=== PATIENT | female | born 1990 | race Caucasian/White ===

== ENCOUNTER 2020-06-11 09:33 | Outpatient (REF) | payer OTHER, SELFPAY ==
--- NOTE | 2020-06-11 09:43 | US_ITS ---
EXAMINATION: OBSTETRICAL ULTRASOUND, FIRST TRIMESTER HISTORY: 29-year-old at the 12.1 weeks of gestation NT screening COMPARISON: 05/14/2020 TECHNIQUE: Real time transabdominal imaging with color and M-mode Doppler. FINDINGS: A single, live IUP CRL of 53.2 mm c/w 12.0wks is noted. Heart Rate: 158 beats per minute. Normal yolk sac seen. NT was 1.12.mm. NB Present The embryo appears sonographically wnl for this GA. Left ovary is within normal limits. The right was not visualized. GESTATIONAL AGE: 1. Established GA: 12.1 wks 2. GA from [facility]: 12.0 wks ESTIMATED DATE OF DELIVERY: 1. Established OTTO: 12/23/2020 2. OTTO from [facility]: 12/24/2020 US/US OB 1T nuc measure IMPRESSION: 1. A single live IUP 2. Size equals dates 3. NT of 1.12 mm MFM Consultation: I reviewed the ultrasound findings along with significance of NT measurement. The NT of less than 3mm is generally reassuring. However, the sensitivity for T21 detection is only 60%. I reviewed the availability of serum aneuploidy screening which includes cell-free DNA and placental protein based tests. I discussed the sensitivity, false-positive rate, and other limitations associated with each test. I also reviewed the availability of invasive diagnostic tests that are associated small but definite risk of miscarriage. We also reviewed the differences between screening tests and diagnostic tests. After our discussion, she opted for the First trimester screening that is based on cell-free DNA or non-invasive testing (NIPT). She delivered her first child at 36 weeks, followed by a 39 week delivery without progesterone. Would not recommend progesterone for this . However, monitoring her cervical length at the time of the survey and at 24 weeks of GA is suggested. A follow up at [email or web address] weeks for survey is recommended. Thank you very much for this referral. Majority of this visit was spent reviewing her care and counselling her in face to face time: Time spent 20 min.
== END 2020-06-11 09:34 | disposition home or self-care (01) ==
LOC: HO.US 09:33
PROVIDERS: Visit Provider Advanced Practice Midwife
DX: Z32.01 Encounter for pregnancy test, result positive (principal)
CPT/HCPCS: 76813

== ENCOUNTER 2020-06-16 10:53 | Outpatient (REF) | payer OTHER, SELFPAY ==
[2020-06-16 16:29] LABS: CT PCR NOT DETECTED (Not Detect.); NG PCR NOT DETECTED (Not Detect.)
== END 2020-06-16 10:54 | disposition home or self-care (01) ==
LOC: HO.LAB 10:53
PROVIDERS: PCP Internal Medicine; Visit Provider Advanced Practice Midwife
DX: O20.9 Hemorrhage in early pregnancy, unspecified (principal); N88.8 Other specified noninflammatory disorders of cervix uteri
CPT/HCPCS: 87491; 87591; 88142

== ENCOUNTER 2020-07-07 10:21 | Outpatient (REF) | payer OTHER, SELFPAY ==
[2020-07-08 10:59] LABS: BV Int Neg Control Negative (Negative); BV Int Pos Control Positive (Positive)
== END 2020-07-07 10:22 | disposition home or self-care (01) ==
LOC: HO.LAB 10:21
PROVIDERS: PCP Internal Medicine; Visit Provider Advanced Practice Midwife
DX: N89.8 Other specified noninflammatory disorders of vagina (principal); R30.0 Dysuria; N88.9 Noninflammatory disorder of cervix uteri, unspecified; Z34.80 Encounter for supervision of other normal pregnancy, unspecified trimester; Z34.02 Encounter for supervision of normal first pregnancy, second trimester
CPT/HCPCS: 87086; 87480; 87510; 87660; 99212

== ENCOUNTER 2020-07-14 23:51 | Emergency (ER) | payer OTHER, SELFPAY ==
[2020-07-15 00:14] VITALS: BP 141/87; PULSE 117; RESP 18; TEMP 36.6; O2SAT 100; BMI 26.2
--- NOTE | 2020-07-15 00:24 | ED.PREGNANCY ---
HPI - General Chief complaint: OB Stated complaint: Abd pain/Pressure 16 weeks Time Seen by Provider: 07/15/20 00:21 Source: patient Mode of arrival: ambulatory History of Present Illness HPI Narrative: 29-year-old female , at 17 weeks with a history of Rh negative presents with mid lower abdomen cramping for 2 - 3 days. Denies dysuria and denies hematuria. Denies nausea or vomiting. Denies dizziness. Patient states was treated with a yeast infection by her OBGYN about a week ago. Patient denies lower back pain. Patient states did not call her OBGYN. Denies vaginal bleeding Location: abdomen Severity scale (1-10): 5 Quality: Cramping Relieving factors: none Related Data Home Medications Medication Instructions Recorded Confirmed certolizumab pegol 200 mg SUBCUT Q2W 06/16/20 vitamin with calcium 1 tab PO DAILY 06/16/20 no.72-iron 27 mg-folic acid 1 mg tablet Previous Rx's Medication Instructions Recorded aspirin 81 mg tablet,delayed 162 mg PO DAILY 30 Days #60 tab 06/16/20 release miconazole nitrate 2 % vaginal 1 appful VAGINAL BEDTIME 7 Days 07/07/20 cream #45 g nystatin 100,000 unit/gram topical 1 applic TOPICAL BID #30 g 07/07/20 ointment metronidazole 500 mg tablet 500 mg PO BID 7 Days #14 tab 07/09/20 nitrofurantoin monohyd/m-cryst 100 mg PO Q12H 5 Days #10 cap 07/15/20 [Macrobid] Allergies Allergy/AdvReac Type Severity Reaction Status Date / Time acetaminophen [From TYLENOL] Allergy Unknown RASH, Verified 07/07/20 10:38 THROAT SWELLING morphine [MORPHINE] Allergy Unknown RASH, Verified 07/07/20 10:38 THROAT SWELLING , swelling oseltamivir Allergy Unknown diarrhea Verified 07/07/20 10:38 Sulfa (Sulfonamide Allergy Unknown anaphylaxis Verified 07/07/20 10:38 Antibiotics) Review of Systems Review of Systems: Constitutional : No Weight loss, No Fever, No Chills, No Night Sweats, No Fatigue, No Malaise ENT/Mouth : No Hearing loss, No Ear Pain, No Nasal Congestion, No Sinus Pain, No Hoarseness, No sore throat, No Rhinorrhea, No Swallowing Difficulty Eyes: No Eye Pain, No Swelling, No Redness, No Foreign Body, No Discharge, No Vision Changes Cardiovascular : No Chest Pain, No SOB, No Dyspnea on Exertion, No Orthopnea, No Edema, No Palpitations Respiratory : No Cough, No Sputum, No Wheezing, No Smoke Exposure, No Dyspnea Gastrointestinal : No Nausea, No Vomiting, No Diarrhea, No Constipation, No abdominal Pain, No Hematochezia, No Melena Genitourinary : no irregular bleeding, No Dysuria, No Urinary Frequency, No Hematuria, No Urinary Incontinence, No Urgency, No Flank Pain, No Urinary Flow Changes, No Hesitancy Musculoskeletal : No joint pain, No Myalgias, No Joint Swelling Skin : No Skin Lesions, No rash Neuro : No Weakness, No Numbness, No Paresthesias, No Loss of Consciousness, No Dizziness, No Headache Psych : No Anxiety/Panic, No Depression, No SI/HI/AH/VH, No Social Issues, Heme/Lymph: No Bruising, No Bleeding,No Lymphadenopathy Endocrine : No Polyuria, No Polydipsia, No Temperature Intolerance PENDING SALE TO [facility] Past Medical History Medical History Hypovitaminosis Migraine Rheumatoid arthritis Sinus tachycardia Surgical History No history of previous surgery Family History Family History Maternal Aunt History of breast cancer in female Father Family hx of hypertension Hx of thyroid disease Maternal Grandfather Family hx of hypertension History of heart disease Maternal Grandmother Family hx of hypertension Brother History of asthma Social History Social History Alcohol intake: never Smoking Status: Never smoker Advance Directives: No Advance Directives Information Provided: No Gender identity: female Physical Exam Vital Signs: Vital Signs: Last Vital Signs Temp 97.8 F 07/15/20 00:14 Pulse 117 H 07/15/20 00:14 Resp 18 07/15/20 00:14 BP 141/87 H 07/15/20 00:14 Pulse Ox 100 07/15/20 00:14 Body Mass Index 26.2 Vital signs reviewed Appearance: Alert. Oriented X3. No acute distress. Eyes: Pupils equal, round and reactive to light. ENT: Pharynx normal. Neck: Normal inspection. Neck supple. No lymph nodes noted. No crepitus CVS: Normal heart rate and rhythm. Pulses normal. Normal S1 and S2 Respiratory: No respiratory distress. Breath sounds normal. No Wheezing. No rales Abdomen: Soft and nontender. No rigidity. No distention. good BS x4 Skin: Skin warm and dry. Normal skin color. Normal skin turgor. Extremities: No lower extremity edema. Neurovascular intact to all extremities. No Lacerations. No Rash Neuro: Oriented X 3. No motor deficit. No sensory deficit. Moving all extermities. No slurred speech. Course Course Course Narrative: I performed bedside ultrasound with heart tones 140s, positive activity and movement MDM - OB/Uterine Contractions MDM Narrative Medical decision making narrative: 29-year-old female at 17 weeks . Mild UTI. Cramping with ultrasound bedside heart tone approximately 140s with movement. Laboratory were negative. No bloody urine will hold off on given RhoGAM. Patient were to follow-up with OBGYN in the morning and hydrated Lab Data Attestation: I reviewed the patient's lab results. Result diagrams: 07/15/20 00:21 07/15/20 00:30 Labs: Lab Results 07/15/20 07/15/20 07/15/20 Range/Units 00:21 00:25 00:30 WBC 10.0 (4.8-10.8) X10*3/uL RBC 3.82 L (4.20-5.50) X10*6/uL Hgb 11.3 L (12.0-16.0) g/dl Hct 33.9 L (37-47) % MCV 88.7 (80-98) fL MCH 29.6 (27.0-33.0) pg MCHC 33.3 (31.0-35.0) g/dl RDW 12.2 (11.0-16.0) % Plt Count 267 (160-400) X10*3/uL MPV 10.2 (9.4-12.3) fL Immature Gran % (Auto) 0.4 (0.0-0.4) % Neut % (Auto) 73.1 H (45-73) % Lymph % (Auto) 15.4 L (20-40) % [place] % (Auto) 7.1 (2-11) % Eos % (Auto) 3.5 (0-4) % Baso % (Auto) 0.5 (0-2) % Lymph # (Auto) 1.5 (1.2-4.9) X10*3/uL [place] # (Auto) 0.7 (0.1-1.2) X10*3/uL Eos # (Auto) 0.4 (0.0-0.4) X10*3/uL Baso # (Auto) 0.1 (0.0-0.2) X10*3/uL Abs Immat Gran (auto) 0.04 H (0.00-0.03) X10*3/uL Absolute Neuts (auto) 7.3 (2.0-8.3) X10*3/uL Absolute Nucleated RBC 0.000 (0.0-0.012) X10*3/uL Nucleated RBC % (auto) 0.0 (0.0-0.2) /100WBC Sodium 135 (135-145) mmol/L Potassium 3.9 (3.3-5.1) mmol/l Chloride 103 (96-108) mmol/L Carbon Dioxide 24 (22-29) mmol/L Anion Gap 12 (12-20) BUN 7 L (9-16) mg/dL Creatinine 0.61 (0.5-1.4) mg/dL Estim Creat Clear Calc 116.8 Estimated GFR > 60 Random Glucose 92 (60-115) mg/dL Calcium 8.6 (8.4-10.2) mg/dL Total Bilirubin < 0.2 (0.0-1.0) mg/dL Direct Bilirubin < 0.2 (0.0-0.5) mg/dL AST 18 (5-31) U/L ALT 14 (0-31) U/L Alkaline Phosphatase 60 (39-117) U/L Total Protein 6.9 (6.5-8.0) g/dL Albumin 4.0 (3.5-5.0) g/dL Urine Color YELLOW Urine Appearance HAZY Urine pH 7.5 (5.0-8.0) Ur Specific [place] 1.020 (1.005-1.025) Urine Protein NEG (NEG-TRACE) MG/DL Urine Glucose (UA) NEG (NEG) MG/DL Urine Ketones 5 (NEG) MG/DL Urine Blood NEG (NEG) Urine Nitrite NEG (NEG) Ur Leukocyte Esterase 1+ H (NEG) Urine RBC 0 (0) /HPF Urine WBC 0-2 (0-4) /HPF Ur Squamous Epith Cells 1+ /LPF Amorphous Sediment 2+ /LPF Urine Bacteria NONE /LPF Urine Mucus 1+ /LPF Discharge Plan Discharge Clinical Impression: Urinary tract infection during Qualifiers: Trimester: second trimester Qualified Code(s): O23.42 - Unspecified infection of urinary tract in , second trimester Patient Disposition: Home, Self-Care Instructions: Urinary Tract Infection in (ED) Additional Instructions: Thank you for visiting the emergency department today. If your symptoms worsen or do not resolve completely please return to the emergency department immediately or call 911. If you have any questions please call your primary care physician Prescriptions: New nitrofurantoin monohyd/m-cryst [Macrobid] 100 mg capsule 100 mg PO Q12H 5 Days Qty: 10 RF: 0 No Action metronidazole [Flagyl] 500 mg tablet 500 mg PO BID 7 Days Qty: 14 RF: 0 aspirin [Adult Low Dose Aspirin] 81 mg tablet,delayed release (DR/EC) 162 mg PO DAILY 30 Days Qty: 60 RF: 7 nystatin 100,000 unit/gram ointment 1 applic topical BID Qty: 30 RF: 0 miconazole nitrate [Monistat 7] 2 % cream 1 appful vaginal BEDTIME 7 Days Qty: 45 RF: 0 Referrals: Luci Unger MD [Primary Care Provider] - 2 days Interventions: ED Discharge Assessment Last Done: 07/15/20 03:01 Discharge Date/Time: 07/15/20 03:10 Print Language: Samoan
[2020-07-15 00:45] LABS: Basophils Absolute Auto 0.1 X10*3/uL (0.0-0.2); Basophils Percent Auto 0.5 % (0-2); Eosinophils Absolute Auto 0.4 X10*3/uL (0.0-0.4); Eosinophils Percent Auto 3.5 % (0-4); Hematocrit 33.9 % (37-47); Hemoglobin 11.3 g/dl (12.0-16.0); Imm Gran Abs Auto 0.04 X10*3/uL (0.00-0.03); Imm Gran Pct Auto 0.4 % (0.0-0.4); Lymphocytes Absolute Auto 1.5 X10*3/uL (1.2-4.9); Lymphocytes Percent Auto 15.4 % (20-40); MANUAL DIFF FLAG NO; Mean Corpuscular HGB Conc 33.3 g/dl (31.0-35.0); Mean Corpuscular Hemoglobin 29.6 pg (27.0-33.0); Mean Corpuscular Volume 88.7 fL (80-98); Mean Platelet Volume 10.2 fL (9.4-12.3); Monocytes Absolute Auto 0.7 X10*3/uL (0.1-1.2); Monocytes Percent Auto 7.1 % (2-11); Neutrophils Absolute Auto 7.3 X10*3/uL (2.0-8.3); Neutrophils Percent Auto 73.1 % (45-73); Platelet Count 267 X10*3/uL (160-400); Red Blood Count 3.82 X10*6/uL (4.20-5.50); Red Cell Distribution Width 12.2 % (11.0-16.0)
[2020-07-15] MEDS: 0.9 % Sodium Chloride 1,000 ML 999 ML IVCONT (00:45)
[2020-07-15 00:47] LABS: Appearance Urine HAZY; Color Urine YELLOW; Glucose Urine UA NEG (NEG); Leukocyte Esterase Urine 1+ (NEG); Nitrite Urine NEG (NEG); PH 7.5 (5.0-8.0); Urine Blood NEG (NEG); Urine Ketones 5 MG/DL (NEG); Urine Protein NEG (NEG-TRACE)
[2020-07-15 01:04] LABS: Amorphous Sediment Urine 2+ /LPF; Mucus Urine 1+ /LPF; RBC Urine 0 /HPF (0); Squamous Epithelial Cell Urine 1+ /LPF; WBC Urine 0-2 /HPF (0-4)
[2020-07-15 01:50] LABS: Alanine Aminotransferase 14 U/L (0-31); Alkaline Phosphatase 60 U/L (39-117); Anion Gap 12 (12-20); Aspartate Amino Transferase 18 U/L (5-31); Bilirubin Direct < 0.2 mg/dL (0.0-0.5); Bilirubin Total < 0.2 mg/dL (0.0-1.0); Blood Urea Nitrogen 7 mg/dL (9-16); Calcium 8.6 mg/dL (8.4-10.2); Carbon Dioxide 24 mmol/L (22-29); Chloride 103 mmol/L (96-108); Creatinine Clr Calc Pharmacy 116.8; Estimated Glomerular Filt Rate > 60; Glucose Random 92 mg/dL (60-115); Potassium 3.9 mmol/l (3.3-5.1); Sodium 135 mmol/L (135-145); Total Protein 6.9 g/dL (6.5-8.0)
[2020-07-15] MEDS: Nitrofurantoin Monohyd/M-Cryst 100 MG CAPSULE PO (03:07)
== END 2020-07-15 03:10 | disposition home or self-care (01) ==
PROVIDERS: Emergency Provider Emergency Medicine; PCP Internal Medicine
DX: O26.92 Pregnancy related conditions, unspecified, second trimester (principal); O23.42 Unspecified infection of urinary tract in pregnancy, second trimester; Z3A.16 16 weeks gestation of pregnancy
CPT/HCPCS: 36415; 80048; 80076; 81001; 85025; 87086; 87147; 96360; 99283; 99284

== ENCOUNTER 2020-07-30 13:11 | Outpatient (REF) | payer OTHER, SELFPAY ==
--- NOTE | 2020-07-30 | US_ITS ---
EXAMINATION: US OBSTETRICAL CLINICAL INFORMATION: 29-year-old at 19.1 weeks of gestation History of delivery Suspected anomaly COMPARISON: 06/11/2020 TECHNIQUE: Real-time transabdominal ultrasound was performed using C1-5 megahertz transducer. Transvaginal ultrasound was performed using an endovaginal probe. FINDINGS: A single, active, fetus is seen in transverse presentation. The placenta is anterior without previa, and the amniotic fluid volume is wnl. MEASUREMENTS: 1. Biparietal Diameter: 4.3 cm; 19.1 wks 2. Occipital Frontal Diameter: 5.5 cm 3. Head Circumference: 16.0 cm; 19.0 wks 4. Abdominal Circumference: 14.7 cm; 20.1 wks 5. Femur Length: 2.9 cm; 19.0 wks 6. Humerus Length: 2.96 cm; 19.5 wks 7. Tibia Length: 2.4 cm; 18.5 wks 8. Ulna Length: 2.56 cm; 18.2 wks 9. Lateral ventricle: 0.69 cm 10. Cerebellum: 1.97 cm; 20.1 wks 11. Cisterna Magna: 0.52 cm 12. Nuchal Fold: 3.93 mm 13. Heart Rate: 146 beats per minute Rt ovary: normal Lt ovary: normal Cervical length 4.3 cm on T/V. There is no funneling or beaking. GESTATIONAL AGE: 1. Established GA: 19.1 wks 2. GA from [facility]: 19.3 wks ESTIMATED DATE OF DELIVERY: 1. Established OTTO: 12/23/2020 2. OTTO from [facility]: 12/21/2020 ANATOMY: The visualized anatomy includes but not limited to: 1. Cranium: Normal 2. Intracranial anatomy: cavum septum pellucidi, lateral ventricles, choroid plexus, cerebellum, posterior fossa, third and fourth ventricles. 3. face: orbits, lip/palate, profile, nasal bone 4. Heart: four-chamber view of the heart, ventricular septum, foramen ovale, pulmonary vein, left and right outflow tracts, three-vessel view, 3 vessel trachea view, aortic and ductal arches, situs.. 5. Diaphragm: Normal 6. Abdominal wall: Normal 7. Cord Insertion: Normal 8. Spine: Cervical, thoracic, lumbar, sacral. 9. Stomach: Normal size and shape 10. Right Kidney: Normal 11. Left Kidney: Normal 12. 3 vessel cord: Normal 13. Upper extremity: Open hands, fifth digit. 14. Lower extremity: Tibia, fibula, bilateral feet. 15. Bladder: Normal 16. Genitalia: Male, patient aware US/US OB transvaginal IMPRESSION: 1. Single, living, intrauterine with appropriate biometry. 2. Normal survey 3. Normal cervical length without funneling DISCUSSION: I reviewed today's ultrasound findings. We discussed the limitations of ultrasound in diagnosing aneuploidy and other congenital abnormalities. I reviewed the differences between screening test and diagnostic test. Amniocentesis was discussed and declined. We discussed the inverse relationship between the risk of delivery and cervical length. Given her history, I recommend monthly cervical length evaluation until approximately 28 weeks. If the cervical length shortness prematurely, vaginal progesterone suppository daily at that time should be offered. She was informed that the baseline incidence of congenital abnormalities is approximately 3-5%. Not all these conditions are diagnosable in utero. RECOMMENDATIONS: 1. Follow-up in 4 weeks (scheduled). Thank you for allowing me to participate in her care. Visiting time 40 minutes. Majority of this visit was spent reviewing and discussing her care.
--- NOTE | 2020-07-30 13:16 | US_ITS ---
EXAMINATION: US OBSTETRICAL CLINICAL INFORMATION: 29-year-old at 19.1 weeks of gestation History of delivery Suspected anomaly COMPARISON: 06/11/2020 TECHNIQUE: Real-time transabdominal ultrasound was performed using C1-5 megahertz transducer. Transvaginal ultrasound was performed using an endovaginal probe. FINDINGS: A single, active, fetus is seen in transverse presentation. The placenta is anterior without previa, and the amniotic fluid volume is wnl. MEASUREMENTS: 1. Biparietal Diameter: 4.3 cm; 19.1 wks 2. Occipital Frontal Diameter: 5.5 cm 3. Head Circumference: 16.0 cm; 19.0 wks 4. Abdominal Circumference: 14.7 cm; 20.1 wks 5. Femur Length: 2.9 cm; 19.0 wks 6. Humerus Length: 2.96 cm; 19.5 wks 7. Tibia Length: 2.4 cm; 18.5 wks 8. Ulna Length: 2.56 cm; 18.2 wks 9. Lateral ventricle: 0.69 cm 10. Cerebellum: 1.97 cm; 20.1 wks 11. Cisterna Magna: 0.52 cm 12. Nuchal Fold: 3.93 mm 13. Heart Rate: 146 beats per minute Rt ovary: normal Lt ovary: normal Cervical length 4.3 cm on T/V. There is no funneling or beaking GESTATIONAL AGE: 1. Established GA: 19.1 wks 2. GA from [facility]: 19.3 wks ESTIMATED DATE OF DELIVERY: 1. Established OTTO: 12/23/2020 2. OTTO from [facility]: 12/21/2020 ANATOMY: The visualized anatomy includes but not limited to: 1. Cranium: Normal 2. Intracranial anatomy: cavum septum pellucidi, lateral ventricles, choroid plexus, cerebellum, posterior fossa, third and fourth ventricles. 3. face: orbits, lip/palate, profile, nasal bone 4. Heart: four-chamber view of the heart, ventricular septum, foramen ovale, pulmonary vein, left and right outflow tracts, three-vessel view, 3 vessel trachea view, aortic and ductal arches, situs.. 5. Diaphragm: Normal 6. Abdominal wall: Normal 7. Cord Insertion: Normal 8. Spine: Cervical, thoracic, lumbar, sacral. 9. Stomach: Normal size and shape 10. Right Kidney: Normal 11. Left Kidney: Normal 12. 3 vessel cord: Normal 13. Upper extremity: Open hands, fifth digit. 14. Lower extremity: Tibia, fibula, bilateral feet. 15. Bladder: Normal 16. Genitalia: Male, patient aware US/US OB /maternal detail IMPRESSION: 1. Single, living, intrauterine with appropriate biometry. 2. Normal survey Normal cervical length without funneling DISCUSSION: I reviewed today's ultrasound findings. We discussed the limitations of ultrasound in diagnosing aneuploidy and other congenital abnormalities. I reviewed the differences between screening test and diagnostic test. Amniocentesis was discussed and declined. We discussed the inverse relationship between the risk of delivery and cervical length. Given her history, I recommend monthly cervical length evaluation until approximately 28 wks. If the cervical length shortens prematurely, vaginal progesterone suppository daily at bedtime should be offered. She was informed that the baseline incidence of congenital abnormalities is approximately 3-5%. Not all these conditions are diagnosable in utero. RECOMMENDATIONS: 1. f/u in 4 wks (scheduled). Thank you for allowing me to participate in her care. Visiting time 40 minutes. Majority of this visit was spent reviewing and discussing her care.
== END 2020-07-30 13:12 | disposition home or self-care (01) ==
LOC: HO.US 13:11
PROVIDERS: Visit Provider Advanced Practice Midwife
DX: Z34.80 Encounter for supervision of other normal pregnancy, unspecified trimester (principal); Z36.3 Encounter for antenatal screening for malformations
CPT/HCPCS: 76811; 76817

== ENCOUNTER → 2020-08-04 11:07 | Outpatient (BNVA) | payer OTHER, SELFPAY | PROVIDERS: PCP Internal Medicine; Visit Provider Advanced Practice Midwife | DX: Z13.89 Encounter for screening for other disorder (principal) ==

== ENCOUNTER 2020-09-01 12:49 | Outpatient (REF) | payer OTHER, SELFPAY ==
[2020-09-02 10:31] LABS: BV Int Neg Control Negative (Negative); BV Int Pos Control Positive (Positive)
[2020-09-03 19:17] LABS: C. trachomatis RNA TMA NOT DETECTED (NOT DETECTED); N. gonorrhoeae RNA TMA NOT DETECTED (NOT DETECTED)
== END 2020-09-01 12:50 | disposition home or self-care (01) ==
LOC: HO.LAB 12:49
PROVIDERS: Visit Provider Advanced Practice Midwife
DX: O26.859 Spotting complicating pregnancy, unspecified trimester (principal); O34.40 Maternal care for other abnormalities of cervix, unspecified trimester; N88.9 Noninflammatory disorder of cervix uteri, unspecified; N88.8 Other specified noninflammatory disorders of cervix uteri
CPT/HCPCS: 36415; 81003; 87480; 87491; 87510; 87591; 87660; 99212

== ENCOUNTER 2020-09-03 12:43 | Outpatient (REF) | payer OTHER, SELFPAY ==
--- NOTE | 2020-09-03 | US_ITS ---
EXAMINATION: OBSTETRICAL ULTRASOUND, Follow up HISTORY: 29-year-old at the 24.1 weeks of gestation Size date discrepancy Cervical lesion Hx of PTD Hx of Lupus COMPARISON: 07/30/2020 TECHNIQUE: Real time transabdominal imaging with color and M-mode Doppler. Transvaginal ultrasound was performed using the endovaginal probe. PRESENTATION: Breech PLACENTA LOCATION: Anterior AMNIOTIC FLUID: Normal MEASUREMENTS: 1. Biparietal Diameter: 5.84 cm; 24.0 wks 2. Head Circumference: 22.7 cm; 24.5 wks 3. Abdominal Circumference: 19.9 cm; 24.5 wks 4. Femur Length: 4.1 cm; 23.3 wks 5. Heart Rate: 146 beats per minute WEIGHT: Estimated weight is 659 grams (1 lbs 7 oz) -- 38 %. Normal views of lateral cerebral ventricle, nose/lips, 4ch view. GESTATIONAL AGE: 1. Established GA: 24.1 wks 2. GA from [facility]: 24.2 wks ESTIMATED DATE OF DELIVERY: 1. Established OTTO: 12/23/2020 2. OTTO from [facility]: 12/22/2020 Transvaginal ultrasound showed cervical length 4.4 cm. Nabothian cyst was seen on the anterior lip of the cervix. There is no evidence of cervical polyp or fibroid. No solid mass through the external os. In the posterior fornix there appears to be a soft tissue mass measuring 2.6 x 1.3 x 3.2 cm. The mass is avascular and has irregular borders. Suggestive of vaginal polyp or cervical fibroid arising from the posterior surface of the cervix (less likely). US/US OB transvaginal IMPRESSION: 1. A single fetus with appropriate interval growth. 2. Normal cervical length 3. Soft tissue mass in the posterior fornix suggestive of vaginal polyp. I reviewed the ultrasound findings and informed her cervical length is wnl and there is not mass in the cervical canal or external os. The soft mass since in the posterior fornix has irregular borders but appears to lack a vascular stalk. It is suggestive of vaginal polyp or HPV lesion. Clinical correlation is recommended. She has lupus that is well controlled. She was taking certolizumab but discontinued once became . During , there is more human safety data with Plaquenil or prednisone. However, limited human data on use of monoclonal antibody appears reassuring and can be used if the other agents are not effective. In general, immunomodulators should be avoided during . The findings were discussed with Loren Slaughter CNM. No further ultrasound appointment was made today. RECOMMENDATIONS: 1. f/u PRN Thank you very much for this referral. Total time 31 (4, 15, 12) minutes.
== END 2020-09-03 12:44 | disposition home or self-care (01) ==
LOC: HO.US 12:43
PROVIDERS: Visit Provider Advanced Practice Midwife
DX: O34.42 Maternal care for other abnormalities of cervix, second trimester (principal); O26.842 Uterine size-date discrepancy, second trimester; O09.212 Supervision of pregnancy with history of pre-term labor, second trimester; O99.112 Other diseases of the blood and blood-forming organs and certain disorders involving the immune mechanism complicating pregnancy, second trimester; M32.9 Systemic lupus erythematosus, unspecified; Z3A.24 24 weeks gestation of pregnancy
CPT/HCPCS: 76816; 76817

== ENCOUNTER 2020-09-22 13:07 | Outpatient (REF) | payer OTHER, SELFPAY ==
[2020-09-23 11:58] LABS: C. trachomatis RNA TMA NOT DETECTED (NOT DETECTED); N. gonorrhoeae RNA TMA NOT DETECTED (NOT DETECTED)
== END 2020-09-22 13:08 | disposition home or self-care (01) ==
LOC: HO.LAB 13:07
PROVIDERS: PCP Internal Medicine; Visit Provider Advanced Practice Midwife
DX: O26.899 Other specified pregnancy related conditions, unspecified trimester (principal); R35.0 Frequency of micturition
CPT/HCPCS: 36415; 87086; 87491; 87591

== ENCOUNTER → 2020-09-23 12:11 | Outpatient (BNVA) | payer OTHER, SELFPAY | PROVIDERS: Visit Provider Obstetrics & Gynecology | DX: Z76.89 Persons encountering health services in other specified circumstances (principal) | CPT/HCPCS: 99212 ==

== ENCOUNTER 2020-09-29 13:16 | Outpatient (REF) | payer OTHER, SELFPAY ==
[2020-09-29 14:13] LABS: MANUAL DIFF FLAG NO
[2020-09-29 14:30] LABS: Basophils Percent Auto 0.4 % (0-2); Eosinophils Absolute Auto 0.1 X10*3/uL (0.0-0.4); Eosinophils Percent Auto 1.3 % (0-4); Hematocrit 32.2 % (37-47); Hemoglobin 10.7 g/dl (12.0-16.0); Imm Gran Abs Auto 0.15 X10*3/uL (0.00-0.03); Imm Gran Pct Auto 1.5 % (0.0-0.4); Lymphocytes Percent Auto 10.2 % (20-40); Mean Corpuscular HGB Conc 33.2 g/dl (31.0-35.0); Mean Corpuscular Hemoglobin 29.9 pg (27.0-33.0); Mean Corpuscular Volume 89.9 fL (80-98); Monocytes Absolute Auto 0.7 X10*3/uL (0.1-1.2); Monocytes Percent Auto 6.7 % (2-11); Neutrophils Absolute Auto 7.8 X10*3/uL (2.0-8.3); Neutrophils Percent Auto 79.9 % (45-73); Platelet Count 384 X10*3/uL (160-400); Red Blood Count 3.58 X10*6/uL (4.20-5.50); Red Cell Distribution Width 12.3 % (11.0-16.0); White Blood Count 9.7 X10*3/uL (4.8-10.8)
[2020-09-29 14:58] LABS: Syphilis Screen Nonreactive (Nonreactive)
[2020-09-30 12:47] LABS: C. trachomatis RNA TMA NOT DETECTED (NOT DETECTED); N. gonorrhoeae RNA TMA NOT DETECTED (NOT DETECTED)
== END 2020-09-29 13:17 | disposition home or self-care (01) ==
LOC: HO.LAB 13:16
PROVIDERS: PCP Internal Medicine; Visit Provider Obstetrics & Gynecology
DX: Z34.80 Encounter for supervision of other normal pregnancy, unspecified trimester (principal)
CPT/HCPCS: 36415; 85025; 86780; 86850; 87491; 87591

== ENCOUNTER → 2020-10-06 13:47 | Outpatient (BNVA) | payer OTHER, SELFPAY | PROVIDERS: PCP Internal Medicine; Visit Provider Advanced Practice Midwife | DX: O26.899 Other specified pregnancy related conditions, unspecified trimester (principal); Z67.91 Unspecified blood type, Rh negative | CPT/HCPCS: 96372; 99211 ==

== ENCOUNTER 2020-10-11 10:01 | Outpatient (REF) | payer OTHER, SELFPAY ==
[2020-10-11 12:12] LABS: Glucose 1 Hour PP 50gm Dose 115 mg/dL (60-140)
[2020-10-12 11:07] LABS: C. trachomatis RNA TMA NOT DETECTED (NOT DETECTED); N. gonorrhoeae RNA TMA NOT DETECTED (NOT DETECTED)
== END 2020-10-11 10:02 | disposition home or self-care (01) ==
LOC: HO.LAB 10:01
PROVIDERS: PCP Internal Medicine; Visit Provider Obstetrics & Gynecology
DX: O26.899 Other specified pregnancy related conditions, unspecified trimester (principal); N88.9 Noninflammatory disorder of cervix uteri, unspecified; Z3A.00 Weeks of gestation of pregnancy not specified
CPT/HCPCS: 36415; 86850; 86870; 86885; 86886; 87491; 87591

== ENCOUNTER → 2020-10-13 13:33 | Outpatient (BNVA) | payer OTHER, SELFPAY | PROVIDERS: PCP Internal Medicine; Visit Provider Advanced Practice Midwife | DX: Z34.80 Encounter for supervision of other normal pregnancy, unspecified trimester (principal) | CPT/HCPCS: 81003; 90471; 90715; 99212 ==

== ENCOUNTER → 2020-10-27 14:19 | Outpatient (BNVA) | payer OTHER, SELFPAY | PROVIDERS: Visit Provider Obstetrics & Gynecology | DX: Z34.80 Encounter for supervision of other normal pregnancy, unspecified trimester (principal); Z3A.31 31 weeks gestation of pregnancy | CPT/HCPCS: 99212 ==

== ENCOUNTER → 2020-11-10 15:13 | Outpatient (BNVA) | payer OTHER, SELFPAY | PROVIDERS: Visit Provider Obstetrics & Gynecology | DX: Z34.80 Encounter for supervision of other normal pregnancy, unspecified trimester (principal); Z3A.33 33 weeks gestation of pregnancy | CPT/HCPCS: 81003; 99212 ==

== ENCOUNTER 2020-11-24 14:21 | Outpatient (REF) | payer OTHER, SELFPAY ==
[2020-11-25 08:49] LABS: CT PCR NOT DETECTED (Not Detect.); NG PCR NOT DETECTED (Not Detect.)
[2020-11-25 09:19] LABS: BV Int Neg Control Negative (Negative); BV Int Pos Control Positive (Positive)
== END 2020-11-24 14:22 | disposition home or self-care (01) ==
LOC: HO.LAB 14:21
PROVIDERS: PCP Internal Medicine; Visit Provider Advanced Practice Midwife
DX: O26.893 Other specified pregnancy related conditions, third trimester (principal); N88.9 Noninflammatory disorder of cervix uteri, unspecified; O98.913 Unspecified maternal infectious and parasitic disease complicating pregnancy, third trimester; O98.813 Other maternal infectious and parasitic diseases complicating pregnancy, third trimester; B95.1 Streptococcus, group B, as the cause of diseases classified elsewhere; O99.343 Other mental disorders complicating pregnancy, third trimester; F41.9 Anxiety disorder, unspecified; O13.1 Gestational [pregnancy-induced] hypertension without significant proteinuria, first trimester; O24.419 Gestational diabetes mellitus in pregnancy, unspecified control; Z36.3 Encounter for antenatal screening for malformations; Z86.19 Personal history of other infectious and parasitic diseases; Z3A.35 35 weeks gestation of pregnancy
CPT/HCPCS: 81003; 87081; 87480; 87491; 87510; 87591; 87660; 99212

== ENCOUNTER 2020-11-26 09:16 | Outpatient (REF) | payer OTHER, SELFPAY ==
--- NOTE | ~2020-11-26 | US_ITS ---
EXAMINATION: OBSTETRICAL ULTRASOUND, Follow up HISTORY: 30-year-old at the 36.1 weeks of gestation Decreased amniotic fluid volume COMPARISON: 09/03/2020 TECHNIQUE: Real time transabdominal imaging with color and M-mode Doppler. PRESENTATION: Vertex PLACENTA LOCATION: Anterior without previa AMNIOTIC FLUID: JUVE 12.6 cm MEASUREMENTS: 1. Biparietal Diameter: 8.6 cm; 34.6 wks 2. Head Circumference: 32.1 cm; 36.2 wks 3. Abdominal Circumference: 33.6 cm; 37.4 wks 4. Femur Length: 6.9 cm; 35.3 wks 5. Heart Rate: 158 beats per minute WEIGHT: EFW: 2959 grams (6 lbs 8 oz) -- 2 %. BIOPHYSICAL PROFILE: Motion: 2 Tone: 2 Breathin Amniotic Fluid: 2 Total score: 8/8 GESTATIONAL AGE: 1. Established GA: 36.1 wks 2. GA from [facility]: 36.1 wks ESTIMATED DATE OF DELIVERY: 1. Established OTTO: 12/23/2020 2. OTTO from [facility]: 12/23/2020 US/US OB follow up IMPRESSION: 1. A single active fetus is in vertex presentation 2. Size equals dates 3. JUVE of 12.6 cm and the reassuring biophysical profile I reviewed today's ultrasound findings and gave her reassurance. We discussed the limitations of ultrasound and estimating weights as well as amniotic fluid volume. On today's examination, the amniotic fluid volume appeared to be within normal limits. At the time of the survey, the small irregularly-shaped soft tissue mass was noted in the posterior fornix/vaginal canal. This was not seen today due to the position of the head. Suggest the visual inspection of the posterior vaginal canal after delivery. No further ultrasound has been scheduled. Thank you very much for this referral. Total time 30 minutes. The time spent was devoted to counseling the patient about the disease and diagnosis, coordinating care including reviewing her records, pertinent lab data and studies, as well as discussing diagnostic evaluation and workup, plan therapeutic interventions and future disposition of care. This includes any additional research needed to obtain further information in formulating the plan of care of this patient. This note was generated with a voice recognition program. Please excuse any errors which may have been overlooked during my review of this note. Sometimes these errors may affect the content or meaning of a given sentence.
== END 2020-11-26 09:17 | disposition home or self-care (01) ==
LOC: HO.US 09:16
PROVIDERS: PCP Internal Medicine; Visit Provider Advanced Practice Midwife
DX: Z36.3 Encounter for antenatal screening for malformations (principal); O26.899 Other specified pregnancy related conditions, unspecified trimester; N88.9 Noninflammatory disorder of cervix uteri, unspecified
CPT/HCPCS: 76816

== ENCOUNTER 2021-04-16 11:25 | Outpatient (REF) | payer OTHER, SELFPAY ==
[2021-04-16 13:37] LABS: MANUAL DIFF FLAG NO
[2021-04-16 13:43] LABS: Basophils Absolute Auto 0.1 X10*3/uL (0.0-0.2); Basophils Percent Auto 1.3 % (0-2); Eosinophils Absolute Auto 0.3 X10*3/uL (0.0-0.4); Eosinophils Percent Auto 6.4 % (0-4); Hematocrit 33.9 % (37-47); Hemoglobin 10.4 g/dl (12.0-16.0); Imm Gran Abs Auto 0.01 X10*3/uL (0.00-0.03); Imm Gran Pct Auto 0.2 % (0.0-0.4); Lymphocytes Absolute Auto 1.9 X10*3/uL (1.2-4.9); Mean Corpuscular HGB Conc 30.7 g/dl (31.0-35.0); Mean Corpuscular Hemoglobin 23.3 pg (27.0-33.0); Mean Corpuscular Volume 75.8 fL (80-98); Mean Platelet Volume 11.2 fL (9.4-12.3); Monocytes Absolute Auto 0.5 X10*3/uL (0.1-1.2); Monocytes Percent Auto 9.2 % (2-11); Neutrophils Absolute Auto 2.5 X10*3/uL (2.0-8.3); Neutrophils Percent Auto 47.9 % (45-73); Platelet Count 398 X10*3/uL (160-400); Red Blood Count 4.47 X10*6/uL (4.20-5.50); Red Cell Distribution Width 15.9 % (11.0-16.0); White Blood Count 5.3 X10*3/uL (4.8-10.8)
[2021-04-16 14:08] LABS: TSH reflex Free T4 0.41 uIU/mL (0.32-4.0)
== END 2021-04-16 11:26 | disposition home or self-care (01) ==
LOC: HO.HMGCLDS 11:25
PROVIDERS: PCP Internal Medicine; Visit Provider Hospitalist
DX: R53.83 Other fatigue (principal)
CPT/HCPCS: 36415; 84443; 85025

== ENCOUNTER → 2021-05-16 08:01 | Outpatient (BNVA) | payer OTHER, SELFPAY | PROVIDERS: Visit Provider Nurse Practitioner Family | DX: M06.9 Rheumatoid arthritis, unspecified (principal) | CPT/HCPCS: 99212 ==

== ENCOUNTER 2021-06-14 08:45 | Outpatient (REF) | payer OTHER, SELFPAY ==
[2021-06-14 09:07] LABS: MANUAL DIFF FLAG NO
[2021-06-14 09:23] LABS: Basophils Absolute Auto 0.1 X10*3/uL (0.0-0.2); Basophils Percent Auto 1.3 % (0-2); Eosinophils Absolute Auto 0.3 X10*3/uL (0.0-0.4); Eosinophils Percent Auto 5.8 % (0-4); Hematocrit 37.4 % (37-47); Hemoglobin 11.4 g/dl (12.0-16.0); Lymphocytes Absolute Auto 1.8 X10*3/uL (1.2-4.9); Mean Corpuscular HGB Conc 30.5 g/dl (31.0-35.0); Mean Corpuscular Hemoglobin 23.4 pg (27.0-33.0); Mean Corpuscular Volume 76.6 fL (80-98); Mean Platelet Volume 10.9 fL (9.4-12.3); Monocytes Absolute Auto 0.4 X10*3/uL (0.1-1.2); Monocytes Percent Auto 7.8 % (2-11); Neutrophils Absolute Auto 2.8 X10*3/uL (2.0-8.3); Neutrophils Percent Auto 52.1 % (45-73); Platelet Count 350 X10*3/uL (160-400); Red Blood Count 4.88 X10*6/uL (4.20-5.50); Red Cell Distribution Width 17.8 % (11.0-16.0); White Blood Count 5.4 X10*3/uL (4.8-10.8)
[2021-06-14 09:50] LABS: Alanine Aminotransferase 11 U/L (0-31); Albumin Level 4.6 g/dL (3.5-5.0); Alkaline Phosphatase 57 U/L (39-117); Anion Gap 11 (12-20); Aspartate Amino Transferase 16 U/L (5-31); Bilirubin Total 0.5 mg/dL (0.0-1.0); Blood Urea Nitrogen 10 mg/dL (9-16); C Reactive Protein 0.13 mg/dL (< or = 0.50); Calcium 9.6 mg/dL (8.4-10.2); Carbon Dioxide 26 mmol/L (22-29); Chloride 106 mmol/L (96-108); Estimated Glomerular Filt Rate > 60; Glucose Random 98 mg/dL (60-115); Potassium 4.5 mmol/L (3.3-5.1); Sodium 138 mmol/L (135-145); Total Protein 7.3 g/dL (6.5-8.0)
[2021-06-14 10:07] LABS: HBS Num1 6.01 mIU/mL (0-7.99); HBc Num1 0.06 S/CO (0.00-0.79); HBsAGNum1 0.15 S/CO (0.00-0.99); Hepatitis B Core Antibody Nonreactive (Nonreactive); Hepatitis B Surface Antigen Negative (Negative); ~Hepatitis B Surface Antibody NONREACTIVE (Nonreactive)
[2021-06-14 10:12] LABS: ~HepC Num1 0.05 S/CO (0.00-0.79); ~Hepatitis C Antibody Nonreactive (Nonreactive)
[2021-06-14 10:14] LABS: Erythrocyte Sedimentation Rate 2 MM/HR (0-20); Vitamin D 25-OH Total 29.4 ng/mL (>30)
[2021-06-15 08:31] LABS: Hepatitis A Antibody IgM 0.19 Index (0-0.79); ~Hepatitis A Antibody IgM Nonreactive (Nonreactive)
[2021-06-16 16:00] LABS: TS Negative Control Passed; TS Panel A 0; TS Panel B 0; TS Positive Control Passed; TSpotTB Negative (Negative)
== END 2021-06-14 08:46 | disposition home or self-care (01) ==
LOC: HO.LAB 08:45
PROVIDERS: PCP Internal Medicine; Visit Provider Nurse Practitioner Family
DX: Z01.84 Encounter for antibody response examination (principal); Z11.1 Encounter for screening for respiratory tuberculosis; M06.9 Rheumatoid arthritis, unspecified
CPT/HCPCS: 36415; 80053; 82306; 85025; 85652; 86140; 86481; 86704; 86706; 86709; 86803; 87340

== ENCOUNTER 2021-08-23 17:16 | Outpatient (REF) | payer OTHER, SELFPAY ==
[2021-08-23 17:32] LABS: Appearance Urine HAZY; Color Urine YELLOW; Glucose Urine UA NEG (NEG); Leukocyte Esterase Urine NEG (NEG); Nitrite Urine POS (NEG); Specific Gravity - Urine 1.015 (1.005-1.025); UACC Culture Trigger YES; Urine Blood NEG (NEG); Urine Ketones NEG (NEG); Urine Protein NEG (NEG-TRACE)
[2021-08-23 17:45] LABS: RBC Urine 0-2 /HPF (0)
[2021-08-23 17:46] LABS: Bacteria Urine 4+ /LPF; Squamous Epithelial Cell Urine 1+ /LPF
== END 2021-08-23 17:17 | disposition home or self-care (01) ==
LOC: HO.LNP 17:16
PROVIDERS: Visit Provider Nurse Practitioner Acute Care
DX: Z00.00 Encounter for general adult medical examination without abnormal findings (principal); N39.0 Urinary tract infection, site not specified
CPT/HCPCS: 81001; 87086; 87088; 87186

== ENCOUNTER 2021-10-31 11:17 | Outpatient (REF) | payer OTHER, SELFPAY ==
[2021-10-31 11:33] LABS: MANUAL DIFF FLAG NO
[2021-10-31 12:10] LABS: Basophils Absolute Auto 0.1 X10*3/uL (0.0-0.2); Eosinophils Absolute Auto 0.3 X10*3/uL (0.0-0.4); Eosinophils Percent Auto 5.6 % (0-4); Hematocrit 36.5 % (37.0-47.0); Hemoglobin 11.1 g/dl (12.0-16.0); Imm Gran Abs Auto 0.02 X10*3/uL (0.00-0.03); Imm Gran Pct Auto 0.4 % (0.0-0.4); Lymphocytes Absolute Auto 1.4 X10*3/uL (1.2-4.9); Lymphocytes Percent Auto 28.2 % (20-40); Mean Corpuscular HGB Conc 30.4 g/dl (31.0-35.0); Mean Corpuscular Hemoglobin 25.4 pg (27.0-33.0); Mean Corpuscular Volume 83.5 fL (80.0-98.0); Mean Platelet Volume 10.6 fL (9.4-12.3); Monocytes Absolute Auto 0.4 X10*3/uL (0.1-1.2); Monocytes Percent Auto 8.6 % (2-11); Neutrophils Absolute Auto 2.7 x10*3/uL (2.0-8.3); Neutrophils Percent Auto 56.2 % (45-73); Platelet Count 313 X10*3/uL (160-400); Red Blood Count 4.37 X10*6/uL (4.20-5.50); Red Cell Distribution Width 15.9 % (11.0-16.0); White Blood Count 4.8 X10*3/uL (4.8-10.8)
[2021-10-31 12:53] LABS: Anion Gap 11 (12-20); Blood Urea Nitrogen 15 mg/dL (9-16); Calcium 9.3 mg/dL (8.4-10.2); Carbon Dioxide 26 mmol/L (22-29); Chloride 106 mmol/L (96-108); Cholesterol 113 mg/dL; Estimated Glomerular Filt Rate > 60; Glucose Fasting 86 mg/dL (60-99); HDL Cholesterol 49 mg/dL; LDL Cholesterol Calculated 59 mg/dl; Potassium 4.5 mmol/L (3.3-5.1); Sodium 138 mmol/L (135-145); Triglycerides 28 mg/dL
[2021-10-31 12:57] LABS: TSH reflex Free T4 0.47 uIU/mL (0.32-4.0)
[2021-10-31 13:26] LABS: Folate 9.9 ng/mL (> or = 4.0); Vitamin B12 384 pg/mL (200-900)
[2021-11-04 13:46] LABS: Vitamin D 25-OH, D2 <4 ng/mL; Vitamin D 25-OH, D3 23 ng/mL; Vitamin D 25-OH, Total 23 ng/mL (30-100)
== END 2021-10-31 11:18 | disposition home or self-care (01) ==
LOC: HO.LAB 11:17
PROVIDERS: PCP Internal Medicine; Visit Provider Nurse Practitioner Acute Care
DX: Z00.00 Encounter for general adult medical examination without abnormal findings (principal)
CPT/HCPCS: 36415; 80048; 80061; 82306; 82607; 82746; 84443; 85025

== ENCOUNTER → 2022-01-17 11:21 | Outpatient (BNVA) | payer OTHER, SELFPAY | PROVIDERS: PCP Internal Medicine; Visit Provider Nurse Practitioner Family | DX: M06.9 Rheumatoid arthritis, unspecified (principal); E55.9 Vitamin D deficiency, unspecified | CPT/HCPCS: 99212 ==

== ENCOUNTER 2022-04-17 09:08 | Outpatient (REF) | payer OTHER, SELFPAY ==
[2022-04-17 09:20] LABS: MANUAL DIFF FLAG NO
[2022-04-17 10:39] LABS: Basophils Absolute Auto 0.1 X10*3/uL (0.0-0.2); Basophils Percent Auto 1.1 % (0-2); Eosinophils Absolute Auto 0.3 X10*3/uL (0.0-0.4); Eosinophils Percent Auto 4.8 % (0-4); Hematocrit 39.4 % (37.0-47.0); Hemoglobin 12.6 g/dl (12.0-16.0); Imm Gran Abs Auto 0.01 X10*3/uL (0.00-0.03); Imm Gran Pct Auto 0.2 % (0.0-0.4); Lymphocytes Absolute Auto 1.3 X10*3/uL (1.2-4.9); Lymphocytes Percent Auto 23.9 % (20-40); Mean Corpuscular Hemoglobin 27.5 pg (27.0-33.0); Mean Platelet Volume 11.4 fL (9.4-12.3); Monocytes Absolute Auto 0.4 X10*3/uL (0.1-1.2); Monocytes Percent Auto 7.1 % (2-11); Neutrophils Absolute Auto 3.4 x10*3/uL (2.0-8.3); Neutrophils Percent Auto 62.9 % (45-73); Platelet Count 291 X10*3/uL (160-400); Red Blood Count 4.58 X10*6/uL (4.20-5.50); Red Cell Distribution Width 14.4 % (11.0-16.0); White Blood Count 5.4 X10*3/uL (4.8-10.8)
[2022-04-17 11:21] LABS: Erythrocyte Sedimentation Rate 5 MM/HR (0-20)
[2022-04-17 11:22] LABS: Alanine Aminotransferase 13 U/L (0-31); Albumin Level 4.4 g/dL (3.5-5.0); Alkaline Phosphatase 65 U/L (39-117); Anion Gap 16 (12-20); Aspartate Amino Transferase 19 U/L (5-31); Bilirubin Total 0.5 mg/dL (0.0-1.0); Blood Urea Nitrogen 12 mg/dL (9-16); C Reactive Protein 0.37 mg/dL (< or = 0.50); Carbon Dioxide 23 mmol/L (22-29); Chloride 107 mmol/L (96-108); Estimated Glomerular Filt Rate > 60; Glucose Random 82 mg/dL (60-115); Potassium 4.7 mmol/L (3.3-5.1); Sodium 141 mmol/L (135-145); Total Protein 7.4 g/dL (6.5-8.0)
== END 2022-04-17 09:09 | disposition home or self-care (01) ==
LOC: HO.LAB 09:08
PROVIDERS: PCP Internal Medicine; Visit Provider Nurse Practitioner Family
DX: M06.9 Rheumatoid arthritis, unspecified (principal)
CPT/HCPCS: 36415; 80053; 85025; 85652; 86140

== ENCOUNTER → 2022-04-18 10:56 | Outpatient (BNVA) | payer OTHER, SELFPAY | PROVIDERS: PCP Internal Medicine; Visit Provider Nurse Practitioner Family | DX: M06.9 Rheumatoid arthritis, unspecified (principal); E55.9 Vitamin D deficiency, unspecified | CPT/HCPCS: 99212 ==

== ENCOUNTER 2022-08-29 14:11 | Outpatient (REF) | payer OTHER, SELFPAY ==
[2022-08-29 14:25] LABS: MANUAL DIFF FLAG NO
[2022-08-29 15:14] LABS: Appearance Urine Hazy; Color Urine Yellow; Glucose Urine UA Negative (Negative); Leukocyte Esterase Urine Trace (Negative); Nitrite Urine Negative (Negative); Specific Gravity - Urine 1.025 (1.005-1.025); UMIC TRIGGER UACC YES; Urine Blood Moderate (2+) (Negative); Urine Ketones Negative (Negative); Urine Protein Negative (Neg-Trace)
[2022-08-29 15:17] LABS: Basophils Absolute Auto 0.1 X10*3/uL (0.0-0.2); Basophils Percent Auto 0.6 % (0-2); Eosinophils Absolute Auto 0.3 X10*3/uL (0.0-0.4); Eosinophils Percent Auto 2.9 % (0-4); Hematocrit 38.5 % (37.0-47.0); Hemoglobin 12.2 g/dl (12.0-16.0); Imm Gran Abs Auto 0.03 X10*3/uL (0.00-0.03); Imm Gran Pct Auto 0.3 % (0.0-0.4); Lymphocytes Absolute Auto 1.3 X10*3/uL (1.2-4.9); Lymphocytes Percent Auto 14.9 % (20-40); Mean Corpuscular HGB Conc 31.7 g/dl (31.0-35.0); Mean Corpuscular Volume 88.3 fL (80.0-98.0); Mean Platelet Volume 10.9 fL (9.4-12.3); Monocytes Absolute Auto 0.7 X10*3/uL (0.1-1.2); Monocytes Percent Auto 7.9 % (2-11); Neutrophils Absolute Auto 6.5 x10*3/uL (2.0-8.3); Neutrophils Percent Auto 73.4 % (45-73); Platelet Count 265 X10*3/uL (160-400); Red Blood Count 4.36 X10*6/uL (4.20-5.50); Red Cell Distribution Width 13.7 % (11.0-16.0); White Blood Count 8.9 X10*3/uL (4.8-10.8)
[2022-08-29 15:25] LABS: Bacteria Urine None Seen (None Seen); Hyaline Casts Urine 0-2 /LPF (0-2); UACC Culture Trigger YES; WBC Urine 21-50 /HPF (0-5)
[2022-08-29 16:03] LABS: Erythrocyte Sedimentation Rate 13 MM/HR (0-20)
[2022-08-29 16:27] LABS: Alanine Aminotransferase 9 U/L (0-31); Aspartate Amino Transferase 16 U/L (5-31); C Reactive Protein 4.31 mg/dL (< or = 0.50); Estimated Glomerular Filt Rate > 60
[2022-08-29 16:45] LABS: Vitamin D 25-OH Total 24.6 ng/mL (>30)
== END 2022-08-29 14:12 | disposition home or self-care (01) ==
LOC: HO.LAB 14:11
PROVIDERS: PCP Internal Medicine; Visit Provider Nurse Practitioner Family
DX: M06.9 Rheumatoid arthritis, unspecified (principal); E55.9 Vitamin D deficiency, unspecified; Z79.899 Other long term (current) drug therapy
CPT/HCPCS: 36415; 81001; 81003; 82306; 82565; 84450; 84460; 85025; 85652; 86140; 87086

== ENCOUNTER → 2022-08-30 08:21 | Outpatient (BNVA) | payer OTHER, SELFPAY | PROVIDERS: PCP Internal Medicine; Visit Provider Nurse Practitioner Family | DX: M06.9 Rheumatoid arthritis, unspecified (principal); E55.9 Vitamin D deficiency, unspecified | CPT/HCPCS: 99212 ==

== ENCOUNTER 2022-11-30 11:34 | Outpatient (REF) | payer OTHER, SELFPAY ==
[2022-11-30 11:50] LABS: MANUAL DIFF FLAG NO
[2022-11-30 12:07] LABS: Basophils Absolute Auto 0.1 X10*3/uL (0.0-0.2); Basophils Percent Auto 0.5 % (0-2); Eosinophils Absolute Auto 0.2 X10*3/uL (0.0-0.4); Eosinophils Percent Auto 1.6 % (0-4); Hematocrit 37.8 % (37.0-47.0); Hemoglobin 12.2 g/dl (12.0-16.0); Imm Gran Abs Auto 0.19 X10*3/uL (0.00-0.03); Imm Gran Pct Auto 1.4 % (0.0-0.4); Lymphocytes Absolute Auto 1.2 X10*3/uL (1.2-4.9); Lymphocytes Percent Auto 8.3 % (20-40); Mean Corpuscular HGB Conc 32.3 g/dl (31.0-35.0); Mean Corpuscular Hemoglobin 28.2 pg (27.0-33.0); Mean Corpuscular Volume 87.5 fL (80.0-98.0); Mean Platelet Volume 10.5 fL (9.4-12.3); Monocytes Absolute Auto 0.9 X10*3/uL (0.1-1.2); Monocytes Percent Auto 6.5 % (2-11); Neutrophils Absolute Auto 11.4 x10*3/uL (2.0-8.3); Neutrophils Percent Auto 81.7 % (45-73); Platelet Count 320 X10*3/uL (160-400); Red Blood Count 4.32 X10*6/uL (4.20-5.50); Red Cell Distribution Width 13.4 % (11.0-16.0); White Blood Count 13.9 X10*3/uL (4.8-10.8)
[2022-11-30 12:36] LABS: Alanine Aminotransferase 13 U/L (0-31); Aspartate Amino Transferase 18 U/L (5-31); C Reactive Protein 0.33 mg/dL (< or = 0.50); Estimated Glomerular Filt Rate > 60
[2022-11-30 12:43] LABS: Erythrocyte Sedimentation Rate 4 MM/HR (0-20)
== END 2022-11-30 11:35 | disposition home or self-care (01) ==
LOC: HO.LAB 11:34
PROVIDERS: PCP Internal Medicine; Visit Provider Nurse Practitioner Family
DX: M06.9 Rheumatoid arthritis, unspecified (principal); Z79.899 Other long term (current) drug therapy
CPT/HCPCS: 36415; 82565; 84450; 84460; 85025; 85652; 86140

== ENCOUNTER 2023-01-02 14:15 | Outpatient (REF) | payer OTHER, SELFPAY ==
[2023-01-02 15:42] LABS: Appearance Urine Turbid; Color Urine Yellow; Glucose Urine UA Negative (Negative); Leukocyte Esterase Urine Large (3+) (Negative); Nitrite Urine Negative (Negative); PH 5.5 (5.0-9.0); Specific Gravity - Urine >= 1.030 (1.005-1.025); UMIC TRIGGER UACC YES; Urine Blood Large (3+) (Negative); Urine Ketones Trace mg/dL (Negative); Urine Protein 100 (2+) mg/dL (Neg-Trace)
[2023-01-02 15:58] LABS: Bacteria Urine Trace (None Seen); Hyaline Casts Urine 0-2 /LPF (0-2); RBC Urine >20 /HPF (0-2); UACC Culture Trigger YES; WBC Urine >50 /HPF (0-5)
== END 2023-01-02 14:16 | disposition home or self-care (01) ==
LOC: HO.LAB 14:15
PROVIDERS: PCP Internal Medicine; Visit Provider Internal Medicine
DX: R39.9 Unspecified symptoms and signs involving the genitourinary system (principal)
CPT/HCPCS: 81001; 87086; 87147

== ENCOUNTER 2023-02-09 23:47 | Emergency (ER) | payer OTHER, SELFPAY ==
--- NOTE | ~2023-02-09 | XR_ITS ---
EXAMINATION: XR CHEST CLINICAL INFORMATION: Chest pain. COMPARISON: Chest radiograph 06/23/2018. TECHNIQUE: 2 views of the chest were obtained. FINDINGS: No significant abnormality is noted involving the heart, lungs, mediastinum, bony thorax or soft tissues. XR/XR chest 2V IMPRESSION: Unremarkable examination.
[2023-02-09 23:52] VITALS: BP 103/73; PULSE 63; RESP 20; TEMP 36.4; O2SAT 100; BMI 22.5
[2023-02-10 00:48] LABS: Alanine Aminotransferase 10 U/L (0-31); Albumin Level 4.1 g/dL (3.5-5.0); Alkaline Phosphatase 64 U/L (39-117); Anion Gap 14 (12-20); Aspartate Amino Transferase 20 U/L (5-31); Bilirubin Total 0.3 mg/dL (0.0-1.0); Blood Urea Nitrogen 14 mg/dL (9-16); Calcium 9.4 mg/dL (8.4-10.2); Carbon Dioxide 24 mmol/L (22-29); Chloride 107 mmol/L (96-108); Creatinine Clr Calc Pharmacy 81.9; Estimated Glomerular Filt Rate > 60; Glucose Random 100 mg/dL (60-115); Potassium 3.8 mmol/L (3.3-5.1); Sodium 141 mmol/L (135-145); Total Protein 6.9 g/dL (6.5-8.0)
[2023-02-10 01:11] LABS: Hematocrit 35.7 % (37.0-47.0); Hemoglobin 11.7 g/dl (12.0-16.0); Mean Corpuscular HGB Conc 32.8 g/dl (31.0-35.0); Mean Corpuscular Hemoglobin 28.1 pg (27.0-33.0); Mean Corpuscular Volume 85.6 fL (80.0-98.0); Mean Platelet Volume 10.6 fL (9.4-12.3); Platelet Count 276 X10*3/uL (160-400); Red Blood Count 4.17 X10*6/uL (4.20-5.50); Red Cell Distribution Width 13.6 % (11.0-16.0); White Blood Count 7.8 X10*3/uL (4.8-10.8)
--- NOTE | 2023-02-10 01:16 | ED.SOB ---
HPI - SOB/Dyspnea General Chief Complaint: Dyspnea Stated Complaint: Diff breathing/ Abdominal Pain Time Seen by Provider: 02/10/23 00:57 History of Present Illness HPI Narrative: Patient is 32 years old presents today with having chest pain abdominal feeling short of breath. It woke her up. Symptoms been ongoing for the last 2 days. No diaphoresis good no leg swelling. No history of diabetes, hypertension, high cholesterol, smoking, mi. Positive history of rheumatoid arthritis. The no history of travel. No history of blood clot not on blood thinners. Related Data Previous Rx's Medication Instructions Recorded cholecalciferol (vitamin D3) 25 50 mcg PO DAILY #60 caps 11/04/21 mcg (1,000 unit) capsule hydroxyzine HCl 25 mg tablet 25 mg PO BEDTIME PRN itching 90 11/07/22 days #90 tabs certolizumab pegol 400 mg/2 mL 200 mg subcut Q2W #1 ea 12/15/22 (200 mg/mL x2) subcutaneous syringe kit nitrofurantoin macrocrystal 100 mg 100 mg PO BID 7 days #14 caps 01/03/23 capsule Allergies Allergy/AdvReac Type Severity Reaction Status Date / Time acetaminophen [From TYLENOL] Allergy Unknown RASH, Verified 11/07/22 16:14 THROAT SWELLING morphine [MORPHINE] Allergy Unknown RASH, Verified 11/07/22 16:14 THROAT SWELLING , swelling oseltamivir Allergy Unknown diarrhea Verified 11/07/22 16:14 Sulfa (Sulfonamide Allergy Unknown anaphylaxis Verified 11/07/22 16:14 Antibiotics) Review of Systems Review of Systems: Positive chest pain Yes all other systems are reviewed and are negative PMFSH Past Medical History Attestation statement: The following information was validated with the patient. Medical History Blurred vision, bilateral History of 2019 novel coronavirus disease (COVID-19) Hypovitaminosis Migraine Physical exam Rheumatoid arthritis Sinus tachycardia Tachycardia Surgical History History of Surgical history of tubal ligation Family History Family History Maternal Aunt History of breast cancer in female Father Family hx of hypertension Hx of thyroid disease Diabetes mellitus Maternal Grandfather Family hx of hypertension History of heart disease Maternal Grandmother Family hx of hypertension Brother History of asthma Mother No problems noted. Social History Social History Housing: Apartment Alcohol intake: never Patient Tobacco Use Status: Former Tobacco user Tobacco use type: Cigarette e-Cigarette/Vaping Use: Never Used Second Hand Smoke Exposure: No Advance Directives: No Advance Directives Information Provided: No service: No Current occupational status: employed Current occupational exposures/hazards: No Gender identity: Female Cognitive needs: No Hearing needs: No Vision needs: No Physical Exam Vital Signs: Vital Signs: Last Vital Signs Temp 98.1 F 02/10/23 01:39 Pulse 72 02/10/23 01:39 Resp 16 02/10/23 01:39 BP 110/58 L 02/10/23 01:39 Pulse Ox 97 02/10/23 01:39 O2 Del Method Room Air 02/10/23 01:39 BMI result Body Mass Index 22.5 Appearance: Alert. Oriented X3. No acute distress. Eyes: Pupils equal, round and reactive to light. ENT: Pharynx normal. Neck: Normal inspection. Neck supple. No lymph nodes noted. No crepitus CVS: Normal heart rate and rhythm. Pulses normal. Normal S1 and S2 Respiratory: No respiratory distress. Breath sounds normal. No Wheezing. No rales Abdomen: Soft and nontender. No rigidity. No distention. good BS x4 Skin: Skin warm and dry. Normal skin color. Normal skin turgor. Extremities: No lower extremity edema. Neurovascular intact to all extremities. No Lacerations. No Rash Neuro: Oriented X 3. No motor deficit. No sensory deficit. Moving all extermities. No slurred speech Medical Decision Making Medical Decision Making MDM Narrative: Positive chest pain worse with deep breath. Patient's D-dimer was negative. There is no evidence for PE in the setting of low risk. Patient's pain atypical for ACS. 32 years old no significant cardiac risk troponin negative EKG normal heart score is less than 3 will have patient follow-up on an outpatient basis. Chest x-ray was negative for any acute evidence of pneumonia pneumothorax. Will discharge patient home. Differential Diagnosis Differential Diagnoses: The differential diagnosis associated with the presentation includes Pneumonia, pneumothorax, flu, COVID, RSV, ACS Lab Data MDM Lab Attestation statement: I reviewed the patient's lab results. 02/10/23 00:27 02/10/23 00:27 Labs: Lab Results 02/10/23 02/10/23 02/10/23 Range/Units 00:27 00:27 01:44 WBC 7.8 (4.8-10.8) X10*3/uL RBC 4.17 L (4.20-5.50) X10*6/uL Hgb 11.7 L (12.0-16.0) g/dl Hct 35.7 L (37.0-47.0) % MCV 85.6 (80.0-98.0) fL MCH 28.1 (27.0-33.0) pg MCHC 32.8 (31.0-35.0) g/dl RDW 13.6 (11.0-16.0) % Plt Count 276 (160-400) X10*3/uL MPV 10.6 (9.4-12.3) fL Absolute Nucleated RBC 0.000 (0.0-0.012) X10*3/uL Nucleated RBC % (auto) 0.0 (0.0-0.2) /100WBC D-Dimer High Sensitivty < 150 NG/ML Sodium 141 (135-145) mmol/L Potassium 3.8 (3.3-5.1) mmol/L Chloride 107 (96-108) mmol/L Carbon Dioxide 24 (22-29) mmol/L Anion Gap 14 (12-20) BUN 14 (9-16) mg/dL Creatinine 0.75 (0.5-1.4) mg/dL Estim Creat Clear Calc 81.9 Estimated GFR > 60 Random Glucose 100 (60-115) mg/dL Calcium 9.4 (8.4-10.2) mg/dL Total Bilirubin 0.3 (0.0-1.0) mg/dL AST 20 (5-31) U/L ALT 10 (0-31) U/L Alkaline Phosphatase 64 (39-117) U/L Troponin I High Sens (<3.5-17.0) ng/L B-Natriuretic Peptide (<100) pg/mL Total Protein 6.9 (6.5-8.0) g/dL Albumin 4.1 (3.5-5.0) g/dL Beta HCG, Quant mIU/mL 02/10/23 02/10/23 02/10/23 Range/Units 01:44 01:44 01:44 WBC (4.8-10.8) X10*3/uL RBC (4.20-5.50) X10*6/uL Hgb (12.0-16.0) g/dl Hct (37.0-47.0) % MCV (80.0-98.0) fL MCH (27.0-33.0) pg MCHC (31.0-35.0) g/dl RDW (11.0-16.0) % Plt Count (160-400) X10*3/uL MPV (9.4-12.3) fL Absolute Nucleated RBC (0.0-0.012) X10*3/uL Nucleated RBC % (auto) (0.0-0.2) /100WBC D-Dimer High Sensitivty NG/ML Sodium (135-145) mmol/L Potassium (3.3-5.1) mmol/L Chloride (96-108) mmol/L Carbon Dioxide (22-29) mmol/L Anion Gap (12-20) BUN (9-16) mg/dL Creatinine (0.5-1.4) mg/dL Estim Creat Clear Calc Estimated GFR Random Glucose (60-115) mg/dL Calcium (8.4-10.2) mg/dL Total Bilirubin (0.0-1.0) mg/dL AST (5-31) U/L ALT (0-31) U/L Alkaline Phosphatase (39-117) U/L Troponin I High Sens < 2.7 (<3.5-17.0) ng/L B-Natriuretic Peptide 26 (<100) pg/mL Total Protein (6.5-8.0) g/dL Albumin (3.5-5.0) g/dL Beta HCG, Quant < 2 mIU/mL Independent Interpretation I performed an independent interpretation of an: EKG and Plain X-Ray Interpretation: Sinus heart rate is 60 p.o. cares QT within normal limits is no acute ST segment elevation noted. Chest x-ray grossly negative for any pneumonia pneumothorax Radiology Impression Discussion of test interpretation with radiology: I have reviewed the radiologist's reading. Discharge Plan Discharge Clinical Impression: Chest pain Patient Disposition: Home, Self-Care Instructions: Chest Pain (DC) Prescriptions: No Action cholecalciferol (vitamin D3) 25 mcg (1,000 unit) capsule 50 mcg PO DAILY Qty: 60 5RF certolizumab pegol 400 mg/2 mL (200 mg/mL x 2) syringe kit 200 mg subcut Q2W Qty: 1 2RF nitrofurantoin macrocrystal 100 mg capsule 100 mg PO BID 7 Days Qty: 14 0RF Rx Instructions: must administer with a meal/food hydroxyzine HCl 25 mg tablet 25 mg PO BEDTIME PRN (Reason: itching) 90 Days Qty: 90 0RF flu vacc [id number] 6mos up(PF) 60 mcg (15 mcg x 4)/0.5 mL syringe 0.5 ml IM ONCE Qty: 0.5 0RF Referrals: Luci Unger MD [Primary Care Provider] - 02/12/23
--- NOTE | 2023-02-10 01:22 | ECG_ITS ---
Test Reason : DYSPENA Blood Pressure : / mmHG Vent. Rate : 061 BPM Atrial Rate : 061 BPM P-R Int : 130 ms QRS Dur : 072 ms QT Int : 408 ms P-R-T Axes : 056 082 068 degrees QTc Int : 410 ms Normal sinus rhythm with sinus arrhythmia Normal ECG When compared with ECG of 06-MAR-2020 06:40, Vent. rate has decreased BY 57 BPM Referred By: Mary Bustos Electronically Signed By:MARCEL GONZALEZ
[2023-02-10 01:39] VITALS: BP 110/58; PULSE 72; RESP 16; TEMP 36.7; O2SAT 97
[2023-02-10 02:10] LABS: D Dimer High Sensitivity < 150 NG/ML
[2023-02-10 02:11] LABS: HCG Quantitative < 2 mIU/mL; Troponin-I High Sensitivity < 2.7 ng/L (<3.5-17.0)
[2023-02-10 02:21] LABS: B Type Natriuretic Peptide 26 pg/mL (<100)
== END 2023-02-10 03:28 | disposition home or self-care (01) ==
PROVIDERS: Emergency Provider Emergency Medicine Emergency Medical Services; PCP Internal Medicine
DX: R07.9 Chest pain, unspecified (principal); R06.02 Shortness of breath; Z87.891 Personal history of nicotine dependence; Z79.899 Other long term (current) drug therapy
CPT/HCPCS: 36415; 71046; 80053; 83880; 84484; 84702; 85027; 85379; 93005; 99283; 99284

== ENCOUNTER 2023-03-08 16:36 | Outpatient (AMB) | payer OTHER, SELFPAY ==
--- NOTE | 2023-03-08 16:44 | MHC.PC.OV ---
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 Accompanied by: Self / Same As Patient Allergies acetaminophen [From TYLENOL] Allergy (Unknown, Verified 03/08/23 16:57) RASH, THROAT SWELLING morphine [MORPHINE] Allergy (Unknown, Verified 03/08/23 16:57) RASH, THROAT SWELLING , swelling oseltamivir Allergy (Unknown, Verified 03/08/23 16:57) diarrhea Sulfa (Sulfonamide Antibiotics) Allergy (Unknown, Verified 03/08/23 16:57) anaphylaxis Medication List - Last Reconciled 03/08/23 by Luci Tompkins MD certolizumab pegol 200 mg subcut Q2W Tobacco use date assessed: 11/07/22 Dental Screening Dental Screen Date: 03/08/23 Did you have a dental visit in the last 12 months?: Yes Did you have a dental problem in the last 6 months where you did not have access to dental care?: No Was dental information given to patient?: Patient has dentist HPI HPI Comments History of Present Illness Details This is a 32-year-old female with rheumatoid arthritis that comes today for follow-up on her arthritis. Rheumatoid arthritis is follow by Rheumatology and has been doing well on medication. Complaints of bilateral hand pain but no deformity noted. Had an episode of chest pain that went to ER by resolve on its own. No cardiac origin. [facility] Medical History (Updated 03/08/23 @ 17:01 by Luci Tompkins MD) Blurred vision, bilateral History of 2019 novel coronavirus disease (COVID-19) Hypovitaminosis Migraine Physical exam Rheumatoid arthritis Sinus tachycardia Tachycardia Surgical History History of Surgical history of tubal ligation Family History Maternal Aunt History of breast cancer in female Father Family hx of hypertension Hx of thyroid disease Diabetes mellitus Maternal Grandfather Family hx of hypertension History of heart disease Maternal Grandmother Family hx of hypertension Brother History of asthma Mother No problems noted. Social History Housing: Apartment Alcohol intake: never Patient Tobacco Use Status: Former Tobacco user Tobacco use type: Cigarette e-Cigarette/Vaping Use: Never Used Second Hand Smoke Exposure: No service: No Current occupational status: employed Current occupational exposures/hazards: No Gender identity: Female Cognitive needs: No Hearing needs: No Vision needs: No Female Reproductive History Menstrual Age of Menarche: 12 Questionnaire Thrive Questionnaire Date Thrive assessed: 11/07/22 IMANI-7 AMB Questionnaire IMANI-7 Date IMANI - 7 assessed: 11/07/22 Source: Developed by Drs. Eyal Aranda, Yissel Rios, Hayden Bishop and colleagues, with an educational griffin from [employer]. Review of Systems Const All systems reviewed & are unremarkable except as noted in HPI and below Eyes Reports no additional complaints, Denies change in vision and Denies other visual disturbances Card Denies chest pain at rest, Denies chest pain with activity, Denies edema, Denies irregular heart rhythm, Denies claudication, Denies dyspnea, Denies dyspnea on exertion, Denies orthopnea, Denies paroxysmal nocturnal dyspnea and Denies slow heart rate Resp Denies cough, Denies dyspnea and Denies dyspnea on exertion GI Denies abdominal pain, Denies change in bowel habits, Denies excessive flatus, Denies nausea and Denies vomiting Denies urinary incontinence, Denies urinary hesitancy and Denies urinary urgency Musc Denies abnormal gait, Denies atrophy, Denies deformity and Denies limited range of motion Skin/Breast Denies bleeding lesions, Denies changing lesions and Denies rash Neuro Denies abnormal gait and Denies lack of coordination Physical exam (Primary Care) Vital Signs: Last Vital Signs BP 110/70 03/08/23 16:45 BMI result Body Mass Index 22.5 Tobacco/Smoking Status: Tobacco use Status Tobacco use date assessed 11/07/22 03/08/23 16:49 Patient Tobacco Use Status Former Tobacco user 03/08/23 16:49 Tobacco use type Cigarette 03/08/23 16:49 e-Cigarette/Vaping Use Never Used 03/08/23 16:49 Thrive Assessment: Date of Thrive Assessment Date Thrive assessed 11/07/22 03/08/23 16:49 Eyes General: appearance normal, both eyes and all related structures Eyelids: Yes eyelids normal Conjunctivae: conjunctivae normal Neck Neck: Yes normal visual inspection and Yes supple Resp Effort & Inspection: normal respiratory effort Auscultation: clear to auscultation bilaterally Cardio Jugular venous distension: no JVD Rate: regular rate Rhythm: regular rhythm Heart sounds: S1 normal heart sound present and S2 normal heart sound present Extrem General: Yes full ROM Assessment and Plan Assessment & Plan (1) Rheumatoid arthritis: Comment: Cimzia: June 2019 to present Methotrexate: Discontinued September 2019 due to age and potential Code(s): M06.9 - Rheumatoid arthritis, unspecified Plan: Continue certolizumab. Follow-up with rheumatology Orders: Orders FL upper GI series 03/08/23 R10.13 - Epigastric pain Medications: New cetirizine (Allergy Relief (cetirizine)) 10 mg PO DAILY PRN 30 tabs 0RF allergy symptoms 30 days Coding Level of Care Code Est Pt Level 3 (02915) Diagnoses Rheumatoid arthritis M06.9 Time Spent (min) 18
[2023-03-08 16:45] VITALS: BP 110/70; BMI 22.5
== END 2023-03-08 17:11 | disposition home or self-care (01) ==
PROVIDERS: Visit Provider Internal Medicine
DX: M06.9 Rheumatoid arthritis, unspecified (principal)
CPT/HCPCS: 99213

== ENCOUNTER 2023-03-13 08:36 | Outpatient (REF) | payer OTHER, SELFPAY ==
--- NOTE | ~2023-03-13 | XR_ITS ---
EXAMINATION: XR KNEE, LEFT CLINICAL INFORMATION: Rheumatoid arthritis COMPARISON: None available. TECHNIQUE: Four views of the left knee. FINDINGS: No fracture or joint effusion. Alignment is anatomic. Joint spaces are maintained. No abnormal soft tissue calcification. XR/XR knee LT 3V IMPRESSION: Normal left knee.
== END 2023-03-13 08:37 | disposition home or self-care (01) ==
LOC: HO.XRAY 08:36
PROVIDERS: PCP Internal Medicine; Visit Provider Internal Medicine Rheumatology
DX: M06.9 Rheumatoid arthritis, unspecified (principal); L60.0 Ingrowing nail; R00.2 Palpitations; Z79.899 Other long term (current) drug therapy
CPT/HCPCS: 73562; 99212

== ENCOUNTER 2023-03-13 08:36 | Outpatient (AMB) | payer OTHER, SELFPAY ==
[2023-03-13 08:38] VITALS: BP 102/74; PULSE 79; RESP 16; TEMP 36.6; O2SAT 99; BMI 22.7
--- NOTE | 2023-03-13 08:38 | MHC.OFFVIS ---
Intake Vital Signs 03/13/23 08:38 Height 5 ft 1 in Weight 120 lb BMI 22.7 BP 102/74 Blood Pressure Location Lt brachial Position Sitting Respiration 16 Pulse 79 Pulse Source Pulse Oximeter Temp 97.9 F Temp Source Skin Pulse Oximetry (%) 99 Oxygen Delivery Method Room Air Intake Visit Reasons: RA Allergies acetaminophen [From TYLENOL] Allergy (Unknown, Verified 03/13/23 08:42) RASH, THROAT SWELLING morphine [MORPHINE] Allergy (Unknown, Verified 03/13/23 08:42) RASH, THROAT SWELLING , swelling oseltamivir Allergy (Unknown, Verified 03/13/23 08:42) diarrhea Sulfa (Sulfonamide Antibiotics) Allergy (Unknown, Verified 03/13/23 08:42) anaphylaxis Medication List - Last Reconciled 03/13/23 by Tico Douglas MD certolizumab pegol 200 mg subcut Q2W cetirizine (Allergy Relief (cetirizine)) 10 mg PO DAILY PRN 30 days HPI HPI Comments History of Present Illness Details The patient presents with her for evaluation of her rheumatoid arthritis;she had last seen Eneida in August 2022. She reports some increase in joint discomfort over the past 2 months. This has involved pain in the knees, shoulders, and the wrists. Occasionally the wrists have some swelling. She notes increased pain in the joint pains afterheavy day at work. 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 She has also been experiencing some episodes of palpitations. She says these had occurred in the past. It sounds like she had echocardiogram and Holter monitoring but no pathology was determined. At present the episodes are occurring almost every day. They are accompanied by some lightheadedness and some shortness of breath. She did visit the ER with this complaint a few weeks ago. ECG showed only a sinus rhythm. There were no markers of ischemia. She remains on Cimzia 200 mg every 2 weeks for her arthritis. She feels a bit worse the day after the injection. The relates that the patient does seem to be more stressed out at work than usual. Some of these episodes of palpitations are brought on by anxious periods. [facility] Medical History (Updated 03/13/23 @ 14:10 by Tico Douglas MD) Blurred vision, bilateral History of 2019 novel coronavirus disease (COVID-19) Hypovitaminosis Migraine Physical exam Rheumatoid arthritis Sinus tachycardia Tachycardia Surgical History History of Surgical history of tubal ligation Family History Maternal Aunt History of breast cancer in female Father Family hx of hypertension Hx of thyroid disease Diabetes mellitus Maternal Grandfather Family hx of hypertension History of heart disease Maternal Grandmother Family hx of hypertension Brother History of asthma Mother No problems noted. Social History Housing: Apartment Alcohol intake: never Patient Tobacco Use Status: Former Tobacco user Tobacco use type: Cigarette e-Cigarette/Vaping Use: Never Used Second Hand Smoke Exposure: No service: No Current occupational status: employed Current occupational exposures/hazards: No Gender identity: Female Cognitive needs: No Hearing needs: No Vision needs: No Female Reproductive History Menstrual Age of Menarche: 12 Review of Systems Const Details: Feels very tired in the evenings. See seems to have trouble keeping her weight up. This is in spite of a good appetite. Negative for appetite change, fever, chills, malaise and fatigue Eyes Details: Occasional headache. Some lightheadedness occurs with the palpitations. Negative for vision change, dry eyes ENT Details: Negative for hearing change, tinnitus, oral ulcer, nose bleeds and oral dryness. Card Details: Negative chest pain, edema and syncope Resp Details: Some shortness of breath when she gets the palpitations. Otherwise in general negative for exertional SOB, cough and wheezing GI Details: Negative indigestion/heartburn, nausea, abdominal pain, bowel changes, diarrhea, constipation and bloody stool. Neuro Details: Negative for epilepsy, palsy, stroke, changes in speech, tingling and weakness Psych Details: More anxiety at work situations. Endo Details: Negative for polyuria and polydypsia Dany/Lymph Details: Negative for excessive bruising or bleeding. Physical Exam Vital Signs: Last Vital Signs Temp 97.9 F 03/13/23 08:38 Pulse 79 03/13/23 08:38 Resp 16 03/13/23 08:38 BP 102/74 03/13/23 08:38 Pulse Ox 99 03/13/23 08:38 Oxygen Delivery Method Room Air 03/13/23 08:38 BMI result Body Mass Index 22.7 APPEARANCE: Patient in no acute distress EYES no redness, pupils equal and reactive to light, eyelids normal EARS: External ear normal, canal clear and tympanic membrane normal. NOSE/SINUS: Airflow through both nares, no nasal discharge, no bleeding THROAT: Oral mucosa moist, no ulcerations NECK: No thyromegaly or masses, no adenopathy, trachea midline. HEART: Regulrar rhythm, S1-S2 heard, no murmurs, rubs or gallops. LUNG: Clear to percussion and auscultation ABD: Normal bowel sounds, no organomegaly, masses or tenderness. EXTREMITIES: No edema, no calf tenderness, normal peripheral pulses. NEURO: Oriented and alert x3. No focal weakness. Reflexes symmetric. Gait normal. SKIN: No inflammatory or neoplastic lesions. Normal color and turgor JOINT EXAM: Cervical Spine:.? Full range of motion with mild discomfort at the extremes. No tenderness. Thoracic Spine:.? No scoliosis.? No tenderness on palpation. Lumbar Spine:.? Alignment normal.? Full range of motion with slight pain at the knee degrees flexion. No tenderness. Chest Wall:.? No tenderness, swelling, increased warmth or erythema. Hands:.? Normal pain-free range of motion without tenderness, swelling, increased warmth or erythema. 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 Wrists:.? Right: Mild pain with flexion extension at 75 degrees. Slight ventral tenderness and swelling on the radial aspect. No redness or warmth. Left: Normal pain-free range of motion with some slight thickening and tenderness on the volar aspect. No redness or warmth. Elbows:. Normal pain-free range of motion without tenderness, swelling, increased warmth or erythema. Shoulders:.??Right: Mild pain with extremes of range of motion some slight anterior and posterior tenderness. No adenopathy, weakness, or swelling. Left: Mild pain with abduction at 120 degrees or with the extremes of internal or external rotation. There is some mild anterior, subacromial and posterior tenderness. Questionable abductor weakness without adenopathy or swelling. Hips:.? Full range of motion without pain. Hip bursa:.? Mild trochanteric tenderness. Knees:.? Right:? Normal pain-free range of motion without tenderness, swelling, increased warmth or erythema.? There is no effusion or crepitation. Left: Mild pain with extremes of flexion extension. Mostly this is felt on the medial aspect. There is mild medial compartment tenderness without redness or effusion. There is no popliteal swelling or tenderness. Ankles:.? Normal pain-free range of motion without tenderness, swelling, increased warmth or erythema. Feet:.? Right: Pain-free range of motion of the joints. There is some tenderness on the medial aspect of the right 1st toenail bed. There is obvious ingrown nail where with no signs of break in skin or infection. It is somewhat tender however. There is some bony enlargement without tenderness at the 1st MTP joint. Left: Some mild 1st MTP bony enlargement but otherwise normal pain-free range of motion without soft tissue tenderness, swelling, increased warmth or erythema. Tender points: Mild tenderness to digital palpation at the occiput, trapezius, lateral epicondyle, knees, greater trochanter area bilaterally. ? 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 She is having these episodes of palpitations so this could be an SVT or she could be experiencing palpitation feeling because of an anxiety problem or could be a combination of those issues. In any case the anxiety I think could be making her joints a bit more symptomatic for her. It seems the knee on the left is a recurrent problem so we will get an x-ray looking for structural problems. We will add some meloxicam 7.5 mg to 15 mg daily. She needs to have further workup on the palpitations done with probably a Holter monitor or a cardiology evaluation. She should probably pursue this through her primary since I do not know who saw her before. With the weight loss, palpitations and anxiety there is a possibility she could be hyperthyroid shakila we will check that aspect of her workup. For now she will continue with the Cimzia but we will check white count and inflammatory markers. A follow-up in about 3-4 months would be reasonable. Today's history, review of her record, and exam and discussion of treatment options took 44 minutes. Orders: Orders C Reactive Protein Today M06.9 - Rheumatoid arthritis, unspecified Erythrocyte Sedimentation Rate Today M06.9 - Rheumatoid arthritis, unspecified Thyroid Stimulating Hormone Today R00.2 - Palpitations XR knee LT 3V Today M06.9 - Rheumatoid arthritis, unspecified Referrals Podiatry Referral L60.0 - Ingrowing nail Medications: New meloxicam 7.5 mg PO BID 60 tabs 2RF M06.9 - Rheumatoid arthritis, unspecified Coding Level of Care Code Est Pt Level 4 (90755) Diagnoses Ingrowing nail, right great toe L60.0 Palpitation R00.2 detention current use of immunosuppressive drug Z79.899 Rheumatoid arthritis M06.9
== END 2023-03-13 09:47 | disposition home or self-care (01) ==
PROVIDERS: PCP Internal Medicine; Visit Provider Internal Medicine Rheumatology
DX: L60.0 Ingrowing nail (principal); R00.2 Palpitations; Z79.899 Other long term (current) drug therapy; M06.9 Rheumatoid arthritis, unspecified
CPT/HCPCS: 99214

== ENCOUNTER 2023-03-13 10:02 | Outpatient (REF) | payer OTHER, SELFPAY ==
[2023-03-13 11:07] LABS: C Reactive Protein 0.97 mg/dL (< or = 0.50)
[2023-03-13 11:28] LABS: Thyroid Stimulating Hormone 0.88 uIU/mL (0.32-4.0)
[2023-03-13 11:33] LABS: Erythrocyte Sedimentation Rate 7 MM/HR (0-20)
== END 2023-03-13 10:03 | disposition home or self-care (01) ==
LOC: HO.10HDL 10:02
PROVIDERS: Visit Provider Internal Medicine Rheumatology
DX: M06.9 Rheumatoid arthritis, unspecified (principal); R00.2 Palpitations
CPT/HCPCS: 36415; 84443; 85652; 86140

== ENCOUNTER 2023-05-30 12:09 | Outpatient (REF) | payer OTHER, SELFPAY | END 2023-05-30 12:10 | disposition home or self-care (01) | LOC: HO.LAB 12:09 | PROVIDERS: PCP Internal Medicine; Visit Provider Internal Medicine | DX: R30.0 Dysuria (principal) | CPT/HCPCS: 81001; 81003; 87086; 87088; 87186 ==

== ENCOUNTER 2023-06-20 14:07 | Outpatient (REF) | payer OTHER, SELFPAY ==
[2023-06-20 18:17] LABS: CT PCR NOT DETECTED (Not Detect.); NG PCR NOT DETECTED (Not Detect.)
[2023-06-21 13:55] LABS: BV Int Neg Control Negative (Negative); BV Int Pos Control Positive (Positive)
[2023-06-23 04:58] LABS: HPV mRNA E6/E7 rflx Not Detected (Not Detected)
== END 2023-06-20 14:08 | disposition home or self-care (01) ==
LOC: HO.LNP 14:07
PROVIDERS: PCP Internal Medicine; Visit Provider Advanced Practice Midwife
DX: Z01.419 Encounter for gynecological examination (general) (routine) without abnormal findings (principal); M06.9 Rheumatoid arthritis, unspecified; N84.1 Polyp of cervix uteri; N81.89 Other female genital prolapse; Z11.3 Encounter for screening for infections with a predominantly sexual mode of transmission; Z79.899 Other long term (current) drug therapy
CPT/HCPCS: 0353U; 87480; 87510; 87624; 87660; 88142; 99395

== ENCOUNTER 2023-06-20 14:07 | Outpatient (AMB) | payer OTHER, SELFPAY ==
[2023-06-20 14:29] VITALS: BMI 21.3
--- NOTE | 2023-06-20 14:29 | MHC.OFFVIS ---
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 Intake Note: no concerns Pharmacy Helper Required: No Information Interpreted: non-clinical & clinical Counter Hand: Counter Hand Present (Charlette PIKE) Accompanied by: Spouse Allergies acetaminophen [From TYLENOL] Allergy (Unknown, Verified 06/20/23 14:30) RASH, THROAT SWELLING morphine [MORPHINE] Allergy (Unknown, Verified 06/20/23 14:30) RASH, THROAT SWELLING , swelling oseltamivir Allergy (Unknown, Verified 06/20/23 14:30) diarrhea Sulfa (Sulfonamide Antibiotics) Allergy (Unknown, Verified 06/20/23 14:30) anaphylaxis Medication List - Last Reconciled 06/20/23 by Loren Dacosta CNM certolizumab pegol 200 mg subcut Q2W cetirizine (Allergy Relief (cetirizine)) 10 mg PO DAILY PRN 30 days levofloxacin 500 mg PO DAILY 5 days meloxicam 7.5 mg PO BID nitrofurantoin macrocrystal 100 mg PO BID 7 days Is last menstrual period known: Yes Last menstrual period: 06/08/23 HPI 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 During her is cervical polyp had been noted. She is not sure if it is still there. She ended up having a that was after being many many hours in labor and stuck at 8 cm. She ended up having her tubes tied at that surgery because she the had signed tubal consent papers during the . 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 She is wearing a brace on her left wrist because it makes it feel better to stabilize it. She is here with her partner ... It is there day off so they are getting all their medical appointments done together [facility] Medical History Blurred vision, bilateral Tachycardia Physical exam History of 2019 novel coronavirus disease (COVID-19) Sinus tachycardia Hypovitaminosis Rheumatoid arthritis Migraine Surgical History Surgical history of tubal ligation History of Family History (Updated 06/20/23 @ 14:32 by Charlette Gallagher CMA) Maternal Aunt History of breast cancer in female Uterus cancer Father Family hx of hypertension Hx of thyroid disease Diabetes mellitus Maternal Grandfather Family hx of hypertension History of heart disease Maternal Grandmother Family hx of hypertension Brother History of asthma Mother No problems noted. 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 Current occupational exposures/hazards: No Sexual orientation: Straight/Heterosexual Gender identity: Female Cognitive needs: No Hearing needs: No Vision needs: No Female Reproductive History Menstrual Age of Menarche: 12 Duration of menses: 6-7 days Date of last menstrual period: 06/08/23 control method: permanent sterilization Total pregnancies: 3 Full term: 3 Number of Living Children: 3 Physical Exam Vital Signs: BMI result Body Mass Index 21.3 Const General: healthy appearing, comfortable, no acute distress, well developed and alert Nutritional Appearance: average body habitus Orientation/consciousness: patient oriented x3 Limitations: no limitations HEENT Head: Yes normocephalic Neck Neck: Yes normal visual inspection Chest Chest palpation & inspection: normal inspection of the chest Breast/axilla inspection: normal inspection of the breasts and normal inspection of the axillae Breast/axilla palpation: normal palpation of the breasts and normal palpation of the axillae Resp Effort & Inspection: normal respiratory effort GI Inspection: Yes normal to inspection, No Abdominal wall edema and No distended Palpation (GI): Soft to palpation and nontender Other: Multiparous cervix with firm double polyp at os that bled with Pap smear. Otherwise normal healthy white discharge uterus is small anteverted mobile nontender. scar is beautifully healed. Adnexa nontender. Patient was not able to recreate a Kegel despite several attempts to communicate with where to contract muscles she has been looking things up online more instruction given I am giving her instructions in Bulgarian and Slovenian. She is not having any issues currently but this is to prevent problems. General: Yes bladder normal to palpation External Female Exam: normal external appearance and normal appearance of the urethra Speculum Exam - Vagina: normal appearance of the vagina, normal palpation and normal vaginal discharge Speculum Exam - Cervix: abnormal appearance of the cervix, normal palpation, Cervical lesion present, Cervical mass present and nontender Bimanual exam- vagina & uterus: normal bimanual exam, normal palpation, uterine size normal, bladder normal to palpation, consistency normal, normal palpation, uterine mobility normal, uterine shape normal, No Cervical tenderness present, non-tender and no cervical motion tenderness Bimanual Exam- Adnexa, other: normal adnexae, no masses, normal and No adnexal tenderness Neuro General: patient oriented x3 Results Reviewed Results Reviewed: Name: Rosanne Pichardo Specimen #: [id number] Age/Sex: 29/F Attending: Chaya Doherty CNM : 1990 Submitted by: Chaya Doherty CNM Collected: 06/16/20 MR #: [id number] Received: 06/17/20 Status: DEP REF Location: .LAB Interpretation Unsatisfactory. Scant cellularity. Blood. Clinical Information LMP: 02/2020 Previous PAP test: 01/2019, wnl Other history: Beefy, red cervix, PT Material Received ThinPrep cervical Electronically Signed By: SIDDHARTH Jolley ([facility]) 07/02/20 3030 The Pap Test is a screening procedure with the inherent possibility of both false negative and false positive results. Results should be interpreted in the context of historic and current clinical findings. Reliability of the Pap Test is enhanced by performing the test on a regular repetitive basis. 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 Pap done 06/20/2023; refer for polyp Code(s): Z12.4 - Encounter for screening for malignant neoplasm of cervix (3) Screen for sexually transmitted diseases: Code(s): Z11.3 - Encounter for screening for infections with a predominantly sexual mode of transmission (4) Cervical polyp: Comment: Present for at least a couple of years. To see Dr. Padilla for assessment and management, pap w hpv done 06/20/23. Code(s): N84.1 - Polyp of cervix uteri (5) Rheumatoid arthritis: Comment: Cimzia: June 2019 to present Methotrexate: Discontinued September 2019 due to age and potential Code(s): M06.9 - Rheumatoid arthritis, unspecified (6) Pelvic floor weakness: Comment: Unable to recreate Kegel instructions given.(consider referral if patient needs it). Code(s): N81.89 - Other female genital prolapse Plan -----Discussed in this visit the following: healthy balanced diet, regular and consistent exercise, getting recommended health screens, doing the best she can for her particular health concerns, kegel exercises, pap smear screening and followup recommendations, mammography screening and SBE, normal changes in cycles in her life stage--- .---I Had the patient and demonstrate a Kegel contraction at the end of the exam, ordered in order to explain a Kegel exercise, and instructed the patient on doing the same exercises several times a day with increasing strength each time. One useful to is to imagine pursestring around the vagina and pulling it tight and upwards as if raising the vagina, or imagining that her tight muscles are on the 1st floor and she is trying to pull them up to the 5th floor and then slowly letting them go down. To try to do these several times a day but focus on the quality and the strength of the exercises more than the quantity, and tried isolate just those muscles and not involve other body parts. (written instructions with pictures given in Bulgarian and Slovenian) ---her last Pap done in 2019 was unsatisfactory Pap done today 06/20/[address] Padilla for evaluation and management of the cervical polyp patient informed to expect possible biopsy possible removal but that will be at discretion of Dr. Padilla. Orders: Orders Pap Smear Today Z01.419 - Encounter for gynecological examination (general) (routine) without abnormal findings Bacterial Vaginosis Panel Today Z01.419 - Encounter for gynecological examination (general) (routine) without abnormal findings CT NG by PCR Today Z01.419 - Encounter for gynecological examination (general) (routine) without abnormal findings Coding Level of Care Code Est Pt Prev Care 18-39y(37913) Diagnoses group home current use of immunosuppressive drug Z79.899 Cervical cancer screening Z12.4 Screen for sexually transmitted diseases Z11.3 Cervical polyp N84.1 Rheumatoid arthritis M06.9 Pelvic floor weakness N81.89
== END 2023-06-20 15:43 | disposition home or self-care (01) ==
PROVIDERS: PCP Internal Medicine; Visit Provider Advanced Practice Midwife
DX: Z01.419 Encounter for gynecological examination (general) (routine) without abnormal findings (principal); Z79.899 Other long term (current) drug therapy; Z12.4 Encounter for screening for malignant neoplasm of cervix; Z11.3 Encounter for screening for infections with a predominantly sexual mode of transmission; N84.1 Polyp of cervix uteri; M06.9 Rheumatoid arthritis, unspecified; N81.89 Other female genital prolapse
CPT/HCPCS: 99395

== ENCOUNTER 2023-07-11 09:40 | Outpatient (AMB) | payer OTHER, SELFPAY ==
--- NOTE | 2023-07-11 09:59 | A.OFFVIS_ITS ---
Intake Vital Signs 07/11/23 10:00 Height 5 ft 1 in Weight 116 lb 2.938 oz BMI 22.0 BP 96/64 Blood Pressure Location Rt brachial Position Sitting Pulse 72 Pulse Source Pulse Oximeter Temp 97 F Temp Source Skin Pulse Oximetry (%) 97 Oxygen Delivery Method Room Air Intake Visit Reasons: ra Intake Note: Patient presents today to follow up on RA. c/o worsening right knee and right shoulder pain. Plate Gauger Required: No Accompanied by: Significant Other Allergies acetaminophen [From TYLENOL] Allergy (Unknown, Verified 07/11/23 10:00) RASH, THROAT SWELLING morphine [MORPHINE] Allergy (Unknown, Verified 07/11/23 10:00) RASH, THROAT SWELLING , swelling oseltamivir Allergy (Unknown, Verified 07/11/23 10:00) diarrhea Sulfa (Sulfonamide Antibiotics) Allergy (Unknown, Verified 07/11/23 10:00) anaphylaxis Medication List - Last Reconciled 07/11/23 by Tico Douglas MD certolizumab pegol 200 mg subcut Q2W cetirizine (Allergy Relief (cetirizine)) 10 mg PO DAILY PRN 30 days meloxicam 7.5 mg PO BID terbinafine HCl 250 mg PO DAILY HPI HPI Comments History of Present Illness Details The patient returns today with her for evaluation of her rheumatoid arthritis. She remains on Cimzia 200 mg every 2 weeks and meloxicam 7.5-15 mg daily. She takes the meloxicam for knee pain. At her last visit it was the left knee that was bothering but now it is the right knee. She thinks she gets worse with more physical activities. She also notes discomfort in the right shoulder with lifting the arm up overhead. She has concerns that her weight is so low. She has not been eating well she admits but has not lost weight. She said she felt a bit stronger when she was over 120 lb. 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 [facility] Medical History Blurred vision, bilateral Tachycardia Physical exam History of 2019 novel coronavirus disease (COVID-19) Sinus tachycardia Hypovitaminosis Rheumatoid arthritis Migraine Surgical History Surgical history of tubal ligation History of Family History Maternal Aunt History of breast cancer in female Uterus cancer Father Family hx of hypertension Hx of thyroid disease Diabetes mellitus Maternal Grandfather Family hx of hypertension History of heart disease Maternal Grandmother Family hx of hypertension Brother History of asthma Mother No problems noted. 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 Negative for appetite change, weight change, fever, chills, malaise Eyes Details: Negative for vision change, dry eyes,headaches and dizziness ENT Details: Negative for hearing change, tinnitus, oral ulcer, nose bleeds and oral dryness. Card Details: Negative chest pain, edema and syncope Resp Details: Negative for SOB, cough and wheezing GI Details: Negative indigestion/heartburn, nausea, abdominal pain, bowel changes, diarrhea, constipation and bloody stool. Psych Details: Anxious at times, occasional panic attacks. She is working to try to control these with some relaxation techniques. Endo Details: Negative for polyuria and polydypsia Dany/Lymph Details: Negative for excessive bruising or bleeding. Physical Exam Vital Signs: Last Vital Signs Temp 97 F 07/11/23 10:00 Pulse 72 07/11/23 10:00 BP 96/64 07/11/23 10:00 Pulse Ox 97 07/11/23 10:00 Oxygen Delivery Method Room Air 07/11/23 10:00 BMI result Body Mass Index 22.0 APPEARANCE: Patient in no acute distress EXTREMITIES: No edema, no calf tenderness, normal peripheral pulses. NEURO: Oriented and alert x3. No focal weakness. Reflexes symmetric. Gait normal. SKIN: No inflammatory or neoplastic lesions. Normal color and turgor JOINT EXAM: Cervical Spine:.? Full range of motion with mild discomfort at the extremes. No tenderness. Thoracic Spine:.? No scoliosis.? No tenderness on palpation. Lumbar Spine:.? Alignment normal.? Full range of motion with slight pain at the knee degrees flexion. No tenderness. Chest Wall:.? No tenderness, swelling, increased warmth or erythema. Hands:.? Normal pain-free range of motion without tenderness, swelling, increased warmth or erythema. Able to make a full fist and has a good die hardener strength. Wrists:.? Right: Mild pain with flexion extension at 75 degrees. Slight ventral tenderness and swelling on the radial aspect. No redness or warmth. Left: Normal pain-free range of motion with some slight thickening and tenderness on the volar aspect. No redness or warmth. Elbows:. Normal pain-free range of motion without tenderness, swelling, increased warmth or erythema. Shoulders:.??Right: Mild pain with extremes of range of motion some slight anterior and posterior tenderness. No adenopathy, weakness, or swelling. Left: Mild discomfort with extremes of motion. No tenderness, abductor weakness, adenopathy or swelling. Hips:.? Full range of motion without pain. Hip bursa:.? Mild trochanteric tenderness. Knees:.? Right:? Normal range of motion with extremes of flexion or extension. Most the pain is felt on the medial and lateral aspects. There is slight lateral and mild medial tenderness without effusion, soft tissue swelling, increased warmth or erythema.? There is no patellofemoral crepitation. Left: No pain with extremes of flexion extension. There is minimal medial compartment tenderness without redness or effusion. There is no popliteal swelling or tenderness. Ankles:.? Normal pain-free range of motion without tenderness, swelling, increased warmth or erythema. Feet:.? Right: Pain-free range of motion of the joints. No areas of tenderness or swelling.There is some bony enlargement without tenderness at the 1st MTP joint. Left: Some mild 1st MTP bony enlargement but otherwise normal pain-free range of motion without soft tissue tenderness, swelling, increased warmth or erythema. Tender points: Mild tenderness to digital palpation at the occiput, trapezius, lateral epicondyle, knees, greater trochanter area bilaterally. ? Results Reviewed Results Reviewed: [address] [address] XRay Report Signed Patient: Rosanne Pichardo MR#: [id number] : 1990 Acct:[id number] Age/Sex: 32 / F 03/11/23 Ordering Physician: Tico Douglas MD Date of Service: 03/13/23 Procedure(s): XR knee LT 3V Accession Number(s): [id number] cc: Tico Douglas MD~ EXAMINATION: XR KNEE, LEFT CLINICAL INFORMATION: Rheumatoid arthritis COMPARISON: None available. TECHNIQUE: Four views of the left knee. FINDINGS: No fracture or joint effusion. Alignment is anatomic. Joint spaces are maintained. No abnormal soft tissue calcification. XR/XR knee LT 3V IMPRESSION: Normal left knee. 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 I do not really see signs of an active inflammatory process presently. There could be some rotator cuff impingement issues and patellofemoral pain. We will send her for some physical therapy and check right shoulder and right knee films. We will also check some markers of inflammatory disease. She will continue with the Cimzia as above. A follow-up in 3-4 months seems reasonable. She should follow-up with her primary doctor on issues of weight loss but I think it is mostly related to her not eating regularly and her anxiety. Orders: Orders XR shoulder RT min 2V Today M06.9 - Rheumatoid arthritis, unspecified PT Evaluation and Treatment Today M06.9 - Rheumatoid arthritis, unspecified, Z79.899 - Other prison (current) drug therapy XR knee RT 3V Today M06.9 - Rheumatoid arthritis, unspecified Erythrocyte Sedimentation Rate Today M06.9 - Rheumatoid arthritis, unspecified, Z79.899 - Other prison (current) drug therapy Complete Blood Count Auto Diff Today M06.9 - Rheumatoid arthritis, unspecified, Z79.899 - Other prison (current) drug therapy C Reactive Protein Today M06.9 - Rheumatoid arthritis, unspecified, Z79.899 - Other petroleum terminal plant operator (current) drug therapy Coding Level of Care Code Est Pt Level 3 (32893) Diagnoses 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
[2023-07-11 10:00] VITALS: BP 96/64; PULSE 72; TEMP 36.1; O2SAT 97; BMI 22.0
== END 2023-07-11 10:48 | disposition home or self-care (01) ==
PROVIDERS: PCP Internal Medicine; Visit Provider Internal Medicine Rheumatology
DX: Z79.899 Other long term (current) drug therapy (principal); M06.9 Rheumatoid arthritis, unspecified
CPT/HCPCS: 99213

== ENCOUNTER → 2023-07-11 09:40 | Outpatient (BNVA) | payer OTHER, SELFPAY | PROVIDERS: PCP Internal Medicine; Visit Provider Internal Medicine Rheumatology | DX: M06.9 Rheumatoid arthritis, unspecified (principal); Z79.899 Other long term (current) drug therapy | CPT/HCPCS: 99212 ==

== ENCOUNTER 2023-08-22 08:39 | Outpatient (REF) | payer OTHER, SELFPAY ==
[2023-08-23 07:26] LABS: CT PCR NOT DETECTED (Not Detect.); NG PCR NOT DETECTED (Not Detect.)
[2023-08-24 02:23] LABS: Prolactin 4.9 ng/mL
== END 2023-08-22 08:40 | disposition home or self-care (01) ==
LOC: HO.LAB 08:39
PROVIDERS: PCP Internal Medicine; Visit Provider Obstetrics & Gynecology
DX: N93.9 Abnormal uterine and vaginal bleeding, unspecified (principal); N88.9 Noninflammatory disorder of cervix uteri, unspecified
CPT/HCPCS: 0353U; 36415; 57500; 84146; 84443; 84702; 85027; 88305; 99212

== ENCOUNTER 2023-08-22 08:39 | Outpatient (AMB) | payer OTHER, SELFPAY ==
--- NOTE | 2023-08-22 08:48 | A.OFFVIS_ITS ---
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 Assistant Present (Charlette PIKE) Accompanied by: Spouse Allergies acetaminophen [From TYLENOL] Allergy (Unknown, Verified 08/22/23 08:51) RASH, THROAT SWELLING morphine [MORPHINE] Allergy (Unknown, Verified 08/22/23 08:51) RASH, THROAT SWELLING , swelling oseltamivir Allergy (Unknown, Verified 08/22/23 08:51) diarrhea Sulfa (Sulfonamide Antibiotics) Allergy (Unknown, Verified 08/22/23 08:51) anaphylaxis Is last menstrual period known: Yes Last menstrual period: 08/09/23 HPI HPI Comments History of Present Illness Details Presenting referred from Loren Dacosta CNM regarding cervical lesion possible polyp. The patient is complaining of heavy menstrual cycles associated with pelvic cramping and passage of blood clots. Last co testing was in 07/12 was negative [facility] Medical History Blurred vision, bilateral Tachycardia Physical exam History of 2019 novel coronavirus disease (COVID-19) Sinus tachycardia Hypovitaminosis Rheumatoid arthritis Migraine Surgical History Surgical history of tubal ligation History of Family History Maternal Aunt History of breast cancer in female Uterus cancer Father Family hx of hypertension Hx of thyroid disease Diabetes mellitus Maternal Grandfather Family hx of hypertension History of heart disease Maternal Grandmother Family hx of hypertension Brother History of asthma Mother No problems noted. 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 Current occupational exposures/hazards: No Sexual orientation: Straight/Heterosexual Gender identity: Female Cognitive needs: No Hearing needs: No Vision needs: No Female Reproductive History Menstrual Age of Menarche: 12 Date of last menstrual period: 08/09/23 Review of Systems Const All systems reviewed & are unremarkable except as noted in HPI and below Card Reports as per HPI Resp Reports as per HPI GI Reports as per HPI and Reports no additional complaints Reports as per HPI Physical Exam Vital Signs: Last Vital Signs BP 108/66 08/22/23 08:50 BMI result Body Mass Index 21.7 Const General: cooperative, healthy appearing and comfortable Chest Chest palpation & inspection: normal inspection of the chest and normal palpation of entire chest wall Breast/axilla inspection: normal inspection of the breasts and normal inspection of the axillae Breast/axilla palpation: normal palpation of the breasts, normal palpation of the axillae and no axillary lymphadenopathy Resp Effort & Inspection: normal respiratory effort Auscultation: clear to auscultation bilaterally Percussion: percussion normal Cardio Palpation: normal PMI Rate: regular rate Rhythm: regular rhythm Heart sounds: no murmurs and no rubs Peripheral pulses: Peripheral pulses 2+ throughout GI Inspection: Yes normal to inspection Palpation (GI): Soft to palpation, nontender, no guarding, not rigid and No hepatosplenomegaly present Percussion: Yes normal to percussion Auscultation: normal bowel sounds Rectal Exam - Female: deferred General: Yes bladder normal to palpation External Female Exam: No lesion Speculum Exam - Vagina: normal appearance of the vagina, normal palpation, normal vaginal discharge and not erythematous Speculum Exam - Cervix: normal palpation and Cervical lesion present (Anterior cervical lip floppy tissue possible part of the cervix vs lesion) Bimanual exam- vagina & uterus: normal bimanual exam, normal palpation, uterine size normal, bladder normal to palpation, consistency normal and normal palpation Bimanual Exam- Adnexa, other: normal adnexae, no masses and no tenderness Office Procedures VICE PRESIDENT LENDING Biopsy Before the procedure was started discussed with the patient the procedure, alternatives & all the risks associated with the procedure (bleeding, infection, injury to vagina, bladder, vessels, possible need for transfusion with all its risks) then patient signed the consent UPT done in the office & negative Speculum inserted Cervical polyp biopsy from the anterior floppy lesion taken Monsel solution used for hemostasis. The patient tolerated well . At the end the patient was instructed to call if temp>100.4, abdominal pain, n/v, bleeding; The patient was given the following instructions: nothing per vagina, no intercourse or bath tub use. All questions answered the patient verbalized understanding. Instructed the patient to make an appointment in 2 weeks for follow-up This note was generated with a voice recognition program. Some errors may have been overlooked during the review of this note. Sometimes these errors may affect the content or meaning of a given sentence. 89850-Dzzagi of Cervix Procedure code (CPT) selection complete Assessment & Plan Assessment & Plan (1) Abnormal uterine bleeding (AUB): Code(s): N93.9 - Abnormal uterine and vaginal bleeding, unspecified Plan: Co testing recently done, GC and chlamydia taken CBC, TSH, prolactin can HCG, and pelvic ultrasound ordered. Discussed with the patient the different causes of abnormal bleeding including thyroid disorders, uterine and ovarian pathology and other potential causes. Discussed with the patient the work up including CBC (to r/o anemia), TSH, pelvic Ultrasound.. All questions answered and the patient verbalized understanding. Instructed the patient to schedule an appointment for an endometrial biopsy in 2 weeks. (2) Cervical lesion: Comment: Polyp versus normal anterior cervical tissue Code(s): N88.9 - Noninflammatory disorder of cervix uteri, unspecified Plan: Discussed with the patient the finding on pelvic exam showing the abnormal cervical lip abnormality, possible polyp versus normal tissue, Cervical biopsy done, see procedure note Orders: Orders Surgical Today N93.9 - Abnormal uterine and vaginal bleeding, unspecified AMB VICE PRESIDENT LENDING Biopsy Today N88.9 - Noninflammatory disorder of cervix uteri, unspecified Complete Blood Count no Diff Today N93.9 - Abnormal uterine and vaginal bleeding, unspecified HCG Quantitative Today N93.9 - Abnormal uterine and vaginal bleeding, unspecified US pelvic and transvaginal Today N93.9 - Abnormal uterine and vaginal bleeding, unspecified TSH reflex Free T4 Today N93.9 - Abnormal uterine and vaginal bleeding, unspecified Prolactin Today N93.9 - Abnormal uterine and vaginal bleeding, unspecified Coding Level of Care Code Est Pt Level 3 (02696) Procedure Only Diagnoses Abnormal uterine bleeding (AUB) N93.9 Cervical lesion N88.9 CPT Codes VICE PRESIDENT LENDING Biopsy - CPT: 66530-Cgtsge of Cervix ([id number])
[2023-08-22 08:50] VITALS: BP 108/66; BMI 21.7
== END 2023-08-22 09:21 | disposition home or self-care (01) ==
LOC: HO.HWS 08:39
PROVIDERS: PCP Internal Medicine; Visit Provider Obstetrics & Gynecology
DX: N93.9 Abnormal uterine and vaginal bleeding, unspecified (principal); N88.9 Noninflammatory disorder of cervix uteri, unspecified; N84.1 Polyp of cervix uteri
CPT/HCPCS: 57500; 99213

== ENCOUNTER 2023-08-22 10:36 | Outpatient (REF) | payer OTHER, SELFPAY | END 2023-08-22 10:37 | disposition home or self-care (01) | LOC: HO.LNP 10:36 | PROVIDERS: Visit Provider Obstetrics & Gynecology | DX: Z13.89 Encounter for screening for other disorder (principal) ==

== ENCOUNTER 2023-08-30 08:38 | Emergency (ER) | payer OTHER, SELFPAY ==
--- NOTE | ~2023-08-30 | CT_ITS ---
EXAMINATION: CT HEAD WITHOUT CONTRAST CLINICAL INFORMATION: Posterior headache with position changes COMPARISON: CT head from 06/23/2018 TECHNIQUE: Contiguous axial imaging was performed from the skull base to vertex without intravenous administration of contrast. This CT examination was performed using dose optimization techniques as appropriate, variously including the following: *Automated exposure control *Adjustment of mA and/or kV according to patient size (this includes techniques or standardized protocols for targeted exams where dose is matched to indication/reason for exam; i.e. extremities or head) *Use of iterative reconstruction technique DLP: 534 mGy-cm FINDINGS: There is no evidence of acute intracranial hemorrhage or territorial infarction. No abnormal mass effect or midline shift is seen. Ramirez to white matter differentiation is well preserved. No extra-axial fluid collections are identified. The ventricles are normal in size. There is no abnormal attenuation within the brain parenchyma. The osseous structures and soft tissues are normal. The mastoid air cells and visualized portions of the paranasal sinuses are well aerated. CT/CT head/brain wo IV con IMPRESSION: No acute intracranial pathology.
[2023-08-30 08:47] VITALS: BP 118/83; PULSE 80; RESP 19; TEMP 36.7; O2SAT 99; BMI 21.2
[2023-08-30] MEDS: Metoclopramide HCl 10 MG TABLET PO (09:39)
[2023-08-30] MEDS: Ketorolac Tromethamine 30 MG/ML VIAL IM (09:39)
[2023-08-30] MEDS: diphenhydrAMINE HCL 25 MG CAPSULE 50 MG PO (09:39)
[2023-08-30 09:43] LABS: COVID-19 Test Negative (Negative); IDNOW Serial# 08D9AD1C; IDNOW Serial# 152EDE1D; Influenza A Negative (Negative); Influenza B2 Negative (Negative)
--- NOTE | 2023-08-30 09:45 | ED.HA ---
HPI - Headache General Chief Complaint: Headache Stated Complaint: back of head pressure Time Seen by Provider: 08/30/23 09:03 Source: patient Mode of arrival: ambulatory Limitations: no limitations History of Present Illness HPI Narrative: 33-year-old female with pmhx significant for rheumatoid arthritis presents to the ED today for evaluation of headache x3 days. Headache is located posteriorly. She describes it as a pressure sensation that has been progressive and constant. States that the pain is manageable when she is up during the day and becomes unbearable at night when she lies down. Reports history of tension headaches however this feels different. Reports one episode of blurred vision last night. No floaters or flashing lights. Denies head trauma or injury. Denies increased stressors. Reports 2 months of associated nasal congestion. Denies fever, chills, double vision, vision loss, scalp tenderness, jaw claudication, nausea or vomiting, chest pain or shortness of breath. Related Data Home Medications Medication Instructions Recorded Confirmed terbinafine HCl 250 mg tablet 250 mg PO DAILY 07/11/23 07/11/23 Previous Rx's Medication Instructions Recorded certolizumab pegol 400 mg/2 mL 200 mg subcut Q2W #1 ea 03/19/23 (200 mg/mL x2) subcutaneous syringe kit cetirizine 10 mg tablet (Allergy 10 mg PO DAILY PRN allergy 04/09/23 Relief (cetirizine)) symptoms 30 days #30 tabs meloxicam 7.5 mg tablet 7.5 mg PO BID #60 tabs 06/12/23 naproxen 500 mg tablet 500 mg PO Q8-12H PRN pain (scale 08/30/23 score 4-6) #20 tabs ondansetron 4 mg disintegrating 4 mg PO DAILY PRN nausea and 08/30/23 tablet vomiting 5 days #20 tabs Allergies Allergy/AdvReac Type Severity Reaction Status Date / Time acetaminophen [From TYLENOL] Allergy Unknown RASH, Verified 08/30/23 08:46 THROAT SWELLING morphine [MORPHINE] Allergy Unknown RASH, Verified 08/30/23 08:46 THROAT SWELLING , swelling oseltamivir Allergy Unknown diarrhea Verified 08/30/23 08:46 Sulfa (Sulfonamide Allergy Unknown anaphylaxis Verified 08/30/23 08:46 Antibiotics) Review of Systems Review of Systems: Constitutional: No fever, chills, fatigue, night sweats, weight changes ENT/Mouth: No ear pain, hearing loss, nasal congestion, sinus pain, rhinorrhea, sore throat Eyes: No eye pain, swelling, redness, +vision changes, No discharge Cardio: No chest pain, palpitations, HUTCHINS, orthopnea, peripheral edema Pulm: No SOB, cough, sputum, wheezing, dyspnea, hemoptysis GI: No nausea, vomiting, hematemesis, abdominal pain, diarrhea, constipation, hematochezia, melena : No irregular bleeding, dysuria, frequency, urgency, hesitancy, hematuria, flank pain, urinary flow changes, urinary incontinence or retention MSK: No back pain, neck pain, joint pain, myalgias Skin: No lesions, rashes Neuro: No weakness, numbness, paresthesias, LOC, dizziness, +headache All other systems reviewed and are negative. [facility] Past Medical History Onset Date is defined in the Problem List Problems that require an onset date and time if occurred within 24 hrs of arrival to the ED Aortic Dissection and Rupture; Neurologic impairment; Cardiopulmonary Arrest; Endotracheal Intubation; Insertion or Replacement of Mechanical Circulatory Assist Device Medical History Blurred vision, bilateral Tachycardia Physical exam History of 2019 novel coronavirus disease (COVID-19) Sinus tachycardia Hypovitaminosis Rheumatoid arthritis Migraine Surgical History Surgical history of tubal ligation History of Family History Family History Maternal Aunt History of breast cancer in female Uterus cancer Father Family hx of hypertension Hx of thyroid disease Diabetes mellitus Maternal Grandfather Family hx of hypertension History of heart disease Maternal Grandmother Family hx of hypertension Brother History of asthma Mother No problems noted. 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 Current occupational exposures/hazards: No Sexual orientation: Straight/Heterosexual Gender identity: Female Cognitive needs: No Hearing needs: No Vision needs: No Physical Exam Vital Signs: Vital Signs: Last Vital Signs Temp 98.1 F 08/30/23 08:47 Pulse 80 08/30/23 08:47 Resp 19 08/30/23 08:47 BP 118/83 08/30/23 08:47 Pulse Ox 99 08/30/23 08:47 O2 Del Method Room Air 08/30/23 08:47 BMI result Body Mass Index 21.2 Vital signs stable, afebrile, normotensive Const: General: cooperative, healthy appearing, comfortable, no acute distress, alert, awake and Physically active Orientation/consciousness: patient oriented x3 HEENT: Other: No palpable temporal artery Head: Yes normal to inspection, Yes normocephalic, Yes atraumatic, No scalp tenderness and No Temporal artery tenderness present Ears: hearing grossly normal bilaterally, external ears normal, TM's normal bilaterally, EAC's normal, mastoids normal and no periauricular adenopathy General nose exam: Normal external nose present Face and sinus: Yes normal facial exam and Yes sinuses nontender Eyes: General: appearance normal, both eyes and all related structures Conjunctivae: conjunctivae normal Sclerae: sclerae normal Pupils: Equal, round and reactive pupils present EOM: EOMs intact bilaterally Direct Ophthalmoscopy: normal light reflex, no photophobia and no papilledema Neck: Other: + no cervical midline spinous tenderness or step-off deformity. Neck: Yes normal visual inspection, Yes full ROM, Yes no lymphadenopathy and Yes no meningeal signs Resp: Effort & Inspection: normal respiratory effort Auscultation: clear to auscultation bilaterally Cardio: Rate: regular rate Rhythm: regular rhythm Back/Spine/Pelvis: Other: No midline spinous tenderness. No paraspinal muscle tenderness. No step off deformity. Skin: General skin exam: no rashes or lesions noted Neuro: Other: Strength 5/5 intact throughout.?Sensation intact to light touch.?Neurovascular intact distally.? General: patient oriented x3, gait normal and no meningeal signs Cranial nerves: Yes Equal, round and reactive pupils present Gait exam (Neuro): Normal gait present Motor exam (neuro): 5/5 motor strength present throughout Coordination: [id number]-[id number] test normal, jvxa-ap-[id number] test normal and Normal rapid alternating movements of the distal upper extremity present (Neuro) Extrem: General: Yes normal to inspection Course Course Course Narrative: 929-- given patient's red flag symptoms, CT head/brain will be ordered. History of tubal ligation, urine test not warranted prior to scan. 1111-- On re-evaluation, patient reports symptom improvement with medications. No longer feels pressure. > serology negative for flu, COVID. CT head/brain unremarkable > no bleed, masses or signs of ischemia. > patient likely has a migraine. Will send home with pain medication and Zofran. Educated on worrisome signs and symptoms of when to return to the ED. Patient has remained stable throughout ED visit today. Discussed strict return precautions. All questions answered at this time. Patient is agreeable with disposition and stable for discharge. Medications Administered Discontinued Medications Generic Name Dose Route Start Last Admin Trade Name Brandi PRN Reason Stop Dose Admin Diphenhydramine HCl 50 mg 08/30/23 09:20 08/30/23 09:39 Diphenhydramine Hcl 25 Mg Capsule PO 08/30/23 09:21 50 mg ONCE ONE Administration Ketorolac Tromethamine 30 mg 08/30/23 09:20 08/30/23 09:39 Ketorolac Tromethamine 30 Mg/Ml Vial IM 08/30/23 09:21 30 mg ONCE ONE Administration Metoclopramide HCl 10 mg 08/30/23 09:20 08/30/23 09:39 Metoclopramide Hcl 10 Mg Tablet PO 08/30/23 09:21 10 mg ONCE ONE Administration Medical Decision Making Medical Decision Making [facility] Narrative: 33-year-old female with pmhx significant for rheumatoid arthritis presents to the ED today for evaluation of headache x3 days. Vital signs stable. Normotensive. Afebrile. Patient nontoxic appearing and in no acute distress. Sitting comfortably on exam table. No scalp tenderness or palpable temporal artery. PERRLA. No photophobia or palpable edema. Exam nonfocal. Cerebellum intact. Ambulating with steady gait. Concern for headache vs complex migraine. Unlikely giant cell arteritis, ICH, CVA/TIA, dissection, cerebellar stroke, normal pressure hydrocephalus. Plan for imaging, pain control and re-evaluation. Differential Diagnosis Differential Diagnoses: The differential diagnosis associated with the presentation includes as above Admission/Observation Not indicated. Lab Data as above. Labs: Lab Results 08/30/23 Range/Units 09:20 COVID-19 (STUART) Negative (Negative) COVID-19 Clin Com See Note Influenza Type A (EVANGELINA) Negative (Negative) Influenza Type B (EVANGELINA) Negative (Negative) Influenza A & B Note See Note Independent Interpretation I performed an independent interpretation of an: CT Scan Interpretation: I have personally reviewed CT scan and agree with radiologist's interpretation. Radiology Impression Discussion of test interpretation with radiology: I have reviewed the radiologist's reading. Radiologist Impression: CT head/brain wo IV con IMPRESSION: No acute intracranial pathology. External Record Review External record reviewed: Inpatient record Prescription Management I considered prescription management with: Pain Medication and Other (Antiemetic) Chronic Conditions Patient?s care impacted by: Other (Rheumatoid arthritis) Discharge Plan Discharge Clinical Impression: Migraine Patient Disposition: Home, Self-Care Instructions: Migraine Headache (ED) Additional Instructions: Your headache improved with medications today. You tested negative for COVID and flu. The CT of your head/brain was normal. Zofran as an antiemetic that has been sent to your pharmacy. Take this as needed for nausea. Naproxen as an anti-inflammatory medicine sent to your pharmacy. Take this as needed for headache. Do not take with other NSAIDs such as ibuprofen as this may increase risk of GI bleed. Make sure you are staying hydrated. Please follow-up with your primary care provider regarding your visit. If symptoms persist or worsen please return to the emergency department. In the case of an emergency call 911. Prescriptions: New naproxen 500 mg tablet 500 mg PO Q8-12H PRN (Reason: pain (scale score 4-6)) Qty: 20 0RF ondansetron 4 mg tablet,disintegrating 4 mg PO DAILY PRN (Reason: nausea and vomiting) 5 Days Qty: 20 0RF No Action certolizumab pegol 400 mg/2 mL (200 mg/mL x 2) syringe kit 200 mg subcut Q2W Qty: 1 5RF cetirizine [Allergy Relief (cetirizine)] 10 mg tablet 10 mg PO DAILY PRN (Reason: allergy symptoms) 30 Days Qty: 30 0RF meloxicam 7.5 mg tablet 7.5 mg PO BID Qty: 60 3RF flu vacc [id number] 6mos up(PF) 60 mcg (15 mcg x 4)/0.5 mL syringe 0.5 ml IM ONCE Qty: 0.5 0RF terbinafine HCl 250 mg tablet 250 mg PO DAILY Referrals: Luci Unger MD [Primary Care Provider] - Stand Alone Forms: Work/School Release
== END 2023-08-30 11:28 | disposition home or self-care (01) ==
PROVIDERS: Emergency Provider Emergency Medicine; PCP Internal Medicine
DX: G43.909 Migraine, unspecified, not intractable, without status migrainosus (principal); Z87.891 Personal history of nicotine dependence; Z11.52 Encounter for screening for COVID-19
CPT/HCPCS: 70450; 87502; 87635; 96372; 99284; J1885

== ENCOUNTER 2023-09-05 15:01 | Outpatient (AMB) | payer OTHER, SELFPAY ==
[2023-09-05 15:08] VITALS: BP 126/80; BMI 22.3
--- NOTE | 2023-09-05 15:08 | MHC.PC.OV ---
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 Accompanied by: Self / Same As Patient Allergies acetaminophen [From TYLENOL] Allergy (Unknown, Verified 09/05/23 15:25) RASH, THROAT SWELLING morphine [MORPHINE] Allergy (Unknown, Verified 09/05/23 15:25) RASH, THROAT SWELLING , swelling oseltamivir Allergy (Unknown, Verified 09/05/23 15:25) diarrhea Sulfa (Sulfonamide Antibiotics) Allergy (Unknown, Verified 09/05/23 15:25) anaphylaxis Medication List - Last Reconciled 09/05/23 by Luci Tompkins MD certolizumab pegol 200 mg subcut Q2W cetirizine (Allergy Relief (cetirizine)) 10 mg PO DAILY PRN 30 days meloxicam 7.5 mg PO BID naproxen 500 mg PO Q8-12H PRN ondansetron 4 mg PO DAILY PRN 5 days Tobacco use date assessed: 09/05/23 Dental Screening Dental Screen Date: 09/05/23 Did you have a dental visit in the last 12 months?: Yes Did you have a dental problem in the last 6 months where you did not have access to dental care?: No Was dental information given to patient?: Patient has dentist HPI HPI Comments History of Present Illness Details This is a 33-year-old female with rheumatoid arthritis and allergic rhinitis that comes today for hospital discharge follow-up with discharge date 08/30/2023 due to intractable migraine which has improved but is still present. Noises aggravate the headache. Sometimes the headache is frontal radiating to both size and sometimes the headache is on the occiput. Head CT was done which was normal. I will give her sumatriptan as needed and put her in amitriptyline at bedtime for migraine prophylaxis. She will also be referred to Neurology. Rheumatoid arthritis stable with medications and this is follow by Rheumatology. Take antihistamines as needed for allergic rhinitis. Has mild major depression and amitriptyline might help with this also. [facility] Medical History (Updated 09/05/23 @ 16:07 by Luci Tompkins MD) Blurred vision, bilateral Tachycardia Physical exam History of 2019 novel coronavirus disease (COVID-19) Sinus tachycardia Hypovitaminosis Rheumatoid arthritis Migraine Surgical History Surgical history of tubal ligation History of Family History Maternal Aunt History of breast cancer in female Uterus cancer Father Family hx of hypertension Hx of thyroid disease Diabetes mellitus Maternal Grandfather Family hx of hypertension History of heart disease Maternal Grandmother Family hx of hypertension Brother History of asthma Mother No problems noted. 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 1. Little interest or pleasure in doing things: several days 2. Feeling down, depressed, or hopeless: more than half the days 3. Trouble falling or staying asleep, or sleeping too much: nearly every day 4. Feeling tired or having little energy: nearly every day 5. Poor appetite or overeating: several days 6. Feeling bad about yourself - or that you are a failure or have let yourself or your family down: not at all 7. Trouble concentrating on things, such as reading the newspaper or watching television: several days 8. Moving or speaking so slowly that other people could have noticed. Or the opposite - being so fidgety or restless that you have been moving around a lot more than usual: more than half the days 9. Thoughts that you would be better off or of hurting yourself in some way: not at all Total score: 13 Depression Screening Interpretation: Positive Depression Screening Follow-up: Existing condition Depression Screening Done: Yes 25347 - PHQ-9 Billing: Yes Source: Developed by Drs. Eyal Aranda, Yissel Rios, Hayden Bishop and colleagues, with an educational griffin from [employer]. Thrive Questionnaire Date Thrive assessed: 09/05/23 I am a: Patient What is your living situation today?: I have a steady place to live Within the past 12 months, did the food you bought not last and you didn't have the money to get more?: Never true Within the past 12 months, did you worry whether your food would run out before you got money to buy more?: Never true Do you have trouble paying for medicines?: No Do you have trouble getting transportation to medical appointments?: No Do you have trouble paying your heating and electricity bill?: No Do you have trouble taking care of your child, family member or friend?: No Do you have trouble with day-to-day activities such as bathing, preparing meals, shopping, managing finances, etc.?: No Are you currently unemployed and looking for a job?: No Are you interested in more education?: No Please select the resources that you would like help with: None AUDIT C Alcohol Use Questionnaire (AUDIT-C) 1. How often do you have a drink containing alcohol?: Never Total Score: 0 IMANI-7 AMB Questionnaire IMANI-7 Date IMANI - 7 assessed: 09/05/23 Feeling nervous, anxious, or on edge: 3 = Nearly every day Not being able to stop or control worryin = Several days Worrying too much about different things: 2 = More than half the days Trouble relaxin = More than half the days Being so restless that it is hard to sit still: 1 = Several days Becoming easily annoyed or irritable: 2 = More than half the days Feeling afraid as if something awful might happen: 3 = Nearly every day Total IMANI-7 score (0-4 normal; 5-9 mild; 10-14 moderate; 15-21 severe): 14 Source: Developed by Drs. Eyal Aranda, Yissel Rios, Hayden Bishop and colleagues, with an educational griffin from [employer]. IMANI-7 Assessment Billing IMANI-7 Assessment Tool: IMANI-7 Assessment 73227 Review of Systems Const All systems reviewed & are unremarkable except as noted in HPI and below Reports headache(s) Eyes Reports no additional complaints, Denies change in vision and Denies other visual disturbances ENT Reports headache(s) and Denies lip swelling Card Denies chest pain at rest, Denies chest pain with activity, Denies edema, Denies irregular heart rhythm, Denies claudication, Denies dyspnea, Denies dyspnea on exertion, Denies orthopnea, Denies paroxysmal nocturnal dyspnea and Denies slow heart rate Resp Denies cough, Denies dyspnea and Denies dyspnea on exertion GI Denies abdominal pain, Denies change in bowel habits, Denies excessive flatus, Denies nausea and Denies vomiting Denies urinary incontinence, Denies urinary hesitancy and Denies urinary urgency Musc Denies abnormal gait, Denies atrophy, Denies deformity and Denies limited range of motion Skin/Breast Denies bleeding lesions, Denies changing lesions and Denies rash Neuro Denies abnormal gait, Denies behavioral changes, Denies confusion, Reports headache(s) and Denies lack of coordination Psych Reports abnormal sleep pattern, Reports anxiety, Denies behavioral changes, Denies confusion and Reports depression Aller/Immun Denies urticaria and Denies lip swelling Physical exam (Primary Care) Vital Signs: Last Vital Signs BP 126/80 09/05/23 15:08 BMI result Body Mass Index 22.3 Tobacco/Smoking Status: Tobacco use Status Tobacco use date assessed 09/05/23 09/05/23 15:15 Patient Tobacco Use Status Former Tobacco user 09/05/23 15:15 Tobacco use type Cigarette 09/05/23 15:15 e-Cigarette/Vaping Use Never Used 09/05/23 15:15 PHQ-9: PHQ-9 Score PHQ-9: Total score 13 09/05/23 15:29 Depression Screening Interpretation: Positive Depression Screening Follow-up: Existing condition Thrive Assessment: Date of Thrive Assessment Date Thrive assessed 09/05/23 09/05/23 15:15 Const General: No confusion Orientation/consciousness: patient oriented x3 and No confusion Eyes General: appearance normal, both eyes and all related structures Eyelids: Yes eyelids normal Conjunctivae: conjunctivae normal Neck Neck: Yes normal visual inspection and Yes supple Resp Effort & Inspection: normal respiratory effort Auscultation: clear to auscultation bilaterally Cardio Jugular venous distension: no JVD Rate: regular rate Rhythm: regular rhythm Heart sounds: S1 normal heart sound present and S2 normal heart sound present Neuro General: patient oriented x3, no focal motor deficits and No confusion Extrem General: Yes full ROM Office Procedures Flu Questionnaire Does the patient have a severe egg allergy?: No Immunizations flu vacc [id number] 6mos up(PF) 60 mcg(15 mcgx4)/0.5 mL IM syringe Performing Provider: Luci Tompkins MD [facility] Documented (not given) by: GLENDY Ellis on 09/05/23 15:16 Reason Not Given: Patient Refused Assessment and Plan Assessment & Plan (1) Hospital discharge follow-up: Code(s): Z09 - Encounter for follow-up examination after completed treatment for conditions other than malignant neoplasm Plan: Discharge date 08/30/2023 due to intractable headache. Head CT was done and was negative. Headache still present and I will start her on sumatriptan as needed. Also amitriptyline for migraine prophylaxis. (2) Intractable migraine: Code(s): G43.919 - Migraine, unspecified, intractable, without status migrainosus Plan: Start sumatriptan as needed. Start amitriptyline for migraine prophylaxis. Referred to neurology. (3) Rheumatoid arthritis: Comment: Cimzia: June 2019 to present Methotrexate: Discontinued September 2019 due to age and potential Code(s): M06.9 - Rheumatoid arthritis, unspecified Plan: Continue certolizumab. Follow-up with rheumatology. (4) Allergic rhinitis: Code(s): J30.9 - Allergic rhinitis, unspecified Plan: Continue antihistamines as needed. (5) Mild major depression: Code(s): F32.0 - Major depressive disorder, single episode, mild Plan: Start amitriptyline. Orders: Orders Influenza [id number] Immunization Today Z23 - Encounter for immunization Referrals Neurology Referral G43.919 - Migraine, unspecified, intractable, without status migrainosus Medications: New amitriptyline 25 mg PO BEDTIME 30 days 30 tabs 1RF sumatriptan succinate do not exceed 8 doses per 24 hrs 25 mg PO Q2-4H 30 days PRN 9 tabs 0RF migraine headache Coding Level of Care Code TCM Mod MDM <= 7 Days Diagnoses Hospital discharge follow-up Z09 Intractable migraine G43.919 Rheumatoid arthritis M06.9 Allergic rhinitis J30.9 Mild major depression F32.0 Additional Codes IMANI-7 Assessment Billing - IMANI-7 Assessment Tool: IMANI-7 Assessment 71838 ([id number]) Time Spent (min) 25
== END 2023-09-05 15:34 | disposition home or self-care (01) ==
PROVIDERS: PCP Internal Medicine; Visit Provider Internal Medicine
DX: M06.9 Rheumatoid arthritis, unspecified (principal); F32.0 Major depressive disorder, single episode, mild; Z09 Encounter for follow-up examination after completed treatment for conditions other than malignant neoplasm; G43.919 Migraine, unspecified, intractable, without status migrainosus; J30.9 Allergic rhinitis, unspecified
CPT/HCPCS: 96127; 99214

== ENCOUNTER 2023-09-21 10:46 | Outpatient (REF) | payer OTHER, SELFPAY ==
--- NOTE | ~2023-09-21 | US_ITS ---
EXAMINATION: US PELVIS CLINICAL INFORMATION: Abnormal uterine and vaginal bleeding. COMPARISON: Pelvic ultrasound 03/27/2019. TECHNIQUE: Ultrasound of the pelvis is performed using both transabdominal and transvaginal transducers along with color Doppler. Transvaginal imaging is performed due to inadequate visualization transabdominally. FINDINGS: Uterus: The uterus is anteverted and measures 8.7 x 4.2 x 5.6 cm. The double wall endometrial thickness is 11 mm. The uterus is smooth in contour and has normal myometrial echogenicity. No visible fibroid. Adnexa: Both ovaries are visualized. There is normal color flow to the adnexa. Right ovary measures 3.9 x 2.5 x 3.1, volume 16.2 mL. Antral follicle count appears greater than 12. Left ovary measures 4.2 x 2.4 x 3.5 cm., Volume 18.9 mL. Antral follicle count appears greater than 12. US/US pelvic and transvaginal IMPRESSION: The ovaries enlarged measuring greater than 10 mL in volume. Antral follicle count appears greater than 12 bilaterally. These findings are consistent with PCO morphology. Recommend clinical correlation for PCOS. Otherwise unremarkable pelvic ultrasound.
== END 2023-09-21 10:47 | disposition home or self-care (01) ==
LOC: HO.US 10:46
PROVIDERS: PCP Internal Medicine; Visit Provider Obstetrics & Gynecology
DX: N93.9 Abnormal uterine and vaginal bleeding, unspecified (principal)
CPT/HCPCS: 76830; 76856

== ENCOUNTER 2023-10-02 08:35 | Outpatient (REF) | payer OTHER, SELFPAY ==
[2023-10-07 23:59] LABS: Testosterone, Free 3.9 pg/mL (0.1-6.4); Testosterone, Total 34 ng/dL (2-45)
== END 2023-10-02 08:36 | disposition home or self-care (01) ==
LOC: HO.LAB 08:35
PROVIDERS: PCP Internal Medicine; Visit Provider Obstetrics & Gynecology
DX: L28.2 Other prurigo (principal)
CPT/HCPCS: 36415; 83498; 84402; 84403; 99212

== ENCOUNTER 2023-10-02 08:35 | Outpatient (AMB) | payer OTHER, SELFPAY ==
[2023-10-02 08:42] VITALS: BP 106/62; BMI 22.1
--- NOTE | 2023-10-02 08:42 | A.OFFVIS_ITS ---
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 Name: Charlette Gallagher GLENDY Information Interpreted: non-clinical & clinical Accompanied by: Spouse Allergies acetaminophen [From TYLENOL] Allergy (Unknown, Verified 10/02/23 08:43) RASH, THROAT SWELLING morphine [MORPHINE] Allergy (Unknown, Verified 10/02/23 08:43) RASH, THROAT SWELLING , swelling oseltamivir Allergy (Unknown, Verified 10/02/23 08:43) diarrhea Sulfa (Sulfonamide Antibiotics) Allergy (Unknown, Verified 10/02/23 08:43) anaphylaxis Is last menstrual period known: Yes Last menstrual period: 09/04/23 HPI HPI Comments History of Present Illness Details The patient is presenting for follow-up to discuss the results of her abnormal uterine bleeding workup and options of treatment. The following workup was done.: H&H= TSH, hCG, GC and chlamydia were negative. Cervical biopsy showed the following: Cervical lesion, biopsy: Polypoid endocervical glandular mucosa with acute and chronic inflammation; negative for dysplasia Co testing was done was negative. Pelvic ultrasound showed the following: Uterus: The uterus is anteverted and measures 8.7 x 4.2 x 5.6 cm. The double wall endometrial thickness is 11 mm. The uterus is smooth in contour and has normal myometrial echogenicity. No visible fibroid. Adnexa: Both ovaries are visualized. There is normal color flow to the adnexa. Right ovary measures 3.9 x 2.5 x 3.1, volume 16.2 mL. Antral follicle count appears greater than 12. Left ovary measures 4.2 x 2.4 x 3.5 cm., Volume 18.9 mL. Antral follicle count appears greater than 12. [facility] Medical History Blurred vision, bilateral Tachycardia Physical exam History of 2019 novel coronavirus disease (COVID-19) Sinus tachycardia Hypovitaminosis Rheumatoid arthritis Migraine Surgical History Surgical history of tubal ligation History of Family History Maternal Aunt History of breast cancer in female Uterus cancer Father Family hx of hypertension Hx of thyroid disease Diabetes mellitus Maternal Grandfather Family hx of hypertension History of heart disease Maternal Grandmother Family hx of hypertension Brother History of asthma Mother No problems noted. 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 Current occupational exposures/hazards: No Sexual orientation: Straight/Heterosexual Gender identity: Female Cognitive needs: No Hearing needs: No Vision needs: No Female Reproductive History Menstrual Age of Menarche: 12 Date of last menstrual period: 09/04/23 Review of Systems Const All systems reviewed & are unremarkable except as noted in HPI and below Reports as per HPI and Reports no additional complaints GI Reports no additional complaints Reports no additional complaints Physical Exam Vital Signs: Last Vital Signs BP 106/62 10/02/23 08:42 BMI result Body Mass Index 22.1 Assessment & Plan Assessment & Plan (1) PCOS (polycystic ovarian syndrome): Code(s): E28.2 - Polycystic ovarian syndrome Plan: Discussed with the patient the results of her blood work included TSH, prolactin, and ultrasound finding, PCOS appearance of the ovarian. Explained to the patient that she has a diagnosis of PCOS. D/w the patient the association o f PCOS with an increase in the risk of diabetes or pre diabetes, heart disease, hypercholesterolemia and metabolic syndrome, endometrial hyperplasia and/or cancer if untreated and an increase in the risk of breast cancer. Recommended for the patient the following: -To call her pcp to screen for cardiovascular risk and diabetes with FBS and 2 hr GTT after 75 g OGTT, in addition to cholesterol, lipids, HDL and LDL. -Instructions given to patient to increase exercise combined with dietary changes reduce the risk of diabetes, explained to the patient that reduction in body weight has been associated with improved rate and decreased hirsutism as well as improvement in glucose tolerance and lipid levels -For her Menstrual cycle : Recommended endometrial biopsy to rule out endometrial pathology in addition to 17 hydroxyprogesterone with testosterone total and free. Instructions given the patient to schedule a 2 week appointment for EMB. All questions answered, the patient verbalized understanding Orders: Orders Testosterone, Free/Total Today E28.2 - Polycystic ovarian syndrome 17 Hydroxyprogesterone Today E28.2 - Polycystic ovarian syndrome Coding Level of Care Code Est Pt Level 3 (07180) Diagnoses PCOS (polycystic ovarian syndrome) E28.2
== END 2023-10-02 09:05 | disposition home or self-care (01) ==
LOC: HO.HWS 08:35
PROVIDERS: PCP Internal Medicine; Visit Provider Obstetrics & Gynecology
DX: E28.2 Polycystic ovarian syndrome (principal)
CPT/HCPCS: 99213

== ENCOUNTER 2023-10-23 08:42 | Outpatient (REF) | payer OTHER, SELFPAY | END 2023-10-23 08:43 | disposition home or self-care (01) | LOC: HO.LNP 08:42 | PROVIDERS: PCP Internal Medicine; Visit Provider Obstetrics & Gynecology | DX: N93.9 Abnormal uterine and vaginal bleeding, unspecified (principal); Z32.02 Encounter for pregnancy test, result negative | CPT/HCPCS: 58100; 81025; 88305 ==

== ENCOUNTER 2023-10-23 08:42 | Outpatient (AMB) | payer OTHER, SELFPAY ==
[2023-10-23 08:52] VITALS: BP 110/66; BMI 21.9
--- NOTE | 2023-10-23 08:52 | MHC.OFFVIS ---
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 Present (Charlette) Accompanied by: Significant Other Allergies acetaminophen [From TYLENOL] Allergy (Unknown, Verified 10/23/23 08:53) RASH, THROAT SWELLING morphine [MORPHINE] Allergy (Unknown, Verified 10/23/23 08:53) RASH, THROAT SWELLING , swelling oseltamivir Allergy (Unknown, Verified 10/23/23 08:53) diarrhea Sulfa (Sulfonamide Antibiotics) Allergy (Unknown, Verified 10/23/23 08:53) anaphylaxis Is last menstrual period known: Yes Last menstrual period: 10/04/23 Post menopausal: No Patient : No HPI HPI Comments History of Present Illness Details Presenting for EMB PFSH Medical History Blurred vision, bilateral Tachycardia Physical exam History of 2019 novel coronavirus disease (COVID-19) Sinus tachycardia Hypovitaminosis Rheumatoid arthritis Migraine Surgical History Surgical history of tubal ligation History of Family History Maternal Aunt History of breast cancer in female Uterus cancer Father Family hx of hypertension Hx of thyroid disease Diabetes mellitus Maternal Grandfather Family hx of hypertension History of heart disease Maternal Grandmother Family hx of hypertension Brother History of asthma Mother No problems noted. 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 Current occupational exposures/hazards: No Sexual orientation: Straight/Heterosexual Gender identity: Female Cognitive needs: No Hearing needs: No Vision needs: No Female Reproductive History Menstrual Age of Menarche: 12 Date of last menstrual period: 10/04/23 control method: permanent sterilization Date of last pap smear: 06/21/23 (negative) Review of Systems Const All systems reviewed & are unremarkable except as noted in HPI and below Reports as per HPI and Reports no additional complaints GI Reports no additional complaints Reports no additional complaints Physical Exam Vital Signs: Last Vital Signs BP 110/66 10/23/23 08:52 BMI result Body Mass Index 21.9 Office Procedures Endometrial Biopsy Details: The patient was counseled regarding the indication and benefits of endometrial sampling to rule out endometrial pathology including not limited to endometrial hyperplasia or endometrial cancer and others; The alternatives (Either do nothing vs. hysteroscopy D&C) & the risks were discussed with the patient including but not limited: pain, uterine perforation, bleeding, infection, possible injury to bladder, bowel, ureter, possible need for blood transfusion with all its possible risks. The patient verbalized understanding all questions answered and signed consent. Urine test done in the office was negative The patient was placed into the dorsal lithotomy position; a speculum was inserted in the vagina. Using aseptic technique for the procedure, the cervix was cleansed with Betadine. The anterior lip of the cervix was grasped with a single tooth tenaculum. The uterus was sounded to 7 cm with a 4 mm Pipelle was used. Tissues samples were obtained and placed in formalin, in a patient labeled container and sent to the pathology department. At the end of the procedure, there was minimal bleeding noted The patient tolerated the procedure well and was discharged in good condition with the following instructions: Nothing in the vagina until the bleeding stops. No sex until the bleeding stops, to call if any of the following occurs: fever (>100.4), flu-like symptoms, abdominal pain, heavy bleeding, four smelling vaginal discharge. The patient was instructed to schedule a Follow up appointment in 2 weeks to discuss pathology results of the biopsy and treatment options. This note was generated with a voice recognition program. Some errors may have been overlooked during the review of this note. Sometimes these errors may affect the content or meaning of a given sentence. [id number] Biopsy Results AMB Test Urine AMB Test Urine Negative Last Edit by GLENDY England on 10/23/23 09:00 Results Reviewed Results Reviewed: Laboratory Last Values Tst Clinic Negative 10/23/23 08:59 Assessment & Plan Assessment & Plan (1) Abnormal uterine bleeding (AUB): Code(s): N93.9 - Abnormal uterine and vaginal bleeding, unspecified Plan: EMB done, see procedure note Orders: Orders AMB HCG Urine Test Today Z32.02 - Encounter for test, result negative AMB Endometrial Biopsy Today N93.9 - Abnormal uterine and vaginal bleeding, unspecified Coding Level of Care Code Procedure Only Diagnoses Abnormal uterine bleeding (AUB) N93.9 CPT Codes Endometrial Biopsy - CPT: 04274-Pwuwdaznjjo Biopsy ([id number])
== END 2023-10-23 10:45 | disposition home or self-care (01) ==
PROVIDERS: PCP Internal Medicine; Visit Provider Obstetrics & Gynecology
DX: N93.9 Abnormal uterine and vaginal bleeding, unspecified (principal); Z32.02 Encounter for pregnancy test, result negative
CPT/HCPCS: 58100

== ENCOUNTER 2023-11-08 08:52 | Outpatient (REF) | payer OTHER, SELFPAY ==
--- NOTE | ~2023-11-08 | XR_ITS ---
EXAMINATION: XR KNEE, RIGHT XR SHOULDER, RIGHT CLINICAL INFORMATION: Rheumatoid arthritis. COMPARISON: None available. TECHNIQUE: 3 views of the right knee. 3 views of the right shoulder. FINDINGS: Right knee: No significant joint effusion. Small sclerotic density overlying the lateral femoral condyle, possibly representing a bone island. Joint compartments and alignment preserved. Minimal medial marginal and posterior patellar osteophytes. Right shoulder: Mild degenerative changes in the acromioclavicular joint with joint space narrowing and hypertrophic change. Glenohumeral alignment preserved. No abnormal soft tissue calcifications identified adjacent to the humeral head. XR/XR knee RT 3V IMPRESSION: 1. Mild degenerative changes right knee. 2. Mild degenerative changes right acromioclavicular joint.
--- NOTE | ~2023-11-08 | XR_ITS ---
EXAMINATION: XR KNEE, RIGHT XR SHOULDER, RIGHT CLINICAL INFORMATION: Rheumatoid arthritis. COMPARISON: None available. TECHNIQUE: 3 views of the right knee. 3 views of the right shoulder. FINDINGS: Right knee: No significant joint effusion. Small sclerotic density overlying the lateral femoral condyle, possibly representing a bone island. Joint compartments and alignment preserved. Minimal medial marginal and posterior patellar osteophytes. Right shoulder: Mild degenerative changes in the acromioclavicular joint with joint space narrowing and hypertrophic change. Glenohumeral alignment preserved. No abnormal soft tissue calcifications identified adjacent to the humeral head. XR/XR shoulder RT min 2V IMPRESSION: 1. Mild degenerative changes right knee. 2. Mild degenerative changes right acromioclavicular joint.
[2023-11-08 09:08] LABS: MANUAL DIFF FLAG NO
[2023-11-08 10:19] LABS: Basophils Percent Auto 0.8 % (0-2); Eosinophils Absolute Auto 0.3 X10*3/uL (0.0-0.4); Eosinophils Percent Auto 6.4 % (0-4); Hematocrit 40.4 % (37.0-47.0); Hemoglobin 13.2 g/dl (12.0-16.0); Imm Gran Abs Auto 0.01 X10*3/uL (0.00-0.03); Imm Gran Pct Auto 0.2 % (0.0-0.4); Lymphocytes Absolute Auto 1.6 X10*3/uL (1.2-4.9); Lymphocytes Percent Auto 29.5 % (20-40); Mean Corpuscular HGB Conc 32.7 g/dl (31.0-35.0); Mean Corpuscular Hemoglobin 28.7 pg (27.0-33.0); Mean Corpuscular Volume 87.8 fL (80.0-98.0); Mean Platelet Volume 10.7 fL (9.4-12.3); Monocytes Absolute Auto 0.4 X10*3/uL (0.1-1.2); Monocytes Percent Auto 6.8 % (2-11); Neutrophils Percent Auto 56.3 % (45-73); Platelet Count 331 X10*3/uL (160-400); Red Cell Distribution Width 13.2 % (11.0-16.0); White Blood Count 5.3 X10*3/uL (4.8-10.8)
[2023-11-08 10:47] LABS: C Reactive Protein 0.41 mg/dL (< or = 0.50)
[2023-11-08 13:21] LABS: Erythrocyte Sedimentation Rate 6 MM/HR (0-20)
== END 2023-11-08 08:53 | disposition home or self-care (01) ==
LOC: HO.XRAY 08:52
PROVIDERS: PCP Internal Medicine; Visit Provider Internal Medicine Rheumatology
DX: M06.9 Rheumatoid arthritis, unspecified (principal); Z79.899 Other long term (current) drug therapy
CPT/HCPCS: 36415; 73030; 73562; 85025; 85652; 86140

== ENCOUNTER 2023-11-13 09:33 | Outpatient (AMB) | payer OTHER, SELFPAY ==
--- NOTE | 2023-11-13 09:38 | A.OFFVIS_ITS ---
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 Douglas, presents today for follow up. 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 Saha 33-year-old female returns today for follow-up of her rheumatoid arthritis. She remains on Cimzia 200 mg every 2 weeks and meloxicam 7.5-15 mg daily. She takes the meloxicam for knee pain. She no longer takes naproxen because it hurts her stomach She continues to have intermittent trouble with her right knee and right shoulder. She thinks she gets worse with more physical activities such as long day at work. She also notes discomfort in the right shoulder with lifting the arm up overhead which is what she does mainly at work. 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 She did see Podiatry for her ingrown toenail which is doing better. [facility] Medical History (Updated 11/13/23 @ 16:28 by YENNY Etienne-) Osteoarthritis of right knee Osteoarthritis of right acromioclavicular joint Blurred vision, bilateral Tachycardia Physical exam History of 2019 novel coronavirus disease (COVID-19) Sinus tachycardia Hypovitaminosis Rheumatoid arthritis Migraine Surgical History Surgical history of tubal ligation History of Family History Maternal Aunt History of breast cancer in female Uterus cancer Father Family hx of hypertension Hx of thyroid disease Diabetes mellitus Maternal Grandfather Family hx of hypertension History of heart disease Maternal Grandmother Family hx of hypertension Brother History of asthma Mother No problems noted. 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 Current occupational exposures/hazards: No Sexual orientation: Straight/Heterosexual Gender identity: Female Cognitive needs: No Hearing needs: No Vision needs: No Female Reproductive History Menstrual Age of Menarche: 12 Review of Systems Const All systems reviewed & are unremarkable except as noted in HPI and below Physical Exam Vital Signs: Last Vital Signs Temp 97.2 F 11/13/23 09:42 Pulse 83 11/13/23 09:42 BP 124/60 11/13/23 09:42 Pulse Ox 98 11/13/23 09:42 Oxygen Delivery Method Room Air 11/13/23 09:42 BMI result Body Mass Index 22.0 APPEARANCE: Patient in no acute distress EXTREMITIES: No edema, no calf tenderness, normal peripheral pulses. NEURO: Oriented and alert x3. No focal weakness. Reflexes symmetric. Gait normal. SKIN: No inflammatory or neoplastic lesions. Normal color and turgor JOINT EXAM: Cervical Spine:.? Full range of motion with mild discomfort at the extremes. No tenderness. Thoracic Spine:.? No scoliosis.? No tenderness on palpation. Lumbar Spine:.? Alignment normal.? Full range of motion with slight pain at the knee degrees flexion. No tenderness. Chest Wall:.? No tenderness, swelling, increased warmth or erythema. Hands:.? Normal pain-free range of motion without tenderness, swelling, increased warmth or erythema. 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 Wrists:.? Right: Mild pain with flexion extension at 75 degrees. Slight ventral tenderness and swelling on the radial aspect. No redness or warmth. Left: Normal pain-free range of motion with some slight thickening and tenderness on the volar aspect. No redness or warmth. Elbows:. Normal pain-free range of motion without tenderness, swelling, increased warmth or erythema. Shoulders:.??Right: Mild pain with extremes of range of motion some slight anterior and posterior tenderness. No adenopathy, weakness, or swelling. Left: Mild discomfort with extremes of motion. No tenderness, abductor weakness, adenopathy or swelling. Hips:.? Full range of motion without pain. Hip bursa:.? Mild trochanteric tenderness. Knees:.? Right:? Normal range of motion with extremes of flexion or extension. Most the pain is felt on the medial and lateral aspects. There is slight lateral and mild medial tenderness without effusion, soft tissue swelling, increased warmth or erythema.? There is no patellofemoral crepitation. Left: No pain with extremes of flexion extension. There is minimal medial compartment tenderness without redness or effusion. There is no popliteal swelling or tenderness. Ankles:.? Normal pain-free range of motion without tenderness, swelling, increased warmth or erythema. Feet:.? Right: Pain-free range of motion of the joints. No areas of tenderness or swelling.There is some bony enlargement without tenderness at the 1st MTP joint. Left: Some mild 1st MTP bony enlargement but otherwise normal pain-free range of motion without soft tissue tenderness, swelling, increased warmth or erythema. Tender points: Mild tenderness to digital palpation at the occiput, trapezius, lateral epicondyle, knees, greater trochanter area bilaterally. ? Results Reviewed Results Reviewed: [address] [address] XRay Report Signed Patient: Rosanne Pichardo MR#: [id number] : 1990 Acct:[id number] Age/Sex: 32 / F 03/11/23 Ordering Physician: Tico Douglas MD Date of Service: 03/13/23 Procedure(s): XR knee LT 3V Accession Number(s): [id number] cc: Tico Douglas MD~ EXAMINATION: XR KNEE, LEFT CLINICAL INFORMATION: Rheumatoid arthritis COMPARISON: None available. TECHNIQUE: Four views of the left knee. FINDINGS: No fracture or joint effusion. Alignment is anatomic. Joint spaces are maintained. No abnormal soft tissue calcification. XR/XR knee LT 3V IMPRESSION: Normal left knee. Dictated By: hCuck Merrill MD Laboratory Tests 11/08/23 09:07 WBC 5.3 RBC 4.60 Hgb 13.2 Hct 40.4 ESR 6 C-Reactive Protein 0.41 EXAMINATION: XR KNEE, RIGHT XR SHOULDER, RIGHT CLINICAL INFORMATION: Rheumatoid arthritis. COMPARISON: None available. TECHNIQUE: 3 views of the right knee. 3 views of the right shoulder. FINDINGS: Right knee: No significant joint effusion. Small sclerotic density overlying the lateral femoral condyle, possibly representing a bone island. Joint compartments and alignment preserved. Minimal medial marginal and posterior patellar osteophytes. Right shoulder: Mild degenerative changes in the acromioclavicular joint with joint space narrowing and hypertrophic change. Glenohumeral alignment preserved. No abnormal soft tissue calcifications identified adjacent to the humeral head. XR/XR shoulder RT min 2V IMPRESSION: 1. Mild degenerative changes right knee. 2. Mild degenerative changes right acromioclavicular joint. 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 Code(s): M06.9 - Rheumatoid arthritis, unspecified Qualifiers: Rheumatoid arthritis location: multiple sites Rheumatoid factor presence: with rheumatoid factor Qualified Code(s): M05.79 - Rheumatoid arthritis with rheumatoid factor of multiple sites without organ or systems inv olvement (3) Osteoarthritis of right acromioclavicular joint: Code(s): M19.011 - Primary osteoarthritis, right shoulder (4) Osteoarthritis of right knee: Code(s): M17.11 - Unilateral primary osteoarthritis, right knee Qualifiers: Osteoarthritis type: primary Qualified Code(s): M17.11 - Unilateral primary osteoarthritis, right knee Plan #Rheumatoid arthritis with some knee and shoulder pains. I do not really see signs of an active inflammatory process presently. Her markers of inflammatory disease are within normal range. She will continue with the Cimzia 200 mg every 2 weeks. I did discuss with patient that we can consider to start her on a low dose of methotrexate to augment the Cimzia. Maybe this will be enough to help with the activity in her shoulder and knee. She did take methotrexate in the past and find that it made her very nauseous and gave her occasional vomiting with diarrhea. It may be because she started out on 8 pills as her 1st dosing. If she feels that the shoulder and knees becoming more chronic we can try starting her at 5 pills and reassess to see if that is tolerable for her and if it provides a improvement. #OA of the right shoulder: Imaging showed mild arthritis - joint space narrowing and hypertrophic changes in the AC joint of the right shoulder. Osteoarthritis of the acromioclavicular (AC) joint is?a common condition causing anterior or superior shoulder pain, especially with overhead and cross-body activities. There is degeneration to the fibrocartilaginous disk that cushions the articulations. There could be some rotator cuff impingement issues and patellofemoral pain. She did do physical therapy but did not find it to be helpful. She also has OA in the right knee. The patient does describe that the knee and shoulder pains are not chronic. She finds that it hurts more when she has a long day at work and says it averages about once per month for two or 3 days. Continue with meloxicam 15 mg QD PRN as she says it does help. #Long-term use: We will continue to monitor her CBC for cytopenias and CMP for adequate kidney function so she will do lab 1 week before next visit. A follow-up in 4 months. 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
[2023-11-13 09:42] VITALS: BP 124/60; PULSE 83; TEMP 36.2; O2SAT 98; BMI 22.0
== END 2023-11-13 10:22 | disposition home or self-care (01) ==
PROVIDERS: PCP Internal Medicine; Visit Provider Nurse Practitioner Family
DX: Z79.899 Other long term (current) drug therapy (principal); M05.79 Rheumatoid arthritis with rheumatoid factor of multiple sites without organ or systems involvement; M19.011 Primary osteoarthritis, right shoulder; M17.11 Unilateral primary osteoarthritis, right knee
CPT/HCPCS: 99214

== ENCOUNTER → 2023-11-13 09:33 | Outpatient (BNVA) | payer OTHER, SELFPAY | PROVIDERS: PCP Internal Medicine; Visit Provider Nurse Practitioner Family | DX: M05.79 Rheumatoid arthritis with rheumatoid factor of multiple sites without organ or systems involvement (principal); M19.011 Primary osteoarthritis, right shoulder; M17.11 Unilateral primary osteoarthritis, right knee; Z79.899 Other long term (current) drug therapy | CPT/HCPCS: 99212 ==

== ENCOUNTER 2023-11-13 16:21 | Outpatient (AMB) | payer OTHER, SELFPAY ==
--- NOTE | 2023-11-13 16:32 | A.OFFPC_ITS ---
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 Accompanied by: Self / Same As Patient Allergies acetaminophen [From TYLENOL] Allergy (Unknown, Verified 11/13/23 16:59) RASH, THROAT SWELLING morphine [MORPHINE] Allergy (Unknown, Verified 11/13/23 16:59) RASH, THROAT SWELLING , swelling oseltamivir Allergy (Unknown, Verified 11/13/23 16:59) diarrhea Sulfa (Sulfonamide Antibiotics) Allergy (Unknown, Verified 11/13/23 16:59) anaphylaxis Medication List - Last Reconciled 11/13/23 by Luci Tompkins MD amitriptyline 25 mg PO BEDTIME 30 days certolizumab pegol 200 mg subcut Q2W meloxicam 7.5 mg PO BID naproxen 500 mg PO Q8-12H PRN sumatriptan succinate 25 mg PO Q2-4H PRN 30 days Tobacco use date assessed: 09/05/23 HPI HPI Comments History of Present Illness Details This is a 33-year-old female with rheumatoid arthritis and mild major depression that comes today for her physical exam. Rheumatoid arthritis stable with Cimzia and follow by Rheumatology. Depression has markedly improved with amitriptyline. She denies any chest pain or shortness of breath. Last Pap smear was 2022. [facility] Medical History (Updated 11/13/23 @ 17:06 by Luci Tompkins MD) Physical exam Osteoarthritis of right knee Osteoarthritis of right acromioclavicular joint Blurred vision, bilateral Tachycardia History of 2019 novel coronavirus disease (COVID-19) Sinus tachycardia Hypovitaminosis Rheumatoid arthritis Migraine Surgical History Surgical history of tubal ligation History of Family History (Updated 11/13/23 @ 17:04 by Luci Tompkins MD) Maternal Aunt History of breast cancer in female Uterus cancer Father Family hx of hypertension Hx of thyroid disease Diabetes mellitus Maternal Grandfather Family hx of hypertension History of heart disease Maternal Grandmother Family hx of hypertension Brother History of asthma Mother Diabetes mellitus Social History Household Members: Spouse and Children Housing: Apartment Unable to assess alcohol history related to: Unknown Alcohol intake: never Patient Tobacco Use Status: Former Tobacco user Tobacco use type: Cigarette e-Cigarette/Vaping Use: Never Used Second Hand Smoke Exposure: No service: No Current occupational status: employed 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 Eyal Aranda, Yissel Rios, Hayden Bishop and colleagues, with an educational griffin from [employer]. Review of Systems Const All systems reviewed & are unremarkable except as noted in HPI and below Eyes Reports no additional complaints, Denies change in vision and Denies other visual disturbances Card Denies chest pain at rest, Denies chest pain with activity, Denies edema, Denies irregular heart rhythm, Denies claudication, Denies dyspnea, Denies dyspnea on exertion, Denies orthopnea, Denies paroxysmal nocturnal dyspnea and Denies slow heart rate Resp Denies cough, Denies dyspnea and Denies dyspnea on exertion GI Denies abdominal pain, Denies change in bowel habits, Denies excessive flatus, Denies nausea and Denies vomiting Denies urinary incontinence, Denies urinary hesitancy and Denies urinary urgency Physical exam (Primary Care) Vital Signs: Last Vital Signs BP 118/72 11/13/23 16:33 BMI result Body Mass Index 21.9 Tobacco/Smoking Status: Tobacco use Status Tobacco use date assessed 09/05/23 11/13/23 16:40 Patient Tobacco Use Status Former Tobacco user 11/13/23 16:40 Tobacco use type Cigarette 11/13/23 16:40 e-Cigarette/Vaping Use Never Used 11/13/23 16:40 Thrive Assessment: Date of Thrive Assessment Date Thrive assessed 09/05/23 11/13/23 16:40 Const Orientation/consciousness: patient oriented x3 HENMT Head: Yes normal to inspection, Yes normocephalic and Yes atraumatic Ears: external ears normal Eyes General: appearance normal, both eyes and all related structures Eyelids: Yes eyelids normal Conjunctivae: conjunctivae normal Neck Neck: Yes normal visual inspection and Yes supple Resp Effort & Inspection: normal respiratory effort Auscultation: clear to auscultation bilaterally Cardio Jugular venous distension: no JVD Rate: regular rate Rhythm: regular rhythm Heart sounds: S1 normal heart sound present and S2 normal heart sound present GI Inspection: Yes normal to inspection Palpation (GI): Soft to palpation and nontender Auscultation: normal bowel sounds Skin General skin exam: no rashes or lesions noted Neuro General: patient oriented x3 and no focal motor deficits Extrem General: Yes full ROM Psych Appearance: grossly normal Assessment and Plan Assessment & Plan (1) Physical exam: Code(s): Z00.00 - Encounter for general adult medical examination without abnormal findings Plan: Repeat in a year. (2) Mild major depression: Code(s): F32.0 - Major depressive disorder, single episode, mild Plan: Continue amitriptyline. (3) Rheumatoid arthritis: Comment: Cimzia: June 2019 to present Methotrexate: Discontinued September 2019 due to age and potential - NVD from 2017. Code(s): M06.9 - Rheumatoid arthritis, unspecified Qualifiers: Rheumatoid arthritis location: multiple sites Rheumatoid factor presence: with rheumatoid factor Qualified Code(s): M05.79 - Rheumatoid arthritis with rheumatoid factor of multiple sites without organ or systems involvement Plan: Continue Cimzia. Orders: Orders Comprehensive [place]. Panel Fast Today Z00.00 - Encounter for general adult medical examination without abnormal findings Lipid Panel Today Z00.00 - Encounter for general adult medical examination without abnormal findings Coding Level of Care Code Est Pt Prev Care 18-39y(33485) Diagnoses Physical exam Z00.00 Mild major depression F32.0 Rheumatoid arthritis involving multiple sites with positive rheumatoid factor M05.79 Rheumatoid arthritis location: multiple sites Rheumatoid factor presence: with rheumatoid factor Time Spent (min) 33
[2023-11-13 16:33] VITALS: BP 118/72; BMI 21.9
== END 2023-11-13 17:11 | disposition home or self-care (01) ==
PROVIDERS: PCP Internal Medicine; Visit Provider Internal Medicine
DX: Z00.00 Encounter for general adult medical examination without abnormal findings (principal); F32.0 Major depressive disorder, single episode, mild; M05.79 Rheumatoid arthritis with rheumatoid factor of multiple sites without organ or systems involvement
CPT/HCPCS: 99395

== ENCOUNTER 2023-11-28 08:23 | Outpatient (AMB) | payer OTHER, SELFPAY ==
[2023-11-28 08:39] VITALS: BP 120/72; BMI 21.9
--- NOTE | 2023-11-28 08:39 | A.OFFVIS_ITS ---
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 Allergies acetaminophen [From TYLENOL] Allergy (Unknown, Verified 11/28/23 08:39) RASH, THROAT SWELLING morphine [MORPHINE] Allergy (Unknown, Verified 11/28/23 08:39) RASH, THROAT SWELLING , swelling oseltamivir Allergy (Unknown, Verified 11/28/23 08:39) diarrhea Sulfa (Sulfonamide Antibiotics) Allergy (Unknown, Verified 11/28/23 08:39) anaphylaxis Is last menstrual period known: Yes Last menstrual period: 11/27/23 Post menopausal: No HPI HPI Comments History of Present Illness Details The patient is presenting for follow-up to discuss the results of her abnormal uterine bleeding workup and options of treatment. The following workup was done.: H&H= 13.2/40.4 TSH, hCG, GC and chlamydia were negative. Total and free testosterone with 17 hydroxy progesterone within normal Endometrial biopsy pathology showed early secretory endometrium with no evidence of hyperplasia and/or malignancy. Co testing was done was negative. Pelvic ultrasound showed the following: IMPRESSION: The ovaries enlarged measuring greater than 10 mL in volume. Antral follicle count appears greater than 12 bilaterally. These findings are consistent with PCO morphology. Recommend clinical correlation for PCOS. Otherwise unremarkable pelvic ultrasound. [facility] Medical History Physical exam Osteoarthritis of right knee Osteoarthritis of right acromioclavicular joint Blurred vision, bilateral Tachycardia History of 2019 novel coronavirus disease (COVID-19) Sinus tachycardia Hypovitaminosis Rheumatoid arthritis Migraine Surgical History Surgical history of tubal ligation History of Family History Maternal Aunt History of breast cancer in female Uterus cancer Father Family hx of hypertension Hx of thyroid disease Diabetes mellitus Maternal Grandfather Family hx of hypertension History of heart disease Maternal Grandmother Family hx of hypertension Brother History of asthma Mother Diabetes mellitus Social History Household Members: Spouse and Children Housing: Apartment Unable to assess alcohol history related to: Unknown Alcohol intake: never Patient Tobacco Use Status: Former Tobacco user Tobacco use type: Cigarette e-Cigarette/Vaping Use: Never Used Second Hand Smoke Exposure: No service: No Current occupational status: employed 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 Current occupational exposures/hazards: No Sexual orientation: Straight/Heterosexual Gender identity: Female Cognitive needs: No Hearing needs: No Vision needs: No Female Reproductive History Menstrual Age of Menarche: 12 Date of last menstrual period: 11/27/23 control method: permanent sterilization Review of Systems Const All systems reviewed & are unremarkable except as noted in HPI and below Reports as per HPI and Reports no additional complaints GI Reports no additional complaints Reports no additional complaints Physical Exam Vital Signs: Last Vital Signs BP 120/72 11/28/23 08:39 BMI result Body Mass Index 21.9 Assessment & Plan Assessment & Plan (1) PCOS (polycystic ovarian syndrome): Code(s): E28.2 - Polycystic ovarian syndrome Plan: Discussed with the patient the results of her blood work included TSH, prolactin, testosterone, 17 hydroxyprogesterone. Explained to the patient that she has a diagnosis of PCOS (rottendam criteria 2/3. D/w the patient the association of PCOS with an increase in the risk of diabetes or pre diabetes, heart disease, hypercholesterolemia and metabolic syndrome, endometrial hyperplasia and/or cancer if untreated and an increase in the risk of breast cancer. Recommended for the patient the following: -To call her pcp to screen for cardiovascular risk and diabetes with FBS and 2 hr GTT after 75 g OGTT, in addition to cholesterol, lipids, HDL and LDL. -For her Menstrual cycle control: Discussed with the patient the following options of treatment : Combination low-dose hormonal contraceptives are recommended as the primary treatment for menstrual disorder (with patient's history of migraine headaches that is a contraindication) Or Progestins: Cyclic progesterone versus Mirena IUD No studies have addressed the long-term use of depot medroxyprogesterone acetate and intermittent oral medroxyprogesterone acetate to treat hirsutism. The regimen of cyclic oral progestin therapy or progestin-containing intrauterine devices that most effectively prevent endometrial cancer in women with PCOS is unknown. Progestin-only contraceptives or progestin-containing intrauterine devices are an alternative for endometrial protection, but they are associated with abnormal bleeding patterns in 50?89% of users After discussion all the pros and cons risks benefits of each were discussed with the patient, the patient decided to proceed cyclic Provera, so a more detailed discussion re: Progesterone treatment including mechanism of action, benefits (regular menses, endometrial protection form unopposed estrogen and reduction in the risk of endometrial hyperplasia and/or cancer ...), risks ( Thrombosis, mood changes, weight gain, breast soreness, ? increased breast ca, others). Instructions were given to use a back- up method for contraception since this is not a method control, take the medication 1 tablet daily starting day 15-24 and to schedule a 3 months follow-up appointment; -If the patient is interested in will send pt for a consult to reproductive endocrinology. All questions answered. Pt verbalized understanding Medications: New medroxyprogesterone (Provera) start Provera 1 tablet daily from day 15-24 cyclically every months, day 1 being 1st day of menses 10 mg PO DAILY 10 days 30 tabs 0RF Coding Level of Care Code Est Pt Level 3 (97289) Diagnoses PCOS (polycystic ovarian syndrome) E28.2
== END 2023-11-28 08:54 | disposition home or self-care (01) ==
PROVIDERS: PCP Internal Medicine; Visit Provider Obstetrics & Gynecology
DX: E28.2 Polycystic ovarian syndrome (principal)
CPT/HCPCS: 99213

== ENCOUNTER → 2023-11-28 08:23 | Outpatient (BNVA) | payer OTHER, SELFPAY | PROVIDERS: PCP Internal Medicine; Visit Provider Obstetrics & Gynecology | DX: E28.2 Polycystic ovarian syndrome (principal) | CPT/HCPCS: 99212 ==

== ENCOUNTER 2023-12-28 08:50 | Outpatient (AMB) | payer OTHER, SELFPAY ==
[2023-12-28 09:18] VITALS: BP 124/66; PULSE 104; TEMP 36.4; O2SAT 100; BMI 22.3
--- NOTE | 2023-12-28 09:18 | AM.OFFWIN_ITS ---
Intake Vital Signs 12/28/23 09:18 Height 5 ft 1 in Weight 118 lb BMI 22.3 BP 124/66 Blood Pressure Location Lt brachial Position Sitting Pulse 104 H Pulse Source Pulse Oximeter Temp 97.6 F Temp Source Temporal Artery Scan Pulse Oximetry (%) 100 Oxygen Delivery Method Room Air Intake Visit Reasons: EST/dizziness & weakness(lobby) Intake Note: pt is here today for dizziness and weakness started last sunday. She states she has just been feeling worse and worse each day. Patient Tobacco Use Status: Former Tobacco user Allergies acetaminophen [From TYLENOL] Allergy (Unknown, Verified 12/28/23 09:27) RASH, THROAT SWELLING morphine [MORPHINE] Allergy (Unknown, Verified 12/28/23 09:27) RASH, THROAT SWELLING , swelling oseltamivir Allergy (Unknown, Verified 12/28/23 09:27) diarrhea Sulfa (Sulfonamide Antibiotics) Allergy (Unknown, Verified 12/28/23 09:27) anaphylaxis HPI HPI Comments History of Present Illness Details 33 y/o female patient who presents to [facility] in clinic with c/o generalized weakness and fatigue since Sunday. [facility] Medical History Physical exam Osteoarthritis of right knee Osteoarthritis of right acromioclavicular joint Blurred vision, bilateral Tachycardia History of 2019 novel coronavirus disease (COVID-19) Sinus tachycardia Hypovitaminosis Rheumatoid arthritis Migraine Surgical History Surgical history of tubal ligation History of Family History Maternal Aunt History of breast cancer in female Uterus cancer Father Family hx of hypertension Hx of thyroid disease Diabetes mellitus Maternal Grandfather Family hx of hypertension History of heart disease Maternal Grandmother Family hx of hypertension Brother History of asthma Mother Diabetes mellitus Social History Household Members: Spouse and Children Housing: Apartment Unable to assess alcohol history related to: Unknown Alcohol intake: never Patient Tobacco Use Status: Former Tobacco user Tobacco use type: Cigarette e-Cigarette/Vaping Use: Never Used Second Hand Smoke Exposure: No service: No Current occupational status: employed 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 Current occupational exposures/hazards: No Sexual orientation: Straight/Heterosexual Gender identity: Female Cognitive needs: No Hearing needs: No Vision needs: No Female Reproductive History Menstrual Age of Menarche: 12 Review of Systems Const All systems reviewed & are unremarkable except as noted in HPI and below Physical Exam Vital Signs: Last Vital Signs Temp 97.6 F 12/28/23 09:18 Pulse 104 H 12/28/23 09:18 BP 124/66 12/28/23 09:18 Pulse Ox 100 12/28/23 09:18 Oxygen Delivery Method Room Air 12/28/23 09:18 BMI result Body Mass Index 22.3 Const General: no acute distress and lethargic; No comfortable Nutritional Appearance: underweight Orientation/consciousness: patient oriented x3 and lethargic HEENT Head: Yes normocephalic Ears: external ears normal and TM's normal bilaterally General nose exam: Normal nasal mucous membranes and turbinates present Face and sinus: Yes sinuses nontender Mouth: moist mucous membranes Throat: Yes posterior oropharynx normal Resp Effort & Inspection: normal respiratory effort, able to speak in complete sentences and no cough Auscultation: clear to auscultation bilaterally, no crackles, no rales, no rhonchi and no wheezes Cardio Rate: regular rate Rhythm: regular rhythm Neuro General: patient oriented x3, gait normal and moves all extremities Psych Speech and movement: Normal speech and movement present Assessment & Plan Assessment & Plan (1) Upper respiratory infection: Code(s): J06.9 - Acute upper respiratory infection, unspecified Qualifiers: URI type: unspecified viral URI Qualified Code(s): J06.9 - Acute upper respiratory infection, unspecified Plan: - REst and hydrate well - Ibuprofen for pain relief - If not better, go ED Orders: Orders SARS-CoV2/FLU/RSV Today R09.89 - Other specified symptoms and signs involving the circulatory and respiratory systems Coding Level of Care Code Est Pt Level 3 (38038) Diagnoses Viral upper respiratory tract infection J06.9 URI type: unspecified viral URI Time Spent (min) 15
== END 2023-12-28 11:11 | disposition home or self-care (01) ==
PROVIDERS: PCP Internal Medicine; Visit Provider Nurse Practitioner Family
DX: J06.9 Acute upper respiratory infection, unspecified (principal)
CPT/HCPCS: 99213

== ENCOUNTER 2023-12-28 09:57 | Outpatient (REF) | payer OTHER, SELFPAY ==
[2023-12-28 13:52] LABS: Influenza A PCR NEGATIVE (Negative); Influenza B PCR NEGATIVE (Negative); Resp Syncy Virus RNA Qual PCR NEGATIVE (Negative); SARS COV2 PCR INHOUSE NEGATIVE (Negative)
== END 2023-12-28 09:58 | disposition home or self-care (01) ==
LOC: HO.LAB 09:57
PROVIDERS: Visit Provider Nurse Practitioner Family
DX: Z11.52 Encounter for screening for COVID-19 (principal); R09.89 Other specified symptoms and signs involving the circulatory and respiratory systems
CPT/HCPCS: 0241U

== ENCOUNTER 2024-02-14 07:55 | Outpatient (REF) | payer OTHER, SELFPAY ==
[2024-02-14 08:12] LABS: MANUAL DIFF FLAG NO
[2024-02-14 08:19] LABS: Basophils Percent Auto 0.8 % (0-2); Eosinophils Absolute Auto 0.2 X10*3/uL (0.0-0.4); Eosinophils Percent Auto 4.3 % (0-4); Hematocrit 38.3 % (37.0-47.0); Hemoglobin 12.6 g/dl (12.0-16.0); Imm Gran Abs Auto 0.01 X10*3/uL (0.00-0.03); Imm Gran Pct Auto 0.2 % (0.0-0.4); Lymphocytes Absolute Auto 1.7 X10*3/uL (1.2-4.9); Lymphocytes Percent Auto 35.3 % (20-40); Mean Corpuscular HGB Conc 32.9 g/dl (31.0-35.0); Mean Corpuscular Hemoglobin 29.2 pg (27.0-33.0); Mean Corpuscular Volume 88.7 fL (80.0-98.0); Mean Platelet Volume 10.2 fL (9.4-12.3); Monocytes Absolute Auto 0.4 X10*3/uL (0.1-1.2); Monocytes Percent Auto 8.2 % (2-11); Neutrophils Absolute Auto 2.5 x10*3/uL (2.0-8.3); Neutrophils Percent Auto 51.2 % (45-73); Platelet Count 287 X10*3/uL (160-400); Red Blood Count 4.32 X10*6/uL (4.20-5.50); Red Cell Distribution Width 13.4 % (11.0-16.0); White Blood Count 4.9 X10*3/uL (4.8-10.8)
[2024-02-14 08:32] LABS: Alanine Aminotransferase 9 U/L (0-31); Albumin Level 4.3 g/dL (3.5-5.0); Alkaline Phosphatase 53 U/L (39-117); Anion Gap 12 (12-20); Aspartate Amino Transferase 16 U/L (5-31); Bilirubin Total 0.5 mg/dL (0.0-1.0); Blood Urea Nitrogen 12 mg/dL (9-16); C Reactive Protein 0.22 mg/dL (< or = 0.50); Carbon Dioxide 25 mmol/L (22-29); Chloride 108 mmol/L (96-108); Cholesterol 109 mg/dL (<200); Estimated Glomerular Filt Rate > 60; Glucose Fasting 97 mg/dL (60-99); Glucose Random 97 mg/dL (60-115); HDL Cholesterol 44 mg/dL (>40); LDL Cholesterol Calculated 57 mg/dL (<100); Potassium 4.1 mmol/L (3.3-5.1); Sodium 141 mmol/L (135-145); Total Protein 7.2 g/dL (6.5-8.0); Triglycerides 43 mg/dL (<150)
[2024-02-14 08:57] LABS: Erythrocyte Sedimentation Rate 6 MM/HR (0-20)
== END 2024-02-14 07:56 | disposition home or self-care (01) ==
LOC: HO.LAB 07:55
PROVIDERS: Nurse Practitioner Family; Absent Provider Obstetrics & Gynecology; PCP Internal Medicine; Visit Provider Internal Medicine
DX: Z00.00 Encounter for general adult medical examination without abnormal findings (principal); N93.9 Abnormal uterine and vaginal bleeding, unspecified; M06.9 Rheumatoid arthritis, unspecified; Z79.899 Other long term (current) drug therapy
CPT/HCPCS: 36415; 80053; 80061; 81025; 85025; 85027; 85652; 86140; 99212

== ENCOUNTER 2024-02-14 09:28 | Outpatient (AMB) | payer OTHER, SELFPAY ==
--- NOTE | 2024-02-14 09:43 | MHC.OFFVIS ---
Vital Signs 02/14/24 09:46 Height 5 ft 1 in Weight 118 lb BMI 22.3 BP 122/60 Blood Pressure Location Lt brachial Position Sitting Intake Visit Reasons: vaginal bleeding Allergies acetaminophen [From TYLENOL] Allergy (Unknown, Verified 02/14/24 09:47) RASH, THROAT SWELLING morphine [MORPHINE] Allergy (Unknown, Verified 02/14/24 09:47) RASH, THROAT SWELLING , swelling oseltamivir Allergy (Unknown, Verified 02/14/24 09:47) diarrhea Sulfa (Sulfonamide Antibiotics) Allergy (Unknown, Verified 02/14/24 09:47) anaphylaxis HPI Comments Details: Presenting complaining of 2 week history of vaginal bleeding. The patient was diagnosed with PCOS 2 months ago has started cyclic Provera 10 mg p.o. q.d. for the 1st 2 months. LMP was 02/04 and since then the patient has been bleeding but did not start her Provera this cycle. H&H done today was 12.6/38.3. Last EMB was done in 11/10 was negative for endometrial hyperplasia and/or malignancy [facility] Medical History Physical exam Osteoarthritis of right knee Osteoarthritis of right acromioclavicular joint Blurred vision, bilateral Tachycardia History of 2019 novel coronavirus disease (COVID-19) Sinus tachycardia Hypovitaminosis Rheumatoid arthritis Migraine Surgical History Surgical history of tubal ligation History of Family History Maternal Aunt History of breast cancer in female Uterus cancer Father Family hx of hypertension Hx of thyroid disease Diabetes mellitus Maternal Grandfather Family hx of hypertension History of heart disease Maternal Grandmother Family hx of hypertension Brother History of asthma Mother Diabetes mellitus Social History Household Members: Spouse and Children Housing: Apartment Unable to assess alcohol history related to: Unknown Alcohol intake: never Patient Tobacco Use Status: Former Tobacco user Tobacco use type: Cigarette e-Cigarette/Vaping Use: Never Used Second Hand Smoke Exposure: No service: No Current occupational status: employed 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 Current occupational exposures/hazards: No Sexual orientation: Straight/Heterosexual Gender identity: Female Cognitive needs: No Hearing needs: No Vision needs: No Female Reproductive History Menstrual Age of Menarche: 12 control method: none Review of Systems Const All systems reviewed & are unremarkable except as noted in HPI and below Physical Exam Vital Signs: Last Vital Signs BP 122/60 02/14/24 09:46 BMI result Body Mass Index 22.3 General: Yes no CVA tenderness External Female Exam: normal external appearance and normal appearance of the urethra Speculum Exam - Vagina: normal appearance of the vagina, normal palpation, no lesions, no masses and other (Minimal blood per vagina, no evidence of active vaginal bleeding) Speculum Exam - Cervix: normal appearance of the cervix, normal palpation, no lesions, no masses and nontender Bimanual exam- vagina & uterus: normal bimanual exam, normal palpation, uterine size normal, normal palpation, uterine shape normal, No Cervical tenderness present and non-tender Bimanual Exam- Adnexa, other: normal adnexae Back/Spine/Pelvis Back: no CVA tenderness Results AMB Test Urine AMB Test Urine Negative Last Edit by Ivett Owens CMA on 02/14/24 09:54 Results Reviewed Results Reviewed: Laboratory Last Values Tst Clinic Negative 02/14/24 09:53 Assessment & Plan Assessment & Plan (1) Abnormal uterine bleeding (AUB): Comment: PCOS Code(s): N93.9 - Abnormal uterine and vaginal bleeding, unspecified Category: Medical Plan: Recommended the patient to start Provera 10 mg p.o. q.d. for 10 days and continue cyclic Provera day 15-24 for the coming 3 months. Instructions given the patient to call in case of persistence of her bleeding and otherwise follow-up in 3 months Orders: Orders AMB HCG Urine Test Today Z32.02 - Encounter for test, result negative Medications: Refilled medroxyprogesterone (Provera) start Provera 1 tablet daily from day 15-24 cyclically every months, day 1 being 1st day of menses 10 mg PO DAILY 10 days 30 tabs 0RF Coding Level of Care Code Est Pt Level 3 (03584) Diagnoses Abnormal uterine bleeding (AUB) N93.9
[2024-02-14 09:46] VITALS: BP 122/60; BMI 22.3
== END 2024-02-14 10:11 | disposition home or self-care (01) ==
LOC: HO.HWS 09:28
PROVIDERS: PCP Internal Medicine; Visit Provider Obstetrics & Gynecology
DX: Z32.02 Encounter for pregnancy test, result negative (principal); N93.9 Abnormal uterine and vaginal bleeding, unspecified
CPT/HCPCS: 99213

== ENCOUNTER 2024-04-22 11:10 | Outpatient (AMB) | payer OTHER, SELFPAY ==
--- NOTE | 2024-04-22 11:34 | AM.OFFWIN_ITS ---
Intake Vital Signs 04/22/24 11:35 Height 5 ft 1 in Weight 119 lb BMI 22.5 BP 122/68 Blood Pressure Location Lt brachial Position Sitting Pulse 62 Pulse Source Pulse Oximeter Temp 98.8 F Temp Source Oral Pulse Oximetry (%) 100 Oxygen Delivery Method Room Air Intake Visit Reasons: EP-back of head preasure Intake Note: pt c/o posterior head pressure. Intermittent. Comes and goes for a couple months Patient Tobacco Use Status: Former Tobacco user Allergies acetaminophen [From TYLENOL] Allergy (Unknown, Verified 04/22/24 11:35) RASH, THROAT SWELLING morphine [MORPHINE] Allergy (Unknown, Verified 04/22/24 11:35) RASH, THROAT SWELLING , swelling oseltamivir Allergy (Unknown, Verified 04/22/24 11:35) diarrhea Sulfa (Sulfonamide Antibiotics) Allergy (Unknown, Verified 04/22/24 11:35) anaphylaxis Do you need a note to return to daycare/school/sports/work: Yes HPI HPI Comments History of Present Illness Details Patient is a 33-year-old female complaining headaches in the back of her head with pressure. She states that the pain goes from the back of her head down to both shoulders and into the front of her forehead. She states the pain was really bad last night and she could not sleep. She says she has been taking 400 mg of ibuprofen with no relief. She states she has been eating and drinking normally and does not have any excessive stress in her life. She denies any hearing or vision changes but does state her left ear hurts a little bit for the last few days. She states it is not the worst headache of her life and she states she does not have any light sensitivity or noise sensitivity today but sometimes she does. [facility] Medical History Physical exam Osteoarthritis of right knee Osteoarthritis of right acromioclavicular joint Blurred vision, bilateral Tachycardia History of 2019 novel coronavirus disease (COVID-19) Sinus tachycardia Hypovitaminosis Rheumatoid arthritis Migraine Surgical History Surgical history of tubal ligation History of Family History Maternal Aunt History of breast cancer in female Uterus cancer Father Family hx of hypertension Hx of thyroid disease Diabetes mellitus Maternal Grandfather Family hx of hypertension History of heart disease Maternal Grandmother Family hx of hypertension Brother History of asthma Mother Diabetes mellitus Social History Household Members: Spouse and Children Housing: Apartment Unable to assess alcohol history related to: Unknown Alcohol intake: never Patient Tobacco Use Status: Former Tobacco user Tobacco use type: Cigarette e-Cigarette/Vaping Use: Never Used Second Hand Smoke Exposure: No service: No Current occupational status: employed 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 Current occupational exposures/hazards: No Sexual orientation: Straight/Heterosexual Gender identity: Female Cognitive needs: No Hearing needs: No Vision needs: No Female Reproductive History Menstrual Age of Menarche: 12 Review of Systems Const All systems reviewed & are unremarkable except as noted in HPI and below Physical Exam Vital Signs: Last Vital Signs Temp 98.8 F 04/22/24 11:35 Pulse 62 04/22/24 11:35 BP 122/68 04/22/24 11:35 Pulse Ox 100 04/22/24 11:35 Oxygen Delivery Method Room Air 04/22/24 11:35 BMI result Body Mass Index 22.5 Const General: cooperative, healthy appearing, comfortable, no acute distress and well developed Orientation/consciousness: patient oriented x3 Limitations: no limitations HEENT Head: Yes normal to inspection, Yes normocephalic and Yes atraumatic Ears: hearing grossly normal bilaterally, external ears normal, TM's normal bilaterally and mastoids normal General nose exam: Normal external nose present Face and sinus: Yes normal facial exam Eyes General: appearance normal, both eyes and all related structures Neck Neck: Yes normal visual inspection, Yes full ROM, Yes trachea midline and Yes supple Resp Effort & Inspection: normal respiratory effort and able to speak in complete sentences Back/Spine/Pelvis Cervical Spine: cervical ROM normal, cervical muscular tenderness (Bilateral) and No Cervical spine tenderness Thoracic/Lumbar Spine: thoracic and lumbar spine normal to inspection, thoraco- lumbar ROM normal and No thoracic spinal tenderness Skin General skin exam: no rashes or lesions noted Neuro General: patient oriented x3 Extrem General: Yes normal to inspection Assessment & Plan Assessment & Plan (1) Cervicogenic headache: Code(s): G44.86 - Cervicogenic headache Plan: Recommended patient alternate Tylenol and ibuprofen, gave her a schedule. Also recommended she add an muscle relaxer as needed but gave her caution not to dr ink alcohol or drive a vehicle while she is taking it because it will make her more tired. Also recommended staying well hydrated, using a heating pad and follow up with her PCP if no improvement. Did give red flag warning signs and when to go to the emergency department. Plan see above Medications: New cyclobenzaprine 5 mg PO TID PRN 14 tabs 0RF muscle spasm Coding Level of Care Code Est Pt Level 3 (93981) Diagnoses Cervicogenic headache G44.86
[2024-04-22 11:35] VITALS: BP 122/68; PULSE 62; TEMP 37.1; O2SAT 100; BMI 22.5
== END 2024-04-22 12:12 | disposition home or self-care (01) ==
PROVIDERS: PCP Internal Medicine; Visit Provider Physician Assistant
DX: G44.86 Cervicogenic headache (principal)
CPT/HCPCS: 99213

== ENCOUNTER 2024-05-15 09:55 | Outpatient (AMB) | payer OTHER, SELFPAY ==
[2024-05-15 10:08] VITALS: BP 110/66; BMI 22.1
--- NOTE | 2024-05-15 10:08 | MHC.OFFVIS ---
Vital Signs 05/15/24 10:08 Height 5 ft 1 in Weight 116 lb 13.52 oz BMI 22.1 BP 110/66 Intake Visit Reasons: 3 month follow up medication Communications Department Head Required: No Information Interpreted: non-clinical & clinical Accompanied by: Spouse Allergies acetaminophen [From TYLENOL] Allergy (Unknown, Verified 05/15/24 10:10) RASH, THROAT SWELLING morphine [MORPHINE] Allergy (Unknown, Verified 05/15/24 10:10) RASH, THROAT SWELLING , swelling oseltamivir Allergy (Unknown, Verified 05/15/24 10:10) diarrhea Sulfa (Sulfonamide Antibiotics) Allergy (Unknown, Verified 05/15/24 10:10) anaphylaxis Is last menstrual period known: Yes Last menstrual period: 03/21/24 HPI Comments Details: Presenting for 3 months follow-up for Provera. The patient has been taking 10 mg p.o. day 15-24, menstrual cycles are regular and light with no complaints. The patient is requesting a refill [facility] Medical History Physical exam Osteoarthritis of right knee Osteoarthritis of right acromioclavicular joint Blurred vision, bilateral Tachycardia History of 2019 novel coronavirus disease (COVID-19) Sinus tachycardia Hypovitaminosis Rheumatoid arthritis Migraine Surgical History Surgical history of tubal ligation History of Family History Maternal Aunt History of breast cancer in female Uterus cancer Father Family hx of hypertension Hx of thyroid disease Diabetes mellitus Maternal Grandfather Family hx of hypertension History of heart disease Maternal Grandmother Family hx of hypertension Brother History of asthma Mother Diabetes mellitus Social History Household Members: Spouse and Children Housing: Apartment Unable to assess alcohol history related to: Unknown Alcohol intake: never Patient Tobacco Use Status: Former Tobacco user Tobacco use type: Cigarette e-Cigarette/Vaping Use: Never Used Second Hand Smoke Exposure: No service: No Current occupational status: employed 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 [employer] Current occupational exposures/hazards: No Sexual orientation: Straight/Heterosexual Gender identity: Female Cognitive needs: No Hearing needs: No Vision needs: No Female Reproductive History Menstrual Age of Menarche: 12 Date of last menstrual period: 03/21/24 Review of Systems Const All systems reviewed & are unremarkable except as noted in HPI and below Reports as per HPI and Reports no additional complaints GI Reports no additional complaints Reports no additional complaints Physical Exam Vital Signs: Last Vital Signs BP 110/66 05/15/24 10:08 BMI result Body Mass Index 22.1 Assessment & Plan Assessment & Plan (1) Abnormal uterine bleeding (AUB): Comment: PCOS Code(s): N93.9 - Abnormal uterine and vaginal bleeding, unspecified Category: Medical Plan: Provera 10 mg p.o. q.d. day 15-24 recently sent to patient's pharmacy for refill. Instructions given the patient to keep taking it and to report any abnormal uterine bleeding the future. All questions answered, the patient verbalized understanding Coding Level of Care Code Est Pt Level 3 (61422) Diagnoses Abnormal uterine bleeding (AUB) N93.9
== END 2024-05-15 10:24 | disposition home or self-care (01) ==
PROVIDERS: PCP Internal Medicine; Visit Provider Obstetrics & Gynecology
DX: N93.9 Abnormal uterine and vaginal bleeding, unspecified (principal)
CPT/HCPCS: 99213

== ENCOUNTER → 2024-05-15 09:55 | Outpatient (BNVA) | payer OTHER, SELFPAY | PROVIDERS: PCP Internal Medicine; Visit Provider Obstetrics & Gynecology | DX: N93.9 Abnormal uterine and vaginal bleeding, unspecified (principal) | CPT/HCPCS: 99212 ==

== ENCOUNTER 2024-05-16 08:49 | Outpatient (REF) | payer OTHER, SELFPAY ==
[2024-05-16 11:08] LABS: Influenza A PCR NEGATIVE (Negative); Influenza B PCR NEGATIVE (Negative); Resp Syncy Virus RNA Qual PCR NEGATIVE (Negative); SARS COV2 PCR INHOUSE NEGATIVE (Negative)
== END 2024-05-16 08:50 | disposition home or self-care (01) ==
LOC: HO.LAB 08:49
PROVIDERS: PCP Internal Medicine; Visit Provider Physician Assistant Medical
DX: J06.9 Acute upper respiratory infection, unspecified (principal)
CPT/HCPCS: 0241U; 99212

== ENCOUNTER 2024-05-16 08:49 | Outpatient (AMB) | payer OTHER, SELFPAY ==
--- NOTE | 2024-05-16 08:52 | MHC.OFFWIV ---
Intake Vital Signs 05/16/24 08:57 Height 5 ft 1 in Weight 120 lb BMI 22.7 BP 122/80 Blood Pressure Location Lt brachial Position Sitting Pulse 96 Pulse Source Pulse Oximeter Temp 98.3 F Temp Source Oral Pulse Oximetry (%) 96 Oxygen Delivery Method Room Air Intake Visit Reasons: EP-sore throat, no voice Intake Note: Patient here for sore throat,cough, congestion and nausea which has been present for about 3-4 days. Patient Tobacco Use Status: Former Tobacco user Allergies acetaminophen [From TYLENOL] Allergy (Unknown, Verified 05/16/24 08:57) RASH, THROAT SWELLING morphine [MORPHINE] Allergy (Unknown, Verified 05/16/24 08:57) RASH, THROAT SWELLING , swelling oseltamivir Allergy (Unknown, Verified 05/16/24 08:57) diarrhea Sulfa (Sulfonamide Antibiotics) Allergy (Unknown, Verified 05/16/24 08:57) anaphylaxis Do you need a note to return to daycare/school/sports/work: Yes HPI HPI Comments History of Present Illness Details This is a 33-year-old female who presents to the walk-in clinic complaining of URI symptoms for the past 3 days. Patient reports sore throat with hoarse voice. She reports a cough with mild sputum production. She also reports some mild nasal congestion. She reports she had some chills last night but she was afebrile. She denies any significant shortness of breath or difficulty breathing. [facility] Medical History Physical exam Osteoarthritis of right knee Osteoarthritis of right acromioclavicular joint Blurred vision, bilateral Tachycardia History of 2019 novel coronavirus disease (COVID-19) Sinus tachycardia Hypovitaminosis Rheumatoid arthritis Migraine Surgical History Surgical history of tubal ligation History of Family History Maternal Aunt History of breast cancer in female Uterus cancer Father Family hx of hypertension Hx of thyroid disease Diabetes mellitus Maternal Grandfather Family hx of hypertension History of heart disease Maternal Grandmother Family hx of hypertension Brother History of asthma Mother Diabetes mellitus Social History Household Members: Spouse and Children Housing: Apartment Unable to assess alcohol history related to: Unknown Alcohol intake: never Patient Tobacco Use Status: Former Tobacco user Tobacco use type: Cigarette e-Cigarette/Vaping Use: Never Used Second Hand Smoke Exposure: No service: No Current occupational status: employed 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 Current occupational exposures/hazards: No Sexual orientation: Straight/Heterosexual Gender identity: Female Cognitive needs: No Hearing needs: No Vision needs: No Female Reproductive History Menstrual Age of Menarche: 12 Review of Systems Const All systems reviewed & are unremarkable except as noted in HPI and below Reports no additional complaints Eyes Reports no additional complaints ENT Reports no additional complaints Card Reports no additional complaints Resp Reports no additional complaints GI Reports no additional complaints Reports no additional complaints Musc Reports no additional complaints Skin/Breast Reports system reviewed and no additional complaints, except as documented Neuro Reports no additional complaints Psych Reports no additional complaints Endo Reports no additional complaints Dany/Lymph Reports no additional complaints Aller/Immun Reports no additional complaints Physical Exam Vital Signs: Last Vital Signs Temp 98.3 F 05/16/24 08:57 Pulse 96 05/16/24 08:57 BP 122/80 05/16/24 08:57 Pulse Ox 96 05/16/24 08:57 Oxygen Delivery Method Room Air 05/16/24 08:57 BMI result Body Mass Index 22.7 Const Other: Vital signs reviewed. Constitutional: Non-toxic appearing. No acute distress. Well-developed and well-nourished. Hoarse voice. HEENT: Normocephalic and atraumatic. Moist mucous membranes. Mild posterior pharyngeal erythema without patchy exudates or tonsillar hypertrophy/edema. Skin: Warm and dry. No rashes or lesions noted. Neck: Full and painless range of motion. No cervical lymphadenopathy. Cardio: Regular rate and rhythm. No murmurs, gallops, or rubs. No lower extremity edema. No JVD. Pulmonary: No respiratory distress. No accessory muscle usage. Clear to auscultation bilaterally without wheezing, crackles, or rhonchi. Gastrointestinal: Soft, nontender, and nondistended in all 4 quadrants. Musculoskeletal: Normal range of motion in joints throughout the body. No deformity or other signs of injury. Neuro: Alert and oriented x4. Cranial nerves 2-12 grossly intact. No focal deficits appreciated. Psych: Normal mood and affect. Assessment & Plan Assessment & Plan (1) Viral URI with cough: Code(s): J06.9 - Acute upper respiratory infection, unspecified (2) Acute viral pharyngitis: Code(s): J02.9 - Acute pharyngitis, unspecified Plan This is a 33-year-old female who presented to the walk-in clinic complaining of viral URI symptoms. On physical examination, she has hoarse voice with mild posterior pharyngeal erythema without edema or exudates. Patient very likely has viral URI and viral pharyngitis/laryngitis. Rapid strep test was negative. COVID/flu/RSV sent. No evidence of peritonsillar mass/abscess, peritonsillar cellulitis, or, unilateral neck swelling. Patient's vital signs are stable, physical exam is otherwise benign, and patient is overall nontoxic appearing. Recommended symptomatic management including rest, increased fluids, advil/tylenol for pain/fever, salt water gargles, and over the counter throat lozenges. Patient advised to follow up here or go to the emergency room for worsening/persistent symptoms including worsening throat swelling, neck swelling, fever/chills, or difficulty breathing. Patient verbalizes understanding and is in agreement the plan. Orders: Orders SARS-CoV2/FLU/RSV Today J06.9 - Acute upper respiratory infection, unspecified Coding Level of Care Code Est Pt Level 3 (44574) Diagnoses Viral URI with cough J06.9 Acute viral pharyngitis J02.9
[2024-05-16 08:57] VITALS: BP 122/80; PULSE 96; TEMP 36.8; O2SAT 96; BMI 22.7
== END 2024-05-16 09:35 | disposition home or self-care (01) ==
PROVIDERS: PCP Internal Medicine; Visit Provider Physician Assistant Medical
DX: J06.9 Acute upper respiratory infection, unspecified (principal); J02.9 Acute pharyngitis, unspecified

== ENCOUNTER 2024-06-11 08:49 | Outpatient (AMB) | payer OTHER, SELFPAY ==
--- NOTE | 2024-06-11 08:53 | A.OFFVIS_ITS ---
Vital Signs 06/11/24 08:55 Height 5 ft 1 in Weight 121 lb 0.54 oz BMI 22.9 BP 120/68 Blood Pressure Location Lt brachial Position Sitting Pulse 68 Pulse Source Pulse Oximeter Pulse Oximetry (%) 99 Oxygen Delivery Method Room Air Intake Visit Reasons: RA Intake Note: Patient presents today for follow up on RA. She was last seen in the office on 11/13/23 by Jana Hartman. Accompanied by: Spouse Allergies acetaminophen [From TYLENOL] Allergy (Unknown, Verified 06/11/24 08:56) RASH, THROAT SWELLING morphine [MORPHINE] Allergy (Unknown, Verified 06/11/24 08:56) RASH, THROAT SWELLING , swelling oseltamivir Allergy (Unknown, Verified 06/11/24 08:56) diarrhea Sulfa (Sulfonamide Antibiotics) Allergy (Unknown, Verified 06/11/24 08:56) anaphylaxis Medication List - Last Reconciled 06/11/24 by Sharita Wood MD certolizumab pegol 200 mg subcut Q2W cyclobenzaprine 5 mg PO TID PRN medroxyprogesterone (Provera) 10 mg PO DAILY 10 days meloxicam 7.5 mg PO BID naproxen 500 mg PO Q8-12H PRN HPI Comments Details: Patient is a 33-year-old female who presents for follow-up of rheumatoid arthritis. Interval History: Patient last seen 11/13/2023 with Jana Hartman. At that time her rheumatoid arthritis was stable on Cimzia. She would take meloxicam for her knee pain. No concerns about RA activity and no changes made to medication management. Today, Patient complains of ongoing right shoulder and right knee pain. Pain is worse at the end of the day. She also complains of muscle pain to her neck and her back. 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 I notes that after really hard day her pain is worse. Her pain tends to be worse at the end of the day making it difficult to sleep. She does have some morning stiffness in the morning but not longer than 15 minutes. She also notes significant fatigue and poor sleep. Rheumatologic History: Diagnosis rheumatoid arthritis in 2018. Initially started on methotrexate and then Cimzia was added. Methotrexate was stopped due to side effects. Current Rheumatology Medication(s): Cimzia 200mg every 2 weeks [facility] Medical History Physical exam Osteoarthritis of right knee Osteoarthritis of right acromioclavicular joint Blurred vision, bilateral Tachycardia History of 2019 novel coronavirus disease (COVID-19) Sinus tachycardia Hypovitaminosis Rheumatoid arthritis Migraine Surgical History Surgical history of tubal ligation History of Family History Maternal Aunt History of breast cancer in female Uterus cancer Father Family hx of hypertension Hx of thyroid disease Diabetes mellitus Maternal Grandfather Family hx of hypertension History of heart disease Maternal Grandmother Family hx of hypertension Brother History of asthma Mother Diabetes mellitus Social History Household Members: Spouse and Children Housing: Apartment Unable to assess alcohol history related to: Unknown Alcohol intake: never Patient Tobacco Use Status: Former Tobacco user Tobacco use type: Cigarette e-Cigarette/Vaping Use: Never Used Second Hand Smoke Exposure: No service: No Current occupational status: employed 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 Current occupational exposures/hazards: No Sexual orientation: Straight/Heterosexual Gender identity: Female Cognitive needs: No Hearing needs: No Vision needs: No Female Reproductive History Menstrual Age of Menarche: 12 Review of Systems Const Details: Review of Systems Constitutional: Denies fever, chills, weight loss ENT: Denies vision changes, eye pain or eye redness, dental caries, dry mouth GI: Denies nausea, vomiting, diarrhea, abdominal pain, change in BM Pulm: Denies SOB, HUTCHINS, hemoptysis, wheezing Cards: Denies chest pain, palpitations Skin: Denies Raynaud's, rash, nail changes, photosensitivity, 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 ?Pupils equal round and reactive to light. ?No lymphadenopathy. ?Normal dentition. Respiratory System Normal respiratory effort and able to speak in complete sentences. ?Clear to auscultation bilaterally. ?No crackles, rales, rhonchi, wheezes heard. Cardiac System Regular rate and rhythm. ?S1 and S2 heard no murmurs. ?Radial pulses intact bilaterally MSK No deformity, swelling, abnormalities noted to bilateral hands. ?No evidence of synovitis. ?Able to move all joints with full range of motion, without limitation. Hands:.??Normal pain-free range of motion without tenderness, swelling, increased warmth or erythema. Able to make a full fist and has a good glass grinder strength. Wrists: Normal pain-free range of motion without tenderness, swelling, increased warmth or erythema. Elbows: Full range of motion without pain. No tenderness, weakness, swelling, increased warmth or erythema. Shoulders: Full range of motion without pain. No tenderness, weakness, swelling, increased warmth or erythema. Tenderness to palpation of the AC joint on the right Hips: Full range of motion without pain. Hip bursa:.??No tenderness. Knees:.???Normal pain-free range of motion without tenderness, swelling, increased warmth or erythema.?No effusion or crepitations Ankles:.??Normal pain-free range of motion without tenderness, swelling, increased warmth or erythema. Feet:.??Normal pain-free range of motion without tenderness, swelling, increased warmth or erythema. Tender points:??Tenderness to digital palpation of the occipital trapezius but no other tender points were positive. Office Procedures Joint Injection/Aspiration Joint Injection/Aspiration Details: Procedure was explained to the patient and consent was obtained. ? The area of interest was identified and confirmed with patient. ?This was subsequently cleaned with chlorhexidine x3. ? The area was then anesthetized using ethyl chloride spray. 40 mg Kenalog with 1 cc 1% lidocaine was injected without issue. ?Minimal to no bleeding. ?Patient tolerated procedure. Primary Site: right shoulder (Right AC joint) Prep: site was prepped using aseptic technique Injected: 40 mg of, Kenalog and 1% plain lidocaine Approach Used: other Procedure: The patient tolerated the procedure well Coding 37012 - Acromioclavicular Procedure code (CPT) selection complete Joint Injection/Aspiration Joint Injection/Aspiration Details: Procedure was explained to the patient and consent was obtained. ? The area of interest was identified and confirmed with patient. ?This was subsequently cleaned with chlorhexidine x3. ? The area was then anesthetized using ethyl chloride spray. 80 mg Kenalog with 1 cc 1% lidocaine was injected without issue. ?Minimal to no bleeding. ?Patient tolerated procedure. Primary Site: right knee Prep: site was prepped using aseptic technique Injected: 80 mg of, Kenalog and 1% plain lidocaine Approach Used: lateral parapatellar Procedure: The patient tolerated the procedure well Coding 20260 - Large joint Procedure code (CPT) selection complete Results Reviewed Results Reviewed: Laboratory Tests 06/13/18 02/14/24 16:14 08:10 WBC 4.9 RBC 4.32 Hgb 12.6 Plt Count 287 ESR 6 Sodium 141 Potassium 4.1 Chloride 108 Carbon Dioxide 25 BUN 12 Creatinine 0.79 AST 16 ALT 9 Alkaline Phosphatase 53 C-Reactive Protein 0.22 Rheumatoid Factor 53.5 H Cycl Citrul Peptide IgG >250 H XR Right Shoulder and XR Right Knee FINDINGS: Right knee: No significant joint effusion. Small sclerotic density overlying the lateral femoral condyle, possibly representing a bone island. Joint compartments and alignment preserved. Minimal medial marginal and posterior patellar osteophytes. Right shoulder: Mild degenerative changes in the acromioclavicular joint with joint space narrowing and hypertrophic change. Glenohumeral alignment preserved. No abnormal soft tissue calcifications identified adjacent to the humeral head. Assessment & Plan Assessment & Plan (1) Rheumatoid arthritis: Comment: Cimzia: June 2019 to present Methotrexate: Discontinued September 2019 due to age and potential - NVD from 2017. Code(s): M06.9 - Rheumatoid arthritis, unspecified Category: Medical Qualifiers: Rheumatoid arthritis location: multiple sites Rheumatoid factor presence: with rheumatoid factor Qualified Code(s): M05.79 - Rheumatoid arthritis with rheumatoid factor of multiple sites without organ or systems involvement Plan: #Seropositive Non Erosive RA Patient with seropositive nonerosive rheumatoid arthritis. Currently doing well on Cimzia. Which respect to the rheumatoid arthritis I think she is currently in remission. We will consider adding another medication like Plaquenil to decrease the antibody potential to her Cimzia. She also has a few tender points today not enough that I would diagnose her with fibromyalgia but I will start her on a low-dose gabapentin 100 mg at night to see if this will help her overall pain and as well as her sleep. (2) Osteoarthritis of right acromioclavicular joint: Comment: Right AC joint IACS 06/11/2024 Code(s): M19.011 - Primary osteoarthritis, right shoulder Category: Medical Plan: #OA Right AC joint Patient with osteoarthritis to her right acromioclavicular joint. This is l ikely the cause of her pain. Status post 40 mg Kenalog injection today. (3) Osteoarthritis of right knee: Comment: Right Knee IACS 06/11/2024 Code(s): M17.11 - Unilateral primary osteoarthritis, right knee Category: Medical Qualifiers: Osteoarthritis type: primary Qualified Code(s): M17.11 - Unilateral primary osteoarthritis, right knee Plan: #Right knee OA Patient with right knee osteoarthritis. Status post injection today. (4) assisted current use of immunosuppressive drug: Code(s): Z79.899 - Other care home (current) drug therapy Category: Medical Plan: #Long-term Use of TNF Inhibitors: Cimzia Discussed with the patient the benefits and risks of TNF inhibitors for the management of the rheumatic condition Benefits include reduce pain, maintenance of remission and reduction of flares as well as ?progression of the disease Risks include injection sites/infusion reactions, serious infections (such as bacterial infections, opportunistic infections), malignancy, delaminating syndromes, autoimmune phenomena, CHF exacerbations, palmar plantar psoriasis and cytopenias Recommended rotating injection sites, and holding medication during and for up to 1 week after resolution of a febrile illness or open skin wound Plan I spent 35 minutes reviewing the record and labs, seeing the patient, discussing the treatment plan and documenting in the medical record ? For next visit: * Follow-up knee and shoulder injections * Consider adding Plaquenil for the benefit of reducing antibody formation Orders: Orders AMB Joint Injection/Aspiration Today M17.11 - Unilateral primary osteoarthritis, right knee, M19.011 - Primary osteoarthritis, right shoulder Erythrocyte Sedimentation Rate Today M05.79 - Rheumatoid arthritis with rheumatoid factor of multiple sites without organ or systems involvement, Z79.899 - Other care home (current) drug therapy Complete Blood Count Auto Diff Today M05.79 - Rheumatoid arthritis with rheumatoid factor of multiple sites without organ or systems involvement, Z79.899 - Other care home (current) drug therapy Comprehensive Met. Panel Today M05.79 - Rheumatoid arthritis with rheumatoid factor of multiple sites without organ or systems involvement, Z79.899 - Other care home (current) drug therapy C Reactive Protein Today M05.79 - Rheumatoid arthritis with rheumatoid factor of multiple sites without organ or systems involvement, Z79.899 - Other buttermaker (current) drug therapy AMB Joint Injection/Aspiration Today M17.11 - Unilateral primary osteoarthritis, right knee, M19.011 - Primary osteoarthritis, right shoulder Medications: New gabapentin 100 mg PO BEDTIME 90 days 90 caps 1RF M05.79 - Rheumatoid arthritis with rheumatoid factor of multiple sites without organ or systems involvement Coding Level of Care Code Est Pt Level 4 (89334) Complex EM visit Add On G2211 Diagnoses Rheumatoid arthritis involving multiple sites with positive rheumatoid factor M05.79 Rheumatoid arthritis location: multiple sites Rheumatoid factor presence: with rheumatoid factor Osteoarthritis of right acromioclavicular joint M19.011 Primary osteoarthritis of right knee M17.11 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
[2024-06-11 08:55] VITALS: BP 120/68; PULSE 68; O2SAT 99; BMI 22.9
== END 2024-06-11 10:25 | disposition home or self-care (01) ==
PROVIDERS: PCP Internal Medicine; Visit Provider Student in an Organized Health Care Education/Training Program
DX: M05.79 Rheumatoid arthritis with rheumatoid factor of multiple sites without organ or systems involvement (principal); M19.011 Primary osteoarthritis, right shoulder; M17.11 Unilateral primary osteoarthritis, right knee; Z79.899 Other long term (current) drug therapy
CPT/HCPCS: 20605; 20610; 99214

== ENCOUNTER → 2024-06-11 08:49 | Outpatient (BNVA) | payer OTHER, SELFPAY | PROVIDERS: PCP Internal Medicine; Visit Provider Student in an Organized Health Care Education/Training Program | DX: M19.011 Primary osteoarthritis, right shoulder (principal); M17.11 Unilateral primary osteoarthritis, right knee; M05.79 Rheumatoid arthritis with rheumatoid factor of multiple sites without organ or systems involvement; Z79.899 Other long term (current) drug therapy | CPT/HCPCS: 20605; 20610; 99212 ==

== ENCOUNTER 2024-06-23 09:09 | Outpatient (AMB) | payer OTHER, SELFPAY ==
--- NOTE | 2024-06-23 09:22 | AM.OFFWIN_ITS ---
Intake Vital Signs 06/23/24 09:25 Height 5 ft 1 in Weight 117 lb 2 oz BMI 22.1 BP 122/70 Blood Pressure Location Lt brachial Position Sitting Respiration 13 Pulse 96 Pulse Source Pulse Oximeter Pulse Oximetry (%) 99 Oxygen Delivery Method Room Air Intake Visit Reasons: EST/LEFT EAR PAIN Intake Note: Patient complaining of left ear pain x 5 days. 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 Required: No Allergies acetaminophen [From TYLENOL] Allergy (Unknown, Verified 06/23/24 09:34) RASH, THROAT SWELLING morphine [MORPHINE] Allergy (Unknown, Verified 06/23/24 09:34) RASH, THROAT SWELLING , swelling oseltamivir Allergy (Unknown, Verified 06/23/24 09:34) diarrhea Sulfa (Sulfonamide Antibiotics) Allergy (Unknown, Verified 06/23/24 09:34) anaphylaxis Medication List - Last Reconciled 06/23/24 by Milly Max, QUALITY IMPROVEMENT ENGINEER-BC certolizumab pegol 200 mg subcut Q2W cyclobenzaprine 5 mg PO TID PRN gabapentin 100 mg PO BEDTIME 90 days medroxyprogesterone (Provera) 10 mg PO DAILY 10 days meloxicam 7.5 mg PO BID naproxen 500 mg PO Q8-12H PRN HPI HPI Comments History of Present Illness Details 33-year-old female here today with compl aints of pain in her left ear. Reports that her left ear feels clogged with the last 5 days. She has a occasional clogged sensation on the right side. The left ear is painful. She has pain with chewing on the left side. Occasionally can hear some pounding in the ear. Bending over worsens the pain. Lying flat improves the pain. She was sick with URI symptoms and was seen at a [facility] walk-in on 05/16/2024. There is no and workup was reviewed. To treat herself she did try warm comps, self insufflation w/o relief. She did not try any medications at home. Exam Awake alert NAD Sclera and conjunctiva clear bilat Nares patent, turbinates pale and edematous, + frontal and maxilllary sinus tenderness with palpation L TM intact with effusions bilat, L>R MMM, pharynx WNL RRR LS CTAB Plan Treat with Flonase and Augmentin. Advised to take Augmentin with food. I did let her know that if her symptoms continue upon completion of the antibiotics or worsen that she should return to the clinic or follow up with her primary care provider. This note is constructed using voice recognition software. While every effort has been made to ensure accuracy in repossession agent, still errors may have been included Sometimes, these errors may affect the content or meaning of the given sentence . ON LICENSE OF [facility] Medical History Physical exam Osteoarthritis of right knee Osteoarthritis of right acromioclavicular joint Blurred vision, bilateral Tachycardia History of 2019 novel coronavirus disease (COVID-19) Sinus tachycardia Hypovitaminosis Rheumatoid arthritis Migraine Surgical History Surgical history of tubal ligation History of Family History Maternal Aunt History of breast cancer in female Uterus cancer Father Family hx of hypertension Hx of thyroid disease Diabetes mellitus Maternal Grandfather Family hx of hypertension History of heart disease Maternal Grandmother Family hx of hypertension Brother History of asthma Mother Diabetes mellitus Social History Household Members: Spouse and Children Housing: Apartment Unable to assess alcohol history related to: Unknown Alcohol intake: never Patient Tobacco Use Status: Former Tobacco user Tobacco use type: Cigarette e-Cigarette/Vaping Use: Never Used Second Hand Smoke Exposure: No service: No Current occupational status: employed 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 Current occupational exposures/hazards: No Sexual orientation: Straight/Heterosexual Gender identity: Female Cognitive needs: No Hearing needs: No Vision needs: No Female Reproductive History Menstrual Age of Menarche: 12 Physical Exam Vital Signs: Last Vital Signs Pulse 96 06/23/24 09:25 Resp 13 06/23/24 09:25 BP 122/70 06/23/24 09:25 Pulse Ox 99 06/23/24 09:25 Oxygen Delivery Method Room Air 06/23/24 09:25 BMI result Body Mass Index 22.1 Assessment & Plan Assessment & Plan (1) Acute bacterial sinusitis: Code(s): J01.90 - Acute sinusitis, unspecified; B96.89 - Other specified bacterial agents as the cause of diseases classified elsewhere Plan: . (2) OME (otitis media with effusion): Code(s): H65.90 - Unspecified nonsuppurative otitis media, unspecified ear Qualifiers: Laterality: left Qualified Code(s): H65.92 - Unspecified nonsuppurative otitis media, left ear Plan: . Medications: New amoxicillin-pot clavulanate 875-125 mg 1 tab PO BID 7 days 14 tabs 0RF fluticasone propionate 50 mcg/actuation administer into each nostril 1 spray intranasal BID 16 grams 0RF Patient Instructions: What Is It? Sinuses are air-filled spaces behind the bones of the upper face: between the eyes and behind the forehead, nose and cheeks. The lining of the sinuses are made up of cells with tiny hairs on their surfaces called cilia. Other cells in the lining produce mucus. The mucus traps germs and pollutants and the cilia push the mucus out through narrow sinus openings into the nose. When the sinuses become inflamed or infected, the mucus thickens and clogs the openings to one or more sinuses. Fluid builds up inside the sinuses causing increased pressure. Also bacteria can become trapped, multiply and infect the lining. This is sinusitis. Prevention There are some measures you can take to decrease your risk of developing sinusitis. If you smoke cigarettes, you should quit. The smoke can irritate nasal passageways and increase the likelihood of infection. Nasal allergies can trigger sinus infections, too. By identifying the allergen (the substance causing the allergic reaction) and avoiding it, you can help prevent sinusitis. If you have congestion from a cold or allergies, the following may help to reduce the risk of developing sinusitis: Drink lots of water. This thins nasal secretions and keeps mucous membranes moist. Use steam to soothe nasal passages. Breathe deeply while standing in a hot shower, or inhale the vapor from a basin filled with hot water while holding a towel over your head. Avoid blowing your nose with great force, which can push bacteria into the sinuses. Some doctors advise periodic home nasal washings to clear secretions. This may help prevent, and also treat, sinus infections. Treatment Many sinus infections improve without treatment. However, several medications may speed recovery and reduce the chance that an infection will become chronic. Decongestants - Congestion often triggers sinus infections, and decongestants can open the sinuses and allow them to drain. Several are available: Pseudoephedrine (Sudafed) is available without prescription, alone or in combination with other medications in multi-symptom cold and sinus remedies. Pseudoephedrine can cause insomnia, racing pulse and jitteriness. Do not use if you have high blood pressure or a heart condition. Phenylephrine (such as Sudafed PE) is an alternative efmu-pzm-apswmfr oral decongestant. If you take products containing oral phenylephrine, check with the pharmacist to be certain there is no interaction with other medications you take. Oxymetazoline (Afrin, Dristan and others) and phenylephrine (Jono-Synephrine and others) are found in nasal sprays. They are effective and may be less likely to cause the side effects seen with pseudoephedrine. However, using a nasal decongestant for more than three days can cause worse symptoms when you stop the medication. This is called the rebound effect. Antihistamines - These medications help to relieve the symptoms of nasal allergies that lead to inflammation and infections. However, some doctors advise against using antihistamines during a sinus infection because they can cause excessive drying and slow the drainage process. Tack-iwt-gwicpjw antihistamines include diphenhydramine (Benadryl and others), chlorpheniramine (Chlor-Trimeton and others) and loratadine (Claritin). Fexofenadine (Umm) and cetrizine (Zyrtec) are available by prescription. Nasal steroids - Anti-inflammatory sprays such as mometasone (Nasonex) and fluticasone (Flonase), both available by prescription, reduce swelling of nasal membranes. Like antihistamines, nasal steroids can be most useful for those who have nasal allergies. Nasal steroids tend to produce less drying than antihistamines. Unlike nasal decongestants, nasal steroids can be used for prolonged periods. Saline nasal sprays - These salt-water sprays are safe to use and can provide some relief by adding moisture to the nasal passages, thinning mucus secretions and helping to flush out any bacteria that may be present. Pain relievers - Acetaminophen (Tylenol), ibuprofen (Advil, Motrin and others) or naproxen (Aleve) can be taken sinus pain. Antibiotics - Your doctor may prescribe an antibiotic if he or she suspects that a bacterial infection is causing your sinusitis. If you start taking an antibiotic, complete the entire course so that the infection is completely killed off. Not all cases of sinusitis require antibiotic treatment: Talk with your doctor about whether an antibiotic is right for you. Keep in mind that antibiotics can cause side effects, such as allergic reactions, rash and diarrhea. In addition, overusing antibiotics eventually leads to the spread of bacteria that no longer can be killed by the most commonly prescribed antibiotics. When To Call A Professional Contact a doctor if you experience facial pain along with a headache and fever, cold symptoms that last longer than seven to 10 days, or persistent green discharge from the nose. If your symptoms don't improve within a week of beginning treatment, call your doctor. Call sooner if symptoms are getting worse. If you have repeated bouts of acute sinusitis, you may have allergies or another treatable cause of sinus congestion. Ask your doctor for advice. Coding Level of Care Code Est Pt Level 3 (10648) Diagnoses Acute bacterial sinusitis J01.90; B96.89 Left otitis media with effusion H65.92 Laterality: left
[2024-06-23 09:25] VITALS: BP 122/70; PULSE 96; RESP 13; O2SAT 99; BMI 22.1
== END 2024-06-23 09:49 | disposition home or self-care (01) ==
PROVIDERS: PCP Internal Medicine; Visit Provider Nurse Practitioner Family
DX: J01.90 Acute sinusitis, unspecified (principal); B96.89 Other specified bacterial agents as the cause of diseases classified elsewhere; H65.92 Unspecified nonsuppurative otitis media, left ear

== ENCOUNTER → 2024-06-23 09:09 | Outpatient (BNVA) | payer OTHER, SELFPAY | PROVIDERS: PCP Internal Medicine | DX: J01.90 Acute sinusitis, unspecified (principal); B96.89 Other specified bacterial agents as the cause of diseases classified elsewhere; H65.92 Unspecified nonsuppurative otitis media, left ear | CPT/HCPCS: 99212 ==

== ENCOUNTER 2024-06-26 08:05 | Outpatient (AMB) | payer OTHER, SELFPAY ==
--- NOTE | 2024-06-26 08:42 | A.OFFVIS_ITS ---
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 Pt is accompanied by her , Angel Luis. Pt reports she started having bothersome headaches in Aug 2022, w/o precipitating causes. These headaches were lasting a week. She also started having neck stiffness w/wo the headache. She went to the ER a few times- Head CT- negative- and was told they were stress. Since, the headaches are batter but still occur 3 times per week. PMH and ROS are notable for:? General: anemia, dizziness Musculoskeletal disorders or injury: hand, neck pain. Rheumatoid arthritis. History of concussion/head injury: in 2012, a window fell on top of her, had headaches for about a month. Mood d/o: Anxiety, Depression History of syncope: has passed out 3 times- ears become full, see spots, and body feels weak, vision goes black, and then has LOC x's 1-2 min, her states her body is tense and slightly shaking (not tonic-clonic) when she comes to she feels ok. Denies intraictal tongue biting/incontinence. 2 times at night when she got up to void, 1 time she was taking a shower- this time did have a bad headache. This also happened twice around age 15. PRENATAL GENETIC COUNSELOR: PCOS, irregualr cycle- can have 30 day cycle. Family planning: s/p tubal ligation. has 3 children. 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 Typical headache characteristics: Prodrome symptoms: unsure Aura: soemtimes sees little circles at start of the headache. Pain intensity: moderate-severe Location, quality, characteristics: Tension and pressure in back of head that moves into back of eyes and sides of head. Can also be throbbing and stabbing i different areas. Associated symptoms: photophobia, phonophobia, allodynia, nausea, not right in space dizziness, lightheadedness, fatigue, cognitive difficulties, activity int olerance, right facial tingling/numbness. Postdrome: dizziness may linger Triggers: standing up exacerbates headache, poor fluid intake, hunger, stress, noise, sometimes Menstrual cycle. Time of day: can wake up with headache but not always. Duration and Frequency: 3 times per week, can last hours to a whole day, and lingering dizziness can last into next day. How does headache impact your life? needs to lay down, misses work or leaves work. Current acute medication use/interventions: Naproxen- ineffective. Ibuprofen 400-800mg- helps some for a couple of hours. Current preventative medication use: None Non-pharmacological interventions: sleep [facility] Medical History Physical exam Osteoarthritis of right knee Osteoarthritis of right acromioclavicular joint Blurred vision, bilateral Tachycardia History of 2019 novel coronavirus disease (COVID-19) Sinus tachycardia Hypovitaminosis Rheumatoid arthritis Migraine Surgical History Surgical history of tubal ligation History of Family History Maternal Aunt History of breast cancer in female Uterus cancer Father Family hx of hypertension Hx of thyroid disease Diabetes mellitus Maternal Grandfather Family hx of hypertension History of heart disease Maternal Grandmother Family hx of hypertension Brother History of asthma Mother Diabetes mellitus Social History Household Members: Spouse and Children Housing: Apartment Unable to assess alcohol history related to: Unknown Alcohol intake: never Patient Tobacco Use Status: Former Tobacco user Tobacco use type: Cigarette e-Cigarette/Vaping Use: Never Used Second Hand Smoke Exposure: No service: No Current occupational status: employed 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 Current occupational exposures/hazards: No Sexual orientation: Straight/Heterosexual Gender identity: Female Cognitive needs: No Hearing needs: No Vision needs: No Female Reproductive History Menstrual Age of Menarche: 12 Physical Exam Vital Signs: Last Vital Signs Pulse 68 06/26/24 08:43 BP 120/70 06/26/24 08:43 Pulse Ox 100 06/26/24 08:43 Oxygen Delivery Method Room Air 06/26/24 08:43 BMI result Body Mass Index 22.3 Const General: no acute distress Orientation/consciousness: patient oriented x3 HEENT Other: Mallampati stage Resp Effort & Inspection: normal respiratory effort and able to speak in complete sentences Cardio Rate: regular rate Rhythm: regular rhythm Neuro Other: Posterior cervical tightness. Negative Spurling General: patient oriented x3 Cranial nerves: Yes CN's II-XII intact bilaterally Cognition (Neuro): normal cognition Gait exam (Neuro): Normal gait present Motor exam (neuro): 5/5 motor strength present throughout Deep tendon reflexes (DTR's): Right triceps reflex intensity grade: 2+, Left triceps reflex intensity grade: 2+, Rt Biceps (C5, C6): 2+, Left biceps reflex intensity grade: 2+, Right brachioradialis reflex intensity grade: 2+, Left brachioradialis reflex intensity grade: 2+, Right patellar reflex intensity grade: 2+ and Left patellar reflex intensity grade: 2+ Coordination: [id number] test normal, tandem gait normal and Romberg test negative Pupils: Normal pupillary reactivity/response: bilateral Psych Appearance: grossly normal Mental Status: mental status grossly normal Speech and movement: Clear speech present Affect: normal affect Attitude: cooperative Thought process: Normal thought process present Assessment & Plan Assessment & Plan (1) Cervicogenic headache: Code(s): G44.86 - Cervicogenic headache Category: Medical (2) Migraine with aura: Code(s): G43.109 - Migraine with aura, not intractable, without status migrainosus Category: Medical Plan Pt advised to undergo: XR c-spine PT eval & tx for myofascial release. Brain MRI w/wo to assess for secondary etiologies of atypical headache w/ paresthesias. Cardiology consult to further assess h/o syncope and orthostatic tachycardia s/s. For overall headache management: * Optimize good self-care, including but not limited to maintaining a healthy diet, adequate fluid intake, adequate sleep, and engaging in regular physical activity. * Track headaches, especially after any treatment regimen changes. [employer] is one of many headache tracking apps. * Information shared on non-pharmacological interventions which may help to alleviate headache attack burden. For light sensitivity: Patient may benefit from trying blue light filtering glasses, green glasses, green light therapy. For sound sensitivity: Patent may benefit from trying noise cancellation ear plugs. Neuromodulation devices, which can be used alone or with pharmacological treatment. For acute headache treatment: Discussed importance of taking acute medications at the first sign of headache, however stressed importance of avoiding acute medication overuse (especially with combined headache medications). Trial Naratriptan 2.5mg tab, 1/2 - 1 tab (1.25-2.5mg) at onset of headache, may repeat in 4 hours. Max of 2 tabs (5mg) per 24 hours. May adjunct with OTC Ibuprofen (liquigel) 600mg every 6 hours, or Naproxen (liquigel) 440mg every 12 hrs as needed. Potential adverse effects of triptans, include but are not limited to nausea, fatigue, chest tightness/tingling (usually passes within a few minutes), medication overuse headaches. Previous acute migraine medication trials: Acute migraine medication contraindications: Tylenol- allergy. For headache prevention medication: Preventative medications should be taken routinely as prescribed for best effect, it may take several weeks for full effect to take effect. Start Riboflavin 400mg qam Start Magnesium 400mg qhs Previous migraine prevention medication trials: none at this time Migraine prevention medication contraindications: caution w/ antihypertensives txs d/t h/o syncope. Pt seen in collaboration w/ Dr Stacy Kovacs. Pt to follow-up in 3-6 months or sooner prn. Orders: Orders XR cervical spine w flex/ext 06/26/24 M54.2 - Cervicalgia MR head/brain wo/w con 06/26/24 R51.9 - Headache, unspecified, R20.2 - Paresthesia of skin PT Evaluation and Treatment 06/26/24 G44.86 - Cervicogenic headache, G43.109 - Migraine with aura, not intractable, without status migrainosus Referrals Cardiology Referral R00.0 - Tachycardia, unspecified, R55 - Syncope and collapse Medications: New riboflavin (vitamin B2) 400 mg PO DAILY 30 tabs 6RF 30 days naratriptan take 1/2 - 1 tab at onset of headache; if no relief may repeat 1 tab after at least 4 hrs; max = 2 tabs/24 hrs orally PRN; 12 tabs 6RF migraine headache 30 days magnesium oxide may hold for loose stools 400 mg PO BEDTIME 30 tabs 6RF 30 days Coding Level of Care Code New Pt Level 4 (69735) Diagnoses Cervicogenic headache G44.86 Migraine with aura G43.109
[2024-06-26 08:43] VITALS: BP 120/70; PULSE 68; O2SAT 100; BMI 22.3
== END 2024-06-26 10:00 | disposition home or self-care (01) ==
LOC: HO.HSMS 08:05
PROVIDERS: PCP Internal Medicine; Visit Provider Nurse Practitioner Family
DX: G44.86 Cervicogenic headache (principal); G43.109 Migraine with aura, not intractable, without status migrainosus
CPT/HCPCS: 99204

== ENCOUNTER → 2024-06-26 08:05 | Outpatient (BNVA) | payer OTHER, SELFPAY | PROVIDERS: PCP Internal Medicine; Visit Provider Nurse Practitioner Family | DX: G44.86 Cervicogenic headache (principal); G43.109 Migraine with aura, not intractable, without status migrainosus; M54.2 Cervicalgia; R20.2 Paresthesia of skin; R00.0 Tachycardia, unspecified; R55 Syncope and collapse | CPT/HCPCS: 99202 ==

== ENCOUNTER → 2024-08-25 11:17 | Outpatient (BNV) | payer OTHER, SELFPAY | PROVIDERS: PCP Internal Medicine; Visit Provider Radiology Diagnostic Radiology | DX: R51.9 Headache, unspecified (principal) | CPT/HCPCS: 70553 ==

== ENCOUNTER 2024-08-25 11:20 | Outpatient (REF) | payer OTHER, SELFPAY ==
--- NOTE | ~2024-08-25 | MR_ITS ---
EXAMINATION: MR BRAIN WITHOUT THEN WITH IV CONTRAST HISTORY: R51.9 - Headache, unspecified TECHNIQUE: Sagittal T1, and axial T1, FLAIR, T2, gradient echo, and diffusion weighted MR images of the brain were obtained. Subsequently, axial, and coronal T1-weighted images were obtained after the administration of intravenous gadolinium. 5.5 mL Gadavist was administered. COMPARISON: Correlation is made with an unenhanced head CT dated 08/30/2023. FINDINGS: There is a slitlike focus of increased T2 signal intensity in the region of the right basal ganglia/external capsule which demonstrates susceptibility artifact on the gradient echo images consistent with hemosiderin. This likely represents the sequela of an old infarct or trauma. Ramirez/white differentiation is otherwise normal. There is no mass effect or midline shift. There is no evidence of acute intracranial hemorrhage. There are no foci of restricted diffusion. There is no abnormal contrast enhancement. Normal vascular flow voids are noted in the basilar and carotid arteries. There is moderate mucosal thickening in the right maxillary sinus. 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 Clinical correlation is recommended. No acute intracranial abnormality. Electronically signed by: Eyal Hooper MD 08/27/2024 08:[address] [facility]
[2024-08-25] MEDS: gadobutroL 7.5 ML VIAL IVPUSH (12:22)
== END 2024-08-25 11:21 | disposition home or self-care (01) ==
LOC: HO.MRI 11:20
PROVIDERS: PCP Internal Medicine; Visit Provider Nurse Practitioner Family
DX: R51.9 Headache, unspecified (principal); R20.2 Paresthesia of skin
CPT/HCPCS: 70553; A9585

== ENCOUNTER 2024-09-10 09:53 | Outpatient (REF) | payer OTHER, SELFPAY ==
[2024-09-10 10:17] LABS: MANUAL DIFF FLAG NO
[2024-09-10 11:07] LABS: Basophils Absolute Auto 0.1 X10*3/uL (0.0-0.2); Basophils Percent Auto 1.3 % (0-2); Eosinophils Absolute Auto 0.1 X10*3/uL (0.0-0.4); Eosinophils Percent Auto 2.7 % (0-4); Hematocrit 39.6 % (37.0-47.0); Imm Gran Abs Auto 0.01 X10*3/uL (0.00-0.03); Imm Gran Pct Auto 0.2 % (0.0-0.4); Lymphocytes Absolute Auto 1.5 X10*3/uL (1.2-4.9); Lymphocytes Percent Auto 30.9 % (20-40); Mean Corpuscular HGB Conc 32.8 g/dl (31.0-35.0); Mean Corpuscular Hemoglobin 29.4 pg (27.0-33.0); Mean Corpuscular Volume 89.6 fL (80.0-98.0); Mean Platelet Volume 10.3 fL (9.4-12.3); Monocytes Absolute Auto 0.4 X10*3/uL (0.1-1.2); Monocytes Percent Auto 7.6 % (2-11); Neutrophils Absolute Auto 2.7 x10*3/uL (2.0-8.3); Neutrophils Percent Auto 57.3 % (45-73); Platelet Count 314 X10*3/uL (160-400); Red Blood Count 4.42 X10*6/uL (4.20-5.50); Red Cell Distribution Width 13.2 % (11.0-16.0); White Blood Count 4.8 X10*3/uL (4.8-10.8)
[2024-09-10 11:34] LABS: Alanine Aminotransferase 13 U/L (0-31); Albumin Level 4.5 g/dL (3.5-5.0); Alkaline Phosphatase 56 U/L (39-117); Anion Gap 9 (12-20); Aspartate Amino Transferase 19 U/L (5-31); Bilirubin Total 0.6 mg/dL (0.0-1.0); Blood Urea Nitrogen 11 mg/dL (9-16); C Reactive Protein 0.12 mg/dL (< or = 0.50); Calcium 9.4 mg/dL (8.4-10.2); Carbon Dioxide 26 mmol/L (22-29); Chloride 108 mmol/L (96-108); Estimated Glomerular Filt Rate > 60; Glucose Random 86 mg/dL (60-115); Potassium 4.5 mmol/L (3.3-5.1); Sodium 138 mmol/L (135-145); Total Protein 7.6 g/dL (6.5-8.0)
[2024-09-10 12:07] LABS: Erythrocyte Sedimentation Rate 5 MM/HR (0-20)
== END 2024-09-10 09:54 | disposition home or self-care (01) ==
LOC: HO.LAB 09:53
PROVIDERS: PCP Internal Medicine; Visit Provider Student in an Organized Health Care Education/Training Program
DX: M05.79 Rheumatoid arthritis with rheumatoid factor of multiple sites without organ or systems involvement (principal); Z79.899 Other long term (current) drug therapy
CPT/HCPCS: 36415; 80053; 85025; 85652; 86140

== ENCOUNTER 2024-09-11 09:55 | Outpatient (AMB) | payer OTHER, SELFPAY ==
--- NOTE | 2024-09-11 10:03 | MHC.OFFVIS ---
Vital Signs 09/11/24 10:10 Height 5 ft 1 in Weight 119 lb 14.903 oz BMI 22.7 BP 120/64 Blood Pressure Location Lt brachial Position Sitting Pulse 98 Pulse Source Pulse Oximeter Pulse Oximetry (%) 99 Oxygen Delivery Method Room Air Intake Visit Reasons: RA Intake Note: Patient presents for RA. Allergies acetaminophen [From TYLENOL] Allergy (Unknown, Verified 09/11/24 10:09) RASH, THROAT SWELLING morphine [MORPHINE] Allergy (Unknown, Verified 09/11/24 10:09) RASH, THROAT SWELLING , swelling oseltamivir Allergy (Unknown, Verified 09/11/24 10:09) diarrhea Sulfa (Sulfonamide Antibiotics) Allergy (Unknown, Verified 09/11/24 10:09) anaphylaxis Medication List - Last Reconciled 09/11/24 by Sharita Wood MD aspirin 81 mg PO BEDTIME 30 days certolizumab pegol (Cimzia) 200 mg subcut Q2W cyclobenzaprine 5 mg PO TID PRN fluticasone propionate 50 mcg/actuation 1 spray intranasal BID gabapentin 100 mg PO BEDTIME 90 days magnesium oxide 400 mg PO BEDTIME 30 days medroxyprogesterone (Provera) 10 mg PO DAILY 10 days naratriptan take 1/2 - 1 tab at onset of headache; if no relief may repeat 1 tab after at least 4 hrs; max = 2 tabs/24 hrs orally PRN; 30 days riboflavin (vitamin B2) 400 mg PO DAILY 30 days HPI Comments Details: Patient is a 33-year-old female who presents for follow-up of rheumatoid arthritis. Interval History: Patient last seen 06/11/2024 with me. At that time she was complaining of right shoulder and right knee pain. The pain was worse at the end of the day and she was also complaining of muscle pain to her neck and her to a back. With respect to her rheumatoid arthritis she was noted to be in remission She was given an injection for her shoulder and her knee. Also started her on low-dose gabapentin for possible fibromyalgia given that she had some tender points on examination. Since last visit patient had follow up with 05/2024. Neurology for the evaluation of migraines. She was started on naratriptan 06/2024. Walk-in clinic visit for evaluation of left ear pain. Found to have sinusitis and otitis media with effusion. Started on Augmentin Today, Patient doing well THe steroid injections helped tremendously with her shoulder and knee pain Now complaining of flares in her disease a few days before she is due for the Cimzia that resolve about 2-3 days after the Cimzia injection Doing okay with the gabapentin Rheumatologic History: Diagnosis rheumatoid arthritis in 2018. Initially started on methotrexate and then Cimzia was added. Methotrexate was stopped due to side effects. 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 Current Rheumatology Medication(s): Cimzia 200mg every 2 weeks Gabapentin 100mg nightly [facility] Medical History Physical exam Osteoarthritis of right knee Osteoarthritis of right acromioclavicular joint Blurred vision, bilateral Tachycardia History of 2019 novel coronavirus disease (COVID-19) Sinus tachycardia Hypovitaminosis Rheumatoid arthritis Migraine Surgical History Surgical history of tubal ligation History of Family History Maternal Aunt History of breast cancer in female Uterus cancer Father Family hx of hypertension Hx of thyroid disease Diabetes mellitus Maternal Grandfather Family hx of hypertension History of heart disease Maternal Grandmother Family hx of hypertension Brother History of asthma Mother Diabetes mellitus Social History Household Members: Spouse and Children Housing: Apartment Unable to assess alcohol history related to: Unknown Alcohol intake: never Patient Tobacco Use Status: Former Tobacco user Tobacco use type: Cigarette e-Cigarette/Vaping Use: Never Used Second Hand Smoke Exposure: No service: No Current occupational status: employed 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 Current occupational exposures/hazards: No Sexual orientation: Straight/Heterosexual Gender identity: Female Cognitive needs: No Hearing needs: No Vision needs: No Female Reproductive History Menstrual Age of Menarche: 12 Review of Systems Const Details: Review of Systems Constitutional: Denies fever, chills, weight loss ENT: Denies vision changes, eye pain or eye redness, dental caries, dry mouth GI: Denies nausea, vomiting, diarrhea, abdominal pain, change in BM Pulm: Denies SOB, HUTCHINS, hemoptysis, wheezing Cards: Denies chest pain, palpitations Skin: Denies Raynaud's, rash, nail changes, photosensitivity, PRINTED CIRCUIT BOARDS BEVELER: Denies headaches, weakness, paresthesias, recurrent falls MSK: as per HPI All other systems reviewed and are unremarkable except noted above Physical Exam Physical Examination Patient well appearing and in no apparent painful distress Constitutional Mucous membranes pink and moist patient alert and cooperative HEENT Conjunctiva and sclera clear. ?Pupils equal round and reactive to light. ?No lymphadenopathy. ?Normal dentition. Respiratory System Normal respiratory effort and able to speak in complete sentences. ?Clear to auscultation bilaterally. ?No crackles, rales, rhonchi, wheezes heard. Cardiac System Regular rate and rhythm. ?S1 and S2 heard no murmurs. ?Radial pulses intact bilaterally MSK No deformity, swelling, abnormalities noted to bilateral hands. ?No evidence of synovitis. ?Able to move all joints with full range of motion, without limitation. Hands:.??Normal pain-free range of motion without tenderness, swelling, increased warmth or erythema. Able to make a full fist and has a good test center manager strength. Wrists: Normal pain-free range of motion without tenderness, swelling, increased warmth or erythema. Elbows: Full range of motion without pain. No tenderness, weakness, swelling, increased warmth or erythema. Shoulders: Full range of motion without pain. No tenderness, weakness, swelling, increased warmth or erythema. No tenderness to palpation of the AC joint today. Hips: Full range of motion without pain. Hip bursa:.??No tenderness. Knees:.???Normal pain-free range of motion without tenderness, swelling, increased warmth or erythema.?No effusion or crepitations Ankles:.??Normal pain-free range of motion without tenderness, swelling, increased warmth or erythema. Feet:.??Normal pain-free range of motion without tenderness, swelling, increased warmth or erythema. Tender points:??No tenderness to palpation of the tender points today. Results Reviewed Results Reviewed: Laboratory Tests 06/13/18 09/10/24 16:14 10:12 WBC 4.8 RBC 4.42 Hgb 13.0 Hct 39.6 Plt Count 314 ESR 5 Sodium 138 Potassium 4.5 Chloride 108 Carbon Dioxide 26 BUN 11 Creatinine 0.72 AST 19 ALT 13 Alkaline Phosphatase 56 C-Reactive Protein 0.12 Total Protein 7.6 Albumin 4.5 Rheumatoid Factor 53.5 H Cycl Citrul Peptide IgG >250 H BRENDA Screen Positive H BRENDA Titer 1:80 H SS-A/Ro Antibody <1.0 SS-B/La Antibody <1.0 Sm (Callahan) Antibody <1.0 SmRNP Antibodies <1.0 Anti-ds DNA (Crithidia) Negative Beta-2-GPI IgG Ab <9 Beta-2-GPI IgA Ab <9 Beta-2-GPI IgM Ab <9 Thyroid Peroxidase Ab <1 Anti-Cardiolipin IgG Ab <14 Anti-Cardiolipin IgM Ab <12 Complement C3 141 Complement C4 33 XR Right Knee and Right Shoulder 10/2023 FINDINGS: Right knee: No significant joint effusion. Small sclerotic density overlying the lateral femoral condyle, possibly representing a bone island. Joint compartments and alignment preserved. Minimal medial marginal and posterior patellar osteophytes. Right shoulder: Mild degenerative changes in the acromioclavicular joint with joint space narrowing and hypertrophic change. Glenohumeral alignment preserved. No abnormal soft tissue calcifications identified adjacent to the humeral head. Assessment & Plan Assessment & Plan (1) Rheumatoid arthritis: Comment: Cimzia: June 2019 to present Methotrexate: Discontinued September 2019 due to age and potential - NVD from 2017. Code(s): M06.9 - Rheumatoid arthritis, unspecified Category: Medical Qualifiers: Rheumatoid arthritis location: multiple sites Rheumatoid factor presence: with rheumatoid factor Qualified Code(s): M05.79 - Rheumatoid arthritis with rheumatoid factor of multiple sites without organ or systems involvement Plan: #Seropositive Non Erosive RA Patient is a 34-year-old female with seropositive nonerosive rheumatoid arthritis. Doing well but is having a flare of her disease at the end of her Cimzia cycle. This flare of her disease usually resolves about 2-3 days after the Cimzia administration. I think she would benefit from an increase in frequency of Cimzia since the Cimzia overall is pretty efficacious for her every 2 weeks I think she would benefit from Cimzia every 10 days. Plan - Cimzia 200mg every 10 days - Gabapentin 100mg nightly - RTC 4 months - Labs before visit: CBC, CMP, ESR, CRP, hepatitis panel, T spot (2) Osteoarthritis of right acromioclavicular joint: Comment: Right AC joint IACS 06/11/2024 Code(s): M19.011 - Primary osteoarthritis, right shoulder Category: Medical Plan: #OA Right AC joint Patient with osteoarthritis to her right acromioclavicular joint. Improved after Kenalog injection 05/2024. (3) Osteoarthritis of right knee: Comment: Right Knee IACS 06/11/2024 Code(s): M17.11 - Unilateral primary osteoarthritis, right knee Category: Medical Qualifiers: Osteoarthritis type: primary Qualified Code(s): M17.11 - Unilateral primary osteoarthritis, right knee Plan: #Right knee OA Patient with right knee osteoarthritis. Improved after Kenalog injection 05/2024. (4) Recurrent UTI: Code(s): N39.0 - Urinary tract infection, site not specified Category: Medical Plan: #Recurrent UTI Patient with recurrent UTI associated with RO the time that she administers the Cimzia injection. Currently with symptoms of frequency and burning. We will check a UA and urine culture. If bacterial growth is present we will send appropriate antibiotics. 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: Code(s): Z79.899 - Other retirement (current) drug therapy Category: Medical Plan: #Long-term Use of TNF Inhibitors: Cimzia Discussed with the patient the benefits and risks of TNF inhibitors for the management of the rheumatic condition Benefits include reduce pain, maintenance of remission and reduction of flares as well as ?progression of the disease Risks include injection sites/infusion reactions, serious infections (such as bacterial infections, opportunistic infections), malignancy, delaminating syndromes, autoimmune phenomena, CHF exacerbations, palmar plantar psoriasis and cytopenias Recommended rotating injection sites, and holding medication during and for up to 1 week after resolution of a febrile illness or open skin wound Plan I spent 30 minutes reviewing the record and labs, seeing the patient, discussing the treatment plan and documenting in the medical record ? Orders: Orders C Reactive Protein 4 Months M05.79 - Rheumatoid arthritis with rheumatoid factor of multiple sites without organ or systems involvement, Z79.899 - Other long chain quiller tender (current) drug therapy Erythrocyte Sedimentation Rate 4 Months M05.79 - Rheumatoid arthritis with rheumatoid factor of multiple sites without organ or systems involvement, Z79.899 - Other long chain quiller tender (current) drug therapy T Spot TB Today M05.79 - Rheumatoid arthritis with rheumatoid factor of multiple sites without organ or systems involvement, Z79.899 - Other retirement (current) drug therapy Urine Culture Today M05.79 - Rheumatoid arthritis with rheumatoid factor of multiple sites without organ or systems involvement, M17.11 - Unilateral primary osteoarthritis, right knee, M19.011 - Primary osteoarthritis, right shoulder, N39.0 - Urinary tract infection, site not specified, Z79.899 - Other retirement (current) drug therapy UA w Microscopic Today M05.79 - Rheumatoid arthritis with rheumatoid factor of multiple sites without organ or systems involvement, M17.11 - Unilateral primary osteoarthritis, right knee, M19.011 - Primary osteoarthritis, right shoulder, N39.0 - Urinary tract infection, site not specified, Z79.899 - Other long chain quiller tender (current) drug therapy Complete Blood Count Auto Diff 4 Months M05.79 - Rheumatoid arthritis with rheumatoid factor of multiple sites without organ or systems involvement, Z79.899 - Other long chain quiller tender (current) drug therapy Comprehensive Met. Panel 4 Months M0.79 - Rheumatoid arthritis with rheumatoid factor of multiple sites without organ or systems involvement, Z79.899 - Other retirement (current) drug therapy Hepatitis A,B,C Profile Today M05.79 - Rheumatoid arthritis with rheumatoid factor of multiple sites without organ or systems involvement, Z79.899 - Other long chain quiller tender (current) drug therapy Referrals Infectious Disease Referral N39.0 - Urinary tract infection, site not specified Medications: Changed From certolizumab pegol (Cimzia) 200 mg subcut Q2W 1 kit 4RF M06.9 - Rheumatoid arthritis, unspecified To certolizumab pegol (Cimzia) 200 mg subcut .every 10 days 3 kits 4RF M06.9 - Rheumatoid arthritis, unspecified Discontinued naproxen Discontinued Reason: Patient no longer taking 500 mg PO Q8-12H PRN 20 tabs 0RF pain (scale score 4-6) meloxicam Discontinued Reason: Patient no longer taking 7.5 mg PO BID 60 tabs 3RF M06.9 - Rheumatoid arthritis, unspecified amoxicillin-pot clavulanate 875-125 mg Discontinued Reason: Patient Completed Course 1 tab PO BID 7 days 14 tabs 0RF Coding Level of Care Code Est Pt Level 4 (22668) Complex EM visit Add On G2211 Diagnoses Rheumatoid arthritis involving multiple sites with positive rheumatoid factor M05.79 Rheumatoid arthritis location: multiple sites Rheumatoid factor presence: with rheumatoid factor Osteoarthritis of right acromioclavicular joint M19.011 Primary osteoarthritis of right knee M17.11 Osteoarthritis type: primary Recurrent UTI N39.0 [facility] current use of immunosuppressive drug Z79.896
[2024-09-11 10:10] VITALS: BP 120/64; PULSE 98; O2SAT 99; BMI 22.7
== END 2024-09-11 10:35 | disposition home or self-care (01) ==
PROVIDERS: PCP Internal Medicine; Visit Provider Student in an Organized Health Care Education/Training Program
DX: M05.79 Rheumatoid arthritis with rheumatoid factor of multiple sites without organ or systems involvement (principal); M19.011 Primary osteoarthritis, right shoulder; M17.11 Unilateral primary osteoarthritis, right knee; N39.0 Urinary tract infection, site not specified; Z79.899 Other long term (current) drug therapy
CPT/HCPCS: 99214; G2211

== ENCOUNTER → 2024-09-11 09:55 | Outpatient (BNVA) | payer OTHER, SELFPAY | PROVIDERS: PCP Internal Medicine; Visit Provider Student in an Organized Health Care Education/Training Program | DX: M05.79 Rheumatoid arthritis with rheumatoid factor of multiple sites without organ or systems involvement (principal); M19.011 Primary osteoarthritis, right shoulder; M17.11 Unilateral primary osteoarthritis, right knee; N39.0 Urinary tract infection, site not specified; Z79.899 Other long term (current) drug therapy | CPT/HCPCS: 99212 ==

== ENCOUNTER 2024-09-11 10:37 | Outpatient (REF) | payer OTHER, SELFPAY ==
[2024-09-11 11:48] LABS: Appearance Urine Cloudy; Color Urine Dark Yellow; Glucose Urine UA Negative (Negative); Leukocyte Esterase Urine Large (3+) (Negative); Nitrite Urine Negative (Negative); UMIC TRIGGER UA YES; Urine Blood Negative (Negative); Urine Ketones Negative (Negative); Urine Protein Negative (Neg-Trace)
[2024-09-11 11:59] LABS: Bacteria Urine 2+ (None Seen); Hyaline Casts Urine 0-2 /LPF (0-2); RBC Urine 0-2 /HPF (0-2)
== END 2024-09-11 10:38 | disposition home or self-care (01) ==
LOC: HO.10HDL 10:37
PROVIDERS: Visit Provider Student in an Organized Health Care Education/Training Program
DX: N39.0 Urinary tract infection, site not specified (principal); M17.11 Unilateral primary osteoarthritis, right knee; M19.011 Primary osteoarthritis, right shoulder; Z79.899 Other long term (current) drug therapy; M05.79 Rheumatoid arthritis with rheumatoid factor of multiple sites without organ or systems involvement; Z11.59 Encounter for screening for other viral diseases; Z72.89 Other problems related to lifestyle
CPT/HCPCS: 81001; 86704; 86706; 86709; 87086; 87340

== ENCOUNTER 2024-09-18 11:18 | Outpatient (AMB) | payer OTHER, SELFPAY ==
--- NOTE | 2024-09-18 11:28 | AM.OFFWIN_ITS ---
Intake Vital Signs 09/18/24 11:31 Weight 119 lb BP 120/72 Blood Pressure Location Rt brachial Position Sitting Pulse 82 Pulse Source Pulse Oximeter Pulse Oximetry (%) 99 Oxygen Delivery Method Room Air Intake Visit Reasons: EP-dizziness, nauseas, body ache, neck pain Intake Note: Patient here for dizziness, nausea, body aches which started last night. Patient Tobacco Use Status: Former Tobacco user Allergies acetaminophen [From TYLENOL] Allergy (Unknown, Verified 09/18/24 11:32) RASH, THROAT SWELLING morphine [MORPHINE] Allergy (Unknown, Verified 09/18/24 11:32) RASH, THROAT SWELLING , swelling oseltamivir Allergy (Unknown, Verified 09/18/24 11:32) diarrhea Sulfa (Sulfonamide Antibiotics) Allergy (Unknown, Verified 09/18/24 11:32) anaphylaxis Do you need a note to return to daycare/school/sports/work: Yes HPI HPI Comments History of Present Illness Details 34 y/o female patient who presents to [facility] walk [facility] clinic with c/o URI symptoms since this morning. Reports feeling weak, fatigue, body aches, headaches, dizziness, nausea and poor appetite. [facility] Medical History (Updated 09/18/24 @ 11:53 by Suyapa Spence NP) Acute respiratory disease Recurrent UTI Physical exam Osteoarthritis of right knee Osteoarthritis of right acromioclavicular joint Blurred vision, bilateral Tachycardia History of 2019 novel coronavirus disease (COVID-19) Sinus tachycardia Hypovitaminosis Rheumatoid arthritis Migraine Surgical History Surgical history of tubal ligation History of Family History Maternal Aunt History of breast cancer in female Uterus cancer Father Family hx of hypertension Hx of thyroid disease Diabetes mellitus Maternal Grandfather Family hx of hypertension History of heart disease Maternal Grandmother Family hx of hypertension Brother History of asthma Mother Diabetes mellitus Social History Household Members: Spouse and Children Housing: Apartment Unable to assess alcohol history related to: Unknown Alcohol intake: never Patient Tobacco Use Status: Former Tobacco user Tobacco use type: Cigarette e-Cigarette/Vaping Use: Never Used Second Hand Smoke Exposure: No service: No Current occupational status: employed 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 Current occupational exposures/hazards: No Sexual orientation: Straight/Heterosexual Gender identity: Female Cognitive needs: No Hearing needs: No Vision needs: No Female Reproductive History Menstrual Age of Menarche: 12 Review of Systems Const All systems reviewed & are unremarkable except as noted in HPI and below Physical Exam Vital Signs: Last Vital Signs Pulse 82 09/18/24 11:31 BP 120/72 09/18/24 11:31 Pulse Ox 99 09/18/24 11:31 Oxygen Delivery Method Room Air 09/18/24 11:31 Const General: cooperative, no acute distress, ill appearing and tired appearing Nutritional Appearance: thin Orientation/consciousness: patient oriented x3 HEENT Head: Yes normocephalic Ears: external ears normal and TM abnormal bulging and with fluid behind the TM General nose exam: Abnormal mucous membranes and turbinates present erythematous Face and sinus: Yes sinuses nontender Mouth: moist mucous membranes Throat: Yes uvula midline and Yes postnasal drainage Resp Effort & Inspection: normal respiratory effort and able to speak in complete sentences Auscultation: clear to auscultation bilaterally Cardio Heart sounds: S1 normal heart sound present and S2 normal heart sound present Skin General skin exam: no rashes or lesions noted and turgor normal Neuro General: patient oriented x3, gait normal and moves all extremities Psych Speech and movement: Normal speech and movement present Assessment & Plan Assessment & Plan (1) Acute respiratory disease: Code(s): J06.9 - Acute upper respiratory infection, unspecified Plan: Ordered SARs Zofran for N/V Naproxen for pain and fever relief Rest and hydrate well with fluids. Orders: Orders SARS-CoV2/FLU/RSV Today R09.89 - Other specified symptoms and signs involving the circulatory and respiratory systems Medications: New ondansetron 8 mg PO Q8H 30 tabs 0RF J06.9 - Acute upper respiratory infection, unspecified naproxen 375 mg PO BID 30 tabs 0RF J06.9 - Acute upper respiratory infection, unspecified Coding Level of Care Code Est Pt Level 3 (25994) Diagnoses Acute respiratory disease J06.9 Time Spent (min) 15
[2024-09-18 11:31] VITALS: BP 120/72; PULSE 82; O2SAT 99
== END 2024-09-18 12:56 | disposition home or self-care (01) ==
PROVIDERS: PCP Internal Medicine; Visit Provider Nurse Practitioner Family
DX: J06.9 Acute upper respiratory infection, unspecified (principal)

== ENCOUNTER 2024-09-18 11:18 | Outpatient (REF) | payer OTHER, SELFPAY ==
[2024-09-18 16:27] LABS: Influenza A PCR NEGATIVE (Negative); Influenza B PCR NEGATIVE (Negative); Resp Syncy Virus RNA Qual PCR NEGATIVE (Negative); SARS COV2 PCR INHOUSE NEGATIVE (Negative)
== END 2024-09-18 11:19 | disposition home or self-care (01) ==
LOC: HO.LAB 11:18
PROVIDERS: PCP Internal Medicine; Visit Provider Nurse Practitioner Family
DX: J06.9 Acute upper respiratory infection, unspecified (principal); R09.89 Other specified symptoms and signs involving the circulatory and respiratory systems
CPT/HCPCS: 0241U; 99212

== ENCOUNTER → 2024-09-21 12:55 | Outpatient (BNV) | payer OTHER, SELFPAY | PROVIDERS: PCP Internal Medicine; Visit Provider Radiology Diagnostic Radiology | DX: R51.9 Headache, unspecified (principal) | CPT/HCPCS: 70544 ==

== ENCOUNTER 2024-09-21 13:03 | Outpatient (REF) | payer OTHER, SELFPAY ==
--- NOTE | ~2024-09-21 | MR_ITS ---
EXAMINATION: MR ANGIOGRAPHY BRAIN WITHOUT CONTRAST CLINICAL INFORMATION: Questionable old trauma right basal ganglia. Headache. COMPARISON: Correlated to MRI brain dated August 25, 2024. TECHNIQUE: Axial 3-D [id number] and maximum intensity projections. FINDINGS: Anterior cerebral circulation: ICAs: Normal flow signal is no focal narrowing or intimal flap or abrupt cut off. MCA's: No flow signal gap or abrupt cut off. No flow signal irregularity. ACAs: No flow signal gap or abrupt cut off. No flow signal irregularity. Ophthalmic arteries: Normal flow signal. Anterior communicating artery is present. Posterior communicating arteries are present with small caliber. Posterior cerebral circulation: V3/V4 segments: No flow signal gap or intimal flap. Posterior inferior cerebellar arteries are present. Basilar artery: No flow signal gap or intimal flap. wafer machine operator: No flow signal gap or abrupt cut off. Superior cerebellar arteries are present. Anterior inferior cerebellar arteries are present. MR/MR angio head wo con IMPRESSION: No main cerebral artery occlusion or embolus or aneurysm. Electronically signed by: Calros Avila MD 09/22/2024 09:39 AM EST
== END 2024-09-21 13:04 | disposition home or self-care (01) ==
LOC: HO.MRI 13:03
PROVIDERS: PCP Internal Medicine; Visit Provider Nurse Practitioner Family
DX: R09.89 Other specified symptoms and signs involving the circulatory and respiratory systems (principal); I63.9 Cerebral infarction, unspecified
CPT/HCPCS: 70544

== ENCOUNTER 2024-09-22 14:27 | Outpatient (AMB) | payer OTHER, SELFPAY ==
--- NOTE | 2024-09-22 14:31 | A.OFFVIS_ITS ---
Vital Signs 09/22/24 14:38 Height 5 ft 1 in Weight 122 lb BMI 23.0 Pulse 108 H Pulse Source Pulse Oximeter Temp 98.2 F Temp Source Oral Pulse Oximetry (%) 99 Oxygen Delivery Method Room Air Intake Visit Reasons: reff C Dr.Allen Hinson every 10 days UTI Allergies acetaminophen [From TYLENOL] Allergy (Unknown, Verified 09/22/24 14:39) RASH, THROAT SWELLING morphine [MORPHINE] Allergy (Unknown, Verified 09/22/24 14:39) RASH, THROAT SWELLING , swelling oseltamivir Allergy (Unknown, Verified 09/22/24 14:39) diarrhea Sulfa (Sulfonamide Antibiotics) Allergy (Unknown, Verified 09/22/24 14:39) anaphylaxis HPI HPI [place] [facility] [place] every 10 days UTI: Details: She was referred by Rheumatology for concern over chronic recurrent UTIs. She notices that 1-2 days after Cimzia (certolizumab) injection she has dysuria and sometimes cloudy urine. She has no fever or chills and hasnt been hospitalized for sepsis. May she has Klebsiella pneumonia urine intermediate to nitrofurantoin. She has rheumatoid arthritis and has been on Cimzia for five years. She has received po Augmentin 06/23 and Levaquin 09/12 250 mg daily for five days.Her urine culture 09/11 is negative. [facility] Medical History Acute respiratory disease Recurrent UTI Physical exam Osteoarthritis of right knee Osteoarthritis of right acromioclavicular joint Blurred vision, bilateral Tachycardia History of 2019 novel coronavirus disease (COVID-19) Sinus tachycardia Hypovitaminosis Rheumatoid arthritis Migraine Surgical History Surgical history of tubal ligation History of Family History Maternal Aunt History of breast cancer in female Uterus cancer Father Family hx of hypertension Hx of thyroid disease Diabetes mellitus Maternal Grandfather Family hx of hypertension History of heart disease Maternal Grandmother Family hx of hypertension Brother History of asthma Mother Diabetes mellitus Social History Household Members: Spouse and Children Housing: Apartment Unable to assess alcohol history related to: Unknown Alcohol intake: never Patient Tobacco Use Status: Former Tobacco user Tobacco use type: Cigarette e-Cigarette/Vaping Use: Never Used Second Hand Smoke Exposure: No service: No Current occupational status: employed 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 Current occupational exposures/hazards: No Sexual orientation: Straight/Heterosexual Gender identity: Female Cognitive needs: No Hearing needs: No Vision needs: No Female Reproductive History Menstrual Age of Menarche: 12 Review of Systems Const All systems reviewed & are unremarkable except as noted in HPI and below Physical Exam Vital Signs: Last Vital Signs Temp 98.2 F 09/22/24 14:38 Pulse 108 H 09/22/24 14:38 Pulse Ox 99 09/22/24 14:38 Oxygen Delivery Method Room Air 09/22/24 14:38 BMI result Body Mass Index 23.0 Const General: cooperative Orientation/consciousness: patient oriented x3 HEENT Head: Yes normal to inspection Mouth: Normal oral and palatal mucosa present Eyes General: appearance normal, both eyes and all related structures Pupils: Equal, round and reactive pupils present Resp Effort & Inspection: normal respiratory effort Cardio Rate: regular rate Rhythm: regular rhythm GI Palpation (GI): Soft to palpation and nontender General: Yes no CVA tenderness Back/Spine/Pelvis Back: no CVA tenderness Skin General skin exam: no rashes or lesions noted Neuro General: patient oriented x3 Cranial nerves: Yes CN's II-XII intact bilaterally and Yes Equal, round and reactive pupils present Extrem Other: hands with some bending c/w RA Psych Appearance: grossly normal Assessment & Plan Assessment & Plan (1) Dysuria: Comment: She has pain ,dysuria after taking Cimzia. She gets antibiotics but sometimes urine is negative culture. Preventive antibiotics not helpful with some negative cultures and antibiotics intermediateresistant to nitrofurantoin. Dysuria possible side effect Cimzia. Would not give preventive antibiotics or other medication. Switch to another medication than Cimzia although it is helping her RA. Code(s): R30.0 - Dysuria Category: Medical Plan: n/a Coding Level of Care Code New Pt Level 3 (87691) Diagnoses Dysuria R30.0
[2024-09-22 14:38] VITALS: PULSE 108; TEMP 36.8; O2SAT 99; BMI 23.0
== END 2024-09-22 15:07 | disposition home or self-care (01) ==
PROVIDERS: PCP Internal Medicine; Visit Provider Internal Medicine
DX: R30.0 Dysuria (principal)
CPT/HCPCS: 99203

== ENCOUNTER → 2024-09-22 14:27 | Outpatient (BNVA) | payer OTHER, SELFPAY | PROVIDERS: PCP Internal Medicine; Visit Provider Internal Medicine | DX: R30.0 Dysuria (principal) | CPT/HCPCS: 99202 ==

== ENCOUNTER → 2024-10-01 14:59 | Outpatient (REF) | payer OTHER, SELFPAY ==
--- NOTE | 2024-10-01 15:02 | ECG_ITS ---
Test Reason : i63.9 Blood Pressure : */* mmHG Vent. Rate : 70 BPM Atrial Rate : 70 BPM P-R Int : 118 ms QRS Dur : 78 ms QT Int : 378 ms P-R-T Axes : 52 79 64 degrees QTcB Int : 408 ms Normal sinus rhythm with sinus arrhythmia Normal ECG When compared with ECG of 10-Feb-2023 01:32, No significant change was found Referred By: Ceci East Electronically Signed By: BEST CHANG MD
--- NOTE | 2024-10-01 15:02 | CA_ITS ---
Transthoracic Echocardiogram Patient (Last, First, Middle): Rosanne Pichardo, Gender: Female Date of : 1990 Age: 34 Procedure Date: 10/01/2024 Procedure Type: Transthoracic Echocardiogram Location: OP Height: 154. cm Weight: 53.98 kg BSA: 1.51 m2 Heart Rate: 87 bpm BP: 110 / 70 mmHg Cotton Machine Operator: AVA Whiet MD: Ceci RAMON Fountain Supervisor: Jose Luis Garces MD Symptoms: R90.89 - Other abnormal findings on diagnostic imaging of central nervou... Study Quality: Adequate. w/Bubble study ECG Rhythm: Sinus Conclusions: - 1. Small PFO noted, consider ISAIAH 2. Normal LV ejection fraction of 60 65% 3. Normal cardiac valvular Doppler Findings Left Ventricle Normal left ventricular size, thickness, and systolic function. The visually estimated ejection fraction is between 60-65%. Diastolic function is normal for age. Right Ventricle Normal right ventricular cavity size and systolic function. Atria Both atria are normal in size. Contrast study for right to left shunting is mildly positive. Contrast study for right to left shunting is mildly positive with Valsalva maneuver. Patent foramen ovale detected using by contrast. Aortic Valve Normal aortic valve structure and function. There is no aortic valve stenosis. There is no aortic valve regurgitation. Mitral Valve Normal mitral valve structure and function. There is trace mitral valve regurgitation. There is no mitral valve stenosis. Pulmonic Valve The pulmonic valve is likely normal. Tricuspid Valve There is trace tricuspid valve regurgitation. The right ventricular systolic pressure is normal. The right ventricular systolic pressure is 13 mmHg. Normal right atrial pressure. There is no evidence of pulmonary hypertension. Great Vessels All visible segments of the aorta are normal in size. The pulmonary artery was not well visualized. Venous The inferior vena cava is normal in size and collapses greater than 50% with inspiration. Pericardium/Pleural There is no evidence of pericardial effusion. Recommendations, Care & Conclusions Recommend a ISAIAH. Measurements 2D Linear Measurements IVSd: 0.71 0.6-0.9/0.6-1.0 cm LVIDd: 4.39 3.9-5.3/4.2-5.9 cm LVIDd Index: 2.91 2.4-3.2/2.2-3.1 cm/m2 LVIDs: 2.45 2.0-3.6 cm LVPWd: 0.72 0.7-1.1 cm LA Diam: 3.10 2.7-3.8/3.0-4.0 cm LAIDs Index: 2.05 1.5-2.3 cm/m2 LV Mass: 117.25 67-162/88-224 g LV Mass Index: 77.65 43-95/49-115 g/m2 LVOT Diam: 1.90 3.0+(-)1.3 cm 2D Systolic Function EF 4C: 58.10 >55% EF 2C: 64.20 >55% EF BiP: 62.20 >55% Mitral Valve MV Pk E: 0.93 MV PK A: 0.77 MV Decel Time: 209.00 E/A: 1.20 E'Lateral: 17.70 E'Medial: 11.70 E/E' Med: 8.00 E/E' Lat: 5.30 PHT: 61.00 MVA PHT: 3.61 Decel [place]: 4.46 Aortic Valve AoV Pk Andreas: 1.24 AoV Mn Andreas: 0.87 AoV VTI: 0.27 AoV Pk Grad: 6.00 Aov Mn Grad: 3.00 ADRI Cont.VTI: 2.38 LVOT LVOT Pk Andreas: 1.06 LVOT Mn Andreas: 0.78 LVOT VTI: 0.22 LVOT Pk Grad: 4.00 LVOT Mn Grad: 3.00 LVOT Diam: 1.90 LVOT Area: 2.84 Diastolic Function MV Pk E: 0.93 MV Pk A: 0.77 E/A: 1.20 E'Medial: 11.70 E/E' Med: 8.00 E' Laterial: 17.70 E/E' Lat: 5.30 Right Ventricle TAPSE (mm): 21.00 TVS' Andreas: 11.10 Tricuspid Valve TR Pk Andreas: 1.57 TR Pk Grad: 10.00 RA Press: 3.00 RVSP: 13.00 Great Vessels Aorta Sinus of Valsalva: 2.50 2.0-3.5 cm Ao Asc: 2.30 2.1-3.4 cm Pulmonary Valve PV Pk Andreas: 0.87 Peak PV Grad: 3.00 Updated in Other Vendor System with Status of Final Jose Luis Garces MD electronically signed on 10/01/2024 4:48:01 PM with status of Final
== END ==
LOC: HO.CARD 14:59
PROVIDERS: PCP Internal Medicine; Visit Provider Nurse Practitioner Family
DX: R90.89 Other abnormal findings on diagnostic imaging of central nervous system (principal); I63.9 Cerebral infarction, unspecified
CPT/HCPCS: 93005; 93306

== ENCOUNTER → 2024-10-01 15:02 | Outpatient (BNV) | payer OTHER, SELFPAY | PROVIDERS: PCP Internal Medicine; Visit Provider Internal Medicine Cardiovascular Disease | DX: I49.9 Cardiac arrhythmia, unspecified (principal) | CPT/HCPCS: 93010 ==

== ENCOUNTER 2024-10-08 14:41 | Outpatient (AMB) | payer OTHER, SELFPAY ==
[2024-10-08 14:44] VITALS: BP 110/72; PULSE 72; BMI 22.5
--- NOTE | 2024-10-08 14:44 | A.OFFVIS_ITS ---
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 ISAIAH c/o palpitations or heart racing daily Telecommunications Field Technician Required: No In Store Marketing Representative: In Store Marketing Representative Present Accompanied by: Friend Allergies acetaminophen [From TYLENOL] Allergy (Unknown, Verified 09/22/24 14:39) RASH, THROAT SWELLING morphine [MORPHINE] Allergy (Unknown, Verified 09/22/24 14:39) RASH, THROAT SWELLING , swelling oseltamivir Allergy (Unknown, Verified 09/22/24 14:39) diarrhea Sulfa (Sulfonamide Antibiotics) Allergy (Unknown, Verified 09/22/24 14:39) anaphylaxis HPI Comments Details: Thank you for referring Tracey in cardiology consultation today. She is accompanied by her . Patient has longstanding history of palpitations and has had episodes of syncope in the past. Her she more recently was evaluated by you because of headache and neck aches and has had no clear diagnose as question migraine. For workup she underwent MRI which suggested possible old infarct versus a possible traumatic injury in the basal ganglia region. Patient was subsequently underwent an echocardiogram which was suggestive of possible PFO. Patient was referred here for further evaluation. Patient was no prior history of venous thromboembolism. No family history of venous thromboembolism. She was no history of atrial fibrillation. Although she was longstanding history of palpitations which present and multiple times and is present almost on a daily basis. Patient also has episodes of after rapid palpitation sudden slowing of heart rate she feels weak and tired. She was also has episode of syncope but as per the who has witnessed some of these episodes patient is pale during this episode and then loses consciousness but that his transient but after that she was weak and not able to move for about 15-20 minutes and has jerky body movements. She has not had any clear diagnosis as yet. She was referred here for the echocardiographic finding. [facility], [facility] Medical History Acute respiratory disease Recurrent UTI Physical exam Osteoarthritis of right knee Osteoarthritis of right acromioclavicular joint Blurred vision, bilateral Tachycardia History of 2019 novel coronavirus disease (COVID-19) Sinus tachycardia Hypovitaminosis Rheumatoid arthritis Migraine Surgical History Surgical history of tubal ligation History of Family History Maternal Aunt History of breast cancer in female Uterus cancer Father Family hx of hypertension Hx of thyroid disease Diabetes mellitus Maternal Grandfather Family hx of hypertension History of heart disease Maternal Grandmother Family hx of hypertension Brother History of asthma Mother Diabetes mellitus Social History Household Members: Spouse and Children Housing: Apartment Unable to assess alcohol history related to: Unknown Alcohol intake: never Patient Tobacco Use Status: Former Tobacco user Tobacco use type: Cigarette e-Cigarette/Vaping Use: Never Used Second Hand Smoke Exposure: No service: No Current occupational status: employed 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 Current occupational exposures/hazards: No Sexual orientation: Straight/Heterosexual Gender identity: Female Cognitive needs: No Hearing needs: No Vision needs: No Female Reproductive History Menstrual Age of Menarche: 12 Review of Systems Const Denies chills, Denies daytime sleepiness, Denies fatigue, Denies fever(s), Denies frequent falls, Denies poor appetite, Denies snoring, Denies stops breathing during sleep, Denies weakness, Denies weight gain and Denies weight loss Eyes Denies loss of vision ENT Denies dizziness and Denies hearing loss Card Denies chest pain, Denies claudication, Denies leg edema, Denies lightheadedness, Denies palpitations, Denies dyspnea, Denies dyspnea on exertion and Denies orthopnea Resp Denies cough, Denies excessive phlegm production, Denies dyspnea, Denies dyspnea on exertion, Denies snoring and Denies wheezing GI Denies abdominal pain, Denies hematochezia, Denies change in bowel habits, Denies nausea and Denies vomiting Denies urinary frequency and Denies dysuria Musc Denies arthralgias, Denies muscle weakness, Denies numbness and Denies other (frequent falls) Skin/Breast Denies nail changes and Denies rash Neuro Denies Abnormal speech present, Denies dizziness, Denies frequent falls, Denies loss of vision, Denies memory loss, Denies numbness and Denies weakness Psych Denies depression and Denies memory loss Endo Denies fatigue and Denies palpitations Dany/Lymph Reports easy bruising and Reports other (anemia) Aller/Immun Denies wheezing Physical Exam Vital Signs: Last Vital Signs Pulse 72 10/08/24 14:44 BP 110/72 10/08/24 14:44 BMI result Body Mass Index 22.5 Const General: cooperative, comfortable, no acute distress, alert, awake and anxious Nutritional Appearance: thin Orientation/consciousness: patient oriented x3 Limitations: no limitations HEENT Head: Yes normocephalic and Yes atraumatic Neck Neck: Yes trachea midline, Yes supple and Yes no JVD Resp Effort & Inspection: normal respiratory effort Auscultation: clear to auscultation bilaterally Cardio Jugular venous distension: no JVD Palpation: normal PMI Rate: regular rate Rhythm: regular rhythm Heart sounds: S1 normal heart sound present, S2 normal heart sound present, no click, no gallops, no murmurs and no rubs GI Auscultation: normal bowel sounds Skin General skin exam: no rashes or lesions noted Neuro General: patient oriented x3 and no focal motor deficits Speech: No Abnormal speech present Extrem General: Yes no clubbing, cyanosis or edema Psych Appearance: grossly normal Affect: Anxious affect present Assessment & Plan Assessment & Plan (1) PFO (patent foramen ovale): Code(s): Q21.12 - Patent foramen ovale Plan: Patent foramen ovale in his young patient. We discussed the pathophysiology of PFO. Not clear whether she actually has infarction in the right basal ganglia, if present and confirmed by Neurology PFO would be a significant finding. Would like to confirm the presence of PFO with a ISAIAH. We discussed the risks, benefits, alternatives of the procedure she understands agrees. She will also need a 30 day event monitor to rule out any other cardiac arrhythmias especially atrial fibrillation and need a thrombophilic workup. (2) Syncope: Code(s): R55 - Syncope and collapse Category: Medical Plan: Patient was history of syncope of unclear etiology. Some of the episodes do not sound typical for vasovagal or even postural orthostatic tachycardia syndrome. However will suggest her to have a 30 day event monitor as well as a tilt-table test to further evaluate for the same. Advised to increase her water and salt intake. Salt the episode seems like she was abnormal motor movements question seizure disorder. Would reflect back to you for question workup with the EEG. (3) Palpitation: Code(s): R00.2 - Palpitations Category: Medical Plan: Patient was symptoms of palpitation which are rapid, represent inappropriate sinus tachycardia or SVT. Less likely atrial fibrillation. Would suggest a 30 day event monitor to further assess for the same. Further treatment based on the findings. Thank you for allowing me to partake in his care Coding Level of Care Code New Pt Level 4 (74284) Complex EM visit Add On G2211 Diagnoses PFO (patent foramen ovale) Q21.12 Syncope R55 Palpitation R00.2
== END 2024-10-08 15:31 | disposition home or self-care (01) ==
PROVIDERS: PCP Internal Medicine; Visit Provider Internal Medicine Cardiovascular Disease
DX: Q21.12 Patent foramen ovale (principal); R55 Syncope and collapse; R00.2 Palpitations
CPT/HCPCS: 99214; G2211

== ENCOUNTER → 2024-10-08 14:41 | Outpatient (BNVA) | payer OTHER, SELFPAY | PROVIDERS: PCP Internal Medicine; Visit Provider Internal Medicine Cardiovascular Disease | DX: Q21.12 Patent foramen ovale (principal); R55 Syncope and collapse; R00.2 Palpitations | CPT/HCPCS: 99212 ==

== ENCOUNTER 2024-10-22 10:13 | Day surgery (SDC) | payer OTHER, SELFPAY ==
[2024-10-20 08:10] VITALS: BMI 22.5
[2024-10-22 10:48] VITALS: BP 117/53; PULSE 87; RESP 16; TEMP 36.8; O2SAT 100
[2024-10-22] MEDS: Lactated Ringers 1,000 ML 100 ML IVCONT (11:00)
--- NOTE | 2024-10-22 11:23 | CA_ITS ---
Transesophageal Echocardiogram Patient (Last, First, Middle): Rosanne Pichardo, Gender: Female Date of : 1990 Age: 34 Procedure Date: 10/22/2024 Procedure Type: Transesophageal Echocardiogram Location: OP Height: 154.94 cm Weight: 53.98 kg BSA: 1.52 m2 Heart Rate: 104 bpm BP: 132 / 85 mmHg Purchase Analyst: HEIKE Referring MD: Ceci RAMON Stable Helper: Jose Luis Garces MD Symptoms: I63.9 - Cerebral infarction, unspecified Conclusion: ??? 1. Small size shunt noted most likely at the interatrial level although exact locations not identified on this study 2. Normal cardiac structure and function otherwise Findings Procedure Information Consent was obtained prior to the procedure. Pre ISAIAH oral cavity was checked and revealed mild overcrowding. The adult 3D probe was passed with no difficulty. This was a technically good study. Left Ventricle Normal left ventricular size, thickness, and systolic function. The visually estimated ejection fraction is between 60-65%. Diastolic function is normal for age. There is no evidence of a mass in the left ventricle. There is some increased trabeculation towards the mid ventricle at the inferolateral surface, not meeting criteria for noncompaction Right Ventricle Normal right ventricular cavity size and systolic function. Atria Both atria are normal in size. There is no evidence of thrombus or mass in the left atrium. the left atrial appendage was identified multiple views. there are no clots or masses seen within the left atrial appendage. The left upper, left lower and right upper and right lower pulmonary veins drain normally into the left atrium. After multiple saline contrast injection there is evidence of shunting although exact location under shunting could not be identified on this study. There is no evidence of thrombus or mass in the right atrium. The IVC and SVC drain normally into the right atrium. The right atrial appendage is free of any thrombus or masses. Aortic Valve Normal aortic valve structure and function. There is no aortic valve stenosis. There is no evidence of a mass on the aortic valve. There is no aortic valve regurgitation. Mitral Valve Normal mitral valve structure and function. There is trace mitral valve regurgitation. There is no mitral valve stenosis. There is no mass noted on the mitral valve. Pulmonic Valve The pulmonic valve is normal. There is no mass noted on the pulmonic valve. There is trace pulmonic valve regurgitation. Tricuspid Valve Normal tricuspid valve structure. There is mild tricuspid valve regurgitation. The tricuspid regurgitation jet is directed centrally. There is no evidence of a mass on the tricuspid valve. Great Vessels All visible segments of the aorta are normal in size. The visualized portions of the pulmonary artery and branches are normal. Venous The inferior vena cava is normal in size and collapses greater than 50% with inspiration. Pericardium/Pleural There is no evidence of pericardial effusion. Measurements Tricuspid Valve TR Pk Andreas: 2.36 TR Pk Grad: 22.00 Updated by Jose Luis Garces on 04:33 PM with Status of Final Jose Luis Garces MD electronically signed on 10/23/2024 4:33:38 PM with status of Final
--- NOTE | 2024-10-22 12:13 | HO.ANESPROP2 ---
Documented by User: Basilia Quinones NP 10/21/24 09:45 HPI - Anesthesia Eval Consult details Narrative: 34yo F for Transesophageal Echocardiogram with bubble study ? PFO PMFSH Active Problems Active Problems: All Active Problems Abnormal echocardiogram (Acute) Acute respiratory disease (Acute) Recurrent UTI (Acute) Infarction of right basal ganglia (Acute) Abnormal brain MRI (Acute) Syncope (Acute) Migraine with aura (Acute) Facial paresthesia (Acute) New onset headache (Acute) Cervicogenic headache (Acute) Tension headache (Acute) Physical exam (Acute) Osteoarthritis of right knee (Acute) Osteoarthritis of right acromioclavicular joint (Acute) PCOS (polycystic ovarian syndrome) (Acute) Mild major depression (Acute) Allergic rhinitis (Acute) Hospital discharge follow-up (Acute) Intractable migraine (Acute) Abnormal uterine bleeding (AUB) (Acute) Right knee pain (Acute) Pelvic floor weakness (Acute) Cervical polyp (Acute) Screen for sexually transmitted diseases (Acute) Cervical cancer screening (Acute) meterman current use of immunosuppressive drug (Acute) Palpitation (Acute) Ingrowing nail, right great toe (Acute) Epigastric pain (Acute) Dysfunctional uterine bleeding (Acute) Tachycardia (Acute) Urinary (tract) obstruction (Acute) Rheumatoid arthritis (Acute) Fatigue (Acute) Bleeding of cervix (Acute) Past Medical History Medical History Acute respiratory disease Recurrent UTI Physical exam Osteoarthritis of right knee Osteoarthritis of right acromioclavicular joint Blurred vision, bilateral Tachycardia History of 2019 novel coronavirus disease (COVID-19) Sinus tachycardia Hypovitaminosis Rheumatoid arthritis Migraine Family History Family History Maternal Aunt History of breast cancer in female Uterus cancer Father Family hx of hypertension Hx of thyroid disease Diabetes mellitus Maternal Grandfather Family hx of hypertension History of heart disease Maternal Grandmother Family hx of hypertension Brother History of asthma Mother Diabetes mellitus Surgical History Surgical History Surgical history of tubal ligation History of Social History Social History Household Members: Spouse and Children Housing: Apartment Are you a primary family member caretaker to a significant other at home: No Do you presently have visiting nurse or other home services: No Unable to assess alcohol history related to: Unknown Alcohol intake: never Patient Tobacco Use Status: Former Tobacco user Tobacco use type: Cigarette e-Cigarette/Vaping Use: Never Used Second Hand Smoke Exposure: No Use of substances other than those prescribed or required for medical reasons: No Have you been hit, kicked, punched, or otherwise hurt by someone within the past year? 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 Current occupational exposures/hazards: No Sexual orientation: Straight/Heterosexual Gender identity: Female Cognitive needs: No Hearing needs: No Vision needs: No Meds Allergies Allergy/AdvReac Type Severity Reaction Status Date / Time acetaminophen [From TYLENOL] Allergy Unknown RASH, Verified 09/22/24 14:39 THROAT SWELLING morphine [MORPHINE] Allergy Unknown RASH, Verified 09/22/24 14:39 THROAT SWELLING , swelling oseltamivir Allergy Unknown diarrhea Verified 09/22/24 14:39 Sulfa (Sulfonamide Allergy Unknown anaphylaxis Verified 09/22/24 14:39 Antibiotics) Exam Height,Weight and Vital Signs: Height 5 ft 1 in Weight 53.977 kg Pertinent Lab Results Pertinent Lab Results: Laboratory Tests 09/10/24 10:12 WBC 4.8 Hgb 13.0 Hct 39.6 Plt Count 314 Sodium 138 Potassium 4.5 Chloride 108 Carbon Dioxide 26 BUN 11 Creatinine 0.72 Narrative Narrative: ECHO 09/2024 Conclusions: - 1. Small PFO noted, consider ISAIAH 2. Normal LV ejection fraction of 60 65% 3. Normal cardiac valvular Doppler Assessment and Plan Assessment Anesthesia Assessment: Chart Reviewed Documented by User: Nelli Marsh DO 10/22/24 12:15 HPI - Anesthesia Eval Consult details Narrative: 34yo F for Transesophageal Echocardiogram with bubble study ? PFO Patient reports feeling dizzy for a few weeks now. The sensation comes and goes. PMFSH Past Medical History Medical History Acute respiratory disease Recurrent UTI Physical exam Osteoarthritis of right knee Osteoarthritis of right acromioclavicular joint Blurred vision, bilateral Tachycardia History of 2019 novel coronavirus disease (COVID-19) Sinus tachycardia Hypovitaminosis Rheumatoid arthritis Migraine Family History Family History Maternal Aunt History of breast cancer in female Uterus cancer Father Family hx of hypertension Hx of thyroid disease Diabetes mellitus Maternal Grandfather Family hx of hypertension History of heart disease Maternal Grandmother Family hx of hypertension Brother History of asthma Mother Diabetes mellitus Family history of problems with anesthesia: No Surgical History Surgical History Surgical history of tubal ligation History of History of Problems with Anesthesia: No Social History Social History Household Members: Spouse and Children Housing: Apartment Are you a primary family member caretaker to a significant other at home: No Do you presently have visiting nurse or other home services: No Unable to assess alcohol history related to: Unknown Alcohol intake: never Patient Tobacco Use Status: Former Tobacco user Tobacco use type: Cigarette e-Cigarette/Vaping Use: Never Used Second Hand Smoke Exposure: No Use of substances other than those prescribed or required for medical reasons: No Have you been hit, kicked, punched, or otherwise hurt by someone within the past year? 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 Current occupational exposures/hazards: No Sexual orientation: Straight/Heterosexual Gender identity: Female Cognitive needs: No Hearing needs: No Vision needs: No Meds Allergies Allergy/AdvReac Type Severity Reaction Status Date / Time acetaminophen [From TYLENOL] Allergy Unknown RASH, Verified 09/22/24 14:39 THROAT SWELLING morphine [MORPHINE] Allergy Unknown RASH, Verified 09/22/24 14:39 THROAT SWELLING , swelling oseltamivir Allergy Unknown diarrhea Verified 09/22/24 14:39 Sulfa (Sulfonamide Allergy Unknown anaphylaxis Verified 09/22/24 14:39 Antibiotics) Exam Exam Date and Time: 10/22/24 1212 Height,Weight and Vital Signs: Height 5 ft 1 in Weight 53.977 kg Vital Signs Temperature 98.3 F 10/22/24 10:48 Pulse Rate 87 10/22/24 10:48 Respiratory Rate 16 10/22/24 10:48 Blood Pressure 117/53 L 10/22/24 10:48 Pulse Oximetry 100 10/22/24 10:48 Oxygen Delivery Method Room Air 10/22/24 10:48 Temperature 98.3 F 10/22/24 10:48 Pulse Rate 87 10/22/24 10:48 Respiratory Rate 16 10/22/24 10:48 Blood Pressure 117/53 L 10/22/24 10:48 Pulse Oximetry 100 10/22/24 10:48 Oxygen Delivery Method Room Air 10/22/24 10:48 Airway Mallampati Class: I TM Dist: >3cm Neck ROM: Full Loose/Missing/Broken Teeth: Yes (several missing teeth but no loose or broken teeth) Heart: S1S2 Lungs: CTAB Assessment and Plan Assessment Anesthesia Assessment: Anesthesia Plan Discussed and Chart Reviewed Final Anesthetic Review Family History of Problems with Anesthesia: No History of Problems with Anesthesia: No NPO: Yes ASA Class: II Final Preanesthetic Review: No Changes in Pt Med Stat, Meds/Allgs Chart Reviewed, Consent Obtained/Reviewed and Anes Risks/Benef Reviewed Patient Risk: Low Procedure Risk: Low Anesthetic Plan Anesthetic Plan: MAC: and Agree w/ Assess. and Plan Disposition: Standard PACU
--- NOTE | 2024-10-22 12:37 | MHC.SHP ---
Pre-Procedural Eval Section A - 24 Hr Update-Section A only Date of Service: 10/22/24 The patient is an INPATIENT: No Changes since office visit: Yes Patient answered all questions; No Cold of Flu in the past 2 weeks, No New Medical Problems and No Changes in Medication The patient has been examined within 24 hours of the surgical procedure. The History & Physical has been completed within 30 days and I have reviewed it.: Yes Section B - Complete if H&P > 30 days Chief Complaint: Patent foramen ovale Allergies: Allergies Allergy/AdvReac Type Severity Reaction Status Date / Time acetaminophen [From TYLENOL] Allergy Unknown RASH, Verified 09/22/24 14:39 THROAT SWELLING morphine [MORPHINE] Allergy Unknown RASH, Verified 09/22/24 14:39 THROAT SWELLING , swelling oseltamivir Allergy Unknown diarrhea Verified 09/22/24 14:39 Sulfa (Sulfonamide Allergy Unknown anaphylaxis Verified 09/22/24 14:39 Antibiotics) Plan I have reviewed the history and physical and performed a pertinent physical examination on my patient. No changes have occurred unless specified. Time Spent With Patient Time: Total time managing care of this patient today ____ minutes.
[2024-10-22 13:35] VITALS: BP 99/66; PULSE 113; RESP 16; TEMP 36.3; O2SAT 99
[2024-10-22] MEDS: ondansetron HCL 4 MG/2 ML VIAL IVPUSH (13:37)
[2024-10-22 13:52] VITALS: BP 106/72; PULSE 83; RESP 17; TEMP 36.1; O2SAT 99
== END 2024-10-22 14:29 | disposition home or self-care (01) ==
PROVIDERS: PCP Internal Medicine; Visit Provider Internal Medicine Cardiovascular Disease
PROC: (CPT 93312; principal; 2024-10-22 12:30)
DX: Q21.22 Transitional atrioventricular septal defect (principal); R55 Syncope and collapse; I63.9 Cerebral infarction, unspecified; R00.2 Palpitations; R00.0 Tachycardia, unspecified; E56.9 Vitamin deficiency, unspecified; G43.909 Migraine, unspecified, not intractable, without status migrainosus; M06.9 Rheumatoid arthritis, unspecified; Z88.5 Allergy status to narcotic agent; Z88.2 Allergy status to sulfonamides; Z88.8 Allergy status to other drugs, medicaments and biological substances; Z98.51 Tubal ligation status; Z87.891 Personal history of nicotine dependence
CPT/HCPCS: 93312; J2003; J2250; J2405; J2704

== ENCOUNTER → 2024-10-22 11:23 | Outpatient (BNV) | payer OTHER, SELFPAY | PROVIDERS: PCP Internal Medicine; Visit Provider Internal Medicine Cardiovascular Disease | DX: I63.9 Cerebral infarction, unspecified (principal); I36.1 Nonrheumatic tricuspid (valve) insufficiency; I42.8 Other cardiomyopathies | CPT/HCPCS: 76376; 93312 ==

== ENCOUNTER 2024-10-27 08:38 | Outpatient (REF) | payer OTHER, SELFPAY ==
--- NOTE | ~2024-10-27 | MR_ITS ---
EXAMINATION: MR ANGIOGRAPHY NECK WITHOUT AND WITH CONTRAST CLINICAL INFORMATION: Headache. Dizziness. Nausea. COMPARISON: None available. TECHNIQUE: MRA of the neck was obtained using routine sequences without and with contrast. Intravenous contrast: (Gadavist) 10 mL. Axial 2-D [id number]. Coronal 3 the post sequence. Maximum intensity projections. The degree of stenosis determined by criteria similar to NASCET. FINDINGS: Thoracic aortic arch demonstrates normal patency caliber without focal stenosis or intimal flap. Right CCA: Normal patency. No focal stenosis or intimal flap. Right ICA: Normal patency. No focal stenosis. No intimal flap. Left CCA: Normal patency. No focal stenosis. No intimal flap. Left ICA: Normal patency. No focal stenosis. No intimal flap. V1/V2 segments of the vertebral arteries: Normal patency. No focal stenosis or intimal flap. Vertebral arteries are orientating from the subclavian arteries. Left vertebral artery is dominant. MR/MR angio neck wo/w con IMPRESSION: No high degree stenosis or dissection. Left vertebral artery is dominant. Electronically signed by: Carlos Avila MD 10/28/2024 08:40 AM EDT
[2024-10-27] MEDS: gadobutroL 10 ML VIAL IVPUSH (09:20)
== END 2024-10-27 08:39 | disposition home or self-care (01) ==
LOC: HO.MRI 08:38
PROVIDERS: PCP Internal Medicine; Visit Provider Nurse Practitioner Family
DX: R90.89 Other abnormal findings on diagnostic imaging of central nervous system (principal); I63.9 Cerebral infarction, unspecified
CPT/HCPCS: 70549; A9585

== ENCOUNTER 2024-10-27 10:00 | Outpatient (RCR) | payer OTHER, SELFPAY ==
--- NOTE | 2024-09-15 14:42 | MHC.PT.EP ---
[facility] [place] Office [place] Office [place] Office [address] Cherrie Reeder [address] [phone] F: [phone] F: [phone] F: [phone] F: [phone] Physical Therapy Plan of Care Date of Evaluation: 09/15/24 Date of Surgery: n/a Diagnosis: Cervicogenic headache Migraine with aura, not intractable, without status migrainosus Cervicogenic headache migraine with aura, myofascial release, craniosacral tx Assessment: Pt is a 34 yo F who is a good candidate that would benefit from skilled PT for symptoms associated with cervicogenic headaches. Pt presents with limited cervical ROM, decreased scapulothoracic strength, increased pain and TTP in the neck, head, and scapulothoracic region. Pt symptoms are associated with cervicogenic headaches/dizziness, decreased postural awareness and poor body mechanics. Pt reports difficulty with ADLs due to pain and stiffness and with increased stress levels. Patient would benefit from skilled PT 2x/ week for 4 weeks to include manual therapy, MHP, taping, and modalities PRN, stretching and strengthening exercises to progress per patient tolerance. 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 Treatment Plan: Modalities to reduce pain, spasms and effusion. Manual therapy to restore motion and function. Therapeutic exercise to improve strength and flexibility. Neuromuscular re-education for posture and balance. Therapeutic activities to return to functional activities of daily living. Electronically signed by: Hermelinda Ortiz, PT, DPT Please sign and return to therapist. Thank you for your referral.
--- NOTE | 2025-02-04 14:22 | MHC.PT.DC ---
[facility] [place] Office [place] Office [place] [facility] [address] Cherrie Reeder [address] [phone] F: [phone] F: [phone] F: [phone] F: [phone] Physical Therapy Discharge Report Diagnosis: Cervicogenic headache Migraine with aura, not intractable, without status migrainosus Cervicogenic headache migraine with aura, myofascial release, craniosacral tx Date of Surgery: n/a Date of Evaluation: 09/15/24 Date of Discharge: 02/04/25 Treatments to Date: 8 Cancellations to Date: 7 No Shows to Date: 3 Discharge Status: Visit Non-compliance Discharge Summary: Pt was seen for skilled PT from 09/15/24-10/27/24. Her last attended appointment was 10/27/24. She had 7 cancellations and 3 no show appointments since SOC, including a no show for her last scheduled visit. She is being D/C from skilled PT for visit non compliance. Pt current level of function unknown at this time Electronically signed by: Hermelinda Ortiz, PT, DPT Please sign and return to therapist. Thank you for your referral.
== END 2025-02-04 14:21 | disposition home or self-care (01) ==
LOC: HO.PT 10:00
PROVIDERS: PCP Internal Medicine; Visit Provider Nurse Practitioner Family
DX: G44.86 Cervicogenic headache (principal); G43.109 Migraine with aura, not intractable, without status migrainosus
CPT/HCPCS: 97110; 97140; 97162

== ENCOUNTER 2024-11-18 12:29 | Outpatient (AMB) | payer OTHER, SELFPAY ==
--- NOTE | 2024-11-18 12:45 | A.OFFVIS_ITS ---
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 No complaints. Last Pap/HPV was negative in 07/12 [facility] Medical History Acute respiratory disease Recurrent UTI Physical exam Osteoarthritis of right knee Osteoarthritis of right acromioclavicular joint Blurred vision, bilateral Tachycardia History of 2019 novel coronavirus disease (COVID-19) Sinus tachycardia Hypovitaminosis Rheumatoid arthritis Migraine Surgical History Surgical history of tubal ligation History of Family History Maternal Aunt History of breast cancer in female Uterus cancer Father Family hx of hypertension Hx of thyroid disease Diabetes mellitus Maternal Grandfather Family hx of hypertension History of heart disease Maternal Grandmother Family hx of hypertension Brother History of asthma Mother Diabetes mellitus Social History Household Members: Spouse and Children Housing: Apartment Are you a primary adult live in caregiver to a significant other at home: No Do you presently have visiting nurse or other home services: No Unable to assess alcohol history related to: Unknown Alcohol intake: never Patient Tobacco Use Status: Former Tobacco user Tobacco use type: Cigarette e-Cigarette/Vaping Use: Never Used Second Hand Smoke Exposure: No Patient : No service: No Current occupational status: employed 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 Current occupational exposures/hazards: No Sexual orientation: Straight/Heterosexual Gender identity: Female Cognitive needs: No Hearing needs: No Vision needs: No Female Reproductive History Menstrual Age of Menarche: 12 Duration of menses: 8-10 days Date of last menstrual period: 11/10/24 Total pregnancies: 3 Full term: 2 Date of last pap smear: 06/20/23 (negative pap smear, negative hpv ) Review of Systems Const All systems reviewed & are unremarkable except as noted in HPI and below Card Reports as per HPI Resp Reports as per HPI GI Reports as per HPI and Reports no additional complaints Reports as per HPI Physical Exam Vital Signs: Last Vital Signs BP 102/64 11/18/24 12:52 BMI result Body Mass Index 22.7 Const General: cooperative, healthy appearing and comfortable Chest Chest palpation & inspection: normal inspection of the chest and normal palpation of entire chest wall Breast/axilla inspection: normal inspection of the breasts and normal inspection of the axillae Breast/axilla palpation: normal palpation of the breasts, normal palpation of the axillae and no axillary lymphadenopathy Resp Effort & Inspection: normal respiratory effort Auscultation: clear to auscultation bilaterally Percussion: percussion normal Cardio Palpation: normal PMI Rate: regular rate Rhythm: regular rhythm Heart sounds: no murmurs and no rubs Peripheral pulses: Peripheral pulses 2+ throughout GI Inspection: Yes normal to inspection Palpation (GI): Soft to palpation, nontender, no guarding, not rigid and No hepatosplenomegaly present Percussion: Yes normal to percussion Auscultation: normal bowel sounds Rectal Exam - Female: deferred General: Yes bladder normal to palpation External Female Exam: No lesion Speculum Exam - Vagina: normal appearance of the vagina, normal palpation, normal vaginal discharge and not erythematous Speculum Exam - Cervix: normal appearance of the cervix and normal palpation Bimanual exam- vagina & uterus: normal bimanual exam, normal palpation, uterine size normal, bladder normal to palpation, consistency normal and normal palpation Bimanual Exam- Adnexa, other: adnexae abnormal (Right adnexal fullness, left adnexa within normal), no masses and no tenderness Assessment & Plan Assessment & Plan (1) Well woman exam: Code(s): Z01.419 - Encounter for gynecological examination (general) (routine) without abnormal findings Category: Medical Plan: Cotesting not indicated this year. Counseled the patient about the recommended dietary allowance of 1000 mg of Calcium & 600 IU of vitamin D. The patient was instructed to perform monthly self-breast exams and to schedule an annual exam in a year; All questions answered and the patient verbalized understanding. Instructed the patient to schedule annual exam in a year (2) Adnexal fullness: Comment: Right side Code(s): N94.9 - Unspecified condition associated with female genital organs and menstrual cycle Category: Medical Plan: Discussed with the patient the finding on pelvic exam, showing right adnexal fullness, will order pelvic ultrasound. Instructions given the patient to schedule an ultrasound follow-up appointment within 2 weeks. All questions answered, the patient verbalized understanding. Orders: Orders US pelvic and transvaginal Today N94.9 - Unspecified condition associated with female genital organs and menstrual cycle Coding Level of Care Code Est Pt Level 3 (66569) Est Pt Prev Care 18-39y(14535) Diagnoses Well woman exam Z01.419 Adnexal fullness N94.9
[2024-11-18 12:52] VITALS: BP 102/64; BMI 22.7
== END 2024-11-18 13:11 | disposition home or self-care (01) ==
LOC: HO.HWS 12:30
PROVIDERS: PCP Internal Medicine; Visit Provider Obstetrics & Gynecology
DX: Z01.411 Encounter for gynecological examination (general) (routine) with abnormal findings (principal); N94.9 Unspecified condition associated with female genital organs and menstrual cycle
CPT/HCPCS: 99213; 99395; 99459

== ENCOUNTER → 2024-11-18 12:29 | Outpatient (BNVA) | payer OTHER, SELFPAY | PROVIDERS: PCP Internal Medicine; Visit Provider Obstetrics & Gynecology | DX: Z01.419 Encounter for gynecological examination (general) (routine) without abnormal findings (principal); N94.9 Unspecified condition associated with female genital organs and menstrual cycle | CPT/HCPCS: 99212; 99395; 99459 ==

== ENCOUNTER 2024-11-19 17:29 | Outpatient (AMB) | payer OTHER, SELFPAY ==
[2024-11-19 17:42] VITALS: BP 110/70; BMI 22.5
--- NOTE | 2024-11-19 17:42 | A.OFFPC_ITS ---
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 Name: Luci Tompkins MD Information Interpreted: non-clinical & clinical Accompanied by: Self / Same As Patient Allergies acetaminophen [From TYLENOL] Allergy (Unknown, Verified 11/19/24 17:57) RASH, THROAT SWELLING morphine [MORPHINE] Allergy (Unknown, Verified 11/19/24 17:57) RASH, THROAT SWELLING , swelling oseltamivir Allergy (Unknown, Verified 11/19/24 17:57) diarrhea Sulfa (Sulfonamide Antibiotics) Allergy (Unknown, Verified 11/19/24 17:57) anaphylaxis Medication List - Last Reconciled 11/19/24 by Luci Tompkins MD aspirin 81 mg PO BEDTIME 30 days certolizumab pegol (Cimzia) 200 mg subcut .every 10 days cyclobenzaprine 5 mg PO TID PRN gabapentin 100 mg PO BEDTIME 90 days magnesium oxide 400 mg PO BEDTIME 30 days medroxyprogesterone (Provera) 10 mg PO DAILY 10 days naproxen 375 mg PO BID riboflavin (vitamin B2) 400 mg PO DAILY 30 days Tobacco use date assessed: 11/19/24 Dental Screening Dental Screen Date: 11/19/24 Did you have a dental visit in the last 12 months?: Yes Did you have a dental problem in the last 6 months where you did not have access to dental care?: No Was dental information given to patient?: Patient has dentist HPI HPI Comments History of Present Illness Details The patient is a 34-year-old female for her physical exam. She has ongoing issues related to multiple chronic conditions, including migraines, low back pain, polycystic ovary syndrome (PCOS), and fibromyalgia. She reports that migraines, frequently associated with neck pain, have persisted for an extended period, leading to considerable discomfort and impaired daily functioning. Despite engaging in physical therapy, she reports only partial relief from these interventions. In addition, low back pain attributed to osteoarthritis has been an ongoing concern. The patient has pursued treatment with Flexeril and physical therapy but continues to face challenges related to pain management, particularly when engaging in physical activities. Her medical history is further compounded by PCOS, identified due to the presence of enlarged ovaries. A recent ultrasound was conducted to investigate an observed size discrepancy between her ovaries, necessitating further monitoring. The patient's fibromyalgia syndrome accentuates her pain, significantly impacting her quality of life. Despite previous treatments, including pain medication and physical therapy, her symptoms compromise daily activities, pointing to the complexity of her management needs. She also experiences mild depression, amplified by personal stressors, with benefits previously noted from the use of amitriptyline addressing both anxiety and migraine issues, and aiding in sleep. - Tetanus vaccination is up-to-date. - Papanicolaou test was performed in , results were normal; follow-up recommendations include monitoring ovarian size due to PCOS. - Referred for echocardiogram and tilt t able test to address cardiac concerns, including a potential patent foramen ovale. [facility] Medical History (Updated 11/19/24 @ 18:11 by Luci Tompkins MD) Acute respiratory disease Recurrent UTI Physical exam Osteoarthritis of right knee Osteoarthritis of right acromioclavicular joint Blurred vision, bilateral Tachycardia History of 2019 novel coronavirus disease (COVID-19) Sinus tachycardia Hypovitaminosis Rheumatoid arthritis Migraine Surgical History Surgical history of tubal ligation History of Family History Maternal Aunt History of breast cancer in female Uterus cancer Father Family hx of hypertension Hx of thyroid disease Diabetes mellitus Maternal Grandfather Family hx of hypertension History of heart disease Maternal Grandmother Family hx of hypertension Brother History of asthma Mother Diabetes mellitus Social History Household Members: Spouse and Children Housing: Apartment Are you a primary child care provider to a significant other at home: No Do you presently have visiting nurse or other home services: No Unable to assess alcohol history related to: Unknown Alcohol intake: never Patient Tobacco Use Status: Former Tobacco user Tobacco use type: Cigarette e-Cigarette/Vaping Use: Never Used Second Hand Smoke Exposure: No service: No Current occupational status: employed 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 1. Little interest or pleasure in doing things: not at all 2. Feeling down, depressed, or hopeless: not at all 3. Trouble falling or staying asleep, or sleeping too much: nearly every day 4. Feeling tired or having little energy: nearly every day 5. Poor appetite or overeating: not at all 6. Feeling bad about yourself - or that you are a failure or have let yourself or your family down: not at all 7. Trouble concentrating on things, such as reading the newspaper or watching television: not at all 8. Moving or speaking so slowly that other people could have noticed. Or the opposite - being so fidgety or restless that you have been moving around a lot more than usual: not at all 9. Thoughts that you would be better off or of hurting yourself in some way: not at all Total score: 6 Depression Screening Interpretation: Positive Depression Screening Follow-up: Existing condition, New Medication prescribed and Follow-up Visit Requested Depression Screening Done: Yes 82850 - PHQ-9 Billing: Yes Source: Developed by Drs. Eyal Aranda, Yissel Rios, Hayden Bishop and colleagues, with an educational griffin from [employer]. Thrive Questionnaire Date Thrive assessed: 11/19/24 I am a: Patient What is your living situation today?: I have a steady place to live Within the past 12 months, did the food you bought not last and you didn't have the money to get more?: Sometimes True Within the past 12 months, did you worry whether your food would run out before you got money to buy more?: Sometimes True Do you have trouble paying for medicines?: I choose not to answer this question Do you have trouble getting transportation to medical appointments?: No Do you have trouble paying your heating and electricity bill?: Yes Do you have trouble taking care of your child, family member or friend?: No Do you have trouble with day-to-day activities such as bathing, preparing meals, shopping, managing finances, etc.?: No Are you currently unemployed and looking for a job?: No Are you interested in more education?: No Please select the resources that you would like help with: Food and Utilities Currently or been in a relationship where the following occur: No concerns reported THRIVE Score: 3 AUDIT C Alcohol Use Questionnaire (AUDIT-C) 1. How often do you have a drink containing alcohol?: Never Total Score: 0 Score Reviewed/Action Taken: No IMANI-7 AMB Questionnaire IMANI-7 Date IMANI - 7 assessed: 11/19/24 Feeling nervous, anxious, or on edge: 3 = Nearly every day Not being able to stop or control worryin = Nearly every day Worrying too much about different things: 3 = Nearly every day Trouble relaxin = Nearly every day Being so restless that it is hard to sit still: 0 = Not at all Becoming easily annoyed or irritable: 0 = Not at all Feeling afraid as if something awful might happen: 0 = Not at all Total IMANI-7 score (0-4 normal; 5-9 mild; 10-14 moderate; 15-21 severe): 12 Source: Developed by Drs. Eyal Aranda, Yissel Rios, Hayden Bishop and colleagues, with an educational griffin from [employer]. IMANI-7 Assessment Billing IMANI-7 Assessment Tool: IMANI-7 Assessment 38777 Review of Systems Const All systems reviewed & are unremarkable except as noted in HPI and below Card Denies chest pain at rest, Denies chest pain with activity, Denies edema, Denies irregular heart rhythm, Denies claudication, Denies dyspnea, Denies dyspnea on exertion, Denies orthopnea, Denies paroxysmal nocturnal dyspnea and Denies slow heart rate Resp Denies cough, Denies dyspnea and Denies dyspnea on exertion GI Denies abdominal pain, Denies change in bowel habits, Denies excessive flatus, Denies nausea and Denies vomiting Musc Reports arthralgias and Reports limited range of motion Neuro Denies lack of coordination Physical exam (Primary Care) Vital Signs: Last Vital Signs BP 110/70 11/19/24 17:42 BMI result Body Mass Index 22.5 Tobacco/Smoking Status: Tobacco use Status Tobacco use date assessed 11/19/24 11/19/24 17:50 Patient Tobacco Use Status Former Tobacco user 11/19/24 17:46 Tobacco use type Cigarette 11/19/24 17:46 e-Cigarette/Vaping Use Never Used 11/19/24 17:46 PHQ-9: PHQ-9 Score PHQ-9: Total score 6 11/19/24 18:04 Depression Screening Interpretation: Positive Depression Screening Follow-up: Existing condition, New Medication prescribed and Follow-up Visit Requested Thrive Assessment: Date of Thrive Assessment Date Thrive assessed 11/19/24 11/19/24 17:50 Currently or been in a relationship where the following occur: No concerns reported HENVA Head: Yes normal to inspection, Yes normocephalic and Yes atraumatic Ears: external ears normal Eyes General: appearance normal, both eyes and all related structures Eyelids: Yes eyelids normal Conjunctivae: conjunctivae normal Neck Neck: Yes normal visual inspection and Yes supple Resp Effort & Inspection: normal respiratory effort Auscultation: clear to auscultation bilaterally Cardio Jugular venous distension: no JVD Rate: regular rate Rhythm: regular rhythm Heart sounds: S1 normal heart sound present and S2 normal heart sound present GI Inspection: Yes normal to inspection Palpation (GI): Soft to palpation and nontender Auscultation: normal bowel sounds Skin General skin exam: no rashes or lesions noted Neuro General: no focal motor deficits Extrem Right upper extremity: shoulder/upper arm Details: tenderness and abnormal ROM Details: pain with active ROM Details: in ABduction and in extension Psych Appearance: grossly normal Coding Level of Care Code Est Pt Level 4 (33685) Est Pt Prev Care 18-39y(69190) Diagnoses Physical exam Z00.00 Mild major depression F32.0 Rheumatoid arthritis involving multiple sites with positive rheumatoid factor M05.79 Rheumatoid arthritis location: multiple sites Rheumatoid factor presence: with rheumatoid factor Right shoulder pain M25.511 Migraine with aura G43.109 Additional Codes IMANI-7 Assessment Billing - IMANI-7 Assessment Tool: IMANI-7 Assessment 59227 ([id number]) PHQ-9 - 38273 - PHQ-9 Billing: Yes ([id number]) Time Spent (min) 38 Assessment & Plan Assessment & Plan (1) Physical exam: Code(s): Z00.00 - Encounter for general adult medical examination without abnormal findings Category: Medical (2) Mild major depression: Code(s): F32.0 - Major depressive disorder, single episode, mild Category: Medical (3) Rheumatoid arthritis: Comment: Cimzia: June 2019 to present Methotrexate: Discontinued September 2019 due to age and potential - NVD from 2017. Code(s): M06.9 - Rheumatoid arthritis, unspecified Category: Medical Qualifiers: Rheumatoid arthritis location: multiple sites Rheumatoid factor presence: with rheumatoid factor Qualified Code(s): M05.79 - Rheumatoid arthritis with rheumatoid factor of multiple sites without organ or systems involvement (4) Right shoulder pain: Code(s): M25.511 - Pain in right shoulder Category: Medical (5) Migraine with aura: Code(s): G43.109 - Migraine with aura, not intractable, without status migrainosus Category: Medical Plan For the management of migraines, I will continue her on gabapentin and magnesium, and restart amitriptyline to also help manage associated anxiety and sleep disturbances. Her low back pain, attributed to osteoarthritis, will be managed with Flexeril as needed and ongoing physical therapy. For fibromyalgia, follow-up appointments will evaluate symptom progression. PCOS concerns will be addressed through gynecological follow-ups, including an ultrasound assessing ovarian size discrepancies. Psychiatric management includes ongoing support and medication for mild depression. In light of her MRI results, the patient awaits further cardiac workup with echocardiogram and tilt-table tests to investigate potential heart defects and blood pressure issues. Patient was informed and verbally consented to the use of an ambient scribe for clinic note documentation during this visit. I discussed in detail the chronic management of her migraines, including the use of gabapentin and magnesium, and the need for continued physical therapy. We reviewed the role of amitriptyline for both its anxiolytic properties and its use in migraine prevention. I provided clarity on PolyCystic Ovary Syndrome ( PCOS) management, reinforcing the importance of ultrasound monitoring. I emphasized the need to address urinary tract symptoms to her specialist. We considered the potential persistence of fibromyalgia symptoms despite therapy. Regarding recent MRI findings indicating a possible small stroke, I referred her for cardiac evaluation, emphasizing the necessity of further testing to clarify potential structural heart issues, including a suspected patent foramen ovale. Given her history of depression, I supported the continuation of psychiatric supportive measures and medication management. Suggesting follow-up strategies for interrelated health conditions reinforced my holistic management approach to her healthcare. Orders: Orders Lipid Panel Today Z00.00 - Encounter for general adult medical examination without abnormal findings PT Evaluation and Treatment Today M25.511 - Pain in right shoulder Vitamin D 25-OH Total Today E55.9 - Vitamin D deficiency, unspecified Comprehensive [place]. Panel Fast Today Z00.00 - Encounter for general adult medical examination without abnormal findings Referrals Rheumatology Referral M05.79 - Rheumatoid arthritis with rheumatoid factor of multiple sites without organ or systems involvement Medications: New amitriptyline 25 mg PO BEDTIME 90 tabs 1RF 90 days Patient Instructions: - Continue taking gabapentin and magnesium as prescribed for migraines. - Use Flexeril as needed for low back pain management. - Attend physical therapy sessions for neck and shoulder pain. - Follow up with gynecological evaluations for PCOS and ovarian size monitoring. - Take amitriptyline at night to aid with anxiety, insomnia, and migraines. - Track any symptoms of urinary infections and report to a specialist. - Prepare for upcoming echocardiogram and tilt-table test diagnostics. - Engage with supportive resources for depression and personal stress management. - Attend the follow-up appointment with rheumatology as scheduled.
== END 2024-11-19 18:11 | disposition home or self-care (01) ==
LOC: HO.HMCH 17:29
PROVIDERS: PCP Internal Medicine; Visit Provider Internal Medicine
DX: Z00.00 Encounter for general adult medical examination without abnormal findings (principal); F32.0 Major depressive disorder, single episode, mild; M05.79 Rheumatoid arthritis with rheumatoid factor of multiple sites without organ or systems involvement; M25.511 Pain in right shoulder; G43.109 Migraine with aura, not intractable, without status migrainosus

== ENCOUNTER → 2024-11-19 17:29 | Outpatient (BNVA) | payer OTHER, SELFPAY | PROVIDERS: PCP Internal Medicine; Visit Provider Internal Medicine | DX: Z00.00 Encounter for general adult medical examination without abnormal findings (principal); F32.0 Major depressive disorder, single episode, mild; M05.79 Rheumatoid arthritis with rheumatoid factor of multiple sites without organ or systems involvement; M25.511 Pain in right shoulder; G43.109 Migraine with aura, not intractable, without status migrainosus | CPT/HCPCS: 96127; 99212; 99395 ==

== ENCOUNTER → 2024-12-01 10:52 | Outpatient (REF) | payer OTHER, SELFPAY | LOC: HO.CARD 10:52 | PROVIDERS: PCP Internal Medicine; Visit Provider Internal Medicine Cardiovascular Disease | DX: R55 Syncope and collapse (principal) | CPT/HCPCS: 93270 ==

== ENCOUNTER → 2024-12-01 10:54 | Outpatient (BNV) | payer OTHER, SELFPAY | PROVIDERS: PCP Internal Medicine; Visit Provider Internal Medicine Cardiovascular Disease | DX: R00.0 Tachycardia, unspecified (principal); R55 Syncope and collapse | CPT/HCPCS: 93272 ==

== ENCOUNTER 2024-12-22 07:44 | Outpatient (AMB) | payer OTHER, SELFPAY ==
--- OUTSIDE RECORDS SUMMARY | 2024-12-22 07:47 | XMS_ITS | Clinical Summary ---
Author Organization [facility] Address [address] [place] [address] Phone Care Team Providers Care Air Filler Name Role Phone Janett Valle Primary Care Provider [phone] Encounters Date Type Department Care Team Description 12/02/2024 1:38 PM EDT - 12/02/2024 11:59 PM EDT Hospital Encounter [facility] Xray [address] [place] [address] Syncope and collapse Discharge Disposition: Home or Self Care from Last 3 Months Social History Tobacco Use Types Packs/Day Years Used Date Smoking Tobacco: Never Assessed Comments Unknown Sex and Gender Information Value Date Recorded Sex Assigned at Not on file Legal Sex Female 2:58 PM EST Gender Identity Not on file Sexual Orientation Not on file Plan of Treatment Health Maintenance Due Date Last Done Comments Hepatitis B Vaccines (1 of 3 - 19+ 3-dose series) 2010 Cervical Cancer Screening: P ap Smear 2012 COVID-19 Vaccine (2023-2 5 season) 2024 Depression Screening 10/09/2024 HIV Screening 10/09/2024 Hepatitis C Screening 10/09/2024 Social Influencers of Health Screening 10/09/2024 Influenza Vaccine (Season Ended) 2025 07/11/2019, 09/19/2018, 05/21/2014 DTaP,Tdap,and Td Vaccines (2 - Td or Tdap) 10/13/2030 10/13/2020 HIB Vaccines Aged Out No longer eligi ble based on patient's age to complete this topic HPV Vaccines Aged Out No longer eligi ble based on patient's age to complete this topic Hepatitis A Vaccines Aged Out No long er eligible based on patient's age to complete this topic IPV Vaccines Aged Out No longer eligi ble based on patient's age to complete this topic MMR Vaccines Aged Out No longer eligi ble based on patient's age to complete this topic Meningococcal ACWY Vaccine Aged Out N o longer eligible based on patient's age to complete this topic Meningococcal B Vaccine Aged Out No l onger eligible based on patient's age to complete this topic Pneumococcal Vaccine: Pediatrics (0 to 5 Years) and At-Risk Patients (6 to 64 Years) Aged Out No longer eligible b ased on patient's age to complete this topic RSV Immunization Patients Under 20 months Aged Out No longer eligible b ased on patient's age to complete this topic Varicella Vaccines Aged Out No longer eligible based on patient's age to complete this topic Procedures Procedure Name Priority Date/Time Associated Diagnosis Comments TILT TABLE Routine 12/02/2024 1:41 PM EDT Syncope and collapse from Last 3 Months Results * Tilt table (12/02/2024 1:41 PM EDT) Anatomical Region Laterality Modality Radiographic Jessica ging Narrative 12/02/2024 2:35 PM EDT Orthostatic hypotension without significant change in HR Tilt Table The patient was brought to lab in fasting state. Patient lied supine for 5 minutes for equilibrium. Baseline ECG showed normal sinus rhythm. Baseline supine minimum BP: 129/80 mmHg Baseline supine minimum HR: 82 bpm Baseline supine maximum HR: 98 bpm Patient tilted to 70 degrees. Tilt maintained for 22 minutes. Minimum BP during tilt: 78/43 mmHg Maximum BP during tilt: 131/92 mmHg Minimum heart rate during tilt: 75 bpm Maximum heart rate during tilt: 112 bpm Rhythm during tilt: normal sinus rhythm There was a clear orthostatic response noted. Patient experienced a physiologic HR increase with tilt. Symptoms seen on tilt include: dizziness, light headedness and palpitations and nausea. Conclusion: Abnormal tilt test with findings consistant with orthostatic hypotension. us Jose Luis Garces MD [facility] C[facility] PROCEDURES F inal Result from Last [address] [place] [address] [place] [id number] [facility] Care Teams Air Filler Relationship Specialty Start Date End Date Janett Valle PA [address] [place] [address] PCP - General Oncology 12/02/24
[2024-12-22 08:08] VITALS: BP 110/68; PULSE 89; O2SAT 98; BMI 23.0
--- NOTE | 2024-12-22 08:08 | MHC.OFFVIS ---
Vital Signs 12/22/24 08:08 Height 5 ft 1 in Weight 122 lb BMI 23.0 BP 110/68 Blood Pressure Location Rt brachial Position Sitting Pulse 89 Pulse Source Pulse Oximeter Pulse Oximetry (%) 98 Oxygen Delivery Method Room Air Intake Visit Reasons: 6 mo f/u Intake Note: Patient presents follow up for migraines. Brain MRI in chart done on 08/25/24 Retirement Plan Specialist Required: No Accompanied by: Self / Same As Patient Allergies acetaminophen [From TYLENOL] Allergy (Unknown, Verified 12/22/24 08:10) RASH, THROAT SWELLING morphine [MORPHINE] Allergy (Unknown, Verified 12/22/24 08:10) RASH, THROAT SWELLING , swelling oseltamivir Allergy (Unknown, Verified 12/22/24 08:10) diarrhea Sulfa (Sulfonamide Antibiotics) Allergy (Unknown, Verified 12/22/24 08:10) anaphylaxis Medication List - Last Reconciled 12/22/24 by YENNY Ritchie amitriptyline 25 mg PO BEDTIME 90 days aspirin 81 mg PO BEDTIME 30 days certolizumab pegol (Cimzia) 200 mg subcut .every 10 days cyclobenzaprine 5 mg PO TID PRN gabapentin 100 mg PO BEDTIME 90 days magnesium oxide 400 mg PO BEDTIME 30 days medroxyprogesterone (Provera) 10 mg PO DAILY 10 days naproxen 375 mg PO BID riboflavin (vitamin B2) 400 mg PO DAILY 30 days HPI Comments Details: 34- yr-old female presents for follow-up of headache and head imaging. Patient's brain MRI showed a foci of increased T2 signal intensity right basal ganglia/external capsule w/ associated hemosiderin staining. Upon review of the MRI, we reviewed findings with patient. Patient denies any known history of infarct or head trauma. Patient then underwent follow-up MR a head and neck, which did not show any significant stenosis, or aneurysm, though the left vertebral artery is dominant. Her echocardiogram was notable for a small PFO. Per Cardiology, patient underwent a follow-up ISAIAH, which showed a small-sized shunt most likely at the inter arterial level- though study could not confirm specific location. Patient also underwent recent tilt-table test at [facility], results were consistent with orthostatic hypotension. She is currently wearing a 30 day Holter monitor. She is started on aspirin 81 mg q.h.s. She has not done the C-spine x-ray yet, she forgot about that order. She also notes she had a recent adjustment in her RA tx- now taking her DMT, Cimzia, every 10 days instead of every 14 days- in hopes this reduces the RA flares. She notes that she always has a migraine on the day that she takes her Cimzia. Since the last visit, pt started to experience worsening orthostatic lightheadedness. Patient states after the positive tilt-table test, she was advised to increase fluids, take Pedialyte, increase her salt intake, which he is trying to do but has not help much, she is still having the orthostatic lightheadedness almost every day. Pt states she is not having as many headaches. States she tried naratriptan, which helped some but not fully. Her PCP started her on Amitriptyline last month- to help with anxiety and sleep. Using it prn when she is more anxious, as when she takes it- it causes her heart to feel like it goes very slow or very slow. She uses gabapentin 100 mg q.h.s. as needed for RA pain. She still feels a slight pressure discomfort behind each ears. She states her neck pain is much pressure since doing PT- states it may hurt sometimes w/ a bit of pressure and heavy but not as severe as before. 06/26/24, Initial HPI: Right-handed 33-yr-old female presents for new pt evaluation of headache disorder. Pt is accompanied by her , Angel Luis. Pt reports she started having bothersome headaches in Aug 2022, w/o precipitating causes. These headaches were lasting a week. She also started having neck stiffness w/wo the headache. She went to the ER a few times- Head CT- negative- and was told they were stress. Since, the headaches are better but still occur 3 times per week. PMH and ROS are notable for:? General: anemia, dizziness Musculoskeletal disorders or injury: hand, neck pain. Rheumatoid arthritis. History of concussion/head injury: in 2012, a window fell on top of her, had headaches for about a month. Mood d/o: Anxiety, Depression History of syncope: has passed out 3 times- ears become full, see spots, and body feels weak, vision goes black, and then has LOC x's 1-2 min, her states her body is tense and slightly shaking (not tonic-clonic) when she comes to she feels ok. Denies intraictal tongue biting/incontinence. 2 times at night when she got up to void, 1 time she was taking a shower- this time did have a bad headache. This also happened twice around age 15. 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 Family planning: s/p tubal ligation. has 3 children. 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 Typical headache characteristics: Prodrome symptoms: unsure Aura: soemtimes sees little circles at start of the headache. Pain intensity: moderate-severe Location, quality, characteristics: Tension and pressure in back of head that moves into back of eyes and sides of head. Can also be throbbing and stabbing i different areas. Associated symptoms: photophobia, phonophobia, allodynia, nausea, not right in space dizziness, lightheadedness, fatigue, cognitive difficulties, activity intolerance, right facial tingling/numbness. Postdrome: dizziness may linger Triggers: standing up exacerbates headache, poor fluid intake, hunger, stress, noise, sometimes Menstrual cycle. Time of day: can wake up with headache but not always. Duration and Frequency: 3 times per week, can last hours to a whole day, and lingering dizziness can last into next day. How does headache impact your life? needs to lay down, misses work or leaves work. Current acute medication use/interventions: Naproxen- ineffective. Ibuprofen 400-800mg- helps some for a couple of hours. Current preventative medication use: None Non-pharmacological interventions: sleep [facility] Medical History Acute respiratory disease Recurrent UTI Physical exam Osteoarthritis of right knee Osteoarthritis of right acromioclavicular joint Blurred vision, bilateral Tachycardia History of 2019 novel coronavirus disease (COVID-19) Sinus tachycardia Hypovitaminosis Rheumatoid arthritis Migraine Surgical History Surgical history of tubal ligation History of Family History Maternal Aunt History of breast cancer in female Uterus cancer Father Family hx of hypertension Hx of thyroid disease Diabetes mellitus Maternal Grandfather Family hx of hypertension History of heart disease Maternal Grandmother Family hx of hypertension Brother History of asthma Mother Diabetes mellitus Social History Household Members: Spouse and Children Housing: Apartment Are you a primary critical care rn to a significant other at home: No Do you presently have visiting nurse or other home services: No Unable to assess alcohol history related to: Unknown Alcohol intake: never Patient Tobacco Use Status: Former Tobacco user Tobacco use type: Cigarette e-Cigarette/Vaping Use: Never Used Second Hand Smoke Exposure: No service: No Current occupational status: employed 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 Current occupational exposures/hazards: No Sexual orientation: Straight/Heterosexual Gender identity: Female Cognitive needs: No Hearing needs: No Vision needs: No Female Reproductive History Menstrual Age of Menarche: 12 Physical Exam Vital Signs: Last Vital Signs Pulse 89 12/22/24 08:08 BP 110/68 12/22/24 08:08 Pulse Ox 98 12/22/24 08:08 Oxygen Delivery Method Room Air 12/22/24 08:08 BMI result Body Mass Index 23.0 Const General: cooperative and no acute distress Orientation/consciousness: patient oriented x3 Resp Effort & Inspection: normal respiratory effort and able to speak in complete sentences Neuro General: patient oriented x3 Cranial nerves: Yes CN's II-XII intact bilaterally Cognition (Neuro): normal cognition Psych Appearance: grossly normal Mental Status: mental status grossly normal Speech and movement: Normal speech and movement present Affect: normal affect Attitude: cooperative Results Reviewed Results Reviewed: 08/25/2024, MR/MR head/brain wo/w con IMPRESSION: Slitlike focus of increased T2 signal intensity in the right basal ganglia/external capsule with associated hemosiderin, likely representing the sequela of an old infarct or trauma. Clinical correlation is recommended. No acute intracranial abnormality. 09/21/2024, MR/MR angio head wo con IMPRESSION: No main cerebral artery occlusion or embolus or aneurysm. 10/27/2024, MR/MR angio neck wo/w con IMPRESSION: No high degree stenosis or dissection. Left vertebral artery is dominant. 12/02/2024, tilt table test at [facility] Positive for OH 10/22/2024, [place] echo transesophageal Conclusion: 1. Small size shunt noted most likely at the interatrial level although exact locations not identified on this study 2. Normal cardiac structure and function otherwise 10/01/2024, [place] echo transthoracic Conclusions: - 1. Small PFO noted, consider ISAIAH 2. Normal LV ejection fraction of 60 65% 3. Normal cardiac valvular Doppler Assessment & Plan Assessment & Plan (1) Cervicogenic headache: Code(s): G44.86 - Cervicogenic headache Category: Medical (2) Migraine with aura: Code(s): G43.109 - Migraine with aura, not intractable, without status migrainosus Category: Medical (3) Orthostatic hypotension: Code(s): I95.1 - Orthostatic hypotension Category: Medical (4) Abnormal brain MRI: Comment: Slitlike focus of increased T2 signal intensity in the right basal ganglia/external capsule with associated hemosiderin, likely representing the sequela of an old infarct Code(s): R90.89 - Other abnormal findings on diagnostic imaging of central nervous system Category: Medical Plan Reviewed interval workup, notable for brain MRI showing possible right basal ganglia chronic infarct with hemosiderin staining, echocardiogram showing small PFO, and tilt-table test showing orthostatic hypotension. With reassuring brain and neck MRA. Continue aspirin 81 mg q.h.s. Encouraged patient to continue to take increase fluids, take fluid bolus before showering, and continue increased salt intake- may try OTC Thermotabs. Complete 30 day Holter as ordered. Follow-up with cardiology as ordered. Patient reminded to have C-spine x-ray as ordered. For overall headache management: Optimize good self-care, including but not limited to maintaining a healthy diet, adequate fluid intake, adequate sleep, and engaging in regular physical activity. Track headaches, especially after any treatment regimen changes. Migraine Etreasurebox is one of many headache tracking apps. Information previously shared on non-pharmacological interventions which may help to alleviate headache attack burden. Continue PT exercises For acute headache treatment: Discussed importance of taking acute medications at the first sign of headache, however stressed importance of avoiding acute medication overuse (especially with combined headache medications). Discontinue Naratriptan 2.5mg tab, 1/2 - 1 tab (1.25-2.5mg) order- not fully effective. Trial Ubrogepant (Ubrelvy) 100mg tab, 1/2 - 1 tab (50-100mg) at onset of headache, may repeat in 2 hours. Max of 2 tabs (200mg) per 24 hours. May adjunct with OTC Ibuprofen 600mg q 6 hours, or Naproxen 440mg q 12 hrs prn. Potential adverse effects, include but are not limited to fatigue, nausea, dry mouth, constipation Previous acute migraine medication trials: Sumatriptan- helped some but caused nausea. Naratriptan not fully effective.. Acute migraine medication contraindications: Tylenol- allergy. All triptans and DHE due to history of right basal ganglia infarct/stroke. For headache prevention medication: Preventative medications should be taken routinely as prescribed for best effect, it may take several weeks for full effect to take effect. Continue Riboflavin 400mg qam Continue Magnesium 400mg qhs- may hold for loose stools. Stop amitriptyline, as patient reports it causes palpitations. Trial sertraline 25 mg p.o. daily in a.m.- may help with anxiety and orthostatic lightheadedness as well. Continue gabapentin 100 mg daily at bedtime p.r.n.- help headaches as well. Previous migraine prevention medication trials: Amitriptyline-cause palpitations Migraine prevention medication contraindications: All beta-blockers and antihypertensive treatments due to history of syncope and orthostatic hypotension. Will follow-up upon review of above and patient to follow-up in clinic in 3-4 months or sooner prn. Medications: New ubrogepant (Ubrelvy) take at onset of migraine, may repeat in 2hrs (may take w/ Ibuprofen) 50 - 100 mg (0.5 - 1 x 100 mg) PO ONCE 30 days PRN 16 tabs 3RF migraine headache sertraline 25 mg PO DAILY 30 days 30 tabs 6RF Discontinued amitriptyline Discontinued Reason: Doctor's Order 25 mg PO BEDTIME 90 days 90 tabs 1RF Coding Level of Care Code Est Pt Level 4 (94463) Diagnoses Cervicogenic headache G44.86 Migraine with aura G43.109 Orthostatic hypotension I95.1 Abnormal brain MRI R90.89
== END 2024-12-22 08:45 | disposition home or self-care (01) ==
LOC: HO.HSMS 07:44
PROVIDERS: PCP Internal Medicine; Visit Provider Nurse Practitioner Family
DX: G44.86 Cervicogenic headache (principal); G43.109 Migraine with aura, not intractable, without status migrainosus; I95.1 Orthostatic hypotension; R90.89 Other abnormal findings on diagnostic imaging of central nervous system
CPT/HCPCS: 99214

== ENCOUNTER → 2024-12-22 07:44 | Outpatient (BNVA) | payer OTHER, SELFPAY | PROVIDERS: PCP Internal Medicine; Visit Provider Nurse Practitioner Family | DX: G44.86 Cervicogenic headache (principal); G43.109 Migraine with aura, not intractable, without status migrainosus; I95.1 Orthostatic hypotension; R90.89 Other abnormal findings on diagnostic imaging of central nervous system | CPT/HCPCS: 99212 ==

== ENCOUNTER 2025-01-05 13:17 | Outpatient (REF) | payer OTHER, SELFPAY ==
--- NOTE | ~2025-01-05 | US_ITS ---
CLINICAL HISTORY: N94.9 - Unspecified condition associated with female genital organs and ... US pelvis transabdominal and transvaginal Comparison: US/SR - US PELVIC AND TRANSVAGINAL - 09/21/23 11:06 EST Findings: Transabdominal scanning performed for overall anatomy. Transvaginal scanning performed for additional detail. Anteverted uterus is 8.1 cm length. Normal myometrium. Nabothian cysts are noted within the cervix. Endometrium 9 mm thickness. No lesions. Right ovary 3.8 x 2.0 x 2.8 cm, corresponds to a volume of 11.0 mL. A complex cyst is noted within the right ovary measuring 2.3 x 1.5 x 1.9 cm. Left ovary 2.7 x 1.6 x 2.2 cm, corresponds to a volume of 4.9 mL. Normal color Doppler of both ovaries. No free fluid. IMPRESSION: 1. No acute disease. 2. Right ovarian 2.3 cm complex cyst with possible calcification. 3. Nabothian cysts within the cervix. This document has been electronically signed by: Phyllis Osorio MD on 01/05/2025 23:00:38
--- OUTSIDE RECORDS SUMMARY | 2025-01-05 13:19 | XMS_ITS | Clinical Summary ---
Author Organization [facility] Address [address] [place] [address] Phone Care Team Providers Care Medical Lab Technician Name Role Phone Janett Valle Primary Care Provider [phone] Encounters Date Type Department Care Team Description 12/02/2024 1:38 PM EDT - 12/02/2024 11:59 PM EDT Hospital Encounter [facility] Xray [address] [place] [address] Syncope and collapse Discharge Disposition: [...] from Last [address] [place] [address] [place] [address] [facility]AN [facility] Care Teams Medical Lab Technician Relationship Specialty Start Date End Date Janett Valle PA [address] [place] [address] PCP - General Oncology 12/02/24
== END 2025-01-05 13:18 | disposition home or self-care (01) ==
LOC: HO.US 13:17
PROVIDERS: PCP Internal Medicine; Visit Provider Obstetrics & Gynecology
DX: N94.9 Unspecified condition associated with female genital organs and menstrual cycle (principal)
CPT/HCPCS: 76830; 76856

== ENCOUNTER → 2025-01-05 13:19 | Outpatient (BNV) | payer OTHER, SELFPAY | PROVIDERS: PCP Internal Medicine; Visit Provider Student in an Organized Health Care Education/Training Program | DX: N83.291 Other ovarian cyst, right side (principal); N88.8 Other specified noninflammatory disorders of cervix uteri | CPT/HCPCS: 76830; 76856 ==

== ENCOUNTER 2025-01-08 14:56 | Outpatient (AMB) | payer OTHER, SELFPAY ==
--- NOTE | 2025-01-08 14:56 | MHC.OFFVIS ---
Intake Visit Reasons: Ultra sound follow up Allergies acetaminophen [From TYLENOL] Allergy (Unknown, Verified 12/22/24 08:10) RASH, THROAT SWELLING morphine [MORPHINE] Allergy (Unknown, Verified 12/22/24 08:10) RASH, THROAT SWELLING , swelling oseltamivir Allergy (Unknown, Verified 12/22/24 08:10) diarrhea Sulfa (Sulfonamide Antibiotics) Allergy (Unknown, Verified 12/22/24 08:10) anaphylaxis HPI Comments Details: The patient is schedule telehealth visit for ultrasound follow-up done 01/05/2025. The patient had an annual exam and felt adnexal fullness which triggered a pelvic ultrasound done recently which showed the following: Transabdominal scanning performed for overall anatomy. Transvaginal scanning performed for additional detail. Anteverted uterus is 8.1 cm length. Normal myometrium. Nabothian cysts are noted within the cervix. Endometrium 9 mm thickness. No lesions. Right ovary 3.8 x 2.0 x 2.8 cm, corresponds to a volume of 11.0 mL. A complex cyst is noted within the right ovary measuring 2.3 x 1.5 x 1.9 cm. Left ovary 2.7 x 1.6 x 2.2 cm, corresponds to a volume of 4.9 mL. Normal color Doppler of both ovaries. [facility] Medical History Acute respiratory disease Recurrent UTI Physical exam Osteoarthritis of right knee Osteoarthritis of right acromioclavicular joint Blurred vision, bilateral Tachycardia History of 2019 novel coronavirus disease (COVID-19) Sinus tachycardia Hypovitaminosis Rheumatoid arthritis Migraine Surgical History Surgical history of tubal ligation History of Family History Maternal Aunt History of breast cancer in female Uterus cancer Father Family hx of hypertension Hx of thyroid disease Diabetes mellitus Maternal Grandfather Family hx of hypertension History of heart disease Maternal Grandmother Family hx of hypertension Brother History of asthma Mother Diabetes mellitus Social History Household Members: Spouse and Children Housing: Apartment Are you a primary hearing care professional to a significant other at home: No Do you presently have visiting nurse or other home services: No Unable to assess alcohol history related to: Unknown Alcohol intake: never Patient Tobacco Use Status: Former Tobacco user Tobacco use type: Cigarette e-Cigarette/Vaping Use: Never Used Second Hand Smoke Exposure: No service: No Current occupational status: employed 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 Current occupational exposures/hazards: No Sexual orientation: Straight/Heterosexual Gender identity: Female Cognitive needs: No Hearing needs: No Vision needs: No Female Reproductive History Menstrual Age of Menarche: 12 Review of Systems Const All systems reviewed & are unremarkable except as noted in HPI and below Reports as per HPI and Reports no additional complaints GI Reports no additional complaints Reports no additional complaints Telehealth Telehealth Telehealth Platform: Telephone Location of provider rendering services: practice address Location of patient: address on file Patient Identification confirmed using: Name, : Yes Telehealth method: video Patient verbally consented to treatment: Yes Patient verbally consented to billing insurance company: Yes Patient informed of any privacy concerns related to visit: Yes Minutes spent on Phone/Video with Pt.: 3 Assessment & Plan Assessment & Plan (1) Complex ovarian cyst: Code(s): N83.299 - Other ovarian cyst, unspecified side Category: Medical Plan: Discussed with the patient the complex ovarian cyst by ultrasound. Discussed with the patient the Ultrasound findings, the main limitation of transvaginal ultrasonography alone as a diagnostic tool to distinguish benign from malignant masses relates to its lack of specificity and low positive predictive value for cancer. The differential diagnosis discussed with the patient includes the following but not limited to: benign and malignant gynecological and non-gynecological causes. Laboratory evaluation include UPT and GC/CT , serum tumor marker CA 125 . Discussed with the patient options of treatment including laparoscopy ovarian cystectomy/oophorectomy vs. expectant management with repeat US in repeating pelvic US in 6 weeks from previous US. If the ovarian complex cyst is persistent larger and / or more complex looking, will refer to gynecologic Oncology. All pros, cons, risks and benefits of each approach were discussed with the patient including but not limited to a delay in the diagnosis and treatment of ovarian cancer affecting the prognosis; The patient decided to go ahead with expectant management. Instructions given the patient to schedule a six weeks follow-up ultrasound appointment. All questions were answered & the patient verbalized understanding and agreed with the plan. I spent a total of 20 minutes reviewing the chart, talking to the patient via video and documenting in the medical record. Orders: Orders US pelvic and transvaginal 6 Weeks N83.299 - Other ovarian cyst, unspecified side Coding Level of Care Code Tele Est Pt Level 3 (07767) Diagnoses Complex ovarian cyst N83.299
--- OUTSIDE RECORDS SUMMARY | 2025-01-08 14:58 | XMS_ITS | Clinical Summary ---
Author Organization [facility] Address [address] [place] [address] Phone Care Team Providers Care Meatcutter Name Role Phone Janett Valle Primary Care Provider [phone] Encounters Date Type Department Care Team Description 12/02/2024 1:38 PM EDT - 12/02/2024 11:59 PM EDT Hospital Encounter [facility] Xray [address] [place] [address] Syncope and collapse Discharge Disposition: [...] from [place] [address] [place] [id number] [facility] PLAN [facility] Care Teams Meatcutter Relationship Specialty Start Date End Date Janett Valle PA [address] [place] [address] PCP - General Oncology 12/02/24
== END 2025-01-08 15:12 | disposition home or self-care (01) ==
LOC: HO.HWS 14:56
PROVIDERS: PCP Internal Medicine; Visit Provider Obstetrics & Gynecology
DX: N83.299 Other ovarian cyst, unspecified side (principal)
CPT/HCPCS: 99213

== ENCOUNTER 2025-01-14 12:58 | Outpatient (REF) | payer OTHER, SELFPAY ==
[2025-01-14 13:20] LABS: MANUAL DIFF FLAG NO
--- OUTSIDE RECORDS SUMMARY | 2025-01-14 13:45 | XMS_ITS | Clinical Summary ---
Author Organization [facility] Address [address] [place] [address] Phone Care Team Providers Care Head Of Design Name Role Phone Janett Valle Primary Care Provider [phone] Encounters Date Type Department Care Team Description 12/02/2024 1:38 PM EDT - 12/02/2024 11:59 PM EDT Hospital Encounter [facility] Xray [address] [place] [address] Syncope and collapse Discharge Disposition: [...] from [place] [address] [place] [id number] [facility] PLAN [facility] Care Teams Head Of Design Relationship Specialty Start Date End Date Janett Valle PA [address] [place] [address] PCP - General Oncology 12/02/24
[2025-01-14 13:50] LABS: Basophils Absolute Auto 0.1 X10*3/uL (0.0-0.2); Eosinophils Absolute Auto 0.3 X10*3/uL (0.0-0.4); Eosinophils Percent Auto 4.3 % (0-4); Hematocrit 38.1 % (37.0-47.0); Hemoglobin 12.4 g/dl (12.0-16.0); Imm Gran Abs Auto 0.02 X10*3/uL (0.00-0.03); Imm Gran Pct Auto 0.3 % (0.0-0.4); Lymphocytes Absolute Auto 1.7 X10*3/uL (1.2-4.9); Lymphocytes Percent Auto 24.7 % (20-40); Mean Corpuscular HGB Conc 32.5 g/dl (31.0-35.0); Mean Corpuscular Hemoglobin 28.8 pg (27.0-33.0); Mean Corpuscular Volume 88.6 fL (80.0-98.0); Mean Platelet Volume 10.5 fL (9.4-12.3); Monocytes Absolute Auto 0.4 X10*3/uL (0.1-1.2); Monocytes Percent Auto 6.1 % (2-11); Neutrophils Absolute Auto 4.3 x10*3/uL (2.0-8.3); Neutrophils Percent Auto 63.6 % (45-73); Platelet Count 318 X10*3/uL (160-400); White Blood Count 6.7 X10*3/uL (4.8-10.8)
[2025-01-14 14:09] LABS: Appearance Urine Cloudy; Color Urine Dark Yellow; Glucose Urine UA Negative (Negative); Leukocyte Esterase Urine Moderate (2+) (Negative); Nitrite Urine Negative (Negative); PH 5.5 (5.0-9.0); Specific Gravity - Urine 1.025 (1.005-1.025); UMIC TRIGGER UACC YES; Urine Blood Negative (Negative); Urine Ketones Trace mg/dL (Negative); Urine Protein Negative (Neg-Trace)
[2025-01-14 14:22] LABS: Alanine Aminotransferase 13 U/L (0-31); Albumin Level 4.8 g/dL (3.5-5.0); Alkaline Phosphatase 62 U/L (39-117); Anion Gap 11 (12-20); Aspartate Amino Transferase 22 U/L (5-31); Bilirubin Total 0.3 mg/dL (0.0-1.0); Blood Urea Nitrogen 14 mg/dL (9-16); C Reactive Protein < 0.10 mg/dL (< or = 0.50); Calcium 9.1 mg/dL (8.4-10.2); Carbon Dioxide 28 mmol/L (22-29); Chloride 104 mmol/L (96-108); Cholesterol 132 mg/dL (<200); Estimated Glomerular Filt Rate > 60; Glucose Fasting 85 mg/dL (60-99); HDL Cholesterol 50 mg/dL (>40); LDL Cholesterol Calculated 64 mg/dL (<100); Sodium 139 mmol/L (135-145); Total Protein 7.6 g/dL (6.5-8.0); Triglycerides 90 mg/dL (<150)
[2025-01-14 14:35] LABS: Vitamin D 25-OH Total 25.8 ng/mL (>30)
[2025-01-14 14:40] LABS: Bacteria Urine 4+ (None Seen); Hyaline Casts Urine 0-2 /LPF (0-2); RBC Urine 0-2 /HPF (0-2); UACC Culture Trigger YES; WBC Urine >50 /HPF (0-5)
[2025-01-14 15:05] LABS: Erythrocyte Sedimentation Rate 5 MM/HR (0-20)
[2025-01-15 08:10] LABS: HBS Num1 3.17 mIU/mL (0-7.99); HBc Num1 0.06 S/CO (0.00-0.79); Hepatitis A Antibody IgM 0.16 Index (0-0.79); Hepatitis B Core Antibody Nonreactive (Nonreactive); Hepatitis B Surface Antigen Negative (Negative); ~Hepatitis A Antibody IgM Nonreactive (Nonreactive); ~Hepatitis B Surface Antibody NONREACTIVE (Nonreactive); ~Hepatitis C Antibody Nonreactive (Nonreactive)
[2025-01-17 15:28] LABS: TS Negative Control Passed; TS Panel A 7; TS Panel B 3; TS Positive Control Passed; TSpotTB Borderline (Negative)
== END 2025-01-14 12:59 | disposition home or self-care (01) ==
LOC: HO.LAB 12:58
PROVIDERS: PCP Internal Medicine; Visit Provider Student in an Organized Health Care Education/Training Program
DX: Z00.00 Encounter for general adult medical examination without abnormal findings (principal); M05.79 Rheumatoid arthritis with rheumatoid factor of multiple sites without organ or systems involvement; Z79.899 Other long term (current) drug therapy; E55.9 Vitamin D deficiency, unspecified
CPT/HCPCS: 36415; 80053; 80061; 81001; 81003; 82306; 85025; 85652; 86140; 86481; 86704; 86706; 86709; 86803; 87086; 87340

== ENCOUNTER 2025-01-16 08:37 | Outpatient (AMB) | payer OTHER, SELFPAY ==
--- OUTSIDE RECORDS SUMMARY | 2025-01-16 08:40 | XMS_ITS | Clinical Summary ---
Author Organization [facility] Address [address] [place] [address] Phone Care Team Providers Care Forest Management Professor Name Role Phone Janett Valle Primary Care Provider Encounters Date Type Department Care Team Description 12/02/2024 1:38 PM EDT - 12/02/2024 11:59 PM EDT Hospital Encounter [facility] Xray [address] [place] [address] Syncope and collapse Discharge Disposition: [...] from [place] [address] [place] [address] [facility] HEALTH PLAN [facility] Care Teams Forest Management Professor Relationship Specialty Start Date End Date Janett Valle PA [address] [place] [address] PCP - General Oncology 12/02/24
--- NOTE | 2025-01-16 08:50 | A.OFFVIS_ITS ---
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: No Food Prep Worker: Food Prep Worker Present Allergies acetaminophen [From TYLENOL] Allergy (Unknown, Verified 01/16/25 09:54) RASH, THROAT SWELLING morphine [MORPHINE] Allergy (Unknown, Verified 01/16/25 09:54) RASH, THROAT SWELLING , swelling oseltamivir Allergy (Unknown, Verified 01/16/25 09:54) diarrhea Sulfa (Sulfonamide Antibiotics) Allergy (Unknown, Verified 01/16/25 09:54) anaphylaxis sulfamethoxazole [From Bactrim] Adverse Reaction (Verified 01/16/25 09:54) Difficulty Breathing trimethoprim [From Bactrim] Adverse Reaction (Verified 01/16/25 09:54) Difficulty Breathing Medication List - Last Reconciled 01/16/25 by Tamera Neumann NP-C aspirin 81 mg PO BEDTIME 30 days certolizumab pegol (Cimzia) 200 mg subcut .every 10 days cyclobenzaprine 5 mg PO TID PRN gabapentin 100 mg PO BEDTIME 90 days magnesium oxide 400 mg PO BEDTIME 30 days naproxen 375 mg PO BID riboflavin (vitamin B2) 400 mg PO DAILY 30 days ubrogepant (Ubrelvy) 50 - 100 mg (0.5 - 1 x 100 mg) PO ONCE PRN 30 days HPI HPI 3 mth fu /tilt table/ ISAIAH: Details: Rosanne is a 34-year-old female with past medical history of migraines, heart palpitations, syncope, low blood pressure readings, echocardiogram with possible PFO, abnormal brain MRI who presents for follow-up after recent tilt-table test, transesophageal echocardiogram and cardiac event monitor. The event monitor results are not available at the time of this visit. Today she reports she is still having symptoms of lightheadedness, nausea, pressure in the back of her neck that travels to the back of her head. She has not had recurrent syncope since her last visit in September. She has no chest discomfort, shortness of breath, edema. She does have heart palpitations that cause her concern. She feels that her heart goes slow at times and other times it is fast. She expresses much concern about her heart. 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 Her is present. [facility] Medical History Acute respiratory disease Recurrent UTI Physical exam Osteoarthritis of right knee Osteoarthritis of right acromioclavicular joint Blurred vision, bilateral Tachycardia History of 2019 novel coronavirus disease (COVID-19) Sinus tachycardia Hypovitaminosis Rheumatoid arthritis Migraine Surgical History Surgical history of tubal ligation History of Family History Maternal Aunt History of breast cancer in female Uterus cancer Father Family hx of hypertension Hx of thyroid disease Diabetes mellitus Maternal Grandfather Family hx of hypertension History of heart disease Maternal Grandmother Family hx of hypertension Brother History of asthma Mother Diabetes mellitus Social History Household Members: Spouse and Children Housing: Apartment Are you a primary home health care provider to a significant other at home: No Do you presently have visiting nurse or other home services: No Unable to assess alcohol history related to: Unknown Alcohol intake: never Patient Tobacco Use Status: Former Tobacco user Tobacco use type: Cigarette e-Cigarette/Vaping Use: Never Used Second Hand Smoke Exposure: No service: No Current occupational status: employed 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 Current occupational exposures/hazards: No Sexual orientation: Straight/Heterosexual Gender identity: Female Cognitive needs: No Hearing needs: No Vision needs: No Female Reproductive History Menstrual Age of Menarche: 12 Review of Systems Const All systems reviewed & are unremarkable except as noted in HPI and below Reports weakness ENT Reports dizziness and Reports neck pain Card Denies chest pain, Denies chest pain at rest, Denies chest pain with activity, Denies rapid heart rate, Denies pedal edema, Denies edema, Denies leg edema, Denies lightheadedness, Denies palpitations, Denies dyspnea, Denies dyspnea on exertion and Denies orthopnea Resp Denies cough, Denies dyspnea and Denies dyspnea on exertion GI Denies hematochezia and Denies change in stool character Musc Denies abnormal gait, Denies limited range of motion, Denies muscle cramps, Denies muscle weakness, Reports neck pain, Denies numbness, Denies radiating pain into limb, Denies stiffness and Denies tingling Neuro Denies abnormal gait, Reports dizziness, Denies numbness, Denies tingling and Reports weakness Endo Denies palpitations Physical Exam Vital Signs: Last Vital Signs BP 110/70 01/16/25 08:51 BMI result Body Mass Index 23.2 Const General: cooperative, healthy appearing, comfortable and no acute distress Orientation/consciousness: patient oriented x3 Neck Neck: Yes normal visual inspection Resp Effort & Inspection: normal respiratory effort Auscultation: clear to auscultation bilaterally, no crackles, no rales, no rhonchi and no wheezes Cardio Rate: regular rate Rhythm: regular rhythm Heart sounds: S1 normal heart sound present, S2 normal heart sound present, no gallops, no murmurs and no rubs Peripheral pulses: Peripheral pulses 2+ throughout Neuro General: patient oriented x3 Extrem General: Yes normal to inspection, No no pedal edema and No calf tenderness Psych Appearance: grossly normal Mental Status: mental status grossly normal Speech and movement: Normal speech and movement present Assessment & Plan Assessment & Plan (1) Orthostatic hypotension: Code(s): I95.1 - Orthostatic hypotension Category: Medical Plan: Recent tilt-table test done for evaluation of syncopal events does show finding of orthostatic hypotension. Her office blood pressures do run on the low side. Discussed this finding with her in detail and then he need to increase fluids, salt, wear compression stockings. I gave her a pair from our office stock. R ecognize symptoms and sit/lay down as needed. If conservative measures do not help to relieve her symptoms then medication such as midodrine can be considered. Cardiology follow-up in 3-4 months, sooner if needed. (2) Palpitation: Code(s): R00.2 - Palpitations Category: Medical Plan: Reports of heart palpitations and she did wear cardiac event monitor for 1 month. Report is pending at this time. Plan to call her when result is available. (3) Syncope: Code(s): R55 - Syncope and collapse Category: Medical Plan: As above, most likely related to orthostatic hypotension. (4) PFO (patent foramen ovale): Code(s): Q21.12 - Patent foramen ovale Category: Medical Plan: Recent echocardiogram with finding of possible PFO. She did undergo a t ransesophageal echo on 10/22/2024 which showed small size shunt noted most likely at the interatrial level although exact location not identified on this study, normal cardiac structures and function otherwise. She is following with Neurology and has history of migraines and abnormal MRI with finding suggesting prior CVA. For this reason she is now on aspirin 81 mg daily. Recommended she continue daily aspirin in this setting. (5) Abnormal brain MRI: Comment: Slitlike focus of increased T2 signal intensity in the right basal ganglia/external capsule with associated hemosiderin, likely representing the sequela of an old infarct Code(s): R90.89 - Other abnormal findings on diagnostic imaging of central nervous system Category: Medical Plan During the consultation, I discussed with the patient the diagnoses of orthostatic hypotension and patent foramen ovale, and their clinical implications. I outlined management strategies, including increasing fluid and salt intake, using compression stockings, and continuing aspirin therapy to minimize stroke risk. The risks and benefits of the treatment plan were discussed, and the patient agreed to this approach. I advised coordination with her neurologist for further physical therapy. Pending heart monitor results will inform potential pharmaceutical interventions for bradycardia or tachycardia. The patient will be updated once the results are received, and further management decisions will be made accordingly. Patient Instructions: - Drink at least 64 ounces of fluid daily. - Increase salt intake to help manage blood pressure. - Use compression stockings as recommended. - Take a baby aspirin daily. - Monitor blood pressure regularly. - Sit/ lay and rest when dizziness or near fainting occurs. - Await follow-up regarding heart monitor results. - Coordinate with the neurologist for physical therapy. - Contact the clinic if symptoms worsen or new symptoms arise. Patient was informed and verbally consented to the use of an ambient scribe for clinic note documentation during this visit. Visit time spent on chart review, interview, assessment, orders, documentation. Coding Level of Care Code Est Pt Level 4 (08031) Complex EM visit Add On G2211 Diagnoses Orthostatic hypotension I95.1 Palpitation R00.2 Syncope R55 PFO (patent foramen ovale) Q21.12 Abnormal brain MRI R90.89 Time Spent (min) 36
[2025-01-16 08:51] VITALS: BP 110/70; BMI 23.2
== END 2025-01-16 09:59 | disposition home or self-care (01) ==
LOC: HO.HCS 08:38
PROVIDERS: PCP Internal Medicine; Visit Provider Nurse Practitioner Family
DX: I95.1 Orthostatic hypotension (principal); R00.2 Palpitations; Q21.12 Patent foramen ovale; R90.89 Other abnormal findings on diagnostic imaging of central nervous system; R55 Syncope and collapse
CPT/HCPCS: 99214; G2211

== ENCOUNTER → 2025-01-16 08:37 | Outpatient (BNVA) | payer OTHER, SELFPAY | PROVIDERS: PCP Internal Medicine; Visit Provider Nurse Practitioner Family | DX: M05.79 Rheumatoid arthritis with rheumatoid factor of multiple sites without organ or systems involvement (principal); M19.011 Primary osteoarthritis, right shoulder; M17.11 Unilateral primary osteoarthritis, right knee; N39.0 Urinary tract infection, site not specified; I95.1 Orthostatic hypotension; R00.2 Palpitations; R55 Syncope and collapse; Q21.12 Patent foramen ovale; R90.89 Other abnormal findings on diagnostic imaging of central nervous system; Z79.899 Other long term (current) drug therapy | CPT/HCPCS: 20605; 20610; 99212; J3300 ==

== ENCOUNTER 2025-01-16 09:37 | Outpatient (AMB) | payer OTHER, SELFPAY ==
--- NOTE | 2025-01-16 09:52 | MHC.OFFVIS ---
Vital Signs 01/16/25 09:56 Height 5 ft 1 in Weight 123 lb 0.287 oz BMI 23.2 BP 112/70 Blood Pressure Location Lt brachial Position Sitting Pulse 81 Pulse Source Pulse Oximeter Pulse Oximetry (%) 90 L Oxygen Delivery Method Room Air Intake Visit Reasons: RA Intake Note: Patient presents for RA follow up. Patient stated she feels her toes are often numb and they discolored. Allergies acetaminophen [From TYLENOL] Allergy (Unknown, Verified 01/16/25 09:54) RASH, THROAT SWELLING morphine [MORPHINE] Allergy (Unknown, Verified 01/16/25 09:54) RASH, THROAT SWELLING , swelling oseltamivir Allergy (Unknown, Verified 01/16/25 09:54) diarrhea Sulfa (Sulfonamide Antibiotics) Allergy (Unknown, Verified 01/16/25 09:54) anaphylaxis sulfamethoxazole [From Bactrim] Adverse Reaction (Verified 01/16/25 09:54) Difficulty Breathing trimethoprim [From Bactrim] Adverse Reaction (Verified 01/16/25 09:54) Difficulty Breathing HPI Comments Details: Patient is a 33-year-old female who presents for follow-up of rheumatoid arthritis. Interval History: Patient last seen 09/11/2024 with me. At that time she was following up for her rheumatoid arthritis. She was still doing well with her right shoulder and right knee however was complaining that she notes that a few days before her Cimzia is due she has return of her joint pains. 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 Today, She notes improvement on the increased frequency of Cimzia Requesting right shoulder and right knee injection today Rheumatologic History: Diagnosis rheumatoid arthritis in 2018. Initially started on methotrexate and then Cimzia was added. Methotrexate was stopped due to side effects. 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 Current Rheumatology Medication(s): Cimzia 200mg every 2 weeks Gabapentin 100mg nightly [facility] Medical History Acute respiratory disease Recurrent UTI Physical exam Osteoarthritis of right knee Osteoarthritis of right acromioclavicular joint Blurred vision, bilateral Tachycardia History of 2019 novel coronavirus disease (COVID-19) Sinus tachycardia Hypovitaminosis Rheumatoid arthritis Migraine Surgical History Surgical history of tubal ligation History of Family History Maternal Aunt History of breast cancer in female Uterus cancer Father Family hx of hypertension Hx of thyroid disease Diabetes mellitus Maternal Grandfather Family hx of hypertension History of heart disease Maternal Grandmother Family hx of hypertension Brother History of asthma Mother Diabetes mellitus Social History Household Members: Spouse and Children Housing: Apartment Are you a primary acute care clinical nurse specialist to a significant other at home: No Do you presently have visiting nurse or other home services: No Unable to assess alcohol history related to: Unknown Alcohol intake: never Patient Tobacco Use Status: Former Tobacco user Tobacco use type: Cigarette e-Cigarette/Vaping Use: Never Used Second Hand Smoke Exposure: No service: No Current occupational status: employed 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 Current occupational exposures/hazards: No Sexual orientation: Straight/Heterosexual Gender identity: Female Cognitive needs: No Hearing needs: No Vision needs: No Female Reproductive History Menstrual Age of Menarche: 12 Review of Systems Const Details: Review of Systems Constitutional: Denies fever, chills, weight loss ENT: Denies vision changes, eye pain or eye redness, dental caries, dry mouth GI: Denies nausea, vomiting, diarrhea, abdominal pain, change in BM Pulm: Denies SOB, HUTCHINS, hemoptysis, wheezing Cards: Denies chest pain, palpitations Skin: Denies Raynaud's, rash, nail changes, photosensitivity, FAGOTER: Denies headaches, weakness, paresthesias, recurrent falls MSK: as per HPI All other systems reviewed and are unremarkable except noted above Physical Exam Vital Signs: Last Vital Signs Pulse 81 01/16/25 09:56 BP 112/70 01/16/25 09:56 Pulse Ox 90 L 01/16/25 09:56 Oxygen Delivery Method Room Air 01/16/25 09:56 BMI result Body Mass Index 23.2 Vital signs reviewed Physical Examination Patient well appearing and in no apparent painful distress Constitutional Mucous membranes pink and moist patient alert and cooperative HEENT Conjunctiva and sclera clear. ?Pupils equal round and reactive to light. ?No lymphadenopathy. ?Normal dentition. Respiratory System Normal respiratory effort and able to speak in complete sentences. ?Clear to auscultation bilaterally. ?No crackles, rales, rhonchi, wheezes heard. Cardiac System Regular rate and rhythm. ?S1 and S2 heard no murmurs. ?Radial pulses intact bilaterally MSK No deformity, swelling, abnormalities noted to bilateral hands. ?No evidence of synovitis. ?Able to move all joints with full range of motion, without limitation. Hands:.??Normal pain-free range of motion without tenderness, swelling, increased warmth or erythema. Able to make a full fist and has a good aquatic ecologist strength. Wrists: Normal pain-free range of motion without tenderness, swelling, increased warmth or erythema. Elbows: Full range of motion without pain. No tenderness, weakness, swelling, increased warmth or erythema. Shoulders: Full range of motion without pain. No tenderness, weakness, swelling, increased warmth or erythema. Tenderness to palpation of the right AC joint today. Knees:.???Normal pain-free range of motion without tenderness, swelling, increased warmth or erythema.?No effusion or crepitations Ankles:.??Normal pain-free range of motion without tenderness, swelling, increased warmth or erythema. Feet:.??Normal pain-free range of motion without tenderness, swelling, increased warmth or erythema. Tender points:??No tenderness to palpation of the tender points today. Office Procedures AMB Joint Injection/Aspiration Joint Injection/Aspiration Details: Procedure was explained to the patient and consent was obtained. ? The area of interest was identified and confirmed with patient. ?This was subsequently cleaned with chlorhexidine x3. ? The area was then anesthetized using ethyl chloride spray. 40 mg Kenalog with 1 cc 1% lidocaine was injected without issue. ?Minimal to no bleeding. ?Patient tolerated procedure. Primary Site: right shoulder Prep: site was prepped using aseptic technique and ethochloride spray was applied Injected: 40 mg of, Kenalog, with 1 mL of, 1% plain lidocaine and in the joint Procedure: The patient tolerated the procedure well Coding 55182 - Acromioclavicular Procedure code (CPT) selection complete AMB Joint Injection/Aspiration Joint Injection/Aspiration Details: Procedure was explained to the patient and consent was obtained. ? The area of interest was identified and confirmed with patient. ?This was subsequently cleaned with chlorhexidine x3. ? The area was then anesthetized using ethyl chloride spray. 40 mg Kenalog with 1 cc 1% lidocaine was injected without issue. ?Minimal to no bleeding. ?Patient tolerated procedure. Primary Site: right knee Prep: site was prepped using aseptic technique and ethochloride spray was applied Injected: 40 mg of, Kenalog, with 1 mL of, 1% plain lidocaine and in the joint Procedure: The patient tolerated the procedure well Coding 10648 - Large joint Procedure code (CPT) selection complete Office Meds lidocaine (PF) 10 mg/mL (1 %) injection solution Performing Provider: Sharita Wood MD [place] [facility] [facility] Administered by: Sharita Wood MD on 01/16/25 14:18 Dose Route Admin Location Dispensed Lot Number Expiration Date [facility] [place] [employer] [place] 1 mL Infiltration right AC joint 2 mL [id number] 10/18/26 38995-438-91 [employer] Kenalog 40 mg/mL suspension for injection Performing Provider: Sharita Wood MD Performing Location: [facility] Administered by: Sharita Wood MD on 01/16/25 14:18 Dose Route Admin Location Dispensed Lot Number Expiration Date [facility] [place] [employer] [place] 40 mg intra-articular right AC joint 1 mL [id number] 02/17/26 [address]-1 [employer] lidocaine (PF) 10 mg/mL (1 %) injection solution Performing Provider: Sharita Wood MD Performing Location: [facility] [facility] Administered by: Sharita Wood MD on 01/16/25 14:18 Dose Route Admin Location Dispensed Lot Number Expiration Date [facility] [place] [employer] [place] 1 mL Infiltration right knee 2 mL [id number] 10/18/26 44949-331-94 FRESENIUS KABI Kenalog 40 mg/mL suspension for injection Performing Provider: Sharita Wood MD Performing Location: [facility] [place] Administered by: Sharita Wood MD on 01/16/25 14:18 Dose Route Admin Location Dispensed Lot Number Expiration Date [facility] [place] [employer] [place] 40 mg intra-articular right knee 1 mL [id number] 02/17/26 [address]-6 [employer] Results Reviewed Results Reviewed: Laboratory Tests 01/14/25 13:18 WBC 6.7 RBC 4.30 Hgb 12.4 Hct 38.1 Plt Count 318 ESR 5 Sodium 139 Potassium 4.0 Chloride 104 Carbon Dioxide 28 BUN 14 Creatinine 0.62 AST 22 ALT 13 Alkaline Phosphatase 62 C-Reactive Protein < 0.10 25-OH Vitamin D Total 25.8 L Laboratory Tests 06/13/18 16:14 Rheumatoid Factor 53.5 H Cycl Citrul Peptide IgG >250 H BRENDA Screen Positive H BRENDA Titer 1:80 H Laboratory Tests 01/14/25 13:18 Hepatitis A IgM Ab Nonreactive Hep Bs Antigen Negative Hep Bs Antibody NONREACTIVE Hep B Core Total Ab Nonreactive Hepatitis C Ab (EIA) Nonreactive TB Test (T-Spot) Com Pending Assessment & Plan Assessment & Plan (1) Rheumatoid arthritis: Comment: Cimzia: June 2019 to present Methotrexate: Discontinued September 2019 due to age and potential - NVD from 2016. Code(s): M06.9 - Rheumatoid arthritis, unspecified Category: Medical Qualifiers: Rheumatoid arthritis location: multiple sites Rheumatoid factor presence: with rheumatoid factor Qualified Code(s): M05.79 - Rheumatoid arthritis with rheumatoid factor of multiple sites without organ or systems involvement Plan: #Seropositive Non Erosive RA Patient is a 34-year-old female with seropositive nonerosive rheumatoid arthritis. Doing much better today on the increased frequency of Cimzia. Plan - Cimzia 200mg every 10 days - Gabapentin 100mg nightly - RTC 4 months - Labs before visit: CBC, CMP, ESR, CRP (2) Osteoarthritis of right acromioclavicular joint: Comment: Right AC joint IACS 06/11/2024, 01/16/2025 Code(s): M19.011 - Primary osteoarthritis, right shoulder Category: Medical Plan: #OA Right AC joint Patient with osteoarthritis to her right acromioclavicular joint. s/p steroid injection today (3) Osteoarthritis of right knee: Comment: Right Knee IACS 06/11/2024, 01/16/2025 Code(s): M17.11 - Unilateral primary osteoarthritis, right knee Category: Medical Qualifiers: Osteoarthritis type: primary Qualified Code(s): M17.11 - Unilateral primary osteoarthritis, right knee Plan: #Right knee OA Patient with right knee osteoarthritis. s/p steroid injection today (4) Recurrent UTI: Code(s): N39.0 - Urinary tract infection, site not specified Category: Medical Plan: #Recurrent UTI Patient with recurrent UTI associated with the time that she administers the Cimzia injection. Patient saw ID [id number] and because history of negative cultures there was concern that her recurrent dysuria could be related to Cimzia administration. We will continue to monitor this because it Cimzia seems to be doing really well for her arthritis at this point. 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: Code(s): Z79.899 - Other intermediate (current) drug therapy Category: Medical Plan: #Long-term Use of TNF Inhibitors: Cimzia Discussed with the patient the benefits and risks of TNF inhibitors for the management of the rheumatic condition Benefits include reduce pain, maintenance of remission and reduction of flares as well as ?progression of the disease Risks include injection sites/infusion reactions, serious infections (such as bacterial infections, opportunistic infections), malignancy, delaminating syndromes, autoimmune phenomena, CHF exacerbations, palmar plantar psoriasis and cytopenias Recommended rotating injection sites, and holding medication during and for up to 1 week after resolution of a febrile illness or open skin wound Plan I spent 30 minutes reviewing the record and labs, seeing the patient, discussing the treatment plan and documenting in the medical record ? Orders: Orders AMB Joint Injection/Aspiration Today M17.11 - Unilateral primary osteoarthritis, right knee AMB Joint Injection/Aspiration Today M19.011 - Primary osteoarthritis, right shoulder Coding Level of Care Code Est Pt Level 4 (73715) Complex EM visit Add On G2211 Diagnoses Rheumatoid arthritis involving multiple sites with positive rheumatoid factor M05.79 Rheumatoid arthritis location: multiple sites Rheumatoid factor presence: with rheumatoid factor Osteoarthritis of right acromioclavicular joint M19.011 Primary osteoarthritis of right knee M17.11 Osteoarthritis type: primary Recurrent UTI N39.0 [facility] current use of immunosuppressive drug Z79.899 CPT Codes Coding - Joint 5: 15110 - Acromioclavicular ([id number]) Coding - 28723 Large joint: 81495 - Large joint ([id number])
[2025-01-16 09:56] VITALS: BP 112/70; PULSE 81; O2SAT 90; BMI 23.2
== END 2025-01-16 10:51 | disposition home or self-care (01) ==
LOC: HO.RHE 09:38
PROVIDERS: PCP Internal Medicine; Visit Provider Student in an Organized Health Care Education/Training Program
DX: M05.79 Rheumatoid arthritis with rheumatoid factor of multiple sites without organ or systems involvement (principal); M19.011 Primary osteoarthritis, right shoulder; M17.11 Unilateral primary osteoarthritis, right knee; N39.0 Urinary tract infection, site not specified; Z79.899 Other long term (current) drug therapy
CPT/HCPCS: 20605; 20610; 99214

== ENCOUNTER 2025-01-21 00:09 | Inpatient (IN) | payer OTHER, SELFPAY ==
[2025-01-21] VITALS (12 sets, daily range): BP systolic 102–149; BP diastolic 56–91; PULSE 64–128; RESP 15–24; TEMP 36.2–36.9; O2SAT 97–100; BMI 22.6; BMI 23.7
--- NOTE | ~2025-01-21 | CT_ITS ---
CLINICAL HISTORY: Question of occipital ischemia on NCHCT CT angiography head and neck with contrast. 3D Postprocessing. Comparison: CT/SR - CT HEAD FOR STROKE - 01/21/25 00:31 EDT MR/SR - MR ANGIO NECK WO/W CON - 10/27/24 08:54 EDT MR/ME/SR - MR ANGIO HEAD WO CON - 09/21/24 13:09 EST Findings: Aortic arch and cervical great vessels are patent with no aneurysm, dissection, hemodynamically significant stenoses, or occlusion. Intracranial arteries are patent. No aneurysm, dissection, hemodynamically significant stenoses, or occlusion. No abnormal intracranial enhancement. The visualized thyroid gland is unremarkable. No cervical mass or fluid collection. Lung apices clear. No acute fracture. IMPRESSION: Patent head and neck CTA. This document has been electronically signed by: Nigel Aden MD on 01/21/2025 02:48:06
--- NOTE | ~2025-01-21 | MR_ITS ---
EXAMINATION: MR BRAIN WITHOUT IV CONTRAST HISTORY: headache TECHNIQUE: Sagittal T1 and FLAIR, and axial T1, FLAIR, T2, gradient echo, and diffusion weighted MR images of the brain were obtained. COMPARISON: Comparison is made with the prior examination dated 08/25/2024. Correlation is also made with an unenhanced head CT dated 01/21/2025. FINDINGS: Again seen is a slitlike focus of increased T2 signal intensity in the right basal ganglia/external capsule which demonstrates magnetic susceptibility artifact, consistent with an old infarct. Ramirez/white differentiation is otherwise normal. There is no mass effect or midline shift. The ventricular system is normal in size and configuration. No intra or extra-axial fluid collections are identified. There are no foci of restricted diffusion. Normal vascular flow voids are noted in the basilar and carotid arteries. The visualized paranasal sinuses are clear. MR/MR head/brain wo con IMPRESSION: No acute intracranial abnormality. Electronically signed by: Eyal Hooper MD 01/21/2025 01:09 PM EDT
--- NOTE | ~2025-01-21 | CT_ITS ---
CLINICAL HISTORY: acute severe headache CT head without contrast Comparison: MR/MO/SR - MR ANGIO HEAD WO CON - 09/21/24 13:09 EST MR/SR - MR HEAD/BRAIN WO/W CON - 08/25/24 11:[address]/REG/SR - CT HEAD/BRAIN WO IV CON - 08/30/23 09:28 EST Findings: The size and shape of the ventricular system is within normal limits for this patient's age. Low-attenuation within the posterior left occipital lobe with loss of the loredo-white differentiation. There is focal sulcal effacement at that location. No intracranial hemorrhage identified. Attenuation of the brain parenchyma is otherwise within normal limits. No midline shift or mass effect. No intracranial hemorrhage. No calvarial fractures. IMPRESSION: Low attenuation within the left occipital lobe with loss of the loredo-white differentiation and focal sulcal effacement without hemorrhagic conversion. This is concerning for a left posterior cerebral artery distribution infarct. Clinical correlation advised. MRI of the brain suggested for further evaluation. This document has been electronically signed by: Nigel Aden MD on 01/21/2025 00:51:21
--- NOTE | 2025-01-21 00:17 | ECG_ITS ---
Test Reason : TACHYCARDIA Blood Pressure : */* mmHG Vent. Rate : 107 BPM Atrial Rate : 107 BPM P-R Int : 126 ms QRS Dur : 68 ms QT Int : 328 ms P-R-T Axes : 72 85 59 degrees QTcB Int : 437 ms Sinus tachycardia Otherwise normal ECG When compared with ECG of 01-Oct-2024 14:58, Vent. rate has increased by 37 bpm Referred By: Generic ED Physician Electronically Signed By: MARCEL GONZALEZ
--- NOTE | 2025-01-21 00:27 | ED.GENADULT ---
HPI - General Adult General Chief complaint: General Medical Stated complaint: elevated heart rate Time Seen by Provider: 01/21/25 00:27 History of Present Illness ED Provider: Edison BEVERLY narrative: The patient is a 34-year-old female who presents for evaluation of an acute headache. The patient has a history of rheumatoid arthritis. She also has a history of headaches. She has been seen at the [facility] because of chronic neck pain and recurrent headaches. She has been seen at the [facility] Emergency room for acute headaches in the past but has not been seen recently at this hospital. Her last ER visit at [facility] was in April 2024. She has followed up with [facility]. she says that the regimen she has been put on at [facility] as helped reduce the severity and frequency of her headaches. The patient says that she went to bed tonight at around 10:00 PM. She had fallen asleep. She then woke up at around 11:30 PM with a headache. She also felt nauseated. She felt numbness in both of her arms and both sides of her face. She felt that her heart was racing And that she was nauseated. she had her drive her to the emergency room. On arrival here she was quite tachycardic. The patient said that she was feeling well earlier in the day. She says that her symptoms tonight share some similarities to her previous headaches when she has gone to the emergency room but she feels worse tonight and she does not feel this is an identical headache syndrome. The patient had an outpatient MRI of the brain ordered in August of 2024 to evaluate her headaches. The MRI showed a slight focus of increased T2 signal intensity in the right basal ganglia /external capsule with the associated hemosiderin, likely representing the sequela of an old infarct or trauma. Because of this abnormality on her brain MRI she had an MRA of the head and the neck on October 27, 2024. these MRIs did not show any significant vascular abnormalities. The patient had transthoracic echocardiogram on 10/01/2024. This suggested a possible small PFO. She subsequently had a transesophageal echo on 10/22/2024. This suggested a small size shunt between the atria but the exact location could not be identified on the study. The patient has no urinary symptoms. Related Data Previous Rx's ?Medication ?Instructions ?Recorded cyclobenzaprine 5 mg tablet 5 mg PO TID PRN muscle spasm #14 04/22/24 tabs gabapentin 100 mg capsule 100 mg PO BEDTIME 90 days #90 caps 06/11/24 magnesium oxide 400 mg (241.3 mg 400 mg PO BEDTIME 30 days #30 tabs 06/26/24 magnesium) tablet riboflavin (vitamin B2) 400 mg 400 mg PO DAILY 30 days #30 tabs 06/26/24 tablet aspirin 81 mg chewable tablet 81 mg PO BEDTIME 30 days #30 tabs 08/27/24 certolizumab pegol 400 mg/2 mL 200 mg subcut .every 10 days #3 09/11/24 (200 mg/mL x2) subcutaneous kits syringe kit (Cimzia) naproxen 375 mg tablet 375 mg PO BID #30 tabs 09/18/24 ubrogepant 100 mg tablet (Ubrelvy) 50 - 100 mg (0.5 - 1 x 100 mg) PO 12/24/24 ONCE PRN migraine headache 30 days #16 tabs Allergies Allergy/AdvReac Type Severity Reaction Status Date / Time acetaminophen [From TYLENOL] Allergy Unknown RASH, Verified 01/21/25 00:18 THROAT SWELLING morphine [MORPHINE] Allergy Unknown RASH, Verified 01/21/25 00:18 THROAT SWELLING , swelling oseltamivir Allergy Unknown diarrhea Verified 01/21/25 00:18 Sulfa (Sulfonamide Allergy Unknown anaphylaxis Verified 01/21/25 00:18 Antibiotics) sulfamethoxazole AdvReac Difficulty Verified 01/21/25 00:18 [From Bactrim] Breathing trimethoprim [From Bactrim] AdvReac Difficulty Verified 01/21/25 00:18 Breathing Review of Systems Review of Systems: Yes all other systems are reviewed and are negative [facility] Past Medical History Medical History Acute respiratory disease Recurrent UTI Physical exam Osteoarthritis of right knee Osteoarthritis of right acromioclavicular joint Blurred vision, bilateral Tachycardia History of 2019 novel coronavirus disease (COVID-19) Sinus tachycardia Hypovitaminosis Rheumatoid arthritis Migraine Surgical History Surgical history of tubal ligation History of Family History Family History Maternal Aunt History of breast cancer in female Uterus cancer Father Family hx of hypertension Hx of thyroid disease Diabetes mellitus Maternal Grandfather Family hx of hypertension History of heart disease Maternal Grandmother Family hx of hypertension Brother History of asthma Mother Diabetes mellitus Social History Social History Household Members: Spouse and Children Housing: Apartment Are you a primary md do resident urgent care to a significant other at home: No Do you presently have visiting nurse or other home services: No Unable to assess alcohol history related to: Unknown Alcohol intake: never Patient Tobacco Use Status: Former Tobacco user Tobacco use type: Cigarette Smoked in Last 30 Days: No e-Cigarette/Vaping Use: Never Used Second Hand Smoke Exposure: No Use of substances other than those prescribed or required for medical reasons: No Advance Directives: No Do you have a plan to hurt others: No Plan Patient : No service: No Current occupational status: employed 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 Her speech was clear. She did not have any obvious lateralizing findings. HENMT Other: Face is symmetrical. Tongue is midline. Eyes Other: Pupils were large, equal, and round, reactive to light. Extraocular movements were intact. Visual lee were symmetrical with confrontation. I felt that her visual lee seemed somewhat narrow but this was present and symmetrical in all 4 quadrants. Neck Neck: Yes normal visual inspection, Yes full ROM, Yes no lymphadenopathy and Yes no JVD Resp Effort & Inspection: normal respiratory effort Auscultation: clear to auscultation bilaterally Cardio Rate: tachycardic Rhythm: regular rhythm Heart sounds: S1 normal heart sound present and S2 normal heart sound present GI Other: Abdomen was soft and nontender Skin Other: Skin is dry and unremarkable Neuro Other: The patient was awake and alert. She is correctly oriented to her age and the month. Visual lee were symmetrical when examined by confrontation. I felt her peripheral vision seemed somewhat narrow than I expected in all 4 quadrants but there was no lateralizing finding. Eye movements are intact. Face is symmetrical. Speech is clear without aphasia or dysarthria. She has symmetrical strength in her extremities, 5/5. No pronator drift. Finger-nose is normal. Heel-dias is normal. NIH stroke scale is 0. Extrem Other: No peripheral edema Medications Administered Discontinued Medications Generic Name Dose Route Start Last Admin Trade Name Freq PRN Reason Stop Dose Admin Diazepam 5 mg 01/21/25 01:09 01/21/25 01:20 Diazepam 10 Mg/2 Ml Cartridge IVPUSH 01/21/25 01:10 5 mg STAT STA Administration Diphenhydramine HCl 25 mg 01/21/25 00:48 01/21/25 01:46 Diphenhydramine Hcl 50 Mg/Ml Vial IVPUSH 01/21/25 00:49 Not Given ONCE ONE Sodium Chloride 1,000 mls @ 999 mls/hr 01/21/25 00:45 01/21/25 01:21 Ns IV 01/21/25 01:45 999 mls/hr .Q1H1M MARIAN Administration Iohexol 75 ml 01/21/25 02:10 01/21/25 02:11 Iohexol 350 Mg/Ml 100 Ml Infus..Btl IV 01/21/25 02:11 75 ml ONCE ONE Administration Metoclopramide HCl 10 mg 01/21/25 00:48 01/21/25 01:20 Metoclopramide Hcl 10 Mg/2 Ml Vial IVPUSH 01/21/25 00:49 10 mg ONCE ONE Administration Medical Decision Making Medical Decision Making [facility] Narrative: The patient is a 34-year-old female who presents to the emergency room because she woke up at around 11 30 p.m. with the an acute headache. This was associated with nausea and a sense of her heart racing. She also had bilateral facial numbness and bilateral arm numbness. The patient has a history of headaches and has been seen at the [facility] Emergency room for headaches in the past. The patient has been seen at [facility] and earlier this year had an outpatient brain MRI to workup her headaches that suggested the possibility of a small old infarct or consequence of trauma. She subsequently had an MRA of the head and the neck that were negative. She also had a transthoracic echocardiogram that suggested a possible small PFO. She subsequently had a transesophageal echo that suggested a small shunt between the atria but the exact location could not be determined. Although the patient has been seen in emergency rooms for headaches she has never had any event which seems to have definitely been a stroke. She presented with symptoms that woke her from sleep. She has a headache associated with nausea, bilateral face tingling, and bilateral arm tingling. She had associated photophobia but no other visual symptoms. Clinically she did not seem to have any lateralizing findings. I ordered a noncontrast head CT as an acute stroke head CT to rule out the possibility of an acute hemorrhage. The stat noncontrast head CT showed no acute bleed but, somewhat to my surprise, was read as showing ?low attenuation within the left occipital lobe with loss of the loredo-white differentiation and focal sulcal effacement without hemorrhagic conversion. This is concerning for a left posterior cerebral artery distribution infarct. Clinical correlation advised. MRI of the brain suggested for further evaluation. Given this finding I ordered a stat CT angiogram of the head and neck. This study showed no acute findings. I Feel the patient should be hospitalized for an MRI given the finding on her noncontrast head CT in her left occipital lobe. She also has an unusual history of an abnormal MRI earlier this year and a question of a small PFO on echocardiogram. That being said I did not feel the patient was a thrombolytic candidate. Her last known well time was at 10PM so she arrived within the window for consideration of thrombolytic therapy but I felt her NIH stroke scale was 0 and I did not feel that there was any finding of a stroke to indicate thrombolytic therapy. I am not convinced that she is having a stroke. It is possible that this CT finding could be some kind of artifactual finding. There are no actionable findings on her CT angiogram of the head and neck today. The patient passed her swallow evaluation and she was given a dose of aspirin. She had also been treated for possible migraine headache with some improvement of her headache. Lab Data 01/21/25 00:54 01/21/25 00:54 Labs: Lab Results 01/21/25 01/21/25 Range/Units 00:54 02:23 WBC 8.2 (4.8-10.8) X10*3/uL RBC 4.25 (4.20-5.50) X10*6/uL Hgb 12.3 (12.0-16.0) g/dl Hct 36.5 L (37.0-47.0) % MCV 85.9 (80.0-98.0) fL MCH 28.9 (27.0-33.0) pg MCHC 33.7 (31.0-35.0) g/dl RDW 13.1 (11.0-16.0) % Plt Count 302 (160-400) X10*3/uL MPV 10.2 (9.4-12.3) fL Immature Gran % (Auto) 0.4 (0.0-0.4) % Neut % (Auto) 65.1 (45-73) % Lymph % (Auto) 23.3 (20-40) % [place] % (Auto) 9.6 (2-11) % Eos % (Auto) 0.9 (0-4) % Baso % (Auto) 0.7 (0-2) % Lymph # (Auto) 1.9 (1.2-4.9) X10*3/uL [place] # (Auto) 0.8 (0.1-1.2) X10*3/uL Eos # (Auto) 0.1 (0.0-0.4) X10*3/uL Baso # (Auto) 0.1 (0.0-0.2) X10*3/uL Abs Immat Gran (auto) 0.03 (0.00-0.03) X10*3/uL Absolute Neuts (auto) 5.4 (2.0-8.3) x10*3/uL Absolute Nucleated RBC 0.000 (0.0-0.012) X10*3/uL Nucleated RBC % (auto) 0.0 (0.0-0.2) /100WBC Sodium 140 (135-145) mmol/L Potassium 4.1 (3.3-5.1) mmol/L Chloride 106 (96-108) mmol/L Carbon Dioxide 23 (22-29) mmol/L Anion Gap 15 (12-20) BUN 12 (9-16) mg/dL Creatinine 0.68 (0.5-1.4) mg/dL Estim Creat Clear Calc 88.7 Estimated GFR > 60 Random Glucose 101 (60-115) mg/dL Calcium 9.2 (8.4-10.2) mg/dL Magnesium 1.9 (1.6-2.6) mg/dL Total Bilirubin 0.3 (0.0-1.0) mg/dL Direct Bilirubin 0.1 (0.0-0.5) mg/dL AST 23 (5-31) U/L ALT 15 (0-31) U/L Alkaline Phosphatase 60 (39-117) U/L Troponin I High Sens < 2.7 (<3.5-17.0) ng/L C-Reactive Protein < 0.10 (< or = 0.50) mg/dL Total Protein 7.7 (6.5-8.0) g/dL Albumin 4.8 (3.5-5.0) g/dL Beta HCG, Quant < 2 mIU/mL Urine Color Yellow Urine Appearance Cloudy Urine pH 7.5 (5.0-9.0) Ur Specific [employer] <= 1.005 (1.005-1.025) Urine Protein Negative (Neg-Trace) mg/dL Urine Glucose (UA) Negative (Negative) mg/dL Urine Ketones Negative (Negative) mg/dL Urine Blood Trace H (Negative) Urine Nitrite Negative (Negative) Ur Leukocyte Esterase Large (3+) H (Negative) Urine RBC 0-2 (0-2) /HPF Urine WBC >50 H (0-5) /HPF Ur Squamous Epith Cells >20 (0-2) /HPF Urine Bacteria 4+ (None Seen) Hyaline Casts 0-2 (0-2) /LPF Urine Opiates Screen Not Detected (Not Detect) Ur Buprenorphine Scrn Not Detected (Not Detect) ng/mL Ur Oxycodone Screen Not Detected (Not Detect) ng/mL Urine Methadone Screen Not Detected (Not Detect) ng/mL Urine Fentanyl Screen Not Detected (Not Detect) Ur Barbiturates Screen Not Detected (Not Detect) Ur Phencyclidine Scrn Not Detected (Not Detect) Ur Amphetamines Screen Not Detected (Not Detect) U Benzodiazepines Scrn Not Detected (Not Detect) Urine Cocaine Screen Not Detected (Not Detect) U Marijuana (THC) Screen Not Detected (Not Detect) Ethyl Alcohol < 10 mg/dL Influenza Type A (PCR) NEGATIVE (Negative) Influenza Type B (PCR) NEGATIVE (Negative) RSV RNA Qual (PCR) NEGATIVE (Negative) SARS-CoV-2 RNA (RT-PCR) NEGATIVE (Negative) Independent Interpretation I performed an independent interpretation of an: EKG Interpretation: EKG at 018 shows sinus tachycardia at 107 beats per minute. No acute findings. Critical Care Time Critical Care Time Critical Care Time: Yes Total Critical Care Time: 35 Attestation: The patient was critically ill with a high probability of imminent or life-threatening deterioration. ?I spent greater than 30 minutes of discontinuous time evaluating the patient, delivering critical care at the bedside, discussing evaluating data with consultants. ?Critical care time does not include time spent performing separately billable procedures or teaching. ?Time spent performing critical care with 35 minutes. Discharge Plan Discharge Prescriptions: No Action aspirin 81 mg tablet,chewable 81 mg PO BEDTIME 30 Days Qty: 30 6RF Ubrelvy 100 mg tablet 50 - 100 mg PO ONCE PRN (Reason: migraine headache) 30 Days Qty: 16 3RF Rx Instructions: take at onset of migraine, may repeat in 2hrs (may take w/ Ibuprofen). Prior Auth;Coverage 12/23/2024-06/21/2025 cyclobenzaprine 5 mg tablet 5 mg PO TID PRN (Reason: muscle spasm) Qty: 14 0RF magnesium oxide 400 mg (241.3 mg magnesium) tablet 400 mg PO BEDTIME 30 Days Qty: 30 6RF Rx Instructions: may hold for loose stools riboflavin (vitamin B2) 400 mg tablet 400 mg PO DAILY 30 Days Qty: 30 6RF gabapentin 100 mg capsule 100 mg PO BEDTIME 90 Days Qty: 90 1RF Cimzia 400 mg/2 mL (200 mg/mL x 2) syringe kit 200 mg subcut .every 10 days Qty: 3 4RF naproxen 375 mg tablet 375 mg PO BID Qty: 30 0RF Print Language: Sinhala
[2025-01-21 00:59] LABS: Basophils Absolute Auto 0.1 X10*3/uL (0.0-0.2); Basophils Percent Auto 0.7 % (0-2); Eosinophils Absolute Auto 0.1 X10*3/uL (0.0-0.4); Eosinophils Percent Auto 0.9 % (0-4); Hematocrit 36.5 % (37.0-47.0); Hemoglobin 12.3 g/dl (12.0-16.0); Imm Gran Abs Auto 0.03 X10*3/uL (0.00-0.03); Imm Gran Pct Auto 0.4 % (0.0-0.4); Lymphocytes Absolute Auto 1.9 X10*3/uL (1.2-4.9); Lymphocytes Percent Auto 23.3 % (20-40); MANUAL DIFF FLAG NO; Mean Corpuscular HGB Conc 33.7 g/dl (31.0-35.0); Mean Corpuscular Hemoglobin 28.9 pg (27.0-33.0); Mean Corpuscular Volume 85.9 fL (80.0-98.0); Mean Platelet Volume 10.2 fL (9.4-12.3); Monocytes Absolute Auto 0.8 X10*3/uL (0.1-1.2); Monocytes Percent Auto 9.6 % (2-11); Neutrophils Absolute Auto 5.4 x10*3/uL (2.0-8.3); Neutrophils Percent Auto 65.1 % (45-73); Platelet Count 302 X10*3/uL (160-400); Red Blood Count 4.25 X10*6/uL (4.20-5.50); Red Cell Distribution Width 13.1 % (11.0-16.0); White Blood Count 8.2 X10*3/uL (4.8-10.8)
[2025-01-21] MEDS: diazePAM 10 MG/2 ML CARTRIDGE 5 MG IVPUSH (01:20)
[2025-01-21] MEDS: Metoclopramide HCl 10 MG/2 ML VIAL IVPUSH (01:20)
[2025-01-21] MEDS: 0.9 % Sodium Chloride 1,000 ML 999 ML IV (01:21)
[2025-01-21 01:22] LABS: Troponin-I High Sensitivity < 2.7 ng/L (<3.5-17.0)
[2025-01-21 01:23] LABS: Alanine Aminotransferase 15 U/L (0-31); Albumin Level 4.8 g/dL (3.5-5.0); Alkaline Phosphatase 60 U/L (39-117); Anion Gap 15 (12-20); Aspartate Amino Transferase 23 U/L (5-31); Bilirubin Direct 0.1 mg/dL (0.0-0.5); Bilirubin Total 0.3 mg/dL (0.0-1.0); Blood Urea Nitrogen 12 mg/dL (9-16); C Reactive Protein < 0.10 mg/dL (< or = 0.50); Calcium 9.2 mg/dL (8.4-10.2); Carbon Dioxide 23 mmol/L (22-29); Chloride 106 mmol/L (96-108); Creatinine Clr Calc Pharmacy 88.7; Estimated Glomerular Filt Rate > 60; Ethanol < 10 mg/dL; Glucose Random 101 mg/dL (60-115); HCG Quantitative < 2 mIU/mL; Magnesium 1.9 mg/dL (1.6-2.6); Potassium 4.1 mmol/L (3.3-5.1); Sodium 140 mmol/L (135-145); Total Protein 7.7 g/dL (6.5-8.0)
[2025-01-21 01:37] LABS: Influenza A PCR NEGATIVE (Negative); Influenza B PCR NEGATIVE (Negative); Resp Syncy Virus RNA Qual PCR NEGATIVE (Negative); SARS COV2 PCR INHOUSE NEGATIVE (Negative)
[2025-01-21] MEDS: iohexoL 350 MG/ML 100 ML INFUS..BTL 75 ML IV (02:11)
[2025-01-21 02:30] LABS: Appearance Urine Cloudy; Color Urine Yellow; Glucose Urine UA Negative (Negative); Leukocyte Esterase Urine Large (3+) (Negative); Nitrite Urine Negative (Negative); PH 7.5 (5.0-9.0); Specific Gravity - Urine <= 1.005 (1.005-1.025); UMIC TRIGGER UACC YES; Urine Blood Trace (Negative); Urine Ketones Negative (Negative); Urine Protein Negative (Neg-Trace)
[2025-01-21 02:34] LABS: Bacteria Urine 4+ (None Seen); Hyaline Casts Urine 0-2 /LPF (0-2); RBC Urine 0-2 /HPF (0-2); Squamous Epithelial Cell Urine >20 /HPF (0-2); UACC Culture Trigger YES; WBC Urine >50 /HPF (0-5)
[2025-01-21 02:44] LABS: Amphetamine Screen Urine Not Detected (Not Detect); Barbiturates, Urine Not Detected (Not Detect); Benzodiazepines Screen Urine Not Detected (Not Detect); Buprenorphine Scr Not Detected (Not Detect); Cannabinoid Screen Urine Not Detected (Not Detect); Cocaine Screen Urine Not Detected (Not Detect); Fentanyl, urine Not Detected (Not Detect); Methadone Screen, Urine Not Detected (Not Detect); Opiate Screen Urine Not Detected (Not Detect); Oxycodone Screen Urine Not Detected (Not Detect); Phencyclidine Screen Urine Not Detected (Not Detect)
[2025-01-21] MEDS: Lactated Ringers 1,000 ML 999 ML IV (03:17)
[2025-01-21] MEDS: Ketorolac Tromethamine 15 MG/ML VIAL 10 MG IVPUSH (03:17)
[2025-01-21] MEDS: Aspirin 325 MG TABLET PO (03:21)
[2025-01-21 05:03] LABS: MANUAL DIFF FLAG NO
[2025-01-21 05:06] LABS: Basophils Percent Auto 0.5 % (0-2); Eosinophils Percent Auto 0.1 % (0-4); Hematocrit 32.6 % (37.0-47.0); Hemoglobin 10.9 g/dl (12.0-16.0); Imm Gran Abs Auto 0.03 X10*3/uL (0.00-0.03); Imm Gran Pct Auto 0.4 % (0.0-0.4); Lymphocytes Absolute Auto 1.4 X10*3/uL (1.2-4.9); Lymphocytes Percent Auto 17.4 % (20-40); Mean Corpuscular HGB Conc 33.4 g/dl (31.0-35.0); Mean Corpuscular Hemoglobin 29.1 pg (27.0-33.0); Mean Corpuscular Volume 86.9 fL (80.0-98.0); Mean Platelet Volume 9.9 fL (9.4-12.3); Monocytes Absolute Auto 0.7 X10*3/uL (0.1-1.2); Monocytes Percent Auto 8.5 % (2-11); Neutrophils Absolute Auto 5.7 x10*3/uL (2.0-8.3); Neutrophils Percent Auto 73.1 % (45-73); Platelet Count 261 X10*3/uL (160-400); Red Blood Count 3.75 X10*6/uL (4.20-5.50); Red Cell Distribution Width 12.9 % (11.0-16.0); White Blood Count 7.9 X10*3/uL (4.8-10.8)
[2025-01-21 05:25] LABS: Alanine Aminotransferase 10 U/L (0-31); Albumin Level 3.8 g/dL (3.5-5.0); Alkaline Phosphatase 48 U/L (39-117); Anion Gap 11 (12-20); Aspartate Amino Transferase 16 U/L (5-31); Bilirubin Total 0.2 mg/dL (0.0-1.0); Blood Urea Nitrogen 9 mg/dL (9-16); Carbon Dioxide 24 mmol/L (22-29); Chloride 109 mmol/L (96-108); Creatinine Clr Calc Pharmacy 98.9; Estimated Glomerular Filt Rate > 60; Glucose Random 106 mg/dL (60-115); Potassium 3.6 mmol/L (3.3-5.1); Sodium 140 mmol/L (135-145); Total Protein 5.9 g/dL (6.5-8.0)
--- NOTE | 2025-01-21 06:07 | P.HPHOSP_ITS ---
History of Present Illness Date of Service: 01/21/25 Chief Complaint: headache 34-year-old female with a past medical history of rheumatoid arthritis, migraine headaches, recurrent UTI, recent history of possible CVA-on aspirin; presented to the hospital today with a chief complaint of headache. Patient mentioned that she went to the bed around 22:00; 23:30 she woke up with a headache associated with blurry visions and nausea. Mentions that she has a history of migraine headaches and current headache felt slightly different. Denies any headaches or blurry visions at the time of my interview. Denies any visual changes or field deficits. Denies any numbness tingling or focal weakness. Denies any GI or symptoms. Patient reports that she was recently admitted to the hospital for possible stroke and has had MRI and echocardiogram done, subsequently started on aspirin. Denies any residual deficits. At the time she was also found to have small PFO on her echocardiogram. Review of all other systems is negative except mentioned above ER course: Patient's exam was nonfocal; CT head showed hypo attenuation in the left occipital lobe; patient's has no visual field deficits. Given aspirin. Mentioned patient does not qualify for tPA has NIH stroke scale was 0; by the time CT angio came back patient is also out of window. CT angio head and neck showed no large vessel occlusion. Headache improved after medication. [facility] Medical History Acute respiratory disease Recurrent UTI Physical exam Osteoarthritis of right knee Osteoarthritis of right acromioclavicular joint Blurred vision, bilateral Tachycardia History of 2019 novel coronavirus disease (COVID-19) Sinus tachycardia Hypovitaminosis Rheumatoid arthritis Migraine Family History Maternal Aunt History of breast cancer in female Uterus cancer Father Family hx of hypertension Hx of thyroid disease Diabetes mellitus Maternal Grandfather Family hx of hypertension History of heart disease Maternal Grandmother Family hx of hypertension Brother History of asthma Mother Diabetes mellitus Surgical History Surgical history of tubal ligation History of Social History Household Members: Spouse and Children Housing: Apartment Are you a primary neurocritical care physician to a significant other at home: No Do you presently have visiting nurse or other home services: No Unable to assess alcohol history related to: Unknown Alcohol intake: never Patient Tobacco Use Status: Former Tobacco user Tobacco use type: Cigarette Smoked in Last 30 Days: No e-Cigarette/Vaping Use: Never Used Second Hand Smoke Exposure: No Use of substances other than those prescribed or required for medical reasons: No Advance Directives: No Do you have a plan to hurt others: No Plan Patient : No service: No Current occupational status: employed 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 Current occupational exposures/hazards: No Sexual orientation: Straight/Heterosexual Gender identity: Female Cognitive needs: No Hearing needs: No Vision needs: No Meds Allergies Allergy/AdvReac Type Severity Reaction Status Date / Time acetaminophen [From TYLENOL] Allergy Unknown RASH, Verified 01/21/25 00:18 THROAT SWELLING morphine [MORPHINE] Allergy Unknown RASH, Verified 01/21/25 00:18 THROAT SWELLING , swelling oseltamivir Allergy Unknown diarrhea Verified 01/21/25 00:18 Sulfa (Sulfonamide Allergy Unknown anaphylaxis Verified 01/21/25 00:18 Antibiotics) sulfamethoxazole AdvReac Difficulty Verified 01/21/25 00:18 [From Bactrim] Breathing trimethoprim [From Bactrim] AdvReac Difficulty Verified 01/21/25 00:18 Breathing Active Medications: Current Medications Calcium Carbonate (Calcium Carbonate 750 Mg Tab.Chew) 750 mg PO Q4H PRN PRN Reason: Heartburn Magnesium Hydroxide (Milk Of Magnesia 30 Ml Oral.Susp) 30 ml PO DAILY PRN PRN Reason: Constipation Melatonin (Melatonin 3 Mg Tablet) 6 mg PO BEDTIME PRN PRN Reason: Insomnia Sodium Chloride (0.9 % Sodium Chloride Flush 3 Ml Syringe) 3 ml IVFLUSH QSHIFT [facility] Physical Exam 2 Vital Signs and Narrative: Vital Signs: Last Vital Signs Temp 97.9 F 01/21/25 02:53 Pulse 77 01/21/25 02:53 Resp 16 01/21/25 02:53 BP 114/72 01/21/25 02:53 Pulse Ox 100 01/21/25 02:53 O2 Del Method Room Air 01/21/25 02:53 BMI result Body Mass Index 22.6 Gen: Appears be in no acute distress HEENT: NCAT, Moist mucosa. Pulmonary: Vesicular breath sounds, fair air entry CVS: Normal S1-S2 Abdomen: BS+, Soft, Nontender Extremities: Warm well perfused Neuro: Alert and awake. Oriented x3; nonfocal. Results Labs 01/21/25 04:51 01/21/25 04:51 Labs: Laboratory Results - last 24 hr 01/21/25 01/21/25 01/21/25 00:54 02:23 04:51 MCV 85.9 86.9 MCH 28.9 29.1 MCHC 33.7 33.4 RDW 13.1 12.9 Plt Count 302 261 MPV 10.2 9.9 Immature Gran % (Auto) 0.4 0.4 Neut % (Auto) 65.1 73.1 H Lymph % (Auto) 23.3 17.4 L [place] % (Auto) 9.6 8.5 Eos % (Auto) 0.9 0.1 Baso % (Auto) 0.7 0.5 Lymph # (Auto) 1.9 1.4 [place] # (Auto) 0.8 0.7 Eos # (Auto) 0.1 0.0 Baso # (Auto) 0.1 0.0 Abs Immat Gran (auto) 0.03 0.03 Absolute Neuts (auto) 5.4 5.7 Absolute Nucleated RBC 0.000 0.000 Nucleated RBC % (auto) 0.0 0.0 Anion Gap 15 11 L Estim Creat Clear Calc 88.7 98.9 Estimated GFR > 60 > 60 Random Glucose 101 106 Calcium 9.2 8.0 L D Magnesium 1.9 Total Bilirubin 0.3 0.2 Direct Bilirubin 0.1 AST 23 16 ALT 15 10 Alkaline Phosphatase 60 48 Troponin I High Sens < 2.7 C-Reactive Protein < 0.10 Total Protein 7.7 5.9 L Albumin 4.8 3.8 Beta HCG, Quant < 2 Urine Color Yellow Urine Appearance Cloudy Urine pH 7.5 Ur Specific [place] <= 1.005 Urine Protein Negative Urine Glucose (UA) Negative Urine Ketones Negative Urine Blood Trace H Urine Nitrite Negative Ur Leukocyte Esterase Large (3+) H Urine RBC 0-2 Urine WBC >50 H Ur Squamous Epith Cells >20 Urine Bacteria 4+ Hyaline Casts 0-2 Urine Opiates Screen Not Detected Ur Buprenorphine Scrn Not Detected Ur Oxycodone Screen Not Detected Urine Methadone Screen Not Detected Urine Fentanyl Screen Not Detected Ur Barbiturates Screen Not Detected Ur Phencyclidine Scrn Not Detected Ur Amphetamines Screen Not Detected U Benzodiazepines Scrn Not Detected Urine Cocaine Screen Not Detected U Marijuana (THC) Screen Not Detected Ethyl Alcohol < 10 Influenza Type A (PCR) NEGATIVE Influenza Type B (PCR) NEGATIVE RSV RNA Qual (PCR) NEGATIVE SARS-CoV-2 RNA (RT-PCR) NEGATIVE Assessment and Plan (1) Acute headache: Qualifiers: Intractability: not intractable Headache type: unspecified Qualified Code(s): R51.9 - Headache, unspecified Status: Acute Plan 34-year-old female with a past medical history of rheumatoid arthritis, migraine headaches, recurrent UTI, recent history of possible CVA-on aspirin; presented to the hospital today with a chief complaint of headache. Admitted for following Headaches: Patient has prior history of migraine headaches. Currently headache improved after she received IV Reglan and pain medication. Left occipital CVA: CT head showed hypoattenuation in the left occipital area. CT angio head and neck showed no large vessel occlusion Recent echocardiogram showed mild PFO. Patient has no neurological deficits. Received aspirin Neurology consulted MRI brain Quality Stroke Does the patient have a stroke diagnosis?: Yes Reason for No Anti-thrombotic by Day Two: N/A - Med Ordered VTE Prior VTE?: No VTE Risk Level:: Medical - moderate - high VTE Device Contraindication: Treatment Not Indicated VTE Drug Contraindication: N/A - Med Ordered
--- NOTE | 2025-01-21 06:44 | PC.NURSE ---
Nursing swallow screen passed, stroke educations given reviewed pamphlet and left at pt bedside. PT verbalized understanding
--- NOTE | 2025-01-21 07:29 | PC.NURSE ---
Assumed care of this pt, a&ox4, denies any headache, mild neck ache 2/10, tolerable. Pt aware of plan for care and imaging today. MRI screen filled out and faxed down.
--- NOTE | 2025-01-21 07:59 | PHA.MEDREC ---
Pharmacy Consult ? Medication Reconciliation Pharmacy has completed the medication reconciliation. Spoke with patient at bedside, she knew all her medications. Stated she last took Cimzia about 10 days ago and was going to take it this week but hasn't. Confirmed her other meds and states she last took Aspirin last night and Vitamin B2 yesterday in the morning.
[2025-01-21 08:05] LABS: Estimated Average Glucose 103 mg/dL; Hemoglobin A1C 98.2999 umol/L; Hemoglobin A1c % 5.2 % (<6.0); Total Hemoglobin (HGBA1C) 2948.9872 umol/L
--- NOTE | 2025-01-21 08:58 | MHC.CM.PN ---
CM met with Patient at bedside, in the ED. Patient lives in an apartment with her and 3 children, ages 4,10, & 15 years of age. Home self care is Patient's goal and CM has initiated and will follow for dc planning. Patient's assists her PRN during RA flareups.PCP is Dr. Luci Jamison and will transport to home at time of dc.
--- NOTE | 2025-01-21 09:04 | PC.NURSE ---
Report received. Taken over care at this time.
[2025-01-21] MEDS: Aspirin 81 MG TAB.CHEW PO (09:35)
--- NOTE | 2025-01-21 11:32 | P.CNNE_ITS ---
History of Present Illness Data of Consult Service Date: 01/21/25 Primary Care Provider: Luci Tompkins MD HPI This is a 34-year-old female with a h/o rheumatoid arthritis, migraine headaches, recurrent UTI, recent history of possible CVA-on aspirin; presented to the hospital today with a chief complaint of headache. Patient mentioned that she went to the bed around 22:00; 23:30 she woke up with a headache associated with blurry vision and nausea. Mentions that she has a history of migraine headaches and current headache felt slightly different. CT suspicious for some low density changes in left parieto-occipital ischemic infarct, however MRI brain shows no abnormality there probably artifactual. CTA negative for any occlusive disease. [facility] Past Medical History Medical History Acute respiratory disease Recurrent UTI Physical exam Osteoarthritis of right knee Osteoarthritis of right acromioclavicular joint Blurred vision, bilateral Tachycardia History of 2019 novel coronavirus disease (COVID-19) Sinus tachycardia Hypovitaminosis Rheumatoid arthritis Migraine Family History Family History Maternal Aunt History of breast cancer in female Uterus cancer Father Family hx of hypertension Hx of thyroid disease Diabetes mellitus Maternal Grandfather Family hx of hypertension History of heart disease Maternal Grandmother Family hx of hypertension Brother History of asthma Mother Diabetes mellitus Surgical History Surgical History Surgical history of tubal ligation History of Social History Social History Household Members: Spouse and Children Housing: Apartment Are you a primary ocular care aide to a significant other at home: No Do you presently have visiting nurse or other home services: No Unable to assess alcohol history related to: Unknown Alcohol intake: never Patient Tobacco Use Status: Former Tobacco user Tobacco use type: Cigarette Smoked in Last 30 Days: No e-Cigarette/Vaping Use: Never Used Second Hand Smoke Exposure: No Use of substances other than those prescribed or required for medical reasons: No Advance Directives: No Do you have a plan to hurt others: No Plan Patient : No service: No Current occupational status: employed 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 Current occupational exposures/hazards: No Sexual orientation: Straight/Heterosexual Gender identity: Female Cognitive needs: No Hearing needs: No Vision needs: No Meds Allergies Allergy/AdvReac Type Severity Reaction Status Date / Time acetaminophen [From TYLENOL] Allergy Unknown RASH, Verified 01/21/25 00:18 THROAT SWELLING morphine [MORPHINE] Allergy Unknown RASH, Verified 01/21/25 00:18 THROAT SWELLING , swelling oseltamivir Allergy Unknown diarrhea Verified 01/21/25 00:18 Sulfa (Sulfonamide Allergy Unknown anaphylaxis Verified 01/21/25 00:18 Antibiotics) sulfamethoxazole AdvReac Difficulty Verified 01/21/25 00:18 [From Bactrim] Breathing trimethoprim [From Bactrim] AdvReac Difficulty Verified 01/21/25 00:18 Breathing Active Medications: Current Medications Aspirin (Aspirin 81 Mg Tab.Chew) 81 mg PO DAILY [facility] Last Admin: 01/21/25 09:35 Dose: 81 mg Calcium Carbonate (Calcium Carbonate 750 Mg Tab.Chew) 750 mg PO Q4H PRN PRN Reason: Heartburn Cyclobenzaprine HCl (Cyclobenzaprine Hcl 5 Mg Tablet) 5 mg PO TID PRN PRN Reason: muscle spasm Gabapentin (Gabapentin 100 Mg Capsule) 100 mg PO BEDTIME PRN PRN Reason: Pain, neuropathic Magnesium Hydroxide (Milk Of Magnesia 30 Ml Oral.Susp) 30 ml PO DAILY PRN PRN Reason: Constipation Magnesium Oxide (Magnesium Oxide 400 Mg Tablet) 400 mg PO BEDTIME MARIAN Melatonin (Melatonin 3 Mg Tablet) 6 mg PO BEDTIME PRN PRN Reason: Insomnia Sertraline HCl (Sertraline Hcl 25 Mg Tablet) 25 mg PO DAILY [facility] Last Admin: 01/21/25 09:36 Dose: Not Given Sodium Chloride (0.9 % Sodium Chloride Flush 3 Ml Syringe) 3 ml IVFLUSH QSHIFT [facility] Last Admin: 01/21/25 09:31 Dose: Not Given Home Medications ?Medication ?Instructions ?Recorded ?Confirmed ?Last Taken ?Type gabapentin 100 mg capsule 100 mg PO BEDTIME PRN Pain 01/21/25 01/21/25 Unknown History naproxen 375 mg tablet 375 mg PO BID PRN PRN 01/21/25 01/21/25 Unknown History sertraline 25 mg tablet 25 mg PO DAILY 01/21/25 01/21/25 Unknown History Physical Exam 2 Vital Signs: Vital Signs: Last Vital Signs Temp 97.8 F 01/21/25 06:41 Pulse 67 01/21/25 10:53 Resp 16 01/21/25 10:53 BP 128/72 01/21/25 10:53 Pulse Ox 100 01/21/25 10:54 O2 Del Method Room Air 01/21/25 10:54 BMI result Body Mass Index 22.6 Neuro: Other: Normal non focal exam Results Labs 01/21/25 04:51 01/21/25 04:51 Labs: Short CBC 01/21/25 01/21/25 Range/Units 00:54 04:51 WBC 8.2 7.9 (4.8-10.8) X10*3/uL Hgb 12.3 10.9 L (12.0-16.0) g/dl Hct 36.5 L 32.6 L (37.0-47.0) % Plt Count 302 261 (160-400) X10*3/uL BMP 01/21/25 01/21/25 00:54 04:51 Sodium 140 140 Potassium 4.1 3.6 Chloride 106 109 H Carbon Dioxide 23 24 BUN 12 9 Creatinine 0.68 0.61 Calcium 9.2 8.0 L D Liver Function 01/21/25 01/21/25 Range/Units 00:54 04:51 Total Bilirubin 0.3 0.2 (0.0-1.0) mg/dL Direct Bilirubin 0.1 (0.0-0.5) mg/dL AST 23 16 (5-31) U/L ALT 15 10 (0-31) U/L Alkaline Phosphatase 60 48 (39-117) U/L Albumin 4.8 3.8 (3.5-5.0) g/dL Urine 01/21/25 Range/Units 02:23 Urine Color Yellow Urine Appearance Cloudy Urine pH 7.5 (5.0-9.0) Ur Specific [place] <= 1.005 (1.005-1.025) Urine Protein Negative (Neg-Trace) mg/dL Urine Glucose (UA) Negative (Negative) mg/dL Assessment and Plan (1) Acute headache: Qualifiers: Headache type: unspecified Intractability: not intractable Qualified Code(s): R51.9 - Headache, unspecified Status: Acute Migraine headache . negative imaging studies. Recom. Sumatriptan 100mg qd PRN Procedures Date of Service Date of Service: 01/21/25
--- NOTE | 2025-01-21 12:29 | PC.NURSE ---
Pt. in MRI.
[2025-01-21] MEDS: Magnesium Oxide 400 MG TABLET PO (21:39)
[2025-01-21] MEDS: Metoclopramide HCl 10 MG/2 ML VIAL 5 MG IVPUSH (21:39)
[2025-01-21] MEDS: diazePAM 10 MG/2 ML CARTRIDGE 2.5 MG IVPUSH (21:39)
[2025-01-21] MEDS: 0.9 % Sodium Chloride Flush 3 ML SYRINGE IVFLUSH (21:39)
[2025-01-22 03:48] VITALS: BP 102/59; PULSE 66; RESP 16; TEMP 36.6; O2SAT 99
[2025-01-22 07:14] LABS: Cholesterol 121 mg/dL (<200); HDL Cholesterol 49 mg/dL (>40); LDL Cholesterol Calculated 65 mg/dL (<100); Triglycerides 35 mg/dL (<150)
[2025-01-22 07:17] VITALS: BP 99/60; PULSE 63; RESP 18; TEMP 36.4; O2SAT 100
[2025-01-22] MEDS: 0.9 % Sodium Chloride Flush 3 ML SYRINGE IVFLUSH (07:27)
[2025-01-22] MEDS: Aspirin 81 MG TAB.CHEW PO (10:44)
[2025-01-22] MEDS: Sertraline HCL 25 MG TABLET PO (10:44)
[2025-01-22] MEDS: SUMAtriptan succinate 100 MG TABLET PO (10:45)
[2025-01-22 11:14] VITALS: BP 114/58; PULSE 60; RESP 18; TEMP 36.7; O2SAT 99
--- NOTE | 2025-01-22 13:49 | PM.DS ---
DS: Providers Provider Date of Service: 01/22/25 Date of admission: 01/21/25 03:31 Date of discharge: 01/22/25 Primary care physician: Luci Tompkins MD Consults: 01/21/25 03:32 Consult to Neurology Routine Consulting Provider: Bunny Rdz Reason for consultation: headache; abnormal ct head Has provider been notified: No DS: Diagnosis Discharge Diagnosis (1) Acute headache: Status: Acute (2) Migraine: Status: Acute DS: Summary Hospital Course Hospital Course: From the history and physical by the admitting hospitalist, Álvaro Barrera 01/21/25: 34-year-old female with a past medical history of rheumatoid arthritis, migraine headaches, recurrent UTI, recent history of possible CVA-on aspirin; presented to the hospital today with a chief complaint of headache. Patient mentioned that she went to the bed around 22:00; 23:30 she woke up with a headache associated with blurry visions and nausea. Mentions that she has a history of migraine headaches and current headache felt slightly different. Denies any headaches or blurry visions at the time of my interview. Denies any visual changes or field deficits. Denies any numbness tingling or focal weakness. Denies any GI or symptoms. Patient reports that she was recently admitted to the hospital for possible stroke and has had MRI and echocardiogram done, subsequently started on aspirin. Denies any residual deficits. At the time she was also found to have small PFO on her echocardiogram. Review of all other systems is negative except mentioned above ER course: Patient's exam was nonfocal; CT head showed hypo attenuation in the left occipital lobe; patient's has no visual field deficits. Given aspirin. Mentioned patient does not qualify for tPA has NIH stroke scale was 0; by the time CT angio came back patient is also out of window. CT angio head and neck showed no large vessel occlusion. Headache improved after medication. She was admitted to the hospitalist service. MRI was completely normal. Neurology was consulted. Headache improved after she was given sumatriptan. She was prescribed sumatriptan and advised to follow up with her neurologist. Time Attestation Discharge Coordination Time (in mins): 35 Quality: Safe Use of Opioids Does Pt have an Active Cancer Diagnosis on the Problem List?: No Quality: Stroke Does the patient have a stroke diagnosis?: No Physical Exam Vital Signs: Vital Signs: Last Vital Signs Temp 98.1 F 01/22/25 11:14 Pulse 60 01/22/25 11:14 Resp 18 01/22/25 11:14 BP 114/58 L 01/22/25 11:14 Pulse Ox 99 01/22/25 11:14 O2 Del Method Room Air 01/22/25 11:14 BMI result Body Mass Index 23.7 Gen: in no acute distress HEENT: sclera anicteric, moist mucus membranes Neck: supple Lungs: clear to auscultation bilaterally Heart: regular rate and rhythm, no murmurs Abd: soft, non-tender, non-distended Ext: no edema Skin: warm/well-perfused Neuro: alert and oriented x3, no focal findings Psych: appropriate affect DS: Data Data Completed and Pending Completed studies during hospitalization [Text1]: Laboratory Results WBC 7.9 X10*3/uL (4.8-10.8) 01/21/25 04:51 RBC 3.75 X10*6/uL (4.20-5.50) L 01/21/25 04:51 Hgb 10.9 g/dl (12.0-16.0) L 01/21/25 04:51 Hct 32.6 % (37.0-47.0) L 01/21/25 04:51 MCV 86.9 fL (80.0-98.0) 01/21/25 04:51 MCH 29.1 pg (27.0-33.0) 01/21/25 04:51 MCHC 33.4 g/dl (31.0-35.0) 01/21/25 04:51 RDW 12.9 % (11.0-16.0) 01/21/25 04:51 Plt Count 261 X10*3/uL (160-400) 01/21/25 04:51 MPV 9.9 fL (9.4-12.3) 01/21/25 04:51 Immature Gran % (Auto) 0.4 % (0.0-0.4) 01/21/25 04:51 Neut % (Auto) 73.1 % (45-73) H 01/21/25 04:51 Lymph % (Auto) 17.4 % (20-40) L 01/21/25 04:51 [place] % (Auto) 8.5 % (2-11) 01/21/25 04:51 Eos % (Auto) 0.1 % (0-4) 01/21/25 04:51 Baso % (Auto) 0.5 % (0-2) 01/21/25 04:51 Lymph # (Auto) 1.4 X10*3/uL (1.2-4.9) 01/21/25 04:51 [place] # (Auto) 0.7 X10*3/uL (0.1-1.2) 01/21/25 04:51 Eos # (Auto) 0.0 X10*3/uL (0.0-0.4) 01/21/25 04:51 Baso # (Auto) 0.0 X10*3/uL (0.0-0.2) 01/21/25 04:51 Abs Immat Gran (auto) 0.03 X10*3/uL (0.00-0.03) 01/21/25 04:51 Absolute Neuts (auto) 5.7 x10*3/uL (2.0-8.3) 01/21/25 04:51 Absolute Nucleated RBC 0.000 X10*3/uL (0.0-0.012) 01/21/25 04:51 Nucleated RBC % (auto) 0.0 /100WBC (0.0-0.2) 01/21/25 04:51 Sodium 140 mmol/L (135-145) 01/21/25 04:51 Potassium 3.6 mmol/L (3.3-5.1) 01/21/25 04:51 Chloride 109 mmol/L (96-108) H 01/21/25 04:51 Carbon Dioxide 24 mmol/L (22-29) 01/21/25 04:51 Anion Gap 11 (12-20) L 01/21/25 04:51 BUN 9 mg/dL (9-16) 01/21/25 04:51 Creatinine 0.61 mg/dL (0.5-1.4) 01/21/25 04:51 Estim Creat Clear Calc 98.9 01/21/25 04:51 Estimated GFR > 60 01/21/25 04:51 Random Glucose 106 mg/dL (60-115) 01/21/25 04:51 Estimat Average Glucose 103 mg/dL 01/21/25 04:51 Hemoglobin A1c % 5.2 % (<6.0) 01/21/25 04:51 Calcium 8.0 mg/dL (8.4-10.2) L D 01/21/25 04:51 Magnesium 1.9 mg/dL (1.6-2.6) 01/21/25 00:54 Total Bilirubin 0.2 mg/dL (0.0-1.0) 01/21/25 04:51 Direct Bilirubin 0.1 mg/dL (0.0-0.5) 01/21/25 00:54 AST 16 U/L (5-31) 01/21/25 04:51 ALT 10 U/L (0-31) 01/21/25 04:51 Alkaline Phosphatase 48 U/L (39-117) 01/21/25 04:51 Troponin I High Sens < 2.7 ng/L (<3.5-17.0) 01/21/25 00:54 C-Reactive Protein < 0.10 mg/dL (< or = 0.50) 01/21/25 00:54 Total Protein 5.9 g/dL (6.5-8.0) L 01/21/25 04:51 Albumin 3.8 g/dL (3.5-5.0) 01/21/25 04:51 Triglycerides 35 mg/dL (<150) 01/22/25 06:26 Cholesterol 121 mg/dL (<200) 01/22/25 06:26 LDL Cholesterol, Calc 65 mg/dL (<100) 01/22/25 06:26 HDL Cholesterol 49 mg/dL (>40) 01/22/25 06:26 Beta HCG, Quant < 2 mIU/mL 01/21/25 00:54 Urine Color Yellow 01/21/25 02:23 Urine Appearance Cloudy 01/21/25 02:23 Urine pH 7.5 (5.0-9.0) 01/21/25 02:23 Ur Specific [place] <= 1.005 (1.005-1.025) 01/21/25 02:23 Urine Protein Negative mg/dL (Neg-Trace) 01/21/25 02:23 Urine Glucose (UA) Negative mg/dL (Negative) 01/21/25 02:23 Urine Ketones Negative mg/dL (Negative) 01/21/25 02:23 Urine Blood Trace (Negative) H 01/21/25 02:23 Urine Nitrite Negative (Negative) 01/21/25 02:23 Ur Leukocyte Esterase Large (3+) (Negative) H 01/21/25 02:23 Urine RBC 0-2 /HPF (0-2) 01/21/25 02:23 Urine WBC >50 /HPF (0-5) H 01/21/25 02:23 Ur Squamous Epith Cells >20 /HPF (0-2) 01/21/25 02:23 Urine Bacteria 4+ (None Seen) 01/21/25 02:23 Hyaline Casts 0-2 /LPF (0-2) 01/21/25 02:23 Urine Opiates Screen Not Detected (Not Detect) 01/21/25 02:23 Ur Buprenorphine Scrn Not Detected ng/mL (Not Detect) 01/21/25 02:23 Ur Oxycodone Screen Not Detected ng/mL (Not Detect) 01/21/25 02:23 Urine Methadone Screen Not Detected ng/mL (Not Detect) 01/21/25 02:23 Urine Fentanyl Screen Not Detected (Not Detect) 01/21/25 02:23 Ur Barbiturates Screen Not Detected (Not Detect) 01/21/25 02:23 Ur Phencyclidine Scrn Not Detected (Not Detect) 01/21/25 02:23 Ur Amphetamines Screen Not Detected (Not Detect) 01/21/25 02:23 U Benzodiazepines Scrn Not Detected (Not Detect) 01/21/25 02:23 Urine Cocaine Screen Not Detected (Not Detect) 01/21/25 02:23 U Marijuana (THC) Screen Not Detected (Not Detect) 01/21/25 02:23 Ethyl Alcohol < 10 mg/dL 01/21/25 00:54 Influenza Type A (PCR) NEGATIVE (Negative) 01/21/25 00:54 Influenza Type B (PCR) NEGATIVE (Negative) 01/21/25 00:54 RSV RNA Qual (PCR) NEGATIVE (Negative) 01/21/25 00:54 SARS-CoV-2 RNA (RT-PCR) NEGATIVE (Negative) 01/21/25 00:54 Impressions Brain MRI 01/21/25 12:33 IMPRESSION: No acute intracranial abnormality. Electronically signed by: Eyal Hooper MD 01/21/2025 01:09 PM EDT RP Discharge Plan Discharge Anticipated Discharge Date/Time: 01/22/25 13:46 Patient Disposition: Home, Self-Care Discharge Diagnosis: migraine headache Referrals: Ceci East FNP [Nurse Practitioner] - 2 Weeks Luci Unger MD [Primary Care Provider] - 1 Week Discharge Medications: New sumatriptan succinate 100 mg tablet See Rx Instructions .ROUTE .COMPLEX Qty: 14 0RF Rx Instructions: take 1 tab at onset of headache; if no relief, may repeat 1 tab after at least 2 hrs; max = 2 tabs/24 hrs Continued aspirin 81 mg tablet,chewable 81 mg PO BEDTIME 30 Days Qty: 30 6RF Ubrelvy 100 mg tablet 50 - 100 mg PO ONCE PRN (Reason: migraine headache) 30 Days Qty: 16 3RF Rx Instructions: take at onset of migraine, may repeat in 2hrs (may take w/ Ibuprofen). Prior Auth;Coverage 12/23/2024-06/21/2025 sertraline 25 mg tablet 25 mg PO DAILY naproxen 375 mg tablet 375 mg PO BID PRN (Reason: PRN) gabapentin 100 mg capsule 100 mg PO BEDTIME PRN (Reason: Pain) cyclobenzaprine 5 mg tablet 5 mg PO TID PRN (Reason: muscle spasm) Qty: 14 0RF magnesium oxide 400 mg (241.3 mg magnesium) tablet 400 mg PO BEDTIME 30 Days Qty: 30 6RF Rx Instructions: may hold for loose stools riboflavin (vitamin B2) 400 mg tablet 400 mg PO DAILY 30 Days Qty: 30 6RF Cimzia 400 mg/2 mL (200 mg/mL x 2) syringe kit 200 mg subcut .every 10 days Qty: 3 4RF Discharge Orders: Discharge Order (Routine); Ordered 01/22/25 Ordered By: Gabrielle You Diet: Advance to usual diet Activity on Discharge: As tolerated Stand Alone Forms: Patient Portal Discharge page, Work/School Release Print Language: Congolese Care Plan Goals: headache control Health Concerns: migraine headache Plan of Treatment: identify and avoid migraine triggers use sumatriptan as needed for migraines follow up with Neurology in 2-4 weeks Please follow up with your primary care doctor within 1 week. Return to the hospital if you experience recurrent or worsening symptoms. Assessment: See Discharge Summary. Patient Instructions: Sumatriptan (By mouth) (Imitrex) Discharge Date/Time: 01/22/25 15:00
== END 2025-01-22 15:00 | disposition home or self-care (01) | DRG 54 ==
LOC: HO.ED 03:31 → HO.EDOVER 03:37 → HO.IMC 16:05
PROVIDERS: Admitting Provider Hospitalist; Emergency Provider Emergency Medicine; PCP Internal Medicine; Visit Provider Family Medicine
DX: G43.909 Migraine, unspecified, not intractable, without status migrainosus (principal); Q21.12 Patent foramen ovale; M06.9 Rheumatoid arthritis, unspecified; Z20.822 Contact with and (suspected) exposure to COVID-19; Z86.73 Personal history of transient ischemic attack (TIA), and cerebral infarction without residual deficits; Z87.440 Personal history of urinary (tract) infections; Z87.891 Personal history of nicotine dependence; Z79.620 Long term (current) use of immunosuppressive biologic; Z79.899 Other long term (current) drug therapy
CPT/HCPCS: 0241U; 36415; 70450; 70496; 70498; 70551; 80048; 80053; 80061; 80076; 80307; 81001; 83036; 83735; 84484; 84702; 85025; 86140; 87086; 87147; 93005; 97161; 97165; 99222; 99285; J1200; J1885; J2765; J3360; J7120; Q9967

== ENCOUNTER → 2025-01-21 00:17 | Outpatient (BNV) | payer OTHER, SELFPAY | PROVIDERS: Admitting Provider Hospitalist; Emergency Provider Emergency Medicine; PCP Internal Medicine; Visit Provider Internal Medicine | DX: R00.0 Tachycardia, unspecified (principal) | CPT/HCPCS: 93010 ==

== ENCOUNTER → 2025-01-21 00:27 | Outpatient (BNV) | payer OTHER, SELFPAY | PROVIDERS: Emergency Provider Emergency Medicine; PCP Internal Medicine; Visit Provider Radiology Diagnostic Radiology | DX: R90.82 White matter disease, unspecified (principal); R51.9 Headache, unspecified; R29.810 Facial weakness | CPT/HCPCS: 70450; 70496; 70498; 70551 ==

== ENCOUNTER → 2025-01-21 03:31 | Outpatient (BNV) | payer OTHER, SELFPAY | PROVIDERS: Admitting Provider Hospitalist; Emergency Provider Emergency Medicine; PCP Internal Medicine; Visit Provider Hospitalist | DX: R51.9 Headache, unspecified (principal) | CPT/HCPCS: 99223; 99239 ==

== ENCOUNTER → 2025-01-21 03:31 | Outpatient (BNV) | payer OTHER, SELFPAY | PROVIDERS: Admitting Provider Hospitalist; Emergency Provider Emergency Medicine; PCP Internal Medicine; Visit Provider Psychiatry & Neurology Neurology | DX: G43.009 Migraine without aura, not intractable, without status migrainosus (principal) | CPT/HCPCS: 99222 ==

== ENCOUNTER 2025-01-24 13:19 | Emergency (ER) | payer OTHER, SELFPAY ==
--- NOTE | ~2025-01-24 | CT_ITS ---
CLINICAL HISTORY: L facial droop since yest CT head without contrast Comparison: MR/ND/SR - MR HEAD/BRAIN WO CON - 01/21/25 12:[address]/SR - CT HEAD FOR STROKE - 01/21/25 00:31 EDT Findings: No intra-axial mass, midline shift, hydrocephalus, or acute hemorrhage. No significant atrophy-like change or white matter disease. There is no sinus or mastoid fluid. The orbits are unremarkable. No skull fracture. IMPRESSION: 1. No acute intracranial findings. This document has been electronically signed by: Lon Paredes MD on 01/24/2025 14:08:44
[2025-01-24 13:23] VITALS: BP 133/70; PULSE 75; RESP 18; TEMP 36.8; O2SAT 97; BMI 22.6
--- NOTE | 2025-01-24 13:23 | ED_ITS ---
HPI - Neuro Symptoms/Deficit General Chief Complaint: Neuro Symptoms/Deficit Stated Complaint: quest stroke Time Seen by Provider: 01/24/25 14:15 Source: patient History of Present Illness ED Provider: HPI Narrative: 34-year-old woman with history of complex migraines, with atypical features, rheumatoid arthritis, recent admission for concerns of neuro deficit, had CT, CTA and brain MRI, on discharge from the hospital symptoms that she has had improved with sumatriptan, has been having heaviness of the head which is not improving, and today she noted that the left part of the face is numb and heavy, she has a lot of pressure in the suboccipital area bilaterally. Then she also had some weakness in bilateral lower extremities. The facial numbness and noting facial asymmetry as well as new for her but the leg weakness is not new. Related Data Home Medications ?Medication ?Instructions ?Recorded ?Confirmed gabapentin 100 mg capsule 100 mg PO BEDTIME PRN Pain 01/21/25 01/21/25 naproxen 375 mg tablet 375 mg PO BID PRN PRN 01/21/25 01/21/25 sertraline 25 mg tablet 25 mg PO DAILY 01/21/25 01/21/25 Previous Rx's ?Medication ?Instructions ?Recorded cyclobenzaprine 5 mg tablet 5 mg PO TID PRN muscle spasm #14 04/22/24 tabs magnesium oxide 400 mg (241.3 mg 400 mg PO BEDTIME 30 days #30 tabs 06/26/24 magnesium) tablet riboflavin (vitamin B2) 400 mg 400 mg PO DAILY 30 days #30 tabs 06/26/24 tablet aspirin 81 mg chewable tablet 81 mg PO BEDTIME 30 days #30 tabs 08/27/24 certolizumab pegol 400 mg/2 mL 200 mg subcut .every 10 days #3 09/11/24 (200 mg/mL x2) subcutaneous kits syringe kit (Cimzia) ubrogepant 100 mg tablet (Ubrelvy) 50 - 100 mg (0.5 - 1 x 100 mg) PO 12/24/24 ONCE PRN migraine headache 30 days #16 tabs sumatriptan succinate 100 mg tablet See Rx Instructions PO .COMPLEX 01/22/25 #14 tabs Allergies Allergy/AdvReac Type Severity Reaction Status Date / Time acetaminophen [From TYLENOL] Allergy Unknown RASH, Verified 01/24/25 13:28 THROAT SWELLING morphine [MORPHINE] Allergy Unknown RASH, Verified 01/24/25 13:28 THROAT SWELLING , swelling oseltamivir Allergy Unknown diarrhea Verified 01/24/25 13:28 Sulfa (Sulfonamide Allergy Unknown anaphylaxis Verified 01/24/25 13:28 Antibiotics) sulfamethoxazole AdvReac Difficulty Verified 01/24/25 13:28 [From Bactrim] Breathing trimethoprim [From Bactrim] AdvReac Difficulty Verified 01/24/25 13:28 Breathing Review of Systems 2 Constitutional: Constitutional: Reports as per [facility] Past Medical History Medical History (Updated 01/24/25 @ 16:03 by Alfa Clay DO) Acute respiratory disease Recurrent UTI Physical exam Osteoarthritis of right knee Osteoarthritis of right acromioclavicular joint Blurred vision, bilateral Tachycardia History of 2019 novel coronavirus disease (COVID-19) Sinus tachycardia Hypovitaminosis Rheumatoid arthritis Migraine Surgical History Surgical history of tubal ligation History of Family History Family History Maternal Aunt History of breast cancer in female Uterus cancer Father Family hx of hypertension Hx of thyroid disease Diabetes mellitus Maternal Grandfather Family hx of hypertension History of heart disease Maternal Grandmother Family hx of hypertension Brother History of asthma Mother Diabetes mellitus Social History Social History Household Members: Family Housing: Apartment Are you a primary client care specialist to a significant other at home: No Do you presently have visiting nurse or other home services: No Unable to assess alcohol history related to: Unable to respond Alcohol intake: never Patient Tobacco Use Status: Former Tobacco user Tobacco use type: Cigarette Smoked in Last 30 Days: No e-Cigarette/Vaping Use: Never Used Second Hand Smoke Exposure: No Use of substances other than those prescribed or required for medical reasons: No Advance Directives: No Advance Directives Information Provided: No Patient : No service: No Current occupational status: employed 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 Current occupational exposures/hazards: No Sexual orientation: Straight/Heterosexual Gender identity: Female Cognitive needs: No Hearing needs: No Vision needs: No Physical Exam 2 Vital Signs: Vital Signs: Last Vital Signs Temp 97.3 F 01/24/25 14:34 Pulse 67 01/24/25 14:34 Resp 13 01/24/25 14:34 BP 113/69 01/24/25 14:34 Pulse Ox 100 01/24/25 14:34 O2 Del Method Room Air 01/24/25 14:34 BMI result Body Mass Index 22.6 Const: Other: * Gen: ?Overall well-appearing patient * HEENT: PERRLA, EOMI, MMM, * Neck: Supple, no LAD * CV: RRR, no obvious murmurs appreciated * Resp: ?No wheezing rales rhonchi no stridor moving air well * Abd: ?Bowel sounds are present, no tenderness no rebound no rigidity * MSK: FROM, strength 5/5 all extremities * Skin: Warm, dry, intact, * Neuro: ?Alert and oriented x3, moving upper and lower extremities symmetrically, changing facial asymmetry, when she is conscious there is left- sided spasm like of her cheek, but with engagement able to give me a symmetric smile, tongue is symmetric, no deficits otherwise cranial nerves 2-12 Course Course Course Narrative: This is a Rapid Medical Exam performed in triage by Mary Barbour PA-C. Full HPI, ROS and PE to be performed by primary ED provider. 34 yo F past medical history of rheumatoid arthritis, migraine headaches, recurrent UTI, PFO on echo, recent history of possible CVA-on aspirin presenting to the ED c/o left sided facial droop/weakness x yesterday afternoon - worsening today. Also reports LE weakness. Was d/c from our facility on 01/22 for similar sx, had negative MRI was started on Imitrex & ASA. PE: +L facial droop, no other appreciable weakness. No drift, ambulating w/steady gait Plan: EKG, labs, Head CT. OUT of the window for TNK Medications Administered Discontinued Medications Generic Name Dose Route Start Last Admin Trade Name Freq PRN Reason Stop Dose Admin Diazepam 4 mg 01/24/25 14:32 01/24/25 15:08 Diazepam 2 Mg Tablet PO 01/24/25 14:33 4 mg ONCE ONE Administration Lidocaine HCl 20 ml 01/24/25 14:32 01/24/25 15:23 Lidocaine Hcl 2 % 20 Ml Vial INFILTRATI 01/24/25 14:33 20 ml ONCE ONE Administration Medical Decision Making Medical Decision Making [facility] Narrative: 14:37 patient has had fairly significant workup, these symptoms have been going on for the past 1 year she has had few MRIs, CTAs, CTs, I reviewed most of the studies in our system, on physical examination today she presents with asymmetry like to the left side of the face but it is not consistent and although when she talks she has moving her lips over to the right, and then when I am doing the exam her smile is actually quite symmetric, and I did not elicit any weakness in her bilateral lower or upper extremities including her shoulders. I am suspecting occipital migraine she has a lot of spasm in the suboccipital area both sides, offered an injection of trigger points in in that area to see if it helps her as she states she starts having pressure in her upper back and neck before these symptoms appear, she did have a CT ordered in triage before I evaluated the patient I would have not gotten the CT as she just had an MRI and workup and this is a recurrent issue and she has started 3 and so all exposure to radiation as a real risk. I will provide Valium for spasms anticipating discharge she does have a neurology follow up a neurologist involved in her care. 16:00 patient re-evaluated, facial asymmetry has resolved after the injection, and she has been ambulatory went to the bathroom suboccipital pain is better Procedure: Verbal consent was obtained, a total of 12 cc of 2% lidocaine without epinephrine injected in the suboccipital areas to a total of 8 TPs 4 on left and 4 on the right, area was cleaned with chlorhexidine, no bleeding, patient tolerated procedure well Differential Diagnosis Differential Diagnoses: The differential diagnosis associated with the presentation includes Complex migraine, conversion disorder, occipital migraine, stroke, cavernous venous thrombosis, Milian's Palsy Admission/Observation Consideration of admission/observation: Escalation of care including admission/observation considered Lab Data [facility] Lab Attestation statement: I reviewed the patient's lab results. 01/24/25 14:40 01/24/25 14:40 Labs: Lab Results 01/24/25 Range/Units 14:40 WBC 8.1 (4.8-10.8) X10*3/uL RBC 4.25 (4.20-5.50) X10*6/uL Hgb 12.5 (12.0-16.0) g/dl Hct 37.0 (37.0-47.0) % MCV 87.1 (80.0-98.0) fL MCH 29.4 (27.0-33.0) pg MCHC 33.8 (31.0-35.0) g/dl RDW 13.1 (11.0-16.0) % Plt Count 301 (160-400) X10*3/uL MPV 9.9 (9.4-12.3) fL Immature Gran % (Auto) 0.5 H (0.0-0.4) % Neut % (Auto) 72.0 (45-73) % Lymph % (Auto) 16.0 L (20-40) % [place] % (Auto) 9.5 (2-11) % Eos % (Auto) 1.0 (0-4) % Baso % (Auto) 1.0 (0-2) % Lymph # (Auto) 1.3 (1.2-4.9) X10*3/uL [place] # (Auto) 0.8 (0.1-1.2) X10*3/uL Eos # (Auto) 0.1 (0.0-0.4) X10*3/uL Baso # (Auto) 0.1 (0.0-0.2) X10*3/uL Abs Immat Gran (auto) 0.04 H (0.00-0.03) X10*3/uL Absolute Neuts (auto) 5.9 (2.0-8.3) x10*3/uL Absolute Nucleated RBC 0.000 (0.0-0.012) X10*3/uL Nucleated RBC % (auto) 0.0 (0.0-0.2) /100WBC PT 14.2 H (10.9-12.4) SEC INR 1.2 H (0.9-1.1) Sodium 140 (135-145) mmol/L Potassium 4.1 (3.3-5.1) mmol/L Chloride 105 (96-108) mmol/L Carbon Dioxide 28 (22-29) mmol/L Anion Gap 11 L (12-20) BUN 14 (9-16) mg/dL Creatinine 0.76 (0.5-1.4) mg/dL Estim Creat Clear Calc 79.4 Estimated GFR > 60 Random Glucose 93 (60-115) mg/dL Calcium 9.2 D (8.4-10.2) mg/dL Magnesium 2.1 (1.6-2.6) mg/dL Total Bilirubin 0.5 (0.0-1.0) mg/dL Direct Bilirubin 0.2 (0.0-0.5) mg/dL AST 19 (5-31) U/L ALT 14 (0-31) U/L Total Protein 7.0 (6.5-8.0) g/dL Albumin 4.6 (3.5-5.0) g/dL Independent Interpretation I performed an independent interpretation of an: EKG (61 beats per minute otherwise normal ECG without dysrhythmia, AV aminata blocks or ST-T changes to suspect underlying ACS, my independent interpretation) Radiology Impression Discussion of test interpretation with radiology: I have reviewed the radiologist's reading. Radiologist Impression: [place] [id number] CT Scan Report Signed Patient: Rosanne Pichardo MR#: [id number] : 1990 Acct:[id number] Age/Sex: 34 / F ADM Date: 01/24/25 Loc: .ED Attending Dr: Ordering Physician: Mary Barbour Date of Service: 01/24/25 Procedure(s): CT head/brain wo IV con Accession Number(s): [id number] cc: Mary Barbour; Luci Unger MD~ Report Number: [id number]: Total DLP = 536.00 mGy-cm CLINICAL HISTORY: L facial droop since yest CT head without contrast Comparison: MR/AL/SR - MR HEAD/BRAIN WO CON - 01/21/25 12:[address]/SR - CT HEAD FOR STROKE - 01/21/25 00:31 EDT Findings: No intra-axial mass, midline shift, hydrocephalus, or acute hemorrhage. No significant atrophy-like change or white matter disease. There is no sinus or mastoid fluid. The orbits are unremarkable. No skull fracture. IMPRESSION: 1. No acute intracranial findings. Discharge Plan Discharge Clinical Impression: Migraine Qualifiers: Migraine type: hemiplegic Status migrainosus presence: without status migrainosus Intractability: not intractable Qualified Code(s): G43.409 - Hemiplegic migraine, not intractable, without status migrainosus Patient Disposition: Home, Self-Care Additional Instructions: Continue all your other medications regular basis evaluated with facial spasm, likely complex migraine with atypical features, on exam significant tenderness and spasm in the suboccipital area this was injected with lidocaine I am hoping it is going to help you a long-term, follow up with a neurologist he had blood work and CT again today or which has been reassuring Prescriptions: No Action aspirin 81 mg tablet,chewable 81 mg PO BEDTIME 30 Days Qty: 30 6RF Ubrelvy 100 mg tablet 50 - 100 mg PO ONCE PRN (Reason: migraine headache) 30 Days Qty: 16 3RF Rx Instructions: take at onset of migraine, may repeat in 2hrs (may take w/ Ibuprofen). Prior Auth;Coverage 12/23/2024-06/21/2025 sertraline 25 mg tablet 25 mg PO DAILY naproxen 375 mg tablet 375 mg PO BID PRN (Reason: PRN) gabapentin 100 mg capsule 100 mg PO BEDTIME PRN (Reason: Pain) sumatriptan succinate 100 mg tablet See Rx Instructions .ROUTE .COMPLEX Qty: 14 0RF Rx Instructions: take 1 tab at onset of headache; if no relief, may repeat 1 tab after at least 2 hrs; max = 2 tabs/24 hrs cyclobenzaprine 5 mg tablet 5 mg PO TID PRN (Reason: muscle spasm) Qty: 14 0RF magnesium oxide 400 mg (241.3 mg magnesium) tablet 400 mg PO BEDTIME 30 Days Qty: 30 6RF Rx Instructions: may hold for loose stools riboflavin (vitamin B2) 400 mg tablet 400 mg PO DAILY 30 Days Qty: 30 6RF Cimzia 400 mg/2 mL (200 mg/mL x 2) syringe kit 200 mg subcut .every 10 days Qty: 3 4RF Referrals: Luci Unger MD [Primary Care Provider] - Print Language: Urdu
--- NOTE | 2025-01-24 13:30 | ECG_ITS ---
Test Reason : NEURO SYMPT. Blood Pressure : */* mmHG Vent. Rate : 61 BPM Atrial Rate : 61 BPM P-R Int : 124 ms QRS Dur : 78 ms QT Int : 378 ms P-R-T Axes : 61 74 64 degrees QTcB Int : 380 ms Normal sinus rhythm with sinus arrhythmia Normal ECG When compared with ECG of 21-Jan-2025 00:18, Vent. rate has decreased by 46 bpm QT has shortened Referred By: Mary Barbour Electronically Signed By: MARCEL GONZALEZ
[2025-01-24 14:34] VITALS: BP 113/69; PULSE 67; RESP 13; TEMP 36.3; O2SAT 100
[2025-01-24 14:48] LABS: MANUAL DIFF FLAG NO
[2025-01-24 14:49] LABS: Basophils Absolute Auto 0.1 X10*3/uL (0.0-0.2); Eosinophils Absolute Auto 0.1 X10*3/uL (0.0-0.4); Hemoglobin 12.5 g/dl (12.0-16.0); Imm Gran Abs Auto 0.04 X10*3/uL (0.00-0.03); Imm Gran Pct Auto 0.5 % (0.0-0.4); Lymphocytes Absolute Auto 1.3 X10*3/uL (1.2-4.9); Mean Corpuscular HGB Conc 33.8 g/dl (31.0-35.0); Mean Corpuscular Hemoglobin 29.4 pg (27.0-33.0); Mean Corpuscular Volume 87.1 fL (80.0-98.0); Mean Platelet Volume 9.9 fL (9.4-12.3); Monocytes Absolute Auto 0.8 X10*3/uL (0.1-1.2); Monocytes Percent Auto 9.5 % (2-11); Neutrophils Absolute Auto 5.9 x10*3/uL (2.0-8.3); Platelet Count 301 X10*3/uL (160-400); Red Blood Count 4.25 X10*6/uL (4.20-5.50); Red Cell Distribution Width 13.1 % (11.0-16.0); White Blood Count 8.1 X10*3/uL (4.8-10.8)
[2025-01-24 15:04] LABS: INTERNATIONAL NORM RATIO 1.2 (0.9-1.1); Prothrombin Time 14.2 SEC (10.9-12.4)
[2025-01-24] MEDS: diazePAM 2 MG TABLET 4 MG PO (15:08)
[2025-01-24 15:15] LABS: Alanine Aminotransferase 14 U/L (0-31); Albumin Level 4.6 g/dL (3.5-5.0); Anion Gap 11 (12-20); Aspartate Amino Transferase 19 U/L (5-31); Bilirubin Direct 0.2 mg/dL (0.0-0.5); Bilirubin Total 0.5 mg/dL (0.0-1.0); Blood Urea Nitrogen 14 mg/dL (9-16); Calcium 9.2 mg/dL (8.4-10.2); Carbon Dioxide 28 mmol/L (22-29); Chloride 105 mmol/L (96-108); Creatinine Clr Calc Pharmacy 79.4; Estimated Glomerular Filt Rate > 60; Glucose Random 93 mg/dL (60-115); Magnesium 2.1 mg/dL (1.6-2.6); Potassium 4.1 mmol/L (3.3-5.1); Sodium 140 mmol/L (135-145)
[2025-01-24] MEDS: Lidocaine HCl 2 % 20 ML VIAL INFILTRATI (15:23)
[2025-01-24 16:26] VITALS: BP 113/69; PULSE 67; RESP 13; TEMP 36.3; O2SAT 100
[2025-01-24 18:43] LABS: Alkaline Phosphatase 52 U/L (39-117)
== END 2025-01-24 16:36 | disposition home or self-care (01) ==
PROVIDERS: Physician Assistant; Emergency Provider Emergency Medicine; PCP Internal Medicine
DX: G43.409 Hemiplegic migraine, not intractable, without status migrainosus (principal); M06.9 Rheumatoid arthritis, unspecified; Z79.899 Other long term (current) drug therapy
CPT/HCPCS: 36415; 70450; 80048; 80076; 83735; 85025; 85610; 93005; 99284; J2003

== ENCOUNTER → 2025-01-24 13:30 | Outpatient (BNV) | payer OTHER, SELFPAY | PROVIDERS: Emergency Provider Emergency Medicine; PCP Internal Medicine; Visit Provider Nuclear Medicine | DX: R29.810 Facial weakness (principal) | CPT/HCPCS: 70450 ==

== ENCOUNTER → 2025-01-24 13:30 | Outpatient (BNV) | payer OTHER, SELFPAY | PROVIDERS: Emergency Provider Emergency Medicine; PCP Internal Medicine; Visit Provider Internal Medicine | DX: R29.818 Other symptoms and signs involving the nervous system (principal) | CPT/HCPCS: 93010 ==

== ENCOUNTER 2025-02-06 07:53 | Outpatient (AMB) | payer OTHER, SELFPAY ==
--- NOTE | 2025-02-06 07:56 | A.OFFPC_ITS ---
Vital Signs 02/06/25 07:57 Height 5 ft 1 in Weight 119 lb 3.2 oz BMI 22.5 BP 106/78 Blood Pressure Location Lt brachial Position Sitting Respiration 16 Pulse 81 Pulse Source Pulse Oximeter Temp 97.3 F Temp Source Temporal Artery Scan Pulse Oximetry (%) 99 Oxygen Delivery Method Room Air Intake Visit Reasons: [facility] 01/22 Possible stroke Intake Note: Patient is here for hospital discharge follow up. Patient was discharged from [facility] in [place], [place] on 01/22/2025. Pocket Stitcher Required: No Accompanied by: Spouse Allergies acetaminophen (From TYLENOL) Allergy (Unknown, Verified 02/06/25 08:02) RASH, THROAT SWELLING morphine (MORPHINE) Allergy (Unknown, Verified 02/06/25 08:02) RASH, THROAT SWELLING , swelling oseltamivir Allergy (Unknown, Verified 02/06/25 08:02) diarrhea Sulfa (Sulfonamide Antibiotics) Allergy (Unknown, Verified 02/06/25 08:02) anaphylaxis sulfamethoxazole (From Bactrim) Adverse Reaction (Verified 02/06/25 08:02) Difficulty Breathing trimethoprim (From Bactrim) Adverse Reaction (Verified 02/06/25 08:02) Difficulty Breathing Tobacco use date assessed: 02/06/25 Dental Screening Dental Screen Date: 02/06/25 Did you have a dental visit in the last 12 months?: Yes Did you have a dental problem in the last 6 months where you did not have access to dental care?: No Was dental information given to patient?: Patient has dentist HPI HPI Comments History of Present Illness Details 34 y/o Female patient who presents to [facility] clinic today for HDF.She was admitted at [facility] on 01/21 - 01/22 for an evaluation and treatment of Acute Migraine headache. CT head showed hypo attenuation in the left occipital lobe; patient's has no visual field deficits. MRI was completely normal. Headache improved after she was given sumatriptan. She was prescribed sumatriptan and advised to follow up with her neurologist. Her next appointment with Neuro is 03/2025. [facility] Medical History (Updated 02/06/25 @ 08:11 by Suyapa Spence NP) Acute respiratory disease Recurrent UTI Physical exam Osteoarthritis of right knee Osteoarthritis of right acromioclavicular joint Blurred vision, bilateral Tachycardia History of 2019 novel coronavirus disease (COVID-19) Sinus tachycardia Hypovitaminosis Rheumatoid arthritis Migraine Surgical History Surgical history of tubal ligation History of Family History Maternal Aunt History of breast cancer in female Uterus cancer Father Family hx of hypertension Hx of thyroid disease Diabetes mellitus Maternal Grandfather Family hx of hypertension History of heart disease Maternal Grandmother Family hx of hypertension Brother History of asthma Mother Diabetes mellitus Social History Household Members: Family Housing: Apartment Are you a primary account executive healthcare to a significant other at home: No Do you presently have visiting nurse or other home services: No Unable to assess alcohol history related to: Unable to respond Alcohol intake: never Patient Tobacco Use Status: Former Tobacco user Tobacco use type: Cigarette e-Cigarette/Vaping Use: Never Used Second Hand Smoke Exposure: No service: No Current occupational status: employed 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 Current occupational exposures/hazards: No Sexual orientation: Straight/Heterosexual Gender identity: Female Cognitive needs: No Hearing needs: No Vision needs: No Female Reproductive History Menstrual Age of Menarche: 12 Questionnaire Thrive Questionnaire Date Thrive assessed: 02/06/25 I am a: Patient What is your living situation today?: I have a steady place to live Within the past 12 months, did the food you bought not last and you didn't have the money to get more?: Sometimes True Within the past 12 months, did you worry whether your food would run out before you got money to buy more?: Sometimes True Do you have trouble paying for medicines?: I choose not to answer this question Do you have trouble getting transportation to medical appointments?: No Do you have trouble paying your heating and electricity bill?: Yes Do you have trouble taking care of your child, family member or friend?: No Do you have trouble with day-to-day activities such as bathing, preparing meals, shopping, managing finances, etc.?: No Are you currently unemployed and looking for a job?: No Are you interested in more education?: No Currently or been in a relationship where the following occur: No concerns reported THRIVE Score: 3 AUDIT C Alcohol Use Questionnaire (AUDIT-C) 1. How often do you have a drink containing alcohol?: Never Total Score: 0 Score Reviewed/Action Taken: No IMANI-7 AMB Questionnaire IMANI-7 Date IMANI - 7 assessed: 11/19/24 Source: Developed by Drs. Eyal Aranda, Yissel Rios, Hayden Bishop and colleagues, with an educational griffin from [employer]. Review of Systems Const All systems reviewed & are unremarkable except as noted in HPI and below Physical exam (Primary Care) Vital Signs: Last Vital Signs Temp 97.3 F 02/06/25 07:57 Pulse 81 02/06/25 07:57 Resp 16 02/06/25 07:57 BP 106/78 02/06/25 07:57 Pulse Ox 99 02/06/25 07:57 Oxygen Delivery Method Room Air 02/06/25 07:57 BMI result Body Mass Index 22.5 Tobacco/Smoking Status: Tobacco use Status Tobacco use date assessed 02/06/25 02/06/25 08:06 Patient Tobacco Use Status Former Tobacco user 02/06/25 07:57 Tobacco use type Cigarette 02/06/25 07:57 e-Cigarette/Vaping Use Never Used 02/06/25 07:57 Thrive Assessment: Date of Thrive Assessment Date Thrive assessed 02/06/25 02/06/25 08:06 Currently or been in a relationship where the following occur: No concerns reported Const General: no acute distress Nutritional Appearance: thin Orientation/consciousness: patient oriented x3 HENMT Head: Yes normocephalic Resp Effort & Inspection: normal respiratory effort Cardio Heart sounds: S1 normal heart sound present and S2 normal heart sound present Neuro General: patient oriented x3, gait normal and moves all extremities Motor exam (neuro): 5/5 motor strength present throughout Psych Speech and movement: Normal speech and movement present Affect: Anxious affect present Coding Level of Care Code Est Pt Level 4 (27716) Diagnoses Migraine without status migrainosus, not intractable, unspecified migraine type G43.909 Intractability: not intractable Migraine type: unspecified Status migrainosus presence: without status migrainosus Time Spent (min) 20 Assessment & Plan Assessment & Plan (1) Migraine: Code(s): G43.909 - Migraine, unspecified, not intractable, without status migrainosus Category: Medical Qualifiers: Intractability: not intractable Migraine type: unspecified Status migrainosus presence: without status migrainosus Qualified Code(s): G43.909 - Migraine, unspecified, not intractable, without status migrainosus Plan: Managed by Neurology.
--- OUTSIDE RECORDS SUMMARY | 2025-02-06 07:56 | XMS_ITS | Clinical Summary ---
Author Organization [facility] Address [address] [place] [address] Phone Care Team Providers Care Noteman Name Role Phone Janett Valle Primary Care Provider [phone] Encounters Date Type Department Care Team Description 12/02/2024 1:38 PM EDT - 12/02/2024 11:59 PM EDT Hospital Encounter [facility] Xray [address] [place] [address] Syncope and collapse Discharge Disposition: [...] from [place] [address] [place] [address] [facility] [facility] [address] Care Teams Noteman Relationship Specialty Start Date End Date Janett Valle PA [address] [place] [address] PCP - General Oncology 12/02/24
[2025-02-06 07:57] VITALS: BP 106/78; PULSE 81; RESP 16; TEMP 36.3; O2SAT 99; BMI 22.5
== END 2025-02-06 10:00 | disposition home or self-care (01) ==
LOC: HO.HMCH 07:54
PROVIDERS: PCP Internal Medicine; Visit Provider Nurse Practitioner Family
DX: G43.909 Migraine, unspecified, not intractable, without status migrainosus (principal)

== ENCOUNTER → 2025-02-06 07:53 | Outpatient (BNVA) | payer OTHER, SELFPAY | PROVIDERS: PCP Internal Medicine; Visit Provider Nurse Practitioner Family | DX: M17.11 Unilateral primary osteoarthritis, right knee (principal); G43.909 Migraine, unspecified, not intractable, without status migrainosus | CPT/HCPCS: 99212 ==

== ENCOUNTER 2025-02-16 09:04 | Outpatient (REF) | payer OTHER, SELFPAY ==
--- OUTSIDE RECORDS SUMMARY | 2025-02-16 09:23 | XMS_ITS | Clinical Summary ---
Author Organization [facility] Address [address] [place] [address] Phone Care Team Providers Care Bedspring Assembler Name Role Phone Janett Valle Primary Care Provider [phone] Encounters Date Type Department Care Team Description 12/02/2024 1:38 PM EDT - 12/02/2024 11:59 PM EDT Hospital Encounter [facility] Xray [address] [place] [address] Syncope and collapse Discharge Disposition: [...] from Last [address] [place] [id number] [facility] Care Teams Bedspring Assembler Relationship Specialty Start Date End Date Janett Valle PA [address] [place] [address] PCP - General Oncology 12/02/24
[2025-02-16 09:38] LABS: MANUAL DIFF FLAG NO
[2025-02-16 09:53] LABS: Basophils Percent Auto 0.7 % (0-2); Eosinophils Absolute Auto 0.1 X10*3/uL (0.0-0.4); Eosinophils Percent Auto 1.7 % (0-4); Hematocrit 38.8 % (37.0-47.0); Hemoglobin 12.6 g/dl (12.0-16.0); Imm Gran Abs Auto 0.06 X10*3/uL (0.00-0.03); Lymphocytes Absolute Auto 1.5 X10*3/uL (1.2-4.9); Lymphocytes Percent Auto 25.4 % (20-40); Mean Corpuscular HGB Conc 32.5 g/dl (31.0-35.0); Mean Corpuscular Hemoglobin 28.9 pg (27.0-33.0); Mean Platelet Volume 10.3 fL (9.4-12.3); Monocytes Absolute Auto 0.5 X10*3/uL (0.1-1.2); Monocytes Percent Auto 7.6 % (2-11); Neutrophils Absolute Auto 3.8 x10*3/uL (2.0-8.3); Neutrophils Percent Auto 63.6 % (45-73); Platelet Count 278 X10*3/uL (160-400); Red Blood Count 4.36 X10*6/uL (4.20-5.50); Red Cell Distribution Width 13.1 % (11.0-16.0); White Blood Count 5.9 X10*3/uL (4.8-10.8)
[2025-02-16 10:36] LABS: Erythrocyte Sedimentation Rate 5 MM/HR (0-20)
[2025-02-16 10:48] LABS: Alanine Aminotransferase 15 U/L (0-31); Albumin Level 4.6 g/dL (3.5-5.0); Alkaline Phosphatase 54 U/L (39-117); Anion Gap 10 (12-20); Aspartate Amino Transferase 20 U/L (5-31); Bilirubin Total 0.4 mg/dL (0.0-1.0); Blood Urea Nitrogen 17 mg/dL (9-16); C Reactive Protein 0.19 mg/dL (< or = 0.50); Calcium 8.7 mg/dL (8.4-10.2); Carbon Dioxide 26 mmol/L (22-29); Chloride 107 mmol/L (96-108); Estimated Glomerular Filt Rate > 60; Glucose Random 82 mg/dL (60-115); Potassium 3.8 mmol/L (3.3-5.1); Sodium 139 mmol/L (135-145); Total Protein 7.2 g/dL (6.5-8.0)
[2025-02-16 11:29] LABS: Folate 9.5 ng/mL (> or = 4.0); Vitamin B12 318 pg/mL (200-900)
[2025-02-17 17:53] LABS: Homocysteine 10.8 umol/L (< or = 11.0)
[2025-02-19 19:03] LABS: Lyme Abs Screen <0.90 index
[2025-02-23 01:33] LABS: Methylmalonic Acid 184 nmol/L (55-335)
[2025-02-23 01:44] LABS: Vitamin B1 14 nmol/L (8-30)
[2025-02-23 06:13] LABS: Vitamin B6 16.4 ng/mL (2.1-21.7)
[2025-02-24 15:09] LABS: Vitamin D 25-OH, D2 <4 ng/mL; Vitamin D 25-OH, D3 29 ng/mL; Vitamin D 25-OH, Total 29 ng/mL (30-100)
== END 2025-02-16 09:05 | disposition home or self-care (01) ==
LOC: HO.LAB 09:04
PROVIDERS: PCP Internal Medicine; Visit Provider Nurse Practitioner Family
DX: M05.79 Rheumatoid arthritis with rheumatoid factor of multiple sites without organ or systems involvement (principal); I63.9 Cerebral infarction, unspecified; R51.9 Headache, unspecified; I95.1 Orthostatic hypotension; R29.810 Facial weakness; D64.9 Anemia, unspecified
CPT/HCPCS: 36415; 80053; 82306; 82607; 82746; 83090; 83921; 84207; 84425; 84443; 85025; 85652; 86140; 86617; 86618

== ENCOUNTER 2025-02-17 15:03 | Outpatient (REF) | payer OTHER, SELFPAY ==
--- NOTE | ~2025-02-17 | MR_ITS ---
EXAMINATION: MR BRAIN WITHOUT THEN WITH IV CONTRAST HISTORY: Q21.12 - Patent foramen ovale TECHNIQUE: Sagittal T1 and FLAIR, and axial T1, FLAIR, T2, gradient echo, and diffusion weighted MR images of the brain were obtained. Subsequently, axial, and coronal T1-weighted images were obtained after the administration of intravenous gadolinium. 5.5 mL Gadavist was administered. COMPARISON: Comparison is made with the prior examination dated 01/21/2025. FINDINGS: Again seen is a slitlike focus of encephalomalacia in the right basal ganglia consistent with an old infarct. There is associated magnetic susceptibility artifact, consistent with hemosiderin. Ramirez/white differentiation is normal. The pituitary is normal in size. The cerebellar tonsils are normally located. There is no mass effect or midline shift. The ventricular system is normal in size and configuration. There is no evidence of acute intracranial hemorrhage. There are no foci of restricted diffusion. There is no abnormal contrast enhancement. Normal vascular flow voids are noted in the basilar and carotid arteries. The visualized paranasal sinuses are clear. MR/MR head/brain wo/w con IMPRESSION: Old right basal ganglia lacunar infarct. No acute intracranial abnormality. No abnormal contrast enhancement. Electronically signed by: Eyal Hooper MD 02/18/2025 07:11 AM EDT
--- OUTSIDE RECORDS SUMMARY | 2025-02-17 16:02 | XMS_ITS | Clinical Summary ---
Author Organization [facility] Address [address] [place] [address] Phone Care Team Providers Care Mysql Database Administrator Name Role Phone Janett Valle Primary Care Provider [phone] Encounters Date Type Department Care Team Description 12/02/2024 1:38 PM EDT - 12/02/2024 11:59 PM EDT Hospital Encounter [facility] Xray [address] [place] [address] Syncope and collapse Discharge Disposition: [...] from Last [address] [place] [address] [place] [id number] [facility] HEALTH PLAN [facility] Care Teams Mysql Database Administrator Relationship Specialty Start Date End Date Janett Valle PA [address] [place] [address] PCP - General Oncology 12/02/24
== END 2025-02-17 15:04 | disposition home or self-care (01) ==
LOC: HO.MRI 15:03
PROVIDERS: PCP Internal Medicine; Visit Provider Nurse Practitioner Family
DX: Q21.12 Patent foramen ovale (principal); R51.9 Headache, unspecified; R20.0 Anesthesia of skin; R29.810 Facial weakness
CPT/HCPCS: 70553; A9585

== ENCOUNTER → 2025-02-17 15:14 | Outpatient (BNV) | payer OTHER, SELFPAY | PROVIDERS: PCP Internal Medicine; Visit Provider Radiology Diagnostic Radiology | DX: G93.89 Other specified disorders of brain (principal) | CPT/HCPCS: 70553 ==

== ENCOUNTER 2025-02-19 12:45 | Outpatient (REF) | payer OTHER, SELFPAY ==
--- NOTE | ~2025-02-19 | US_ITS ---
CLINICAL HISTORY: N83.299 - Other ovarian cyst, unspecified side US pelvis transabdominal and transvaginal with color and duplex Doppler Comparison: US - US PELVIC AND TRANSVAGINAL - 01/05/25 13:32 EDT US/SR - US PELVIC AND TRANSVAGINAL - 09/21/23 11:06 EST Findings: Transabdominal scanning performed for overall anatomy. Transvaginal scanning performed for additional detail. LMP: 02/05/2025 Anteverted uterus, normal size and echotexture, measuring 9.2 x 4.6 x 5.4 cm. Well defined endometrium, measuring 6.0 mm in thickness. Minimal cystic changes within the endometrium. Incidental nabothian cysts some of which are complex The right ovary measures, 4.0 x 2.3 x 3.2 cm. Anechoic cyst measuring 2.6 x 1.7 x 2.2 cm. Small calcification is noted in the ovary. Normal color Doppler with normal ovarian arterial and venous spectral tracing, The left ovary measures, 4.1 x 2.6 x 3.9 cm. Anechoic cyst measuring 3.6 x 2.1 x 2.7 Normal color Doppler with normal ovarian arterial and venous spectral tracing. No adnexal masses or fluid collections. No free fluid Impression: 1. Simple cysts both ovaries probably physiologic. 2. Normal thickness endometrium. Equivocal minimal cystic changes within the endometrial cavity 3. Consider a follow-up ultrasound in 6 or 12 weeks time. This document has been electronically signed by: Alfa Frye MD on 02/20/2025 13:28:25
--- NOTE | ~2025-02-19 | XR_ITS ---
CLINICAL HISTORY: M54.2 - Cervicalgia --- Additional Notes or Special Instructions: w. XR cervical complete 8 views of the cervical spine. COMPARISON: None provided. FINDINGS: Normal vertebral body alignment. No spondylolisthesis on flexion or extension imaging. No evidence of acute vertebral body injury. C1-C2 articulation. Neural foramina appear patent on oblique imaging. Vertebral disc space heights are preserved. Visualized paravertebral soft tissues and lung apices are unremarkable. IMPRESSION: 1. No radiographic evidence of acute injury to the cervical spine. This document has been electronically signed by: Guero Bonds MD on 02/20/2025 13:00:25
--- OUTSIDE RECORDS SUMMARY | 2025-02-19 12:52 | XMS_ITS | Clinical Summary ---
Author Organization [facility] Address [address] [place] [address] Phone Care Team Providers Care Transplant Registered Nurse Name Role Phone Janett Valle Primary Care Provider [phone] Encounters Date Type Department Care Team Description 12/02/2024 1:38 PM EDT - 12/02/2024 11:59 PM EDT Hospital Encounter [facility] Xray [address] [place] [address] Syncope and collapse Discharge Disposition: [...] Last [address] [place] [address] [facility] HE[facility] PLAN [facility] Care Teams Transplant Registered Nurse Relationship Specialty Start Date End Date Janett Valle PA [address] [place] [address] PCP - General Oncology 12/02/24
== END 2025-02-19 12:46 | disposition home or self-care (01) ==
LOC: HO.US 12:45
PROVIDERS: Absent Provider Nurse Practitioner Family; PCP Internal Medicine; Visit Provider Obstetrics & Gynecology
DX: N83.291 Other ovarian cyst, right side (principal); N83.292 Other ovarian cyst, left side; M54.2 Cervicalgia
CPT/HCPCS: 72052; 76830; 76856

== ENCOUNTER → 2025-02-19 12:46 | Outpatient (BNV) | payer OTHER, SELFPAY | PROVIDERS: Absent Provider Nurse Practitioner Family; PCP Internal Medicine; Visit Provider Radiology Diagnostic Radiology | DX: N83.291 Other ovarian cyst, right side (principal); N83.292 Other ovarian cyst, left side; M54.2 Cervicalgia | CPT/HCPCS: 72052; 76830; 76856 ==

== ENCOUNTER 2025-02-26 07:19 | Outpatient (REF) | payer OTHER, SELFPAY ==
[2025-02-26 17:22] LABS: CT PCR Urine NOT DETECTED (Not Detect.); NG PCR Urine NOT DETECTED (Not Detect.)
== END 2025-02-26 07:20 | disposition home or self-care (01) ==
LOC: HO.LNP 07:19
PROVIDERS: PCP Internal Medicine; Visit Provider Obstetrics & Gynecology
DX: Z20.2 Contact with and (suspected) exposure to infections with a predominantly sexual mode of transmission (principal)
CPT/HCPCS: 87491; 87591; 99212

== ENCOUNTER 2025-02-26 07:19 | Outpatient (AMB) | payer OTHER, SELFPAY ==
--- NOTE | 2025-02-26 07:21 | A.OFFVIS_ITS ---
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 Present Accompanied by: Spouse Allergies acetaminophen (From TYLENOL) Allergy (Unknown, Verified 02/26/25 07:23) RASH, THROAT SWELLING morphine (MORPHINE) Allergy (Unknown, Verified 02/26/25 07:23) RASH, THROAT SWELLING , swelling oseltamivir Allergy (Unknown, Verified 02/26/25 07:23) diarrhea Sulfa (Sulfonamide Antibiotics) Allergy (Unknown, Verified 02/26/25 07:23) anaphylaxis sulfamethoxazole (From Bactrim) Adverse Reaction (Verified 02/26/25 07:23) Difficulty Breathing trimethoprim (From Bactrim) Adverse Reaction (Verified 02/26/25 07:23) Difficulty Breathing Is last menstrual period known: Yes Last menstrual period: 02/05/25 Post menopausal: No Patient : No Do you need a note to return to daycare/school/sports/work: Yes (for surgery on sunday) HPI Comments Details: Presenting for follow-up regarding a right complex ovarian cyst seen on a pelvic ultrasound done in 01/11. Follow-up pelvic ultrasound done in 03/13 showed the following: Anteverted uterus, normal size and echotexture, measuring 9.2 x 4.6 x 5.4 cm. Well defined endometrium, measuring 6.0 mm in thickness. Minimal cystic changes within the endometrium. Incidental nabothian cysts some of which are complex The right ovary measures, 4.0 x 2.3 x 3.2 cm. Anechoic cyst measuring 2.6 x 1.7 x 2.2 cm. Small calcification is noted in the ovary. Normal color Doppler with normal ovarian arterial and venous spectral tracing, The left ovary measures, 4.1 x 2.6 x 3.9 cm. Anechoic cyst measuring 3.6 x 2.1 x 2.7 Normal color Doppler with normal ovarian arterial and venous spectral tracing. No adnexal masses or fluid collections. No free fluid Impression: 1. Simple cysts both ovaries probably physiologic. 2. Normal thickness endometrium. Equivocal minimal cystic changes within the endometrial cavity 3. Consider a follow-up ultrasound in 6 or 12 weeks time. The patient is complaining of irregular menstrual cycle associated with prolonged menstrual cycles and pelvic cramping Last co testing in 07/12 was negative PFSH Medical History Acute respiratory disease Recurrent UTI Physical exam Osteoarthritis of right knee Osteoarthritis of right acromioclavicular joint Blurred vision, bilateral Tachycardia History of 2019 novel coronavirus disease (COVID-19) Sinus tachycardia Hypovitaminosis Rheumatoid arthritis Migraine Surgical History Surgical history of tubal ligation History of Family History Maternal Aunt History of breast cancer in female Uterus cancer Father Family hx of hypertension Hx of thyroid disease Diabetes mellitus Maternal Grandfather Family hx of hypertension History of heart disease Maternal Grandmother Family hx of hypertension Brother History of asthma Mother Diabetes mellitus Social History Household Members: Family Housing: Apartment Are you a primary progressive care manager to a significant other at home: No Do you presently have visiting nurse or other home services: No Unable to assess alcohol history related to: Unable to respond Alcohol intake: never Patient Tobacco Use Status: Former Tobacco user Tobacco use type: Cigarette e-Cigarette/Vaping Use: Never Used Second Hand Smoke Exposure: No service: No Current occupational status: employed 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 Current occupational exposures/hazards: No Sexual orientation: Straight/Heterosexual Gender identity: Female Cognitive needs: No Hearing needs: No Vision needs: No Female Reproductive History Menstrual Age of Menarche: 12 Date of last menstrual period: 02/05/25 Total pregnancies: 2 Full term: 2 Review of Systems Const All systems reviewed & are unremarkable except as noted in HPI and below Reports as per HPI and Reports no additional complaints Card Reports as per HPI and Reports no additional complaints Resp Reports as per HPI and Reports no additional complaints GI Reports no additional complaints Reports no additional complaints Physical Exam Vital Signs: Last Vital Signs BP 112/70 02/26/25 07:26 BMI result Body Mass Index 22.5 Const General: cooperative, healthy appearing and comfortable Resp Effort & Inspection: normal respiratory effort Auscultation: clear to auscultation bilaterally Percussion: percussion normal Cardio Palpation: normal PMI Rate: regular rate Rhythm: regular rhythm Heart sounds: no murmurs and no rubs Peripheral pulses: Peripheral pulses 2+ throughout GI Inspection: Yes normal to inspection Palpation (GI): Soft to palpation, nontender, no guarding, not rigid and No hepatosplenomegaly present Percussion: Yes normal to percussion Auscultation: normal bowel sounds Rectal Exam - Female: deferred Assessment & Plan Assessment & Plan (1) Complex ovarian cyst: Code(s): N83.299 - Other ovarian cyst, unspecified side Category: Medical Plan: Discussed with the patient ultrasound findings showing the previously identified complex cyst has resolved. The patient was instructed to call if symptoms recur. All questions were answered the patient verbalized understanding. (2) Abnormal ultrasound of endometrium: Comment: With AUB Code(s): R93.5 - Abnormal findings on diagnostic imaging of other abdominal regions, including retroperitoneum Category: Medical Plan: GC and chlamydia taken CBC, TSH, HCG, ordered. Discussed with the patient the different causes of abnormal bleeding including thyroid disorders, uterine and ovarian pathology, endometrial hyperplasia, carcinoma and other potential causes. Discussed with the patient the work up including CBC (to r/o anemia), TSH. In addition discussed with the patient the finding of ultrasound showing cystic endometrial changes, recommended to the patient that the next step is an endometrial sampling via hysteroscopy D&C possible polypectomy versus endometrial biopsy to r/o endometrial pathology including hyperplasia or cancer. All the pros and cons risks and benefits of each approach were discussed with the patient, endometrial biopsy being less invasive, office procedure with less sensitivity and inability diagnose a polyp and removal versus hysteroscopy done under anesthesia more invasive more sensitive to endometrial cancer and possibility of diagnosing and endometrial polyp with the possibility of polypectomy. All questions were answered pt verbalized understanding and d ecided to proceed with hysteroscopy D&C possible polypectomy/myomectomy. Discussed with the patient the procedure , all benefits and risks including but not limited to inability to complete the procedure , insufficient endometrial tissue for a complete evaluation of the endometrial cavity , bleeding, infection, possible need for blood transfusion with all its risk ( HIV,syphilis, Hepatitis, anaphylaxis shock, others..), injury to bladder, rectum, possible need for laparoscopy/laparotomy or hysterectomy. The patient verbalized understanding and signed the consent. Instructions given the patient to stay NPO after midnight the day prior to the procedure and to take only the specific medication (s) discussed the morning of the surgical procedure and to schedule a 2 week postoperative appointment Orders: Orders TSH reflex Free T4 Today N93.9 - Abnormal uterine and vaginal bleeding, unspecified CT NG by PCR Vag/Cerv Today Z20.2 - Contact with and (suspected) exposure to infections with a predominantly sexual mode of transmission HCG Quantitative Today N93.9 - Abnormal uterine and vaginal bleeding, unspecified Complete Blood Count no Diff Today N93.9 - Abnormal uterine and vaginal bleeding, unspecified Coding Level of Care Code Est Pt Level 3 (00880) Diagnoses Complex ovarian cyst N83.299 Abnormal ultrasound of endometrium R93.5
--- OUTSIDE RECORDS SUMMARY | 2025-02-26 07:21 | XMS_ITS | Clinical Summary ---
Author Organization [facility] Address [address] [place] [address] Phone Care Team Providers Care Insurance Auditor Name Role Phone Janett Valle Primary Care Provider [phone] Encounters Date Type Department Care Team Description 12/02/2024 1:38 PM EDT - 12/02/2024 11:59 PM EDT Hospital Encounter [facility] Xray [address] [place] [address] Syncope and collapse Discharge Disposition: [...] Influencers of Health Screening 10/09/2024 Influenza Vaccine (#1) 2025 9, 09/19/2018, 05/21/2014 DTaP,Tdap,and Td Vaccines (2 - [...] 5 Years) and At-Risk Patients (6 to 49 Years) Aged Out No longer eligible b [...] test with findings consistant with orthostatic hypotension. Jose Luis Garces MD [facility] PROCEDURES F inal Result from Last [address] [place] [place] [address] [place] [address] [facility] HEALTH PLAN [facility] Care Teams Insurance Auditor Relationship Specialty Start Date End Date Janett Valle PA [address] [place] [address] PCP - General Oncology 12/02/24
[2025-02-26 07:26] VITALS: BP 112/70; BMI 22.5
== END 2025-02-26 07:59 | disposition home or self-care (01) ==
LOC: HO.HWS 07:19
PROVIDERS: PCP Internal Medicine; Visit Provider Obstetrics & Gynecology
DX: N83.299 Other ovarian cyst, unspecified side (principal); R93.5 Abnormal findings on diagnostic imaging of other abdominal regions, including retroperitoneum
CPT/HCPCS: 99213

== ENCOUNTER 2025-03-04 08:25 | Outpatient (REF) | payer OTHER, SELFPAY ==
--- OUTSIDE RECORDS SUMMARY | 2025-03-04 08:30 | XMS_ITS | Clinical Summary ---
Author Organization [facility] Address [address] [place] [address] Phone Care Team Providers Care Title Curative Specialist Name Role Phone Janett Valle Primary Care Provider [phone] Social History Tobacco Use Types Packs/Day Years [...] on patient's age to [place] [id number] [place] [facility] [employer] [facility] Care Teams Title Curative Specialist Relationship Specialty Start Date End Date Janett Valle PA [address] [place] [address] PCP - General Oncology 12/02/24
[2025-03-04 09:14] LABS: Hematocrit 37.6 % (37.0-47.0); Hemoglobin 12.5 g/dl (12.0-16.0); Mean Corpuscular HGB Conc 33.2 g/dl (31.0-35.0); Mean Corpuscular Hemoglobin 29.6 pg (27.0-33.0); Mean Corpuscular Volume 89.1 fL (80.0-98.0); NRBC Abs Auto 0.000 X10*3/uL (0.0-0.012); NRBC Pct Auto 0.0 /100WBC (0.0-0.2); Platelet Count 292 X10*3/uL (160-400); Red Blood Count 4.22 X10*6/uL (4.20-5.50); White Blood Count 6.9 X10*3/uL (4.8-10.8)
== END 2025-03-04 08:26 | disposition home or self-care (01) ==
LOC: HO.LAB 08:25
PROVIDERS: PCP Internal Medicine; Visit Provider Obstetrics & Gynecology
DX: N93.9 Abnormal uterine and vaginal bleeding, unspecified (principal)
CPT/HCPCS: 36415; 84443; 84702; 85027

== ENCOUNTER 2025-03-06 08:02 | Day surgery (SDC) | payer OTHER, SELFPAY ==
--- OUTSIDE RECORDS SUMMARY | 2025-03-02 16:01 | XMS_ITS | Clinical Summary ---
Author Organization [facility] Address [address] [place] [address] Phone Care Team Providers Care Battalion Chief Name Role Phone Janett Valle Primary Care Provider [phone] Encounters Date Type Department Care Team Description 12/02/2024 1:38 PM EDT - 12/02/2024 11:59 PM EDT Hospital Encounter [facility] Xray [address] [place] [address] Syncope and collapse Discharge Disposition: [...] Last [address] [place] [place] [address] [facility] HEALTH PLAN [facility] Care Teams Battalion Chief Relationship Specialty Start Date End Date Janett Valle PA [address] [place] [address] PCP - General Oncology 12/02/24
[2025-03-03 12:46] VITALS: BMI 22.5
[2025-03-06 08:32] LABS: UPreg QC Valid YES
[2025-03-06 08:36] VITALS: BP 130/72; PULSE 68; RESP 16; TEMP 36.7; O2SAT 100
[2025-03-06] MEDS: Lactated Ringers 1,000 ML 100 ML IVCONT (08:37)
--- NOTE | 2025-03-06 08:44 | HO.ANESPROP2 ---
Documented by User: Basilia Quinones NP 03/05/25 08:48 HPI - Anesthesia Eval Consult details Narrative: 34yo F for D&C Hysteroscopy,possible myomectomy,possible polypectomy [place] [facility] [place]: possible PFO: asa 81mg. ISAIAH 10/22/2024 which showed small size shunt noted most likely at the interatrial level although exact location not identified on this study, normal cardiac structures and function otherwise. (history of migraines and abnormal MRI with finding suggesting prior CVA) Orthostatic hypotension: increase fluids, salt, wear compression stockings Palpitations: nml holter 2024 Stable at last office visit 12/2024 with rec's as above [facility] Active Problems Active Problems: All Active Problems Abnormal ultrasound of endometrium (Acute) Weakness on left side of face (Acute) Worsening headaches (Acute) Left sided numbness (Acute) Acute headache (Acute) PFO (patent foramen ovale) (Acute) Complex ovarian cyst (Acute) Orthostatic hypotension (Acute) Right shoulder pain (Acute) Adnexal fullness (Acute) Well woman exam (Acute) Abnormal echocardiogram (Acute) Acute respiratory disease (Acute) Infarction of right basal ganglia (Acute) Abnormal brain MRI (Acute) Syncope (Acute) Migraine with aura (Acute) Facial paresthesia (Acute) New onset headache (Acute) Cervicogenic headache (Acute) Tension headache (Acute) PCOS (polycystic ovarian syndrome) (Acute) Mild major depression (Acute) Allergic rhinitis (Acute) Hospital discharge follow-up (Acute) Intractable migraine (Acute) Abnormal uterine bleeding (AUB) (Acute) Right knee pain (Acute) Pelvic floor weakness (Acute) Cervical polyp (Acute) Screen for sexually transmitted diseases (Acute) Cervical cancer screening (Acute) 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 (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) Palpitation (Acute) Ingrowing nail, right great toe (Acute) Epigastric pain (Acute) Dysfunctional uterine bleeding (Acute) Urinary (tract) obstruction (Acute) Fatigue (Acute) Bleeding of cervix (Acute) Migraine (Acute) Recurrent UTI (Acute) Physical exam (Acute) Osteoarthritis of right knee (Acute) Osteoarthritis of right acromioclavicular joint (Acute) Tachycardia (Acute) Rheumatoid arthritis (Acute) Past Medical History Medical History (Updated 03/03/25 @ 12:48 by Apple Ye RN) PFO (patent foramen ovale) Recurrent UTI Osteoarthritis of right knee Osteoarthritis of right acromioclavicular joint Blurred vision, bilateral History of 2019 novel coronavirus disease (COVID-19) Sinus tachycardia Hypovitaminosis Rheumatoid arthritis Migraine Family History Family History Maternal Aunt History of breast cancer in female Uterus cancer Father Family hx of hypertension Hx of thyroid disease Diabetes mellitus Maternal Grandfather Family hx of hypertension History of heart disease Maternal Grandmother Family hx of hypertension Brother History of asthma Mother Diabetes mellitus Family history of problems with anesthesia: No Surgical History Surgical History Surgical history of tubal ligation History of History of Problems with Anesthesia: No Social History Social History Household Members: Family Housing: Apartment Are you a primary home health aide caregiver to a significant other at home: No Do you presently have visiting nurse or other home services: No Unable to assess alcohol history related to: Unable to respond Alcohol intake: never Patient Tobacco Use Status: Never used Tobacco Tobacco use type: Cigarette e-Cigarette/Vaping Use: Never Used Second Hand Smoke Exposure: No Use of substances other than those prescribed or required for medical reasons: No Advance Directives: No Advance Directives Information Provided: Yes service: No Current occupational status: employed 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 Current occupational exposures/hazards: No Sexual orientation: Straight/Heterosexual Gender identity: Female Cognitive needs: No Hearing needs: No Vision needs: No Meds Allergies Allergy/AdvReac Type Severity Reaction Status Date / Time Sulfa (Sulfonamide Allergy Severe anaphylaxis Verified 03/03/25 12:38 Antibiotics) acetaminophen (From TYLENOL) Allergy Intermediate RASH, Verified 03/03/25 12:38 THROAT SWELLING morphine (MORPHINE) Allergy Intermediate RASH, Verified 03/03/25 12:38 THROAT SWELLING , swelling oseltamivir Allergy Intermediate diarrhea Verified 03/03/25 12:38 sulfamethoxazole (From AdvReac Intermediate Difficulty Verified 03/03/25 12:38 Bactrim) Breathing trimethoprim (From Bactrim) AdvReac Intermediate Difficulty Verified 03/03/25 12:38 Breathing Home Medications ?Medication ?Instructions ?Recorded ?Confirmed ?Last Taken ?Type gabapentin 100 mg capsule 100 mg PO BEDTIME PRN Pain 01/21/25 03/03/25 Unknown History naproxen 375 mg tablet 375 mg PO BID PRN PRN 01/21/25 03/03/25 Unknown History sertraline 25 mg tablet 25 mg PO DAILY 01/21/25 03/03/25 Unknown History Exam Height,Weight and Vital Signs: Height 5 ft 1 in Weight 53.977 kg Narrative Narrative: EKG 01/2025 Vent. Rate : 61 BPM Atrial Rate : 61 BPM P-R Int : 124 ms QRS Dur : 78 ms QT Int : 378 ms P-R-T Axes : 61 74 64 degrees QTcB Int : 380 ms Normal sinus rhythm with sinus arrhythmia Normal ECG When compared with ECG of 21-Jan-2025 00:18, Vent. rate has decreased by 46 bpm QT has shortened ISAIAH 10/2024 Conclusion: ??? 1. Small size shunt noted most likely at the interatrial level although exact locations not identified on this study 2. Normal cardiac structure and function otherwise Findings Procedure Information Consent was obtained prior to the procedure. Pre ISAIAH oral cavity was checked and revealed mild overcrowding. The adult 3D probe was passed with no difficulty. This was a technically good study. Left Ventricle Normal left ventricular size, thickness, and systolic function. The visually estimated ejection fraction is between 60-65%. Diastolic function is normal for age. There is no evidence of a mass in the left ventricle. There is some increased trabeculation towards the mid ventricle at the inferolateral surface, not meeting criteria for noncompaction Holter 11/2024 1. Baseline was normal sinus rhythm with no pauses 2. No significant arrhythmias noted 3. Patient marked events correlated with sinus rhythm Assessment and Plan Assessment Anesthesia Assessment: Chart Reviewed Final Anesthetic Review Family History of Problems with Anesthesia: No History of Problems with Anesthesia: No Documented by User: Nelli Marsh DO 03/06/25 08:46 [facility] Past Medical History Medical History (Updated 03/03/25 @ 12:48 by Apple Ye RN) PFO (patent foramen ovale) Recurrent UTI Osteoarthritis of right knee Osteoarthritis of right acromioclavicular joint Blurred vision, bilateral History of 2019 novel coronavirus disease (COVID-19) Sinus tachycardia Hypovitaminosis Rheumatoid arthritis Migraine Family History Family History Maternal Aunt History of breast cancer in female Uterus cancer Father Family hx of hypertension Hx of thyroid disease Diabetes mellitus Maternal Grandfather Family hx of hypertension History of heart disease Maternal Grandmother Family hx of hypertension Brother History of asthma Mother Diabetes mellitus Family history of problems with anesthesia: No Surgical History Surgical History Surgical history of tubal ligation History of History of Problems with Anesthesia: No Social History Social History Household Members: Family Housing: Apartment Are you a primary home health aide caregiver to a significant other at home: No Do you presently have visiting nurse or other home services: No Unable to assess alcohol history related to: Unable to respond Alcohol intake: never Patient Tobacco Use Status: Never used Tobacco Tobacco use type: Cigarette e-Cigarette/Vaping Use: Never Used Second Hand Smoke Exposure: No Use of substances other than those prescribed or required for medical reasons: No Advance Directives: No Advance Directives Information Provided: Yes service: No Current occupational status: employed 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 Current occupational exposures/hazards: No Sexual orientation: Straight/Heterosexual Gender identity: Female Cognitive needs: No Hearing needs: No Vision needs: No Meds Allergies Allergy/AdvReac Type Severity Reaction Status Date / Time Sulfa (Sulfonamide Allergy Severe anaphylaxis Verified 03/03/25 12:38 Antibiotics) acetaminophen (From TYLENOL) Allergy Intermediate RASH, Verified 03/03/25 12:38 THROAT SWELLING morphine (MORPHINE) Allergy Intermediate RASH, Verified 03/03/25 12:38 THROAT SWELLING , swelling oseltamivir Allergy Intermediate diarrhea Verified 03/03/25 12:38 sulfamethoxazole (From AdvReac Intermediate Difficulty Verified 03/03/25 12:38 Bactrim) Breathing trimethoprim (From Bactrim) AdvReac Intermediate Difficulty Verified 03/03/25 12:38 Breathing Home Medications ?Medication ?Instructions ?Recorded ?Confirmed ?Last Taken ?Type gabapentin 100 mg capsule 100 mg PO BEDTIME PRN Pain 01/21/25 03/03/25 Unknown History naproxen 375 mg tablet 375 mg PO BID PRN PRN 01/21/25 03/03/25 Unknown History sertraline 25 mg tablet 25 mg PO DAILY 01/21/25 03/03/25 Unknown History Exam Exam Date and Time: 03/06/25 0840 Height,Weight and Vital Signs: Height 5 ft 1 in Weight 53.977 kg Vital Signs Temperature 98.1 F 03/06/25 08:36 Pulse Rate 68 03/06/25 08:36 Respiratory Rate 16 03/06/25 08:36 Blood Pressure 130/72 03/06/25 08:36 Pulse Oximetry 100 03/06/25 08:36 Oxygen Delivery Method Room Air 03/06/25 08:36 Temperature 98.1 F 03/06/25 08:36 Pulse Rate 68 03/06/25 08:36 Respiratory Rate 16 03/06/25 08:36 Blood Pressure 130/72 03/06/25 08:36 Pulse Oximetry 100 03/06/25 08:36 Oxygen Delivery Method Room Air 03/06/25 08:36 Airway Mallampati Class: I TM Dist: >3cm Neck ROM: Full Loose/Missing/Broken Teeth: Yes (several missing teeth but nothing loose or broken) Heart: S1S2 Lungs: CTAB Assessment and Plan Assessment Anesthesia Assessment: Anesthesia Plan Discussed and Chart Reviewed Final Anesthetic Review Family History of Problems with Anesthesia: No History of Problems with Anesthesia: No NPO: Yes ASA Class: II Final Preanesthetic Review: No Changes in Pt Med Stat, Meds/Allgs Chart Reviewed, Consent Obtained/Reviewed and Anes Risks/Benef Reviewed Patient Risk: Low Procedure Risk: Low Anesthetic Plan Anesthetic Plan: GA and Agree w/ Assess. and Plan Disposition: Standard PACU
--- NOTE | 2025-03-06 09:11 | MHC.SHP ---
Pre-Procedural Eval Section A - 24 Hr Update-Section A only Date of Service: 03/06/25 The patient is an INPATIENT: No Changes since office visit: No Cold of Flu in the past 2 weeks, No New Medical Problems, No Changes in Medication and No Patient answered all questions The patient has been examined within 24 hours of the surgical procedure. The History & Physical has been completed within 30 days and I have reviewed it.: Yes Section B - Complete if H&P > 30 days Chief Complaint: Abnormal findings on diagnostic imaging of other Allergies: Allergies Allergy/AdvReac Type Severity Reaction Status Date / Time Sulfa (Sulfonamide Allergy Severe anaphylaxis Verified 03/03/25 12:38 Antibiotics) acetaminophen (From TYLENOL) Allergy Intermediate RASH, Verified 03/03/25 12:38 THROAT SWELLING morphine (MORPHINE) Allergy Intermediate RASH, Verified 03/03/25 12:38 THROAT SWELLING , swelling oseltamivir Allergy Intermediate diarrhea Verified 03/03/25 12:38 sulfamethoxazole (From AdvReac Intermediate Difficulty Verified 03/03/25 12:38 Bactrim) Breathing trimethoprim (From Bactrim) AdvReac Intermediate Difficulty Verified 03/03/25 12:38 Breathing Plan Diagnosis/Plan: Unchanged I have reviewed the history and physical and performed a pertinent physical examination on my patient. No changes have occurred unless specified. Time Spent With Patient Time: Total time managing care of this patient today ____ minutes.
--- NOTE | 2025-03-06 10:29 | PM.OP ---
Brief Operative Note Date of Service: 03/06/25 Pre-op diagnosis: Abnormal endometrium by ultrasound Post-op diagnosis: same (Endometrial polyp) Procedure: Hysteroscopy D&C, Polypectomy Surgeon: Brock Padilla MD Anesthesia: GLMA Was an Dedicated Truck Driver used for this Procedure?: No Estimated blood loss (mL): 0 Pathology: other (Endometrial Scrapping. Polyp) Condition: stable Disposition: PACU
--- NOTE | 2025-03-06 10:29 | W.PM.OPN ---
Operative Note Operative Note Date of Service: 03/06/25 Narrative: Preop Diagnosis: Abnormal endometrium by US Operation: Diagnostic Hysteroscopy, Dilataion & Curettage and polypectomy Post Op Diagnosis: Endometrial Polyp QBL: Minimal Anesthesia: GLMA Surgeon: Brock Padilla MD Heating And Blending Supervisor: None Complication: None Pathology: Endometrial Scrapings, Endometrial polyp Procedure: The patient was put in the dorsal lithotomy position, scrubbed, and draped in the usual manner. A sterile speculum was inserted in the patient's vagina. The anterior lip of the cervix was grasped with a single tooth tenaculum. The cervix was dilated up to 5 mm, then the scope was inserted in the patient's uterus. Inspection revealed endometrial polyp. The Myosure Reach device was used; it was introduced through the operative channel and polypectomy done with no complications. The scope was then taken out from the uterine cavity, sharp curettings was carried on with minimal to moderate amount of tissues retrieved. At the end of the procedure, all instruments were taken out of the patient uterine and vaginal cavity. The single tooth tenaculum was removed and homeostasis was assured using pressure,. The patient tolerated the procedure well and was transferred to the PACU in a stable condition.
[2025-03-06 10:32] VITALS: BP 98/57; PULSE 54; RESP 16; TEMP 36.2; O2SAT 100
[2025-03-06 10:37] VITALS: BP 94/50; PULSE 55; RESP 16; O2SAT 100
[2025-03-06 10:42] VITALS: BP 95/53; PULSE 51; RESP 16; O2SAT 100
[2025-03-06 10:47] VITALS: BP 97/50; PULSE 56; RESP 16; O2SAT 100
[2025-03-06 11:03] VITALS: BP 110/56; PULSE 54; RESP 18; TEMP 36.2; O2SAT 100
== END 2025-03-06 11:30 | disposition home or self-care (01) ==
PROVIDERS: PCP Internal Medicine; Visit Provider Obstetrics & Gynecology
PROC: 0UDB8ZZ Extraction of Endometrium, Via Natural or Artificial Opening Endoscopic (ICD-10-PCS; CPT 58558; principal; 2025-03-06 10:10)
DX: N93.9 Abnormal uterine and vaginal bleeding, unspecified (principal); N84.0 Polyp of corpus uteri; N88.8 Other specified noninflammatory disorders of cervix uteri; N83.292 Other ovarian cyst, left side; N83.291 Other ovarian cyst, right side; J06.9 Acute upper respiratory infection, unspecified; R00.0 Tachycardia, unspecified; Q21.12 Patent foramen ovale; M06.9 Rheumatoid arthritis, unspecified; G43.909 Migraine, unspecified, not intractable, without status migrainosus; Z88.2 Allergy status to sulfonamides; Z88.5 Allergy status to narcotic agent; Z87.891 Personal history of nicotine dependence; Z79.899 Other long term (current) drug therapy
CPT/HCPCS: 58558; 81025; 88305; J1100; J1885; J2003; J2250; J2405; J2704; J3010

== ENCOUNTER → 2025-03-06 08:02 | Outpatient (BNV) | payer OTHER, SELFPAY | PROVIDERS: PCP Internal Medicine; Visit Provider Obstetrics & Gynecology | DX: N84.0 Polyp of corpus uteri (principal) | CPT/HCPCS: 58558 ==

== ENCOUNTER 2025-03-19 10:54 | Outpatient (AMB) | payer OTHER, SELFPAY ==
--- NOTE | 2025-03-19 10:54 | MHC.OFFVIS ---
Intake Visit Reasons: post op Allergies Sulfa (Sulfonamide Antibiotics) Allergy (Severe, Verified 03/03/25 12:38) anaphylaxis acetaminophen (From TYLENOL) Allergy (Intermediate, Verified 03/03/25 12:38) RASH, THROAT SWELLING morphine (MORPHINE) Allergy (Intermediate, Verified 03/03/25 12:38) RASH, THROAT SWELLING , swelling oseltamivir Allergy (Intermediate, Verified 03/03/25 12:38) diarrhea sulfamethoxazole (From Bactrim) Adverse Reaction (Intermediate, Verified 03/03/25 12:38) Difficulty Breathing trimethoprim (From Bactrim) Adverse Reaction (Intermediate, Verified 03/03/25 12:38) Difficulty Breathing HPI Comments Details: The patient scheduled a telehealth visit post hysteroscopy D&C no complaints minimal vaginal bleeding no feverishness chills or abdominal pain. The pathology showed the following: A. Endometrial polyp, resection: Polypoid fragments of benign endometrium with focal breakdown, features suggesting chronic endometritis, atrophic glands, and decidual stromal change consistent with progestin effect, fragments of benign endometrial polyp without progestin effect, and fragments of benign smooth muscle; no atypia or carcinoma. B. Endometrium, curettage: Benign endometrium with focal breakdown, atrophic glands, and decidual stromal change consistent with progestin effect, few polypoid fragments of endometrium without progestin effect, and benign endocervical glandular mucosa; no atypia or carcinoma PFSH Medical History PFO (patent foramen ovale) Recurrent UTI Osteoarthritis of right knee Osteoarthritis of right acromioclavicular joint Blurred vision, bilateral History of 2019 novel coronavirus disease (COVID-19) Sinus tachycardia Hypovitaminosis Rheumatoid arthritis Migraine Surgical History Surgical history of tubal ligation History of Family History Maternal Aunt History of breast cancer in female Uterus cancer Father Family hx of hypertension Hx of thyroid disease Diabetes mellitus Maternal Grandfather Family hx of hypertension History of heart disease Maternal Grandmother Family hx of hypertension Brother History of asthma Mother Diabetes mellitus Social History Household Members: Family Housing: Apartment Are you a primary health and social care teacher to a significant other at home: No Do you presently have visiting nurse or other home services: No Unable to assess alcohol history related to: Unable to respond Alcohol intake: never Patient Tobacco Use Status: Never used Tobacco Tobacco use type: Cigarette e-Cigarette/Vaping Use: Never Used Second Hand Smoke Exposure: No service: No Current occupational status: employed 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 Current occupational exposures/hazards: No Sexual orientation: Straight/Heterosexual Gender identity: Female Cognitive needs: No Hearing needs: No Vision needs: No Female Reproductive History Menstrual Age of Menarche: 12 Review of Systems Const All systems reviewed & are unremarkable except as noted in HPI and below Reports as per HPI and Reports no additional complaints GI Reports no additional complaints Reports no additional complaints Telehealth Telehealth Location of patient: address on file Patient Identification confirmed using: Name, : Yes Telehealth method: video Patient verbally consented to treatment: Yes Patient verbally consented to billing insurance company: Yes Patient informed of any privacy concerns related to visit: Yes Minutes spent on Phone/Video with Pt.: 4 Assessment & Plan Assessment & Plan (1) Abnormal ultrasound of endometrium: Code(s): R93.5 - Abnormal findings on diagnostic imaging of other abdominal regions, including retroperitoneum Category: Medical Plan: Discussed with the patient the intraoperative finding and the pathology results. The patient was reassured. Instructions given the patient to call in case of recurrence of abnormal uterine bleeding or any other concerns. All questions answered, the patient verbalized understanding and agreed with the plan. I spent a total of 20 minutes reviewing the chart, talking to the patient via video and documenting in the medical record. Coding Level of Care Code Tele Est Pt Level 3 (65478) Diagnoses Abnormal ultrasound of endometrium R93.5
--- OUTSIDE RECORDS SUMMARY | 2025-03-19 11:44 | XMS_ITS | Clinical Summary ---
Author Organization [facility] Address [address] [place] [phone] Phone Care Team Providers Care Painting Instructor Name Role Phone Janett Valle Primary Care Provider [phone] Social History Tobacco Use Types Packs/Day Years [...] Vaccine (2023-2 5 season) 2024 Depression Screening 08/20/2024 HIV Screening 10/09/2024 Hepatitis C Screening 10/09/2024 [...] complete [place] [id number] [employer] [facility] [employer] [facility] Care Teams Painting Instructor Relationship Specialty Start Date End Date Janett Valle PA [address] [place] [address] PCP - General Oncology 12/02/24
== END 2025-03-19 11:16 | disposition home or self-care (01) ==
LOC: HO.HWS 10:54
PROVIDERS: PCP Internal Medicine; Visit Provider Obstetrics & Gynecology
DX: R93.5 Abnormal findings on diagnostic imaging of other abdominal regions, including retroperitoneum (principal)
CPT/HCPCS: 99213

== ENCOUNTER 2025-03-24 07:31 | Outpatient (AMB) | payer OTHER, SELFPAY ==
--- NOTE | 2025-03-24 07:32 | A.OFFVIS_ITS ---
Intake Visit Reasons: 3 mo f/u Intake Note: Patient presents follow up Migraine medication. Migraines are about the same. Past 3 days hand and feet feel numb and can not sleep. She has about daily migraines, patient states they start when she wakes up or she will be ok wakeing up and then little while later she will start getting one. 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 Machine Servicer Required: No Accompanied by: Self / Same As Patient Allergies Sulfa (Sulfonamide Antibiotics) Allergy (Severe, Verified 03/24/25 07:32) anaphylaxis acetaminophen (From TYLENOL) Allergy (Intermediate, Verified 03/24/25 07:32) RASH, THROAT SWELLING morphine (MORPHINE) Allergy (Intermediate, Verified 03/24/25 07:32) RASH, THROAT SWELLING , swelling oseltamivir Allergy (Intermediate, Verified 03/24/25 07:32) diarrhea sulfamethoxazole (From Bactrim) Adverse Reaction (Intermediate, Verified 03/24/25 07:32) Difficulty Breathing trimethoprim (From Bactrim) Adverse Reaction (Intermediate, Verified 03/24/25 07:32) Difficulty Breathing Medication List - Last Reconciled 03/24/25 by YENNY Ritchie aspirin 81 mg PO BEDTIME 30 days certolizumab pegol (Cimzia) 200 mg subcut .every 10 days cyclobenzaprine 5 mg PO TID PRN gabapentin 100 - 300 mg (1 - 3 x 100 mg) PO BEDTIME PRN 30 days galcanezumab-gnlm (Emgality Pen) 240 mg (2 mL) subcut ONCE 30 days magnesium oxide 400 mg PO BEDTIME 90 days naproxen 375 mg PO BID PRN omeprazole 20 mg PO DAILY 90 days riboflavin (vitamin B2) 400 mg PO DAILY 90 days sertraline 50 mg PO DAILY 30 days ubrogepant (Ubrelvy) 50 - 100 mg (0.5 - 1 x 100 mg) PO ONCE PRN 30 days HPI Comments Details: 34- yr-old female presents for follow-up televideo visit for headache, possible right basal ganglia infarct, left facial and left-sided weakness, orthostatic hypotension Since the last visit, patient had an acute episode of left upper and lower facial weakness. Patient had spoke with this provider via [facility] video call, and this weakness was appreciated was consistent with a left-sided Milian's palsy. She was given a course of valacyclovir and prednisone taper, which she completed. Since, she has had improvement in her left facial strength. She states that overall she has been feeling better, however the last 2-3 nights she has had increased electrical painful numbness tingling in her bilateral hands and feet, which makes it difficult to sleep. She does have an order for gabapentin 100 mg, but states she needs a refill on this. She states her left upper and lower extremity still feels a bit we, she describes this as when she puts in her shoe she has some difficulty pushing her foot into the shoe. We got an order for PT eval and treat on 03/22/2025, patient has not heard from them yet. She can still have episodes during the day where she can feel lightheaded, dizzy, electrical numbness and tingling throughout, associated with variable heart rate, sometimes in the 40s but other times 125 greater. She is tolerating the sertraline 25 mg daily well. She is taking about 80 oz of fluid a day, and then every few days she may drink a full bottle of generic electrolyte/Pedialyte type beverage. She is having 3-4 migraine days per week. She did start Ubrelvy, which was initially not working well, however when she started taking it with ibuprofen at the same time, she has found it to be effective. Unfortunately the migraine may returned several hours later, and she would did not really so she can repeat the dose of the Ubrelvy and ibuprofen. She states her employer has not had her to return to work, based on the last work note. 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 She does feel that she could return to work part-time basis without restrictions. 12/22/24, Previous HPI: Patient's brain MRI showed a foci of increased T2 signal intensity right basal ganglia/external capsule w/ associated hemosiderin staining. Upon review of the MRI, we reviewed findings with patient. Patient denies any known history of infarct or head trauma. Patient then underwent follow-up MR a head and neck, which did not show any significant stenosis, or aneurysm, though the left vertebral artery is dominant. Her echocardiogram was notable for a small PFO. Per Cardiology, patient underwent a follow-up ISAIAH, which showed a small-sized shunt most likely at the inter arterial level- though study could not confirm specific location. Patient also underwent recent tilt-table test at [facility], results were consistent with orthostatic hypotension. She is currently wearing a 30 day Holter monitor. She is started on aspirin 81 mg q.h.s. She has not done the C-spine x-ray yet, she forgot about that order. She also notes she had a recent adjustment in her RA tx- now taking her DMT, Cimzia, every 10 days instead of every 14 days- in hopes this reduces the RA flares. She notes that she always has a migraine on the day that she takes her Cimzia. Since the last visit, pt started to experience worsening orthostatic lightheadedness. Patient states after the positive tilt-table test, she was advised to increase fluids, take Pedialyte, increase her salt intake, which he is trying to do but has not help much, she is still having the orthostatic lightheadedness almost every day. Pt states she is not having as many headaches. States she tried naratriptan, which helped some but not fully. Her PCP started her on Amitriptyline last month- to help with anxiety and sleep. Using it prn when she is more anxious, as when she takes it- it causes her heart to feel like it goes very slow or very slow. She uses gabapentin 100 mg q.h.s. as needed for RA pain. She still feels a slight pressure discomfort behind each ears. She states her neck pain is much pressure since doing PT- states it may hurt sometimes w/ a bit of pressure and heavy but not as severe as before. 06/26/24, Initial HPI: Right-handed 33-yr-old female presents for new pt evaluation of headache disorder. Pt is accompanied by her , Angel Luis. Pt reports she started having bothersome headaches in Aug 2022, w/o precipitating causes. These headaches were lasting a week. She also started having neck stiffness w/wo the headache. She went to the ER a few times- Head CT- negative- and was told they were stress. Since, the headaches are better but still occur 3 times per week. PMH and ROS are notable for:? General: anemia, dizziness Musculoskeletal disorders or injury: hand, neck pain. Rheumatoid arthritis. History of concussion/head injury: in 2012, a window fell on top of her, had headaches for about a month. Mood d/o: Anxiety, Depression History of syncope: has passed out 3 times- ears become full, see spots, and body feels weak, vision goes black, and then has LOC x's 1-2 min, her states her body is tense and slightly shaking (not tonic-clonic) when she comes to she feels ok. Denies intraictal tongue biting/incontinence. 2 times at night when she got up to void, 1 time she was taking a shower- this time did have a bad headache. This also happened twice around age 15. 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 Family planning: s/p tubal ligation. has 3 children. 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 Typical headache characteristics: Prodrome symptoms: unsure Aura: soemtimes sees little circles at start of the headache. Pain intensity: moderate-severe Location, quality, characteristics: Tension and pressure in back of head that moves into back of eyes and sides of head. Can also be throbbing and stabbing i different areas. Associated symptoms: photophobia, phonophobia, allodynia, nausea, not right in space dizziness, lightheadedness, fatigue, cognitive difficulties, activity intolerance, right facial tingling/numbness. Postdrome: dizziness may linger Triggers: standing up exacerbates headache, poor fluid intake, hunger, stress, noise, sometimes Menstrual cycle. Time of day: can wake up with headache but not always. Duration and Frequency: 3 times per week, can last hours to a whole day, and lingering dizziness can last into next day. How does headache impact your life? needs to lay down, misses work or leaves work. Current acute medication use/interventions: Naproxen- ineffective. Ibuprofen 400-800mg- helps some for a couple of hours. Current preventative medication use: None Non-pharmacological interventions: sleep [facility] Medical History PFO (patent foramen ovale) Recurrent UTI Osteoarthritis of right knee Osteoarthritis of right acromioclavicular joint Blurred vision, bilateral History of 2019 novel coronavirus disease (COVID-19) Sinus tachycardia Hypovitaminosis Rheumatoid arthritis Migraine Surgical History Surgical history of tubal ligation History of Family History Maternal Aunt History of breast cancer in female Uterus cancer Father Family hx of hypertension Hx of thyroid disease Diabetes mellitus Maternal Grandfather Family hx of hypertension History of heart disease Maternal Grandmother Family hx of hypertension Brother History of asthma Mother Diabetes mellitus Social History Household Members: Family Housing: Apartment Are you a primary coronary care unit nurse to a significant other at home: No Do you presently have visiting nurse or other home services: No Unable to assess alcohol history related to: Unable to respond Alcohol intake: never Patient Tobacco Use Status: Never used Tobacco Tobacco use type: Cigarette e-Cigarette/Vaping Use: Never Used Second Hand Smoke Exposure: No service: No Current occupational status: employed 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 Current occupational exposures/hazards: No Sexual orientation: Straight/Heterosexual Gender identity: Female Cognitive needs: No Hearing needs: No Vision needs: No Female Reproductive History Menstrual Age of Menarche: 12 Physical Exam Const General: cooperative and no acute distress Orientation/consciousness: patient oriented x3 Resp Effort & Inspection: normal respiratory effort and able to speak in complete sentences Neuro Other: Bilateral upper and lower facial strength symmetric General: patient oriented x3 Cranial nerves: Yes CN's II-XII intact bilaterally Cognition (Neuro): normal cognition Psych Appearance: grossly normal Mental Status: mental status grossly normal Speech and movement: Normal speech and movement present Affect: normal affect Attitude: cooperative Telehealth Telehealth Telehealth Platform: Doximity Location of provider rendering services: practice address Location of patient: address on file Patient Identification confirmed using: Name, : Yes Telehealth method: video Patient verbally consented to treatment: Yes Patient verbally consented to billing insurance company: Yes Patient informed of any privacy concerns related to visit: Yes Results Reviewed Results Reviewed: 08/25/2024, MR/MR head/brain wo/w con IMPRESSION: Slitlike focus of increased T2 signal intensity in the right basal ganglia/external capsule with associated hemosiderin, likely representing the sequela of an old infarct or trauma. Clinical correlation is recommended. No acute intracranial abnormality. 09/21/2024, MR/MR angio head wo con IMPRESSION: No main cerebral artery occlusion or embolus or aneurysm. 10/27/2024, MR/MR angio neck wo/w con IMPRESSION: No high degree stenosis or dissection. Left vertebral artery is dominant. 12/02/2024, tilt table test at [facility] Positive for OH 10/22/2024, [place] echo transesophageal Conclusion: 1. Small size shunt noted most likely at the interatrial level although exact locations not identified on this study 2. Normal cardiac structure and function otherwise 10/01/2024, [place] echo transthoracic Conclusions: - 1. Small PFO noted, consider ISAIAH 2. Normal LV ejection fraction of 60 65% 3. Normal cardiac valvular Doppler Assessment & Plan Assessment & Plan (1) Cervicogenic headache: Code(s): G44.86 - Cervicogenic headache Category: Medical (2) Migraine with aura: Code(s): G43.109 - Migraine with aura, not intractable, without status migrainosus Category: Medical (3) Orthostatic hypotension: Code(s): I95.1 - Orthostatic hypotension Category: Medical (4) Abnormal brain MRI: Comment: Slitlike focus of increased T2 signal intensity in the right basal ganglia/external capsule with associated hemosiderin, likely representing the sequela of an old infarct Code(s): R90.89 - Other abnormal findings on diagnostic imaging of central nervous system Category: Medical (5) Left-sided weakness: Code(s): R53.1 - Weakness Category: Medical Plan For brain MRI showing possible right basal ganglia chronic infarct with hemosiderin staining, echocardiogram showing small PFO, and tilt-table test showing orthostatic hypotension. With reassuring brain and neck MRA: Continue aspirin 81 mg q.h.s. Encouraged patient to continue to take increase fluids, take fluid bolus before showering, and continue increased salt intake- may try OTC Thermotabs. * Take at least 12 oz of electrolyte supplement per day * Shanel electrolyte supplement drink with her when out of the home 30 day Holter as ordered. Follow-up with cardiology as ordered. For left-sided weakness and numbness and tingling: Reviewed C-spine x-ray- within normal limits We will request a BLE/BLE EMG/NCS Increase gabapentin to 100-300 mg daily at bedtime p.r.n. PT eval and treat as requested For overall headache management: * Optimize good self-care, including but not limited to maintaining a healthy diet, adequate fluid intake, adequate sleep, and engaging in regular physical activity. * Track headaches, especially after any treatment regimen changes. Migraine [employer] is one of many headache tracking apps. * Information previously shared on non-pharmacological interventions which may help to alleviate headache attack burden. * Continue PT exercises For acute headache treatment: Discussed importance of taking acute medications at the first sign of headache, however stressed importance of avoiding acute medication overuse (especially with combined headache medications). Discontinue Naratriptan 2.5mg tab, 1/2 - 1 tab (1.25-2.5mg) order- not fully effective. Continue Ubrogepant (Ubrelvy) 100mg tab, 1/2 - 1 tab (50-100mg) at onset of headache, may repeat in 2 hours. Max of 2 tabs (200mg) per 24 hours. May adjunct with OTC Ibuprofen 600mg q 6 hours, or Naproxen 440mg q 12 hrs prn. Previous acute migraine medication trials: Sumatriptan- helped some but caused nausea. Naratriptan not fully effective.. Acute migraine medication contraindications: Tylenol- allergy. All triptans and DHE due to history of right basal ganglia infarct/stroke. For headache prevention medication: Preventative medications should be taken routinely as prescribed for best effect, it may take several weeks for full effect to take effect. Continue Riboflavin 400mg qam Continue Magnesium 400mg qhs- may hold for loose stools. Stop amitriptyline, as patient reports it causes palpitations. Increase sertraline 25 mg to 50 mg p.o. daily in a.m.- may help with anxiety and orthostatic lightheadedness as well. Start Emgality 120mg/ml auto-injection: Loading dose: 240mg (2 120mg/ml auto-injections) via subcutaneous injection in 2 different sites). Then 30 days after loading dose, start Maintenance dose: 120mg (120mg/ml autoinjector) subcutaneous injection every month. Patient requests injection training once Emgality available. Important considerations: * Emgality will likely require insurance prior authorization prior to receiving it from the pharmacy. * Potential side effects include allergic reaction and injection site reactions. * Emgality injection training educational video is available to view on [employer] * Store Emgality in the refrigerator in it's original packaging in order to protect from light. * Remove Emgality at least 1 hour prior to taking the injection. * Emgality can be left out of the fridge for?up to 7 days at a temperature not above 86?F. If either of these conditions are exceeded, then Emgality must be thrown away. * Once Emgality has been stored out of refrigeration, do not place it back in the refrigerator. Previous migraine prevention medication trials: Amitriptyline-cause palpitations Migraine prevention medication contraindications: All beta-blockers and antihypertensive treatments due to history of syncope and orthostatic hypotension. Will follow-up upon review of above and patient to follow-up in clinic in 3 and 6 months or sooner prn. Orders: Orders NE electromyogram (EMG) Today R53.1 - Weakness, R90.89 - Other abnormal findings on diagnostic imaging of central nervous system NE nerve conduction velocity Today R53.1 - Weakness, R90.89 - Other abnormal findings on diagnostic imaging of central nervous system Medications: New galcanezumab-gnlm (Emgality Pen) Loading dose: 120 mg subcu injection x2 in alternate sites (total 240 mg). To be followed by maintenance dose of 120 mg subcu q.month. 240 mg (2 mL) subcut ONCE 2 mL 0RF 30 days sertraline 50 mg PO DAILY 30 tabs 6RF 30 days Changed From riboflavin (vitamin B2) 400 mg PO DAILY 30 days 30 tabs 6RF To riboflavin (vitamin B2) 400 mg PO DAILY 90 tabs 3RF 90 days From gabapentin 100 mg PO BEDTIME PRN Pain To gabapentin 100 - 300 mg (1 - 3 x 100 mg) PO BEDTIME PRN 90 caps 6RF Pain and tingling pain 30 days From magnesium oxide may hold for loose stools 400 mg PO BEDTIME 30 days 30 tabs 6RF To magnesium oxide may hold for loose stools 400 mg PO BEDTIME 90 tabs 3RF 90 days Coding Level of Care Code Tele Est Pt Level 4 (98347) Diagnoses Cervicogenic headache G44.86 Migraine with aura G43.109 Orthostatic hypotension I95.1 Abnormal brain MRI R90.89 Left-sided weakness R53.1
--- OUTSIDE RECORDS SUMMARY | 2025-03-24 07:34 | XMS_ITS | Clinical Summary ---
Author Organization [facility] Address [address] [place] [id number] Phone Care Team Providers Care Microwave Remote Sensing Scientist Name Role Phone Janett Valle Primary Care Provider [phone] Social History Tobacco Use Types Packs/Day Years [...] to complete [place] [address] [place] [address] [id number] [facility] [employer] [facility] Care Teams Microwave Remote Sensing Scientist Relationship Specialty Start Date End Date Janett Valle PA [address] [place] [address] PCP - General Oncology 12/02/24
== END 2025-03-24 09:47 | disposition home or self-care (01) ==
LOC: HO.HSMS 07:32
PROVIDERS: PCP Internal Medicine; Visit Provider Nurse Practitioner Family
DX: G44.86 Cervicogenic headache (principal); G43.109 Migraine with aura, not intractable, without status migrainosus; I95.1 Orthostatic hypotension; R90.89 Other abnormal findings on diagnostic imaging of central nervous system; R53.1 Weakness
CPT/HCPCS: 99214

== ENCOUNTER 2025-04-29 09:28 | Outpatient (AMB) | payer OTHER, SELFPAY ==
--- NOTE | 2025-04-29 09:59 | AM.OFFWIN_ITS ---
Intake Vital Signs 04/29/25 10:00 Height 5 ft 1 in Weight 125 lb BMI 23.6 BP 102/66 Blood Pressure Location Rt brachial Position Sitting Pulse 94 Pulse Source Pulse Oximeter Temp 98.6 F Temp Source Oral Pulse Oximetry (%) 94 Oxygen Delivery Method Room Air Intake Visit Reasons: EP-neck pain, headaches Intake Note: pt presents with neck pain with decreased ROM and headaches for a few days- denies any injury Patient Tobacco Use Status: Never used Tobacco Allergies Sulfa (Sulfonamide Antibiotics) Allergy (Severe, Verified 04/29/25 10:12) anaphylaxis acetaminophen (From TYLENOL) Allergy (Intermediate, Verified 04/29/25 10:12) RASH, THROAT SWELLING morphine (MORPHINE) Allergy (Intermediate, Verified 04/29/25 10:12) RASH, THROAT SWELLING , swelling oseltamivir Allergy (Intermediate, Verified 04/29/25 10:12) diarrhea sulfamethoxazole (From Bactrim) Adverse Reaction (Intermediate, Verified 04/29/25 10:12) Difficulty Breathing trimethoprim (From Bactrim) Adverse Reaction (Intermediate, Verified 04/29/25 10:12) Difficulty Breathing Medication List - Last Reconciled 04/29/25 by Kash Antonio MD aspirin 81 mg PO BEDTIME 30 days certolizumab pegol (Cimzia) 200 mg subcut .every 10 days cyclobenzaprine 5 mg PO TID PRN gabapentin 100 - 300 mg (1 - 3 x 100 mg) PO BEDTIME PRN 30 days galcanezumab-gnlm (Emgality Pen) 240 mg (2 mL) subcut ONCE 30 days magnesium oxide 400 mg PO BEDTIME 90 days omeprazole 20 mg PO DAILY 90 days riboflavin (vitamin B2) 400 mg PO DAILY 90 days sertraline 50 mg PO DAILY 30 days ubrogepant (Ubrelvy) 50 - 100 mg (0.5 - 1 x 100 mg) PO ONCE PRN 30 days Do you need a note to return to daycare/school/sports/work: No HPI EP-neck pain, headaches HPI Details History of Present Illness The patient is a 34-year-old female presenting with neck pain. Neck Pain: - Onset: Approximately three days ago, s uspecting potential link to sleeping position. - Description: Pain located bilaterally on the neck. - Severity: Severe discomfort noted when attempting to rotate the neck both ways and also when looking up. - Quality: Described primarily as a tigh t sensation with occasional sharp exacerbations. - Associated Symptom: Episodic sharp jelani n radiates to the head but is inconsistent. - Current Treatments: Ibuprofen taken morning provided minimal relief; muscle relaxant taken once on Sunday made the patient sleepy and caused dizziness the following morning. - Aggravating Factors: Turning the neck or looking up intensifies the pain. - Alleviating Factors: Partial relief no carmelo with ibuprofen and possibly muscle relaxants. - No history of trauma, fever, headache, rash, or visual disturbances currently accompanying the pain. Medications: - Ibuprofen for neck pain. - Cyclobenzaprine (muscle relaxant) take n once on Sunday. Social History: - Employment: Currently not working. - Family Status: Son, age four, sometime s shares the bed with the patient, potential impact on sleep position. Problem List - Neck Pain due to bilateral trapizius s train - Intermittent Headache Patient Instructions - Take the muscle relaxant (Cyclobenzapr ine) at night, reducing to half a dose if causing sleepiness. - Seek emergency care if symptoms worsen , like vision changes or severe headache. 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 awake oriented x3 motor intact Skin: Normal turgor PFSH Medical History PFO (patent foramen ovale) Recurrent UTI Osteoarthritis of right knee Osteoarthritis of right acromioclavicular joint Blurred vision, bilateral History of 2019 novel coronavirus disease (COVID-19) Sinus tachycardia Hypovitaminosis Rheumatoid arthritis Migraine Surgical History Surgical history of tubal ligation History of Family History Maternal Aunt History of breast cancer in female Uterus cancer Father Family hx of hypertension Hx of thyroid disease Diabetes mellitus Maternal Grandfather Family hx of hypertension History of heart disease Maternal Grandmother Family hx of hypertension Brother History of asthma Mother Diabetes mellitus Social History Household Members: Family Housing: Apartment Are you a primary career education teacher to a significant other at home: No Do you presently have visiting nurse or other home services: No Unable to assess alcohol history related to: Unable to respond Alcohol intake: never Patient Tobacco Use Status: Never used Tobacco Tobacco use type: Cigarette e-Cigarette/Vaping Use: Never Used Second Hand Smoke Exposure: No service: No Current occupational status: employed 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 Current occupational exposures/hazards: No Sexual orientation: Straight/Heterosexual Gender identity: Female Cognitive needs: No Hearing needs: No Vision needs: No Female Reproductive History Menstrual Age of Menarche: 12 Physical Exam Vital Signs: Last Vital Signs Temp 98.6 F 04/29/25 10:00 Pulse 94 04/29/25 10:00 BP 102/66 04/29/25 10:00 Pulse Ox 94 04/29/25 10:00 Oxygen Delivery Method Room Air 04/29/25 10:00 BMI result Body Mass Index 23.6 Assessment & Plan Assessment & Plan (1) Strain of cervical portion of both trapezius muscles: Code(s): S16.1XXA - Strain of muscle, fascia and tendon at neck level, initial encounter Plan History of Present Illness The patient is a 34-year-old female presenting with neck pain. Neck Pain: - Onset: Approximately three days ago, suspecting potential link to sleeping position. - Description: Pain located bilaterally on the neck. - Severity: Severe discomfort noted when attempting to rotate the neck both ways and also when looking up. - Quality: Described primarily as a tight sensation with occasional sharp exacerbations. - Associated Symptom: Episodic sharp pain radiates to the head but is inconsistent. - Current Treatments: Ibuprofen taken this morning provided minimal relief; muscle relaxant taken once on Sunday made the patient sleepy and caused dizziness the following morning. - Aggravating Factors: Turning the neck or looking up intensifies the pain. - Alleviating Factors: Partial relief noted with ibuprofen and possibly muscle relaxants. - No history of trauma, fever, headache, rash, or visual disturbances currently accompanying the pain. Medications: - Ibuprofen for neck pain. - Cyclobenzaprine (muscle relaxant) taken once on Sunday. Social History: - Employment: Currently not working. - Family Status: Son, age four, sometimes shares the bed with the patient, potential impact on sleep position. Problem List - Neck Pain due to bilateral trapizius strain - Intermittent Headache Patient Instructions - Take the muscle relaxant (Cyclobenzaprine) at night, reducing to half a dose if causing sleepiness. - Seek emergency care if symptoms worsen, like vision changes or severe headache. Or high fever Medications: New diclofenac sodium take it with food 75 mg PO BID 20 tabs 0RF pain 10 days Coding Level of Care Code Est Pt Level 3 (39306) Diagnoses Strain of cervical portion of both trapezius muscles S16.1XXA
[2025-04-29 10:00] VITALS: BP 102/66; PULSE 94; TEMP 37; O2SAT 94; BMI 23.6
--- OUTSIDE RECORDS SUMMARY | 2025-04-29 11:17 | XMS_ITS | Clinical Summary ---
Author Organization [facility] Address [address] [place] [id number] Phone Care Team Providers Care Airline Counter Agent Name Role Phone Janett Valle Primary Care Provider [phone] Social History Tobacco Use Types Packs/Day Years [...] Cervical Cancer Screening: P ap Smear 2012 Depression Screening 08/20/2024 HIV Screening 10/09/2024 Hepatitis C Screening 10/09/2024 Social Influencers of Health Screening 10/09/2024 COVID-19 Vaccine (2023-2 5 season) 2025 Influenza Vaccine (#1) 2025 9, 09/19/2018, 05/21/2014 [...] to [place] [address] [email or web address] [facility] [employer] [facility] Care Teams Airline Counter Agent Relationship Specialty Start Date End Date Janett Valle PA [address] [place] [address] PCP - General Oncology 12/02/24
== END 2025-04-29 10:27 | disposition home or self-care (01) ==
PROVIDERS: PCP Internal Medicine; Visit Provider Internal Medicine
DX: S16.1XXA Strain of muscle, fascia and tendon at neck level, initial encounter (principal)

== ENCOUNTER → 2025-04-29 09:28 | Outpatient (BNVA) | payer OTHER, SELFPAY | PROVIDERS: PCP Internal Medicine; Visit Provider Internal Medicine | DX: S16.1XXA Strain of muscle, fascia and tendon at neck level, initial encounter (principal); X58.XXXA Exposure to other specified factors, initial encounter; Y93.9 Activity, unspecified; Y92.9 Unspecified place or not applicable; Y99.9 Unspecified external cause status | CPT/HCPCS: 99212 ==

== ENCOUNTER 2025-05-08 19:30 | Emergency (ER) | payer OTHER, SELFPAY ==
[2025-05-08 19:47] VITALS: BP 125/85; PULSE 99; RESP 20; TEMP 36.7; O2SAT 92; BMI 24.0
--- OUTSIDE RECORDS SUMMARY | 2025-05-08 20:05 | XMS_ITS | Clinical Summary ---
Author Organization [facility] Address [address] [place] [phone] Phone Care Team Providers Care Zipper Trimmer Name Role Phone Janett Valle Primary Care Provider Social History Tobacco Use Types Packs/Day Years [...] [place] [address] [employer] [facility] [employer] [facility] Care Teams Zipper Trimmer Relationship Specialty Start Date End Date Janett Valle PA [address] [place] [address] PCP - General Oncology 12/02/24
[2025-05-08 20:21] LABS: IDNOW Serial# 08D9AD1C; Strep A Nucleic Acid Negative (Negative)
[2025-05-08 20:28] LABS: IDNOW Serial# 58CA691E; Influenza B2 Negative (Negative)
[2025-05-08 20:30] LABS: COVID-19 Test Negative (Negative); IDNOW Serial# 55D5AD1C
--- NOTE | 2025-05-08 21:29 | ED.EAR ---
HPI - Ear Problem General Chief complaint: Ear Problems Stated complaint: cannot hear out of left ear / in pain Time Seen by Provider: 05/08/25 21:05 Source: patient, RN notes reviewed and old records reviewed Mode of arrival: ambulatory Limitations: no limitations History of Present Illness ED Provider: Gabby Graham PA-C HPI Narrative: 34-year-old female here today for evaluation of left-sided ear pain. She reports having nasal congestion for the last 2 or 3 days seasonal allergies significant in her past medical history. She denies any ear trauma. She has not had any fevers chills or coughing denies any hearing loss or headache or dizziness. Reports fullness. Related Data Previous Rx's ?Medication ?Instructions ?Recorded cyclobenzaprine 5 mg tablet 5 mg PO TID PRN muscle spasm #14 04/22/24 tabs aspirin 81 mg chewable tablet 81 mg PO BEDTIME 30 days #30 tabs 08/27/24 certolizumab pegol 400 mg/2 mL 200 mg subcut .every 10 days #3 09/11/24 (200 mg/mL x2) subcutaneous kits syringe kit (Cimzia) ubrogepant 100 mg tablet (Ubrelvy) 50 - 100 mg (0.5 - 1 x 100 mg) PO 12/24/24 ONCE PRN migraine headache 30 days #16 tabs gabapentin 100 mg capsule 100 - 300 mg (1 - 3 x 100 mg) PO 03/24/25 BEDTIME PRN Pain and tingling pain 30 days #90 caps galcanezumab-gnlm 120 mg/mL 240 mg (2 mL) subcut ONCE 30 days 03/24/25 subcutaneous pen injector #2 mL (Emgality Pen) magnesium oxide 400 mg (241.3 mg 400 mg PO BEDTIME 90 days #90 tabs 03/24/25 magnesium) tablet riboflavin (vitamin B2) 400 mg 400 mg PO DAILY 90 days #90 tabs 03/24/25 tablet sertraline 50 mg tablet 50 mg PO DAILY 30 days #30 tabs 03/24/25 diclofenac sodium 75 mg 75 mg PO BID pain 10 days #20 tabs 04/29/25 tablet,delayed release amoxicillin 875 mg tablet 875 mg PO BID #14 tabs 05/08/25 omeprazole 20 mg capsule,delayed 20 mg PO DAILY 90 days #90 caps 05/12/25 release Allergies Allergy/AdvReac Type Severity Reaction Status Date / Time Sulfa (Sulfonamide Allergy Severe anaphylaxis Verified 05/08/25 19:50 Antibiotics) acetaminophen (From TYLENOL) Allergy Intermediate RASH, Verified 05/08/25 19:50 THROAT SWELLING morphine (MORPHINE) Allergy Intermediate RASH, Verified 05/08/25 19:50 THROAT SWELLING , swelling oseltamivir Allergy Intermediate diarrhea Verified 05/08/25 19:50 sulfamethoxazole (From AdvReac Intermediate Difficulty Verified 05/08/25 19:50 Bactrim) Breathing trimethoprim (From Bactrim) AdvReac Intermediate Difficulty Verified 05/08/25 19:50 Breathing Review of Systems Review of Systems: Yes all other systems are reviewed and are negative PMFSH Past Medical History Attestation statement: The following information was validated with the patient. Source: old records reviewed and nursing notes reviewed Medical History PFO (patent foramen ovale) Recurrent UTI Osteoarthritis of right knee Osteoarthritis of right acromioclavicular joint Blurred vision, bilateral History of 2019 novel coronavirus disease (COVID-19) Sinus tachycardia Hypovitaminosis Rheumatoid arthritis Migraine Surgical History Surgical history of tubal ligation History of Family History Family History Maternal Aunt History of breast cancer in female Uterus cancer Father Family hx of hypertension Hx of thyroid disease Diabetes mellitus Maternal Grandfather Family hx of hypertension History of heart disease Maternal Grandmother Family hx of hypertension Brother History of asthma Mother Diabetes mellitus Social History Social History Household Members: Family Housing: Apartment Are you a primary property caretaker to a significant other at home: No Do you presently have visiting nurse or other home services: No Alcohol intake: never Patient Tobacco Use Status: Never used Tobacco Tobacco use type: Cigarette e-Cigarette/Vaping Use: Never Used Second Hand Smoke Exposure: No service: No Current occupational status: employed 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 No septic or ill-appearing. Vitals reviewed normal, PMH/Social and Surgical hx reviewed including allergies and current medications. - reviewed for prior visits here . Head: Normocephalic, no obvious trauma or skin lesions noted. Eyes: EOMI conjunctiva sclera clear ENMT: moist oral mucosa, left tympanic membrane is red and bulging and injected hearing is intact no canal erythema or edema no lymphadenopathy no rashes no mastoid tenderness or pinna tenderness no tragal tenderness, trace clear nasal discharge Neck: trachea midline, uvula is midline no trismus no tonsillar edema erythema Cardiovascular: peripheral perfusion normal, Regular heart rate regular rhythm Respiratory: no respiratory distress, lungs clear Abdomen: nondistended Extremities: warm and moving without difficulty Neuro: Alert and oriented. Vital Signs: Vital Signs: Last Vital Signs Temp 97.5 F 05/08/25 21:47 Pulse 92 05/08/25 21:47 Resp 16 05/08/25 21:47 BP 120/70 05/08/25 21:47 Pulse Ox 100 05/08/25 21:47 O2 Del Method Room Air 05/08/25 21:47 BMI result Body Mass Index 24.0 Medications Administered Discontinued Medications Generic Name Dose Route Start Last Admin Trade Name Yovaniq PRN Reason Stop Dose Admin Amoxicillin 1,000 mg 05/08/25 21:38 05/08/25 21:44 Amoxicillin 500 Mg Capsule PO 05/08/25 21:39 1,000 mg ONCE ONE Administration Ibuprofen 600 mg 05/08/25 21:38 05/08/25 21:44 Ibuprofen Oral Susp 200 Mg/10 Ml Oral.Susp PO 05/08/25 21:39 600 mg ONCE ONE Administration Medical Decision Making Medical Decision Making MDM Narrative: Exam and history most consistent with AOM. Potential for viral vs bacterial; discussed likelihood withpatient. No perforation, this is likely secondary to eustachian tube dysfunction/ seasonal allergies. I have a low suspicion at this time for mastoiditis, malignant otitis externa, herpes, retained foreign body. Rx: abx Disposition: Discharge. If symptoms worsen or persist for 48-72 then pt to fill the prescription. Cautious return precautions discussed w/ full understanding. Differential Diagnosis Differential Diagnoses: The differential diagnosis associated with the presentation includes See MDM Admission/Observation Consideration of admission/observation: Escalation of care including admission/observation considered Lab Data [facility] Lab Attestation statement: I reviewed the patient's lab results. Labs: Lab Results 05/08/25 Range/Units 20:06 COVID-19 (STUART) Negative (Negative) COVID-19 Clin Com See Note Influenza Type A (EVANGELINA) Negative (Negative) Influenza Type B (EVANGELINA) Negative (Negative) Influenza A & B Note See Note S. pyogenes GrpA EVANGELINA Negative (Negative) Tests considered The following testing was considered but not selected: Wound had considered Facial had there been concerned for mastoiditis, CORPORATE DIRECTOR OF PHARMACY, RPA, or malignant AOM/AOE or sinus abscess Prescription Management I considered prescription management with: Antibiotic Discharge Plan Discharge Clinical Impression: Acute left otitis media, Allergic rhinitis Patient Disposition: Home, Self-Care Additional Instructions: You have an inner ear infection. Please take the oral antibiotics as prescribed. Take Tylenol and/or Motrin for pain. If symptoms worsen, fever is worsening or not responding to antipyretics (Tylenol, Motrin), or you feel more ill please be re-evaluated immediately. Please take your allergy medicine twice daily until improved and then he may go down to once a day Prescriptions: New amoxicillin 875 mg tablet 875 mg PO BID Qty: 14 0RF Rx Instructions: Patient not currently taking MTX No Action aspirin 81 mg tablet,chewable 81 mg PO BEDTIME 30 Days Qty: 30 6RF Ubrelvy 100 mg tablet 50 - 100 mg PO ONCE PRN (Reason: migraine headache) 30 Days Qty: 16 3RF Rx Instructions: take at onset of migraine, may repeat in 2hrs (may take w/ Ibuprofen). Prior Auth;Coverage 12/23/2024-06/21/2025 omeprazole 20 mg capsule,delayed release(DR/EC) 20 mg PO DAILY 90 Days Qty: 90 0RF cyclobenzaprine 5 mg tablet 5 mg PO TID PRN (Reason: muscle spasm) Qty: 14 0RF Cimzia 400 mg/2 mL (200 mg/mL x 2) syringe kit 200 mg subcut .every 10 days Qty: 3 4RF Emgality Pen 120 mg/mL pen injector 240 mg subcut ONCE 30 Days Qty: 2 0RF Rx Instructions: Loading dose: 120 mg subcu injection x2 in alternate sites (total 240 mg). To be followed by maintenance dose of 120 mg subcu q.month. sertraline 50 mg tablet 50 mg PO DAILY 30 Days Qty: 30 6RF riboflavin (vitamin B2) 400 mg tablet 400 mg PO DAILY 90 Days Qty: 90 3RF gabapentin 100 mg capsule 100 - 300 mg PO BEDTIME PRN (Reason: Pain and tingling pain) 30 Days Qty: 90 6RF magnesium oxide 400 mg (241.3 mg magnesium) tablet 400 mg PO BEDTIME 90 Days Qty: 90 3RF Rx Instructions: may hold for loose stools diclofenac sodium 75 mg tablet,delayed release (DR/EC) 75 mg PO BID 10 Days Qty: 20 0RF Rx Instructions: take it with food Referrals: Luci Unger MD [Primary Care Provider, Internal Medicine] Referral Note: ED follow up Stand Alone Forms: Work/School Release Interventions: ED Discharge Assessment Last Done: 05/08/25 21:47 Discharge Date/Time: 05/08/25 21:47 Print Language: Mongolian
[2025-05-08 21:32] VITALS: BP 120/70; PULSE 92; RESP 16; TEMP 36.4; O2SAT 100
[2025-05-08] MEDS: Ibuprofen Oral Susp 200 MG/10 ML ORAL.SUSP 600 MG PO (21:44)
[2025-05-08 21:47] VITALS: BP 120/70; PULSE 92; RESP 16; TEMP 36.4; O2SAT 100
== END 2025-05-08 21:47 | disposition home or self-care (01) ==
PROVIDERS: Emergency Provider Emergency Medicine Emergency Medical Services; PCP Internal Medicine
DX: H66.92 Otitis media, unspecified, left ear (principal); J30.9 Allergic rhinitis, unspecified; Z11.52 Encounter for screening for COVID-19; Z79.899 Other long term (current) drug therapy
CPT/HCPCS: 87502; 87635; 87651; 99283

== ENCOUNTER 2025-06-04 16:43 | Outpatient (AMB) | payer OTHER, SELFPAY ==
[2025-06-04 16:51] VITALS: BP 120/60; RESP 18; TEMP 36.3; BMI 23.5
--- NOTE | 2025-06-04 16:51 | A.OFFPC_ITS ---
Vital Signs 06/04/25 16:51 Height 5 ft 1 in Weight 124 lb 8 oz BMI 23.5 BP 120/60 Blood Pressure Location Lt brachial Position Sitting Respiration 18 Pulse Source Pulse Oximeter Temp 97.3 F Temp Source Temporal Artery Scan Oxygen Delivery Method Room Air Intake Visit Reasons: 6 month depression Reed Worker Required: No Accompanied by: Self / Same As Patient Allergies Sulfa (Sulfonamide Antibiotics) Allergy (Severe, Verified 06/04/25 17:14) anaphylaxis acetaminophen (From TYLENOL) Allergy (Intermediate, Verified 06/04/25 17:14) RASH, THROAT SWELLING morphine (MORPHINE) Allergy (Intermediate, Verified 06/04/25 17:14) RASH, THROAT SWELLING , swelling oseltamivir Allergy (Intermediate, Verified 06/04/25 17:14) diarrhea sulfamethoxazole (From Bactrim) Adverse Reaction (Intermediate, Verified 06/04/25 17:14) Difficulty Breathing trimethoprim (From Bactrim) Adverse Reaction (Intermediate, Verified 06/04/25 17:14) Difficulty Breathing Medication List - Last Reconciled 06/04/25 by Luci Tompkins MD amoxicillin 875 mg PO BID aspirin 81 mg PO BEDTIME 30 days certolizumab pegol (Cimzia) 200 mg subcut .every 10 days cyclobenzaprine 5 mg PO TID PRN diclofenac sodium 75 mg PO BID 10 days gabapentin 100 - 300 mg (1 - 3 x 100 mg) PO BEDTIME PRN 30 days galcanezumab-gnlm (Emgality Pen) 240 mg (2 mL) subcut ONCE 30 days magnesium oxide 400 mg PO BEDTIME 90 days omeprazole 20 mg PO DAILY 90 days riboflavin (vitamin B2) 400 mg PO DAILY 90 days sertraline 50 mg PO DAILY 30 days ubrogepant (Ubrelvy) 50 - 100 mg (0.5 - 1 x 100 mg) PO ONCE PRN 30 days Tobacco use date assessed: 06/04/25 Dental Screening Dental Screen Date: 06/04/25 Did you have a dental visit in the last 12 months?: No Did you have a dental problem in the last 6 months where you did not have access to dental care?: No Was dental information given to patient?: No HPI HPI Comments History of Present Illness Details The patient is a 34-year-old female presenting for follow-up on rheumatoid arthritis and recent cerebrovascular accident. She has mild major depression stable with medications. She has a history of rheumatoid arthritis, managed by rheumatology, with a follow-up scheduled for July 02. In January, she experienced a cerebrovascular accident, confirmed by abnormal CT findings and subsequent MRIs. She reports weakness on one side and is scheduled for a nerve conduction study on August 05. The patient also suffers from migraines, managed with medications including Ubrelvy and ibuprofen. She has been prescribed magnesium and vitamin B2 to help manage her symptoms. She has a history of otitis media, currently experiencing discomfort in the left ear, and has been treated with antibiotics. Physical examination revealed no inflammation or redness, but minimal fluid was present. The patient has a patent foramen ovale, monitored by cardiology, with a follow- up scheduled for late May. She also has a history of depression and anxiety, managed with sertraline. The patient has multiple allergies, including sulfa, acetaminophen, morphine, and oseltamivir. [facility] Medical History (Updated 06/04/25 @ 17:47 by Luci Tompkins MD) PFO (patent foramen ovale) Recurrent UTI Osteoarthritis of right knee Osteoarthritis of right acromioclavicular joint Blurred vision, bilateral History of 2019 novel coronavirus disease (COVID-19) Sinus tachycardia Hypovitaminosis Rheumatoid arthritis Migraine Surgical History Surgical history of tubal ligation History of Family History Maternal Aunt History of breast cancer in female Uterus cancer Father Family hx of hypertension Hx of thyroid disease Diabetes mellitus Maternal Grandfather Family hx of hypertension History of heart disease Maternal Grandmother Family hx of hypertension Brother History of asthma Mother Diabetes mellitus Social History Household Members: Family Housing: Apartment Are you a primary career based intervention coordinator to a significant other at home: No Do you presently have visiting nurse or other home services: No Unable to assess alcohol history related to: Unknown Alcohol intake: never Patient Tobacco Use Status: Never used Tobacco Tobacco use type: Cigarette e-Cigarette/Vaping Use: Never Used Second Hand Smoke Exposure: No service: No Current occupational status: employed 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 Current occupational exposures/hazards: No Sexual orientation: Straight/Heterosexual Gender identity: Female Cognitive needs: No Hearing needs: No Vision needs: No Female Reproductive History Menstrual Age of Menarche: 12 Questionnaire Thrive Questionnaire Date Thrive assessed: 11/19/24 I am a: Patient What is your living situation today?: I have a steady place to live Within the past 12 months, did the food you bought not last and you didn't have the money to get more?: Sometimes True Within the past 12 months, did you worry whether your food would run out before you got money to buy more?: Sometimes True Do you have trouble paying for medicines?: I choose not to answer this question Do you have trouble getting transportation to medical appointments?: No Do you have trouble paying your heating and electricity bill?: Yes Do you have trouble taking care of your child, family member or friend?: No Do you have trouble with day-to-day activities such as bathing, preparing meals, shopping, managing finances, etc.?: No Are you currently unemployed and looking for a job?: No Are you interested in more education?: No Currently or been in a relationship where the following occur: No concerns reported THRIVE Score: 3 IMANI-7 AMB Questionnaire IMANI-7 Date IMANI - 7 assessed: 11/19/24 Source: Developed by Drs. Eyal Aranda, Yissel Rios, Hayden Bishop and colleagues, with an educational griffin from [employer]. Review of Systems Const All systems reviewed & are unremarkable except as noted in HPI and below Card Denies chest pain at rest, Denies chest pain with activity, Denies edema, Denies irregular heart rhythm, Denies claudication, Denies dyspnea, Denies dyspnea on exertion, Denies orthopnea, Denies paroxysmal nocturnal dyspnea and Denies slow heart rate Resp Denies cough, Denies dyspnea and Denies dyspnea on exertion Physical exam (Primary Care) Vital Signs: Last Vital Signs Temp 97.3 F 06/04/25 16:51 Resp 18 06/04/25 16:51 BP 120/60 06/04/25 16:51 Oxygen Delivery Method Room Air 06/04/25 16:51 BMI result Body Mass Index 23.5 Tobacco/Smoking Status: Tobacco use Status Tobacco use date assessed 06/04/25 06/04/25 16:58 Patient Tobacco Use Status Never used Tobacco 06/04/25 16:58 Tobacco use type Cigarette 06/04/25 16:58 e-Cigarette/Vaping Use Never Used 06/04/25 16:58 Thrive Assessment: Date of Thrive Assessment Date Thrive assessed 11/19/24 06/04/25 16:58 Currently or been in a relationship where the following occur: No concerns reported Resp Effort & Inspection: normal respiratory effort Auscultation: clear to auscultation bilaterally Cardio Jugular venous distension: no JVD Rate: regular rate Rhythm: regular rhythm Heart sounds: S1 normal heart sound present and S2 normal heart sound present Extrem General: Yes full ROM Coding Level of Care Code Est Pt Level 4 (12910) Complex EM visit Add On G2211 Diagnoses Mild major depression F32.0 Rheumatoid arthritis involving multiple sites with positive rheumatoid factor M05.79 Rheumatoid arthritis location: multiple sites Rheumatoid factor presence: with rheumatoid factor Lacunar infarction I63.81 Migraine with aura G43.109 Time Spent (min) 23 Assessment & Plan Assessment & Plan (1) Mild major depression: Code(s): F32.0 - Major depressive disorder, single episode, mild Category: Medical (2) Rheumatoid arthritis: Comment: Cimzia: June 2019 to present Methotrexate: Discontinued September 2019 due to age and potential - NVD from 2016. Code(s): M06.9 - Rheumatoid arthritis, unspecified Category: Medical Qualifiers: Rheumatoid arthritis location: multiple sites Rheumatoid factor presence: with rheumatoid factor Qualified Code(s): M05.79 - Rheumatoid arthritis with rheumatoid factor of multiple sites without organ or systems involvement (3) Lacunar infarction: Code(s): I63.81 - Other cerebral infarction due to occlusion or stenosis of small artery Category: Medical (4) Migraine with aura: Code(s): G43.109 - Migraine with aura, not intractable, without status migrainosus Category: Medical Plan Plan 1. Rheumatoid arthritis, unspecified M06.9 HCC 40 The patient will continue to follow up with rheumatology, with the next appointment scheduled for July 02. 2. Cerebral infarction, unspecified I63.9 HCC 100 The patient is scheduled for a nerve conduction study on August 05 to assess ongoing weakness. 3. Migraine, unspecified, not intractable, without status migrainosus G43.909 The patient is advised to continue current medications, including Ubrelvy and ibuprofen, and to use magnesium and vitamin B2 as supplements. 4. Other specified anxiety disorders F41.8 The patient is to continue taking sertraline as prescribed for depression and anxiety management. Orders: Orders Vitamin D 25-OH Total 6 Months E55.9 - Vitamin D deficiency, unspecified Vitamin B12 and Folate 6 Months E53.8 - Deficiency of other specified B group vitamins Comprehensive [place]. Panel Fast 6 Months M05.79 - Rheumatoid arthritis with rheumatoid factor of multiple sites without organ or systems involvement Lipid Panel 6 Months E78.5 - Hyperlipidemia, unspecified Medications: New fluocinolone acetonide oil 0.01% (DermOtic Oil) 5 drps otic (ears) BID 20 mL 0RF 7 days
--- OUTSIDE RECORDS SUMMARY | 2025-06-04 19:46 | XMS_ITS | Clinical Summary ---
Author Organization [facility] Address [address] [place] [address] Phone Care Team Providers Care Branding Machine Operator Name Role Phone Janett Valle Primary Care Provider [phone] Social History Tobacco Use Types Packs/Day Years [...] Cervical Cancer Screening: P ap Smear 2012 HPV Vaccines (1 - 3-dose SCD M series) 2018 Depression Screening 08/20/2024 HIV Screening 10/09/2024 Hepatitis C Screening 10/09/2024 Social Influencers of Health Screening 10/09/2024 COVID-19 Vaccine ( - 2023-2 5 season) 2025 Influenza Vaccine (#1) 2025 9, 09/19/2018, 05/21/2014 DTaP,Tdap,and Td Vaccines (2 - Td or Tdap) 10/13/2030 10/13/2020 RSV Immunization Adult Patients (1 - 1-dose 75+ series) 2066 HIB Vaccines Aged Out No longer eligi [...] age to complete [place] [address] [facility] [employer] [facility] [employer] [facility] Care Teams Branding Machine Operator Relationship Specialty Start Date End Date Janett Valle PA [address] [place] [address] PCP - General Oncology 12/02/24
== END 2025-06-04 17:28 | disposition home or self-care (01) ==
LOC: HO.HMCH 16:44
PROVIDERS: PCP Internal Medicine; Visit Provider Internal Medicine
DX: F32.0 Major depressive disorder, single episode, mild (principal); M05.79 Rheumatoid arthritis with rheumatoid factor of multiple sites without organ or systems involvement; I63.81 Other cerebral infarction due to occlusion or stenosis of small artery; G43.109 Migraine with aura, not intractable, without status migrainosus

== ENCOUNTER → 2025-06-04 16:43 | Outpatient (BNVA) | payer OTHER, SELFPAY | PROVIDERS: PCP Internal Medicine; Visit Provider Internal Medicine | DX: F32.0 Major depressive disorder, single episode, mild (principal); F41.8 Other specified anxiety disorders; M06.9 Rheumatoid arthritis, unspecified; H66.92 Otitis media, unspecified, left ear; Q21.12 Patent foramen ovale; M05.79 Rheumatoid arthritis with rheumatoid factor of multiple sites without organ or systems involvement; G43.109 Migraine with aura, not intractable, without status migrainosus; Z86.73 Personal history of transient ischemic attack (TIA), and cerebral infarction without residual deficits | CPT/HCPCS: 99212 ==

== ENCOUNTER 2025-07-01 10:24 | Outpatient (REF) | payer OTHER, SELFPAY ==
[2025-07-01 12:03] LABS: Alanine Aminotransferase 16 U/L (0-31); Albumin Level 5.0 g/dL (3.5-5.0); Alkaline Phosphatase 62 U/L (39-117); Anion Gap 10 (12-20); Aspartate Amino Transferase 20 U/L (5-31); Blood Urea Nitrogen 12 mg/dL (9-16); Calcium 9.0 mg/dL (8.4-10.2); Carbon Dioxide 26 mmol/L (22-29); Chloride 109 mmol/L (96-108); Estimated Glomerular Filt Rate > 60; Potassium 4.3 mmol/L (3.3-5.1); Sodium 141 mmol/L (135-145); Total Protein 7.6 g/dL (6.5-8.0)
--- OUTSIDE RECORDS SUMMARY | 2025-07-01 12:23 | XMS_ITS | Clinical Summary ---
Author Organization [facility] Address [address] [place] [address] Phone Care Team Providers Care Enterprise Analyst Name Role Phone Janett Valle Primary Care Provider [phone] Social History Tobacco Use Types Packs/Day Years [...] age to complete this [place] [address] [facility] [employer] [facility] [employer] [facility] Care Teams Enterprise Analyst Relationship Specialty Start Date End Date Janett Valle PA [address] [place] [address] PCP - General Oncology 12/02/24
== END 2025-07-01 10:25 | disposition home or self-care (01) ==
LOC: HO.LAB 10:24
PROVIDERS: PCP Internal Medicine; Visit Provider Student in an Organized Health Care Education/Training Program
DX: M05.79 Rheumatoid arthritis with rheumatoid factor of multiple sites without organ or systems involvement (principal); Z79.899 Other long term (current) drug therapy
CPT/HCPCS: 36415; 80053

== ENCOUNTER 2025-07-02 12:41 | Outpatient (AMB) | payer OTHER, SELFPAY ==
--- NOTE | 2025-07-02 12:57 | A.OFFVIS_ITS ---
Vital Signs 07/02/25 13:01 Height 5 ft 1 in Weight 126 lb 1.671 oz BMI 23.8 BP 98/62 Blood Pressure Location Lt brachial Position Sitting Pulse 92 Pulse Source Pulse Oximeter Pulse Oximetry (%) 99 Oxygen Delivery Method Room Air Intake Visit Reasons: RA Intake Note: Patient presents for RA follow up. Allergies Sulfa (Sulfonamide Antibiotics) Allergy (Severe, Verified 07/02/25 13:00) anaphylaxis acetaminophen (From TYLENOL) Allergy (Intermediate, Verified 07/02/25 13:00) RASH, THROAT SWELLING morphine (MORPHINE) Allergy (Intermediate, Verified 07/02/25 13:00) RASH, THROAT SWELLING , swelling oseltamivir Allergy (Intermediate, Verified 07/02/25 13:00) diarrhea sulfamethoxazole (From Bactrim) Adverse Reaction (Intermediate, Verified 07/02/25 13:00) Difficulty Breathing trimethoprim (From Bactrim) Adverse Reaction (Intermediate, Verified 07/02/25 13:00) Difficulty Breathing Medication List - Last Reconciled 07/02/25 by Sharita Wood MD amoxicillin 875 mg PO BID aspirin 81 mg PO BEDTIME 30 days certolizumab pegol (Cimzia) 200 mg subcut .every 10 days cyclobenzaprine 5 mg PO TID PRN diclofenac sodium 75 mg PO BID 10 days fluocinolone acetonide oil 0.01% (DermOtic Oil) 5 drps otic (ears) BID 7 days gabapentin 100 - 300 mg (1 - 3 x 100 mg) PO BEDTIME PRN 30 days galcanezumab-gnlm (Emgality Pen) 120 mg subcut Q30D 30 days magnesium oxide 400 mg PO BEDTIME 90 days omeprazole 20 mg PO DAILY 90 days riboflavin (vitamin B2) 400 mg PO DAILY 90 days sertraline 50 mg PO DAILY 30 days ubrogepant (Ubrelvy) 50 - 100 mg (0.5 - 1 x 100 mg) PO ONCE PRN 30 days HPI Comments Details: Patient is a 34-year-old female who presents for follow-up of rheumatoid arthritis. Interval History: Patient last seen 01/16/2025 with me. - On Cimzia 200mg every 10 days and gabapentin 100mg nightly - She notes improvement on the increased frequency of Cimzia - Requesting right shoulder and right knee injection today Today - On Cimzia 200mg every 10 days and gabapentin 100mg nightly - Eye pain with redness on the left - Got a new job - Shoulder and knee doing good after last injection Rheumatologic History: Diagnosis rheumatoid arthritis in 2018. Initially started on methotrexate and then Cimzia was added. Methotrexate was stopped due to side effects. 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 Current Rheumatology Medication(s): Cimzia 200mg every 10 days Gabapentin 100mg nightly PFSH Medical History PFO (patent foramen ovale) Recurrent UTI Osteoarthritis of right knee Osteoarthritis of right acromioclavicular joint Blurred vision, bilateral History of 2019 novel coronavirus disease (COVID-19) Sinus tachycardia Hypovitaminosis Rheumatoid arthritis Migraine Surgical History Surgical history of tubal ligation History of Family History Maternal Aunt History of breast cancer in female Uterus cancer Father Family hx of hypertension Hx of thyroid disease Diabetes mellitus Maternal Grandfather Family hx of hypertension History of heart disease Maternal Grandmother Family hx of hypertension Brother History of asthma Mother Diabetes mellitus Social History Household Members: Family Housing: Apartment Are you a primary pharmacy care coordinator to a significant other at home: No Do you presently have visiting nurse or other home services: No Alcohol intake: never Patient Tobacco Use Status: Never used Tobacco Tobacco use type: Cigarette e-Cigarette/Vaping Use: Never Used Second Hand Smoke Exposure: No service: No Current occupational status: employed 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 Current occupational exposures/hazards: No Sexual orientation: Straight/Heterosexual Gender identity: Female Cognitive needs: No Hearing needs: No Vision needs: No Female Reproductive History Menstrual Age of Menarche: 12 Review of Systems Narrative Review of Systems Constitutional: Denies fever, chills, weight loss ENT: Denies vision changes, eye pain or eye redness, dental caries, dry mouth GI: Denies nausea, vomiting, diarrhea, abdominal pain, change in BM Pulm: Denies SOB, HUTCHINS, hemoptysis, wheezing Cards: Denies chest pain, palpitations Skin: Denies Raynaud's, rash, nail changes, photosensitivity, INVESTIGATOR CASH SHORTAGE: Denies headaches, weakness, paresthesias, recurrent falls MSK: as per HPI All other systems reviewed and are unremarkable except noted above Physical Exam Exam Exam: Vital signs reviewed Physical Examination CONSTITUITIONAL Patient alert and cooperative. Well appearing and in no apparent painful distress EYE * Erythema noted to the upper sclera of the right eye MSK Hands * Right Hand: Able to make a fist. No swelling or tenderness to palpation of the MCPs, PIPs or DIPs. * Left Hand: Able to make a fist. No swelling or tenderness to palpation of the MCPs, PIPs or DIPs. Wrists * Right Wrist: Full ROM to flexion and extension. No swelling or TTP * Left Wrist: Full ROM to flexion and extension. No swelling or TTP Elbows * Right Elbow: Full ROM. No swelling or TTP. No TTP of the medial epicondyle. No TTP of the lateral epicondyle * Left Elbow: Full ROM. No swelling or TTP. No TTP of the medial epicondyle. No TTP of the lateral epicondyle Shoulders * Right shoulder: No swelling noted. TTP of the AC joint. No TTP of the subacromial bursa. No TTP of the posterior shoulder * Left shoulder: No swelling noted. No TTP of the AC joint. No TTP of the subacromial bursa. No TTP of the posterior shoulder Knees * Right knee: Full ROM. No swelling noted. No TTP of the knee joint line. No TTP of pes anserine bursa * Left knee: Full ROM. No swelling noted. No TTP of the knee joint line. No TTP of pes anserine bursa. * Crepitations felt bilaterally Ankles * Right ankle: Good ankle dorsiflexion and plantar flexion. No swelling. No TTP of the ankle joint * Left ankle: Good ankle dorsiflexion and plantar flexion. No swelling. No TTP of the ankle joint Feet * Right foot: Negative squeeze test * Left foot: Negative squeeze test Tender points? * No tenderness to palpation of the bilateral trapezius, supraspinatus, anterior costochondral junctions, bilateral suboccipital muscle insertions SKIN No rashes Vital Signs: Last Vital Signs Pulse 92 07/02/25 13:01 BP 98/62 07/02/25 13:01 Pulse Ox 99 07/02/25 13:01 Oxygen Delivery Method Room Air 07/02/25 13:01 BMI result Body Mass Index 23.8 Results Reviewed Results Reviewed: Laboratory Tests 02/16/25 03/04/25 07/01/25 09:30 08:33 10:34 WBC 6.9 RBC 4.22 Hgb 12.5 Hct 37.6 Plt Count 292 ESR 5 Sodium 141 Potassium 4.3 Chloride 109 H Carbon Dioxide 26 BUN 12 Creatinine 0.72 AST 20 ALT 16 Laboratory Tests 06/13/18 16:14 Rheumatoid Factor 53.5 H Cycl Citrul Peptide IgG >250 H BRENDA Screen Positive H BRENDA Titer 1:80 H Laboratory Tests 01/14/25 13:18 Hepatitis A IgM Ab Nonreactive Hep Bs Antigen Negative Hep Bs Antibody NONREACTIVE Hep B Core Total Ab Nonreactive Hepatitis C Ab (EIA) Nonreactive TB Test (T-Spot) Com Pending Assessment & Plan Assessment & Plan (1) Rheumatoid arthritis: Comment: Cimzia: June 2019 to present Methotrexate: Discontinued September 2019 due to age and potential - NVD from 2016. Code(s): M06.9 - Rheumatoid arthritis, unspecified Category: Medical Qualifiers: Rheumatoid arthritis location: multiple sites Rheumatoid factor presence: with rheumatoid factor Qualified Code(s): M05.79 - Rheumatoid arthritis with rheumatoid factor of multiple sites without organ or systems involvement Plan: #Seropositive Non Erosive RA Patient is a 34-year-old female with seropositive nonerosive rheumatoid arthritis. Doing much better today on the increased frequency of Cimzia. Has some eye erthema and pain which is concerning for RA eye disease Plan - Cimzia 200mg every 10 days - Gabapentin 100mg nightly - Urgent ophthal referral - RTC 4 months - Labs before visit: CBC, CMP, ESR, CRP (2) Osteoarthritis of right acromioclavicular joint: Comment: Right AC joint IACS 06/11/2024, 01/16/2025 Code(s): M19.011 - Primary osteoarthritis, right shoulder Category: Medical Plan: #OA Right AC joint Patient with osteoarthritis to her right acromioclavicular joint. Stable today (3) Osteoarthritis of right knee: Comment: Right Knee IACS 06/11/2024, 01/16/2025 Code(s): M17.11 - Unilateral primary osteoarthritis, right knee Category: Medical Qualifiers: Osteoarthritis type: primary Qualified Code(s): M17.11 - Unilateral primary osteoarthritis, right knee Plan: #Right knee OA Patient with right knee osteoarthritis. Stable today (4) Recurrent UTI: Code(s): N39.0 - Urinary tract infection, site not specified Category: Medical Plan: #Recurrent UTI Improved (5) shelter current use of immunosuppressive drug: Code(s): Z79.899 - Other [place] [facility] (current[facility] drug therapy Category: Medical Plan: #Long-term Use of TNF Inhibitors: Cimzia Discussed with the patient the benefits and risks of TNF inhibitors for the management of the rheumatic condition Benefits include reduce pain, maintenance of remission and reduction of flares as well as ?progression of the disease Risks include injection sites/infusion reactions, serious infections (such as bacterial infections, opportunistic infections), malignancy, delaminating syndromes, autoimmune phenomena, CHF exacerbations, palmar plantar psoriasis and cytopenias Recommended rotating injection sites, and holding medication during and for up to 1 week after resolution of a febrile illness or open skin wound Plan I spent 45 minutes reviewing the record and labs, seeing the patient, discussing the treatment plan, answering questions and documenting in the medical record ? Orders: Orders Comprehensive Met. Panel 4 Months Z79.899 - Other [place] [facility] (current[facility] drug therapy Erythrocyte Sedimentation Rate 4 Months Z79.899 - Other [place] (current) drug therapy Hepatitis B,C Profile 4 Months Z79.899 - Other [place] (current[facility] drug therapy T Spot TB 4 Months Z79.899 - Other [place] [facility] (current) drug therapy Complete Blood Count Auto Diff 4 Months Z79.899 - Other [employer] [facility] (current) drug therapy C Reactive Protein 4 Months Z79.899 - Other [employer] [facility] (current) drug therapy Referrals Ophthalmology Referral H15.009 - Unspecified scleritis, unspecified eye, M05.79 - Rheumatoid arthritis with rheumatoid factor of multiple sites without organ or systems involvement Medications: Refilled certolizumab pegol (Cimzia) 200 mg subcut .every 10 days 3 kits 4RF M06.9 - Rheumatoid arthritis, unspecified Coding Level of Care Code Est Pt Level 5 (15860) Complex EM visit Add On G2211 Diagnoses Rheumatoid arthritis involving multiple sites with positive rheumatoid factor M05.79 Rheumatoid arthritis location: multiple sites Rheumatoid factor presence: with rheumatoid factor Osteoarthritis of right acromioclavicular joint M19.011 Primary osteoarthritis of right knee M17.11 Osteoarthritis type: primary Recurrent UTI 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
[2025-07-02 13:01] VITALS: BP 98/62; PULSE 92; O2SAT 99; BMI 23.8
--- OUTSIDE RECORDS SUMMARY | 2025-07-02 15:47 | XMS_ITS | Clinical Summary ---
Author Organization [facility] Address [address] [place] [address] Phone Care Team Providers Care Nursing Assistant Name Role Phone Janett Valle Primary Care Provider [phone] Social History Tobacco Use Types Packs/Day Years [...] Health Screening 10/09/2024 COVID-19 Vaccine ( - 2024-2 6 season) 2025 Influenza Vaccine (#1) 2025 9, [...] age to complete [place] [address] [facility] [employer] [facility] [employer] [facility] Care Teams Nursing Assistant Relationship Specialty Start Date End Date Janett Valle PA [address] [place] [address] PCP - General Oncology 12/02/24
== END 2025-07-02 13:30 | disposition home or self-care (01) ==
LOC: HO.RHES 12:42
PROVIDERS: Visit Provider Student in an Organized Health Care Education/Training Program
DX: M05.79 Rheumatoid arthritis with rheumatoid factor of multiple sites without organ or systems involvement (principal); M19.011 Primary osteoarthritis, right shoulder; M17.11 Unilateral primary osteoarthritis, right knee; N39.0 Urinary tract infection, site not specified; Z79.899 Other long term (current) drug therapy
CPT/HCPCS: 99215

== ENCOUNTER → 2025-07-02 12:41 | Outpatient (BNVA) | payer OTHER, SELFPAY | PROVIDERS: Visit Provider Student in an Organized Health Care Education/Training Program | DX: M05.79 Rheumatoid arthritis with rheumatoid factor of multiple sites without organ or systems involvement (principal); L53.9 Erythematous condition, unspecified; M19.011 Primary osteoarthritis, right shoulder; M17.11 Unilateral primary osteoarthritis, right knee; N39.0 Urinary tract infection, site not specified; Z79.899 Other long term (current) drug therapy | CPT/HCPCS: 99212 ==

== ENCOUNTER 2025-08-05 14:38 | Outpatient (REF) | payer OTHER, SELFPAY ==
--- NOTE | 2025-08-05 14:42 | EMG_ITS ---
Chief complaint: In February 2025, patient had sudden onset left upper and lower extremity weakness and facial weakness. 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 Brain MRI showed increased signal on right basal ganglia. Patient has history of rheumatoid arthritis, orthostatic hypotension and PFO. Patient also complains of numbness on both hands and feet. She feels the feet numbness more so when she is orthostatic. On exam, no proximal or distal weakness noted. Negative pronator drift. No atrophy. Reflexes are symmetric and brisk. No spasticity. Negative Mi's sign. No cranial nerves deficits. No fasciculations seen. Noted ulnar deviation of fingers and MCP enlargement on left hand. Reason for referral: Evaluate for motor neuron disorder Referred by: Ceci East NP Procedure done: Bilateral upper extremities, lower extremity NCS/EMG Precautions and/or limitations: Orthostatic hypotension The limb temperature was monitored continuously and remained between 32-36 degrees C during the performance of the NCS. Nerve Conduction Studies Anti Sensory Summary Table ?Stim Site NR Onset (ms) Norm Onset (ms) Peak (ms) Norm Peak (ms) O-P Amp (?V) Norm O-P Amp Site1 Site2 Delta-0 (ms) Dist (cm) Andreas (m/s) Norm Andreas (m/s) Left Median Anti Sensory (2nd Digit) Wrist ? 2.2 2.9 <3.6 98.0 >10 Wrist 2nd Digit 2.2 14.0 64 Right Median Anti Sensory (2nd Digit) Wrist ? 2.2 3.0 <3.6 77.9 >10 Wrist 2nd Digit 2.2 14.0 64 Left Sural Anti Sensory (Lat Mall) Calf ? 2.5 3.2 <4.0 32.4 >5.0 Calf Lat Mall 2.5 14.0 56 Right Sural Anti Sensory (Lat Mall) Calf ? 2.8 3.3 <4.0 20.7 >5.0 Calf Lat Mall 2.8 14.0 50 Left Ulnar Anti Sensory (5th Digit) Wrist ? 2.0 2.9 <3.7 95.3 >15.0 Wrist 5th Digit 2.0 14.0 70 Right Ulnar Anti Sensory (5th Digit) Wrist ? 2.3 3.0 <3.7 90.2 >15.0 Wrist 5th Digit 2.3 14.0 61 Motor Summary Table ?Stim Site NR Onset (ms) Norm Onset (ms) O-P Amp (mV) Norm O-P Amp iAmp (mV) Amp (1st) (%) Site1 Site2 Delta-0 (ms) Dist (cm) Andreas (m/s) Norm Andreas (m/s) Left Median Motor (Abd Poll Brev) Wrist ? 2.6 <3.9 13.3 >4.5 15.2 100.0 Elbow Wrist 3.0 19.0 63 >45 Elbow ? 5.6 12.4 14.4 93.2 Right Median Motor (Abd Poll Brev) Wrist ? 2.6 <3.9 13.2 >4.5 16.6 100.0 Elbow Wrist 3.3 19.5 59 >45 Elbow ? 5.9 13.4 16.7 101.5 Left Peroneal Motor (Ext Dig Brev) Ankle ? 4.0 <4.0 7.4 >2.5 9.1 100.0 Ankle Ext Dig Brev 4.0 0.0 B Fib ? 9.1 6.6 8.1 89.2 B Fib Ankle 5.1 28.0 55 >40 Poplt ? 9.5 6.6 8.0 89.2 Poplt B Fib 0.4 4.0 100 >40 Left Tibial Motor (Abd [place] Brev) Ankle ? 3.0 <5 25.0 >2.5 33.7 100.0 Ankle Abd [place] Brev 3.0 0.0 Knee ? 9.8 18.5 24.8 74.0 Knee Ankle 6.8 33.0 49 >40 Right Tibial Motor (Abd [place] Brev) Ankle ? 3.4 <5 20.2 >2.5 26.7 100.0 Ankle Abd [place] Brev 3.4 0.0 Knee ? 10.5 13.3 16.7 65.8 Knee Ankle 7.1 49.0 69 >40 Left Ulnar Motor (Abd Dig Minimi) Wrist ? 2.4 <3.0 12.4 >5 14.2 100.0 B Elbow Wrist 2.8 17.0 61 >45 B Elbow ? 5.2 12.7 14.5 102.4 A Elbow B Elbow 1.1 10.0 91 >45 A Elbow ? 6.3 12.8 14.6 103.2 Right Ulnar Motor (Abd Dig Minimi) Wrist ? 2.7 <3.0 11.0 >5 13.5 100.0 B Elbow Wrist 2.6 17.0 65 >45 B Elbow ? 5.3 10.1 12.7 91.8 A Elbow B Elbow 1.0 10.0 100 >45 A Elbow ? 6.3 9.5 12.1 86.4 EMG ?Side Muscle Nerve Root Ins Act Fibs Psw Amp Dur Poly Recrt Int Pat Comment Right Deltoid Axillary C5-6 Nml Nml Nml Nml Nml 0 Nml Complete Left 1stDorInt Ulnar C8-T1 Nml Nml Nml Nml Nml 0 Nml Complete Left FlexCarRad Median C6-7 Nml Nml Nml Nml Nml 0 Nml Complete Left FlexCarpiUln Ulnar C8,T1 Nml Nml Nml Nml Nml 0 Nml Complete Left Biceps Musculocut C5-6 Nml Nml Nml Nml Nml 0 Nml Complete Left Triceps Radial C6-7-8 Nml Nml Nml Nml Nml 0 Nml Complete Left Deltoid Axillary C5-6 Nml Nml Nml Nml Nml 0 Nml Complete Left AbdHallucis MedPlantar S1-2 Nml Nml Nml Nml Nml 0 Nml Complete Left AntTibialis Dp Br Peron L4-5 Nml Nml Nml Nml Nml 0 Nml Complete Left PostTibialis Tibial L5, S1 Nml Nml Nml Nml Nml 0 Nml Complete Left MedGastroc Tibial S1-2 Nml Nml Nml Nml Nml 0 Nml Complete Left VastusMed Femoral L2-4 Nml Nml Nml Nml Nml 0 Nml Complete Paraspinal EMG ?Side Muscle Nerve Root Ins Act Fibs Psw Comment Left Cervical Upper Rami Nml Nml Nml Left Cervical Mid Rami Nml Nml Nml Left Cervical Lower Rami Incr 1+ 1+ Left Lumbar Upper Rami Nml Nml Nml Left Lumbar Mid Rami Nml Nml Nml Left Lumbar Lower Rami Nml Nml Nml FINDINGS: All motor and sensory nerves tested showed normal latencies, amplitudes and conduction velocities. Concentric needle EMG was performed in selected muscles of the left upper and lower extremities, left cervical lumbar paraspinals. Study revealed signs of electric abnormalities as shown in the table above. Left lower cervical paraspinals showed increased insertional activity, PSWs and fibrillations. Patient felt dizzy. We had to stop the needle EMG. IMPRESSION: 1. Nerve conduction study is normal as expected in motor neuron disorders or myopathies. 2. There is no electrodiagnostic evidence for median neuropathy, ulnar neuropathy, brachial plexopathy, peroneal neuropathy, tibial neuropathy, lumbosacral plexopathy, lumbar radiculopathy, or peripheral neuropathy. 3. However I could not rule out motor neuron disorder. 4. Differential also includes cervical radiculopathy. CLINICAL COMMENT: To rule out motor neuron disorder, we would need to finish needle EMG, to include either the tongue or thoracic paraspinals. Patient agreed to come back on a later date to do this. Consider cervical spine MRI to rule out radiculopathy or any increased signal. Thank you for your kind referral. Nai Lopes MD, EM Board Certified, [place] [employer] (ABPMR) Board Certified, [place] [employer] Electro[employer] (ABEM) CODIN 03123 x 2 extremities MTDD
== END 2025-08-05 14:39 | disposition home or self-care (01) ==
LOC: HO.NEURO 14:38
PROVIDERS: PCP Internal Medicine; Visit Provider Nurse Practitioner Family
DX: R53.1 Weakness (principal); R90.89 Other abnormal findings on diagnostic imaging of central nervous system
CPT/HCPCS: 95886; 95913

== ENCOUNTER → 2025-08-05 14:42 | Outpatient (BNV) | payer OTHER, SELFPAY | PROVIDERS: PCP Internal Medicine; Visit Provider Physical Medicine & Rehabilitation | DX: R53.1 Weakness (principal) | CPT/HCPCS: 95885; 95886; 95913 ==